=== PATIENT | female | born 1935 | race Caucasian/White ===

== ENCOUNTER 2021-12-23 09:15 | Outpatient (CLI) | payer MEDICARE, BC, SELFPAY | END 2021-12-23 09:16 | disposition home or self-care (01) | LOC: AMB 01-06 08:11 | PROVIDERS: PCP Family Medicine; Visit Provider Emergency Medicine Emergency Medical Services | DX: I21.4 Non-ST elevation (NSTEMI) myocardial infarction (principal); J44.1 Chronic obstructive pulmonary disease with (acute) exacerbation | CPT/HCPCS: A0425; A0434 ==

== ENCOUNTER 2021-12-23 09:58 | Emergency (ER) | payer MEDICARE, BC, SELFPAY ==
[2021-12-23] VITALS (20 sets, daily range): BP systolic 122–194; BP diastolic 69–95; PULSE 57–70; RESP 18–27; O2SAT 91–98; BMI 16.1
--- NOTE | 2021-12-23 10:42 | CRLHL7_ITS ---
For Patients: As a result of the Century Cures Act, medical imaging exams and procedure reports are released immediately into your electronic medical record. You may view this report before your referring provider. If you have questions, please contact your health care provider. INDICATION: Difficulty breathing. TECHNIQUE: Chest 1 view. COMPARISON: Chest radiograph 10/08/2021. CT chest 11/27/2021. FINDINGS: The previously seen left upper lung opacity has resolved. No new focal consolidation. Chronic bilateral coarse interstitial opacities, bronchiectasis, and bilateral perihilar scarring. No pleural effusion or pneumothorax. Pulmonary hyperinflation. Heart size upper limits of normal. Thoracolumbar curve. IMPRESSION: 1. Resolution of previously seen left upper lung opacity. No new acute cardiopulmonary findings. 2. Stable bilateral scarring, bronchiectasis, and coarse interstitial opacities. Dictated by Trudi Stoll MD @ 12/23/2021 12:04:50 PM (Electronically Signed)
[2021-12-23 11:08] LABS: Basophils Percent Auto 0.7 % (0.0-3.0); Eosinophils Percent Auto 1.1 % (0.0-7.0); Hematocrit 42.4 % (33.0-51.0); Hemoglobin* 14.1 gm/dL (12.0-16.0); Immature Granulocytes Abs Auto 0.02 K/uL (0.00-0.30); Lymphocytes Percent Auto 33.9 % (20-44); Mean Corpuscular HGB Conc 33 gm/dL (32-36); Mean Corpuscular Hemoglobin 28 pg (26-34); Mean Corpuscular Volume 83 fL (80-100); Monocytes Percent Auto 14.6 % (0.0-11.0); Platelet Count* 180 K/uL (140-440); RDW Coefficient of Variation % 16.3 % (11.5-15.5); Red Blood Count 5.09 m/uL (4.00-5.20)
[2021-12-23 11:12] LABS: Slide Review Reflex No
[2021-12-23 11:29] LABS: Albumin* 4.2 g/dL (3.3-5.0); Chloride* 96 mmol/L (96-114)
[2021-12-23 11:30] LABS: Potassium* 4.2 mmol/L (3.6-5.1); Sodium* 134 mmol/L (135-149)
[2021-12-23 11:32] LABS: Bilirubin Total* 0.6 mg/dL (0.1-1.5); Creatinine* 0.9 mg/dL (0.5-1.5); Est. Creatinine Clearance* 27.69; Estimated Glomerular Filt Rate 63 ml/min
[2021-12-23 11:33] LABS: Alanine Aminotransferase* 16 U/L (4-35); Alkaline Phosphatase* 146 U/L (40-150); Aspartate Amino Transferase* 34 U/L (12-35); Blood Urea Nitrogen* 26 mg/dL (7-30); Carbon Dioxide* 30 mmol/L (20-32); Glucose* 130 mg/dL (60-115); INR 2.29 (0.91-1.10); Prothrombin Time 25.6 Seconds; Total Protein* 7.7 g/dL (6.0-8.3)
[2021-12-23 11:36] LABS: C Reactive Protein* 2.9 mg/dL (0.5-1.0)
[2021-12-23 11:42] LABS: NT Pro B Type NatriureticPept* 3410 PG/mL (0-450)
[2021-12-23 11:48] LABS: Troponin I* 0.24 ng/mL (0.01-0.04)
--- NOTE | 2021-12-23 11:48 | ED.NURSE ---
lab called with critical troponin 0.24, dr. hickey updated.
[2021-12-23 11:50] LABS: PCR FLU A Negative PCR FLU A (Negative); PCR FLU B Negative PCR FLU B (Negative); SARS PCR* Negative SARS-CoV-2 (Negative)
--- NOTE | 2021-12-23 11:51 | ED.SOB ---
HPI - SOB/Dyspnea General Time Seen by Provider: 10:30 Date Seen: 12/23/21 Chief Complaint: Shortness of Breath/Dyspnea Stated Complaint: Struggling to breathe, COPD Time Seen by Provider: 12/23/21 10:27 Source: patient, family and RN notes reviewed Mode of arrival: ambulatory Limitations: no limitations History of Present Illness HPI Narrative: Carmen is a very pleasant 86-year-old female who has a history of SVT status post ablation August when he 23, non tobacco induced COPD, diastolic heart failure, who comes to the emergency room with her for evaluation of difficulty breathing and ongoing cough. Patient notes that since it has been humid outside she has had a harder time breathing has and has tended to stay in her house. On TuesdayDecember 21 or 48 hours ago she began having occasional episodes of feeling like she was going to pass out. This happened once on December 21 again last night and again this morning. She describes this feeling as being dizzy and upon further discussion she states she almost feels like she is rocking back and forth. She denies chest pain but did note chest pressure on December 21. No chest pain or pressure today. Patient had a history of SVT with ablation earlier this year. He did have a heart catheterization done at that time. She notes that she has continued difficulty breathing and does occasionally get dark green or brown colored sputum. She is currently anticoagulated secondary to history of AFib. According to patient she also had a blood clot but I do not note this in her history. She has not skipped any doses over warfarin. She also notes that she has had a sore throat but has not had a fever. She notes occasional sores in her mouth treated with nystatin. MD elicited complaint: shortness of breath and cough Pertinent past history: COPD, congestive heart failure, pneumonia and DVT Onset (ago): day(s) Timing: constant Severity: moderate Exacerbating factors: lying flat, exertion, movement, coughing, talking and humidity Relieving factors: rest Known history of: COPD and congestive heart failure Associated symptoms: chest pain (Denies pain but describes a heaviness on December 21.) Treatment prior to arrival: bronchodilator (Nebulizer did not seem to help.) Related Data Home oxygen amount: none Previous Rx's Medication Instructions Recorded albuterol sulfate 90 mcg/actuation 2 puff INHALATION Q4H PRN #8.5 g 12/04/21 aerosol inhaler Allergies Allergy/AdvReac Type Severity Reaction Status Date / Time Angiotensin-converting Allergy Mild Uncoded 12/23/21 10:18 enzyme inhibitor Review of Systems Status of ROS: Reports: 10 or more systems reviewed and unremarkable except as noted in History and below Const: Reports: change in weight (Continued weight loss) and fatigue; Denies: fever Eyes: Denies: change in vision or blurry vision ENMT: Reports: throat pain (Describes recurrent treatment with nystatin.); Denies: neck pain Cardio: Reports: chest pain (Chest heaviness) and shortness of breath with exertion Resp: Reports: shortness of breath, cough and change in phlegm color GI: Denies: abdominal pain, nausea or vomiting : Denies: painful urination or urinary frequency Musculo: Denies: back pain or neck pain Integ/Breast: Denies: rash or itching Neuro: Reports: weakness in extremities; Denies: headache or numbness in extremities Endo: Reports: fatigue PFSH [facility] Medical History History of cataract History of oral lesions Surgical History History of hysterectomy Social History Smoking Status: Never smoker Do you use any of these nicotine containing products: None How often do you have a drink containing alcohol: never How often do you have six or more drinks on one occasion: Never AUDIT-C Alcohol total score: 0 Non-prescribed substance use: denies use service: No Exam Const: Vital Signs, click to edit/add: Vital Signs - 24 hr 12/23/21 10:10 12/23/21 10:30 12/23/21 11:00 Pulse Rate [Pulse Oximeter] 62 62 57 L Respiratory Rate 24 20 20 Blood Pressure [Le ft Upper Arm] 155/76 H 147/73 H 139/73 Pulse Oximetry 98 97 96 12/23/21 11:30 12/23/21 12:00 12/23/21 12:30 Pulse Rate [Pulse Oximeter] 57 L 58 L 58 L Respiratory Rate 20 19 20 Blood Pressure [Le ft Upper Arm] 122/69 138/79 139/76 Pulse Oximetry 96 96 96 12/23/21 13:00 12/23/21 13:30 Pulse Rate [Pulse Oximeter] 61 61 Respiratory Rate 20 21 Blood Pressure [Le ft Upper Arm] 154/75 H 151/74 H Pulse Oximetry 95 95 Documenting provider has reviewed patient's vital signs: yes Common normals: no apparent distress and oriented x3 General appearance: cooperative Nutritional appearance: not cachectic Orientation/consciousness: Yes oriented to person, Yes oriented to place and Yes oriented to time HENMT: Common normals: normocephalic, head/scalp atraumatic, external ears normal and external nose normal Head and scalp: normocephalic and atraumatic Face and sinus: normal facial exam Nose: external nose normal External ear: external ears normal Mouth: oral and palatal mucosa normal Throat: posterior oropharynx normal Other: At this time I do not note any lesions in mouth or in throat. Eye: Common normals: PERRL and conjunctivae normal General eye: normal appearance of both eyes Conjunctiva: conjunctiva(e) normal Pupil: PERRL Neck & C-Spine: Common normals: full ROM, no lymphadenopathy and supple Cervical spine: cervical ROM normal Lymph: Lymphatic: no lymphadenopathy noted Resp: Effort & inspection: able to speak in complete sentences, pursed lip breathing, labored (With activity) and audible wheezes Auscultation: crackles (On the right.) Laterality: right Cardio: Common normals: regular rate Rate: regular rate Rhythm: abnormal rhythm irregularly irregular GI: Common normals: soft to palpation Palpation: soft : Common normals: no CVA tenderness Bladder/kidney exam: no CVA tenderness Back & Pelvis: Common normals: no CVA tenderness Other: Kyphosis Extremity: Common normals: normal to inspection Neuro: Common normals: oriented x3 Sensorium/orientation: oriented to person, oriented to place and oriented to time Psych: Common normals: mental status grossly normal Skin: Common normals: no rashes or lesions noted General skin exam: no rashes or lesions noted Course Course Hospital Course: Patient arrives complaining of respiratory symptoms of cough, shortness of breath that has been getting gradually worse and now complicated by 3 episodes of feeling lightheaded without syncope. She has a history of SVT with ablation, non tobacco induced COPD, and unexplained weight loss. She states I almost passed out. At this time will have an IV placed, continuous cardiac monitoring and oximetry as well as lab draw CBC, comprehensive panel, CRP, INR, urinalysis and chest x-ray as well as repeat EKGs and troponins. Reevaluation(s) Reevaluation #1: Patient is doing well. Her oxygen, pulse and blood pressure have remained normal during her entire stay. She is informed that troponin is elevated at 0.24 and that she will need hospitalization at a cardiac hospital. ProBNP is elevated at 3410 and I do not have any previous values for comparison. Chest x-ray however does not show any evidence of overwhelming pulmonary edema or widened mediastinum. INR is therapeutic at 2.29. Reevaluation #2: Patient was up to the bathroom and was short of breath and thus did her own albuterol inhaler which helped. I do speak with her and her regarding her troponin which has come back elevated. Her INR is therapeutic at 2.29. Second troponin 0.22. We have unfortunately been unable to transfer patient to any of the hospitals in this [facility] specifically [facility] where patient usually has her cardiology care. We were able to place patient on wait list for [facility], Dr. Schaefer accepting. However, there is likely a 12-24 hour wait. In the interim we will admit patient to the hospital. No chest pain at this time. Consultations Consultation #1: I spoke with Dr. Schaefer from [facility]. She has a letter stamping machine operator who does accept this patient in transfer. However, there is a weight as [place] is on divert at this time. Patient is on the waiting list but will be admitted to the floor pending transfer. We spoke in regards to medications and Dr. Schaefer suggests aspirin heparin Plavix and an antibiotic for bronchitis. I specifically reminded her that INR is elevated at 2.29 as patient is on warfarin. She states with heparin we should do the drip and not the bolus. I have spoken with accepting MD here at the hospital and we will do aspirin 324 heparin bolus based on weight and Plavix 300 mg. Vital Signs Vital signs: Initial Vital Signs Temperature Source Temporal Artery Scan 12/23/21 10:10 Pulse Rate 62 12/23/21 10:10 Pulse Rhythm 12/23/21 10:10 Respiratory Rate 24 12/23/21 10:10 Blood Pressure 155/76 H 12/23/21 10:10 Blood Pressure Mean 102 12/23/21 10:10 Blood Pressure Position Supine 12/23/21 10:10 Pulse Oximetry 98 12/23/21 10:10 Oxygen Delivery Method 12/23/21 10:10 Vital Signs Pulse Rate 62 12/23/21 10:10 Respiratory Rate 24 12/23/21 10:10 Blood Pressure 155/76 H 12/23/21 10:10 Pulse Oximetry 98 12/23/21 10:10 Pulse Rate 61 12/23/21 13:30 Respiratory Rate 21 12/23/21 13:30 Blood Pressure 151/74 H 12/23/21 13:30 Pulse Oximetry 95 12/23/21 13:30 MDM - SOB/Dyspnea MDM Narrative Medical decision making narrative: 1. Non STEMI-patient has elevation of her troponin to 0.24. She does have a therapeutic INR of 2.29. Has no ongoing chest pain at this time but mainly respiratory symptoms. Consultation with [facility] letter stamping machine operator. Does suggest aspirin heparin Plavix and an antibiotic. I do question the use of antiplatelets anticoagulants given patient's INR of 2.29. Dr. Schaefer suggests no bolus of heparin but using a drip. I speak with accepting MD we will use the lower dose of Plavix at 300 mg. Patient continues to be pain-free. I speak with Carmen and her regarding the use of these blood thinners in the setting of an elevated INR. We speak about risk of bleeding and they do understand that risk. They are giving me permission to go ahead with these medications. 2. COPD exacerbation versus bronchitis.. We have obtained a sputum culture. Her white count is actually low at 2.8. Her COVID is negative. Will treat with Rocephin 1 g IV and Zithromax 500 mg IV. Chest x-ray reassuring. Evidence of pneumonia. 3. Elevated proBNP-patient has no edema to suggest right-sided heart failure. She does have crackles in her right side of her chest but no evidence of pulmonary edema on her chest x-ray. 3. Disposition-currently awaiting accepting facility. I did speak with [facility] letter stamping machine operator who suggest hospitalization at a cardiac Hospital but [facility] unable to accommodate this. [facility] also unable to accommodate. Will continue to call. Addendum: We have attempted transfer to all cardiac ready hospitals in the [facility] and have been unsuccessful. We were able to get on a waiting list at [facility] who are currently on divert but thinks that possibly they could accept patient in 12-24 hours. They were able to provide me with a cardiac consult which is dictated earlier in this note. Dr. Chanel, hospitalist has agreed to accept this patient to the floor here at [facility] pending transfer. She will be in the CCU. Medical Records Attestation: I reviewed the patient's medical records. Lab Data Attestation: I reviewed the patient's lab results. Labs: Lab Results 12/23/21 12/23/21 12/23/21 Range/Units 11:00 11:00 11:00 WBC 2.80 L (4.50-11.00) K/uL RBC 5.09 (4.00-5.20) m/uL Hgb 14.1 (12.0-16.0) gm/dL Hct 42.4 (33.0-51.0) % MCV 83 (80-100) fL MCH 28 (26-34) pg MCHC 33 (32-36) gm/dL RDW Coeff of Amor 16.3 H (11.5-15.5) % Plt Count 180 (140-440) K/uL Neut % (Auto) 49.0 (42.0-72.0) % Lymph % (Auto) 33.9 (20-44) % Holt % (Auto) 14.6 H (0.0-11.0) % Eos % (Auto) 1.1 (0.0-7.0) % Baso % (Auto) 0.7 (0.0-3.0) % Neut # (Auto) 1.40 L (1.7-7.0) K/uL Lymph # (Auto) 0.90 (0.90-2.90) K/uL Holt # (Auto) 0.40 (0.00-0.90) K/UL Eos # (Auto) 0.00 (0.00-0.50) K/uL Baso # (Auto) 0.00 (0.00-0.30) K/uL Abs Immat Gran (auto) 0.02 (0.00-0.30) K/uL INR 2.29 H (0.91-1.10) Sodium 134 L (135-149) mmol/L Potassium 4.2 (3.6-5.1) mmol/L Chloride 96 (96-114) mmol/L Carbon Dioxide 30 (20-32) mmol/L BUN 26 (7-30) mg/dL Creatinine 0.9 (0.5-1.5) mg/dL Estimated Creat Clear 27.69 Estimated GFR 63 ml/min Glucose 130 H (60-115) mg/dL Calcium 9.0 (8.4-10.6) mg/dL Total Bilirubin 0.6 (0.1-1.5) mg/dL AST 34 (12-35) U/L ALT 16 (4-35) U/L Alkaline Phosphatase 146 (40-150) U/L Troponin I (0.01-0.04) ng/mL C-Reactive Protein 2.9 H (0.5-1.0) mg/dL NT-Pro-B Natriuret Pep 3410 H (0-450) PG/mL Total Protein 7.7 (6.0-8.3) g/dL Albumin 4.2 (3.3-5.0) g/dL Urine Color (Yellow) Urine Appearance (Clear) Urine pH (5.0-8.5) Ur Specific Velva (1.000-1.030) Urine Protein (Negative) Urine Glucose (UA) (Negative) Urine Ketones (Negative) Urine Blood (Negative) Urine Nitrite (Negative) Urine Bilirubin (Negative) Urine Urobilinogen (0.2-1.0) Ur Leukocyte Esterase (Negative) Urine RBC (0-2) Urine WBC (0-5) Ur Squamous Epith Cells (None-Few) Urine Bacteria (None) SARS-CoV-2 (PCR) (Negative) Influenza Type A (PCR) (Negative) Influenza Type B (PCR) (Negative) 12/23/21 12/23/21 12/23/21 Range/Units 11:00 11:00 11:01 WBC (4.50-11.00) K/uL RBC (4.00-5.20) m/uL Hgb (12.0-16.0) gm/dL Hct (33.0-51.0) % MCV (80-100) fL MCH (26-34) pg MCHC (32-36) gm/dL RDW Coeff of Amor (11.5-15.5) % Plt Count (140-440) K/uL Neut % (Auto) (42.0-72.0) % Lymph % (Auto) (20-44) % Holt % (Auto) (0.0-11.0) % Eos % (Auto) (0.0-7.0) % Baso % (Auto) (0.0-3.0) % Neut # (Auto) (1.7-7.0) K/uL Lymph # (Auto) (0.90-2.90) K/uL Holt # (Auto) (0.00-0.90) K/UL Eos # (Auto) (0.00-0.50) K/uL Baso # (Auto) (0.00-0.30) K/uL Abs Immat Gran (auto) (0.00-0.30) K/uL INR (0.91-1.10) Sodium (135-149) mmol/L Potassium (3.6-5.1) mmol/L Chloride (96-114) mmol/L Carbon Dioxide (20-32) mmol/L BUN (7-30) mg/dL Creatinine (0.5-1.5) mg/dL Estimated Creat Clear Estimated GFR ml/min Glucose (60-115) mg/dL Calcium (8.4-10.6) mg/dL Total Bilirubin (0.1-1.5) mg/dL AST (12-35) U/L ALT (4-35) U/L Alkaline Phosphatase (40-150) U/L Troponin I 0.24 H* (0.01-0.04) ng/mL C-Reactive Protein (0.5-1.0) mg/dL NT-Pro-B Natriuret Pep (0-450) PG/mL Total Protein (6.0-8.3) g/dL Albumin (3.3-5.0) g/dL Urine Color Yellow (Yellow) Urine Appearance Clear (Clear) Urine pH 7.0 (5.0-8.5) Ur Specific Velva 1.015 (1.000-1.030) Urine Protein Negative (Negative) Urine Glucose (UA) Negative (Negative) Urine Ketones Negative (Negative) Urine Blood Trace-intact A (Negative) Urine Nitrite Negative (Negative) Urine Bilirubin Negative (Negative) Urine Urobilinogen 0.2 (0.2-1.0) Ur Leukocyte Esterase Negative (Negative) Urine RBC 0-2 (0-2) Urine WBC 0-2 (0-5) Ur Squamous Epith Cells None (None-Few) Urine Bacteria None (None) SARS-CoV-2 (PCR) Negative SARS-CoV-2 (Negative) Influenza Type A (PCR) Negative PCR FLU A (Negative) Influenza Type B (PCR) Negative PCR FLU B (Negative) 12/23/21 Range/Units 13:53 WBC (4.50-11.00) K/uL RBC (4.00-5.20) m/uL Hgb (12.0-16.0) gm/dL Hct (33.0-51.0) % MCV (80-100) fL MCH (26-34) pg MCHC (32-36) gm/dL RDW Coeff of Amor (11.5-15.5) % Plt Count (140-440) K/uL Neut % (Auto) (42.0-72.0) % Lymph % (Auto) (20-44) % Holt % (Auto) (0.0-11.0) % Eos % (Auto) (0.0-7.0) % Baso % (Auto) (0.0-3.0) % Neut # (Auto) (1.7-7.0) K/uL Lymph # (Auto) (0.90-2.90) K/uL Holt # (Auto) (0.00-0.90) K/UL Eos # (Auto) (0.00-0.50) K/uL Baso # (Auto) (0.00-0.30) K/uL Abs Immat Gran (auto) (0.00-0.30) K/uL INR (0.91-1.10) Sodium (135-149) mmol/L Potassium (3.6-5.1) mmol/L Chloride (96-114) mmol/L Carbon Dioxide (20-32) mmol/L BUN (7-30) mg/dL Creatinine (0.5-1.5) mg/dL Estimated Creat Clear Estimated GFR ml/min Glucose (60-115) mg/dL Calcium (8.4-10.6) mg/dL Total Bilirubin (0.1-1.5) mg/dL AST (12-35) U/L ALT (4-35) U/L Alkaline Phosphatase (40-150) U/L Troponin I 0.22 H* (0.01-0.04) ng/mL C-Reactive Protein (0.5-1.0) mg/dL NT-Pro-B Natriuret Pep (0-450) PG/mL Total Protein (6.0-8.3) g/dL Albumin (3.3-5.0) g/dL Urine Color (Yellow) Urine Appearance (Clear) Urine pH (5.0-8.5) Ur Specific Velva (1.000-1.030) Urine Protein (Negative) Urine Glucose (UA) (Negative) Urine Ketones (Negative) Urine Blood (Negative) Urine Nitrite (Negative) Urine Bilirubin (Negative) Urine Urobilinogen (0.2-1.0) Ur Leukocyte Esterase (Negative) Urine RBC (0-2) Urine WBC (0-5) Ur Squamous Epith Cells (None-Few) Urine Bacteria (None) SARS-CoV-2 (PCR) (Negative) Influenza Type A (PCR) (Negative) Influenza Type B (PCR) (Negative) Imaging Data Chest x-ray: Attestation: I have reviewed the pertinent imaging results. My impression: Chronic lung markings. Radiologist's impression: No acute findings with resolution of left upper lobe infiltrate previously. ECG Data Attestation: I personally reviewed and interpreted this ECG as follows: ECG interpretation date: 12/23/21 ECG interpretation time: 10:30 Interpretation: Sinus rhythm with occasional PVC. Am not entirely convinced that she is not going in and out of atrial fibrillation. Second EKG by my read shows sinus rhythm at a rate of 69. Do believe that there is worsening of the T-wave inversion in the inferior leads. Nonspecific T-wave abnormality. Downsloping in the inferior leads but this is very minor. Rate is at 68. QT is normal. Critical Care Time Critical Care Time Total Critical Care Time in Minutes: 90 Discharge Plan Discharge Prescriptions: No Action albuterol sulfate 90 mcg/actuation HFA aerosol inhaler 2 puff inhalation Q4H PRN (Reason: shortness of breath or wheezing) Qty: 8.5 11RF Follow Up/Referrals: Gonzalez Mckay MD [Primary Care Provider] -
[2021-12-23 14:35] LABS: Troponin I* 0.22 ng/mL (0.01-0.04)
[2021-12-23 14:35] LABS: Appearance Urine Clear (Clear); Bilirubin Urine Negative (Negative); Blood Urine Trace-intact (Negative); Color Urine Yellow (Yellow); Glucose Urine Negative (Negative); Ketones Urine Negative (Negative); Leukocyte Esterase Urine Negative (Negative); Nitrite Urine Negative (Negative); Protein Urine Negative (Negative); Specific Gravity Urine 1.015 (1.000-1.030); Urobilinogen Urine 0.2 (0.2-1.0)
--- NOTE | 2021-12-23 14:35 | ED.NURSE ---
Critical result from lab: troponin 0.22. and RN updated.
--- NOTE | 2021-12-23 14:52 | ED.NURSE ---
Per Dr Diaz, pt accepted at [facility], but may be a 12-14 hour wait for a bed
[2021-12-23 15:17] LABS: RBC Urine 0-2 (0-2); WBC Urine 0-2 (0-5)
[2021-12-23 16:35] LABS: HCO3 VBG 29 mmol/L (21-28); Lactate* 1.1 mmol/L (0.5-1.9); PCO2 VBG 46 mmHG (40-50); PO2 VBG 32.1 mmHG (25-47); pH VBG 7.409 (7.32-7.43)
[2021-12-23] MEDS: HEPARIN 25,000 UNIT/500 ML BAG 10 UNIT IV (16:42)
[2021-12-23] MEDS: cefTRIAXone 1 GM in 0.9 % SODIUM CHLORIDE Mini-bag 100 ML IVPB (16:44)
[2021-12-23] MEDS: ASPIRIN 81 MG TAB.CHEW 324 MG PO (16:44)
[2021-12-23] MEDS: CLOPIDOGREL 300 MG TABLET PO (16:45)
--- NOTE | 2021-12-23 16:50 | P.EN_ITS ---
Chart Event Note Time Seen by Provider: 16:30 Date Seen: 12/23/21 Chart Event Note: I was in the process of assessing this patient for admission pending bed availability at [facility], [place], [place], when we received notification that they now have an assigned bed to accept her. Thus I did not admit this patient to our hospital and she is transferred appropriately to [facility].
[2021-12-23] MEDS: AZITHROMYCIN 250 MG TABLET 500 MG PO (16:52)
[2021-12-23] MEDS: IPRAT-ALBUT 0.5-2.5 MG/3 ML NEB 1 NEB IH (16:52)
--- NOTE | 2021-12-23 17:20 | ED.NURSE ---
Report to CAMILLE Ramesh at [facility]. Pt will be going to [facility] [address]. EMS called for transport. ETA for transport is one hour.
--- NOTE | 2021-12-23 18:43 | ED.NURSE ---
Pt resting on cart. Denies needs. Call light within reach.
--- NOTE | 2021-12-23 19:30 | ED.NURSE ---
Pt and belongings transferred to [facility] via [facility]
== END 2021-12-23 20:45 | disposition short-term general hospital (02) ==
PROVIDERS: Internal Medicine; Emergency Provider Family Medicine; PCP Family Medicine
DX: I21.4 Non-ST elevation (NSTEMI) myocardial infarction (principal); J44.1 Chronic obstructive pulmonary disease with (acute) exacerbation
CPT/HCPCS: 36415; 71045; 80053; 81003; 81015; 82803; 83605; 83880; 84484; 85025; 85610; 86140; 87040; 87070; 87186; 87502; 87635; 93005; 94640; 96365; 99285; 99291; 99292; A9270; J0696; J1644

== ENCOUNTER 2022-01-08 15:37 | Outpatient (CLI) | payer MEDICARE, BC, SELFPAY ==
[2022-01-08 15:45] LABS: INR 1.78 (0.91-1.10); Prothrombin Time 21.1 Seconds
== END 2022-01-08 15:38 | disposition home or self-care (01) ==
PROVIDERS: PCP Family Medicine; Visit Provider Family Medicine
DX: I48.91 Unspecified atrial fibrillation (principal)
CPT/HCPCS: 85610

== ENCOUNTER 2022-01-23 08:35 | Outpatient (CLI) | payer MEDICARE, BC, SELFPAY | END 2022-01-23 08:36 | disposition home or self-care (01) | LOC: AMB 06-02 15:17 | PROVIDERS: PCP Family Medicine; Visit Provider Family Medicine | DX: R06.09 Other forms of dyspnea (principal) | CPT/HCPCS: A0425; A0427 ==

== ENCOUNTER 2022-01-23 09:05 | Emergency (ER) | payer MEDICARE, BC, SELFPAY ==
[2022-01-23] VITALS (9 sets, daily range): BP systolic 130–148; BP diastolic 64–104; PULSE 60–69; RESP 10–20; TEMP 36.7; O2SAT 91–100; BMI 13.7
--- NOTE | 2022-01-23 09:30 | ED_ITS ---
HPI - General Adult General Time Seen by Provider: 09:30 Date Seen: 01/23/22 Chief complaint: Shortness of Breath/Dyspnea Stated complaint: Difficulty Breathing Time Seen by Provider: 01/23/22 09:21 Source: patient, EMS, RN notes reviewed and old records reviewed (ED visit from 12/2021 reviewed) Mode of arrival: EMS Limitations: no limitations History of Present Illness HPI narrative: This 86-year-old female is coming in with primary complaint of shortness of breath. She was reportedly found to have O2 sats in the mid 80s per EMS, did give her a DuoNeb I believe and oxygen and she came up into the mid 90s. She has 9 nicotine associated COPD. Looking in her records, she was transferred out for non STEMI to [facility] near the end of December. It does not sound like she had angiography, she states they did some imaging. She talks of having coughing and respiratory symptoms for over a month. There is also associated weight loss, report of 15 lb over a month. She is having no pain outside of her mouth right now. She states she has sores in her mouth. When I question her where the ER it sounds as if it is generalized pain. She saw her computer support technician about 2 weeks ago and they stop the sodium chloride nebulization. She has a burning pain in her mouth. She has felt a little blocked upper congested in her head but no drainage. No sore throat. She states many of her medicines have been changed. She does not endorse any chest pain. Note in her discharge summary from [facility] that she has, it looks that she had a CT scan of her chest, a cardiac MRI, an echo, cardiac catheterization. Her shortness of breath really started to worsen last night around 9:00 p.m.. Her discharge medicines are albuterol inhaler p.r.n. Albuterol nebs for bronchiectasis 2 to 4 times a day Amlodipine 2.5 mg daily Was given Augmentin 500 mg every 12 hours for 5 days, was changed to cefdinir 300 mg which she states she finished, further details not known Ensure Hydrochlorothiazide 12.5 mg daily DuoNebs 4 times a day Losartan 50 mg daily Primidone 50 mg t.i.d. Sodium chloride nebulization, has stopped Sotalol 80 mg b.i.d. Coumadin 1 mg Tuesday and Tuesday, 2 mg Tuesday Related Data Home Medications Medication Instructions Recorded Confirmed hydrochlorothiazide 12.5 mg capsule 12.5 mg PO DAILY 12/23/21 01/01/22 losartan 50 mg tablet 100 mg PO DAILY 12/23/21 01/01/22 primidone 50 mg tablet 50 mg PO TID 12/23/21 01/01/22 sotalol 80 mg tablet 80 mg PO BID 12/23/21 01/01/22 warfarin 2 mg tablet 1 - 2 mg PO DAILY 12/23/21 01/01/22 amlodipine 5 mg tablet 2.5 mg PO QDAY 01/01/22 01/01/22 cefdinir 300 mg capsule 300 mg PO QDAY 01/01/22 01/01/22 sodium chloride 3 % for 4 ml inhalation QID 01/01/22 01/01/22 nebulization Previous Rx's Medication Instructions Recorded albuterol sulfate 90 mcg/actuation 2 puff inhalation Q4H PRN 12/04/21 aerosol inhaler shortness of breath or wheezing #8.5 grams albuterol sulfate 2.5 mg/0.5 mL 2.5 mg (0.5 mL) inhalation .2-4 x 01/12/22 solution for nebulization daily #30 ea ipratropium 0.5 mg-albuterol 3 mg 3 ml inhalation QID #180 mL 01/18/22 (2.5 mg base)/3 mL nebulization soln doxycycline monohydrate 100 mg 100 mg PO BID #14 caps 01/23/22 capsule nystatin 100,000 unit/mL oral 5 ml buccal BID 10 days #100 mL 01/23/22 suspension Allergies Allergy/AdvReac Type Severity Reaction Status Date / Time amoxicillin AdvReac Severe Diarrhea Verified 01/01/22 15:02 Angiotensin-converting Allergy Mild Uncoded 01/01/22 15:02 enzyme inhibitor Review of Systems Status of ROS: Reports: 10 or more systems reviewed and unremarkable except as noted in History and below [facility] Medical History History of cataract History of oral lesions Surgical History History of hysterectomy Social History Smoking Status: Never smoker Do you use any of these nicotine containing products: None How often do you have a drink containing alcohol: never How often do you have six or more drinks on one occasion: Never AUDIT-C Alcohol total score: 0 Non-prescribed substance use: denies use service: No Exam Const: Vital Signs, click to edit/add: Vital Signs - 24 hr 01/23/22 09:17 01/23/22 09:20 01/23/22 09:30 Temperature 98.1 F Pulse Rate [Pulse Oximeter] 65 64 Respiratory Rate 20 16 Blood Pressure [Ri ght Upper Arm] 148/90 H 148/104 H Pulse Oximetry 99 94 93 Oxygen Delivery Me thod Nasal Cannula Nasal Cannula Nasal Cannula Oxygen Flow Rate 2 2 01/23/22 10:30 01/23/22 11:00 01/23/22 12:00 Temperature Pulse Rate [Pulse Oximeter] 61 60 64 Respiratory Rate 12 14 20 Blood Pressure [Ri ght Upper Arm] 137/64 130/79 142/67 H Pulse Oximetry 100 98 93 Oxygen Delivery Me thod Nasal Cannula Room Air Room Air Oxygen Flow Rate Documenting provider has reviewed patient's vital signs: yes Common normals: no apparent distress, oriented x3 and alert General appearance: cooperative, comfortable and frail appearing Nutritional appearance: cachectic HENMT: Common normals: normocephalic, head/scalp atraumatic, hearing grossly normal bilaterally, external ears normal, external nose normal, nasal mucous membranes and turbinates normal, moist oral mucous membranes (Mildly globally erythematous, some white areas noted) and dentition normal (Has upper and lower dentures which were removed) Head and scalp: normocephalic and atraumatic Nose: external nose normal and nasal mucous membranes and turbinates normal External ear: external ears normal Neuro: Common normals: oriented x3 Sensorium/orientation: alert Course Reevaluation(s) Reevaluation #1: Patient is having a headache, will get her some Tylenol. Reviewed that her chest CT is showing stable changes of her bronchiectasis. We are going to turn her oxygen off and see if she requires it. Time: 11:51 Reevaluation #2: Patient did ambulate without becoming significantly hypoxic. The lower she went was 91-92% but notably there was a little tremor with walking. She and I reviewed that the bronchiectasis can give her mucous plugging. She is coughing up copious sputum since the DuoNeb by EMS. She only had a 5 day course of antibiotics in that was a few weeks ago. We discuss pros and cons of using antibiotics and I do think we have enough indication that we should consider on them knowing she has bronchiectasis. This time she is stabilized to go home and they are happy to try this. They know that I cannot guarantee that she will stay this stable and are aware she may need to return if worsening. Time: 12:56 Vital Signs Vital signs: Initial Vital Signs Temperature 98.1 F 01/23/22 09:17 Temperature Source Temporal Artery Scan 01/23/22 09:17 Pulse Rate 65 01/23/22 09:17 Pulse Rhythm 01/23/22 09:17 Respiratory Rate 20 01/23/22 09:17 Blood Pressure 148/90 H 01/23/22 09:17 Blood Pressure Mean 109 01/23/22 09:17 Blood Pressure Position Sitting 01/23/22 09:17 Pulse Oximetry 99 01/23/22 09:17 Oxygen Delivery Method 01/23/22 09:17 Oxygen Flow Rate 2 01/23/22 09:17 Vital Signs Temperature 98.1 F 01/23/22 09:17 Pulse Rate 65 01/23/22 09:17 Respiratory Rate 20 01/23/22 09:17 Blood Pressure 148/90 H 01/23/22 09:17 Pulse Oximetry 99 01/23/22 09:17 Oxygen Delivery Method 01/23/22 09:17 Oxygen Flow Rate 2 01/23/22 09:17 Temperature 98.1 F 01/23/22 09:17 Pulse Rate 64 01/23/22 12:00 Respiratory Rate 20 01/23/22 12:00 Blood Pressure 142/67 H 01/23/22 12:00 Pulse Oximetry 93 01/23/22 12:00 Oxygen Delivery Method 01/23/22 12:00 Oxygen Flow Rate 2 01/23/22 09:30 Medical Decision Making Lab Data Lab results reviewed: Yes I reviewed the patient's lab results Labs: Lab Results 01/23/22 01/23/22 01/23/22 Range/Units 09:10 09:20 09:20 WBC (4.50-11.00) K/uL RBC (4.00-5.20) m/uL Hgb (12.0-16.0) gm/dL Hct (33.0-51.0) % MCV (80-100) fL MCH (26-34) pg MCHC (32-36) gm/dL RDW Coeff of Amor (11.5-15.5) % Plt Count (140-440) K/uL Neut % (Auto) (42.0-72.0) % Lymph % (Auto) (20-44) % [place] % (Auto) (0.0-11.0) % Eos % (Auto) (0.0-7.0) % Baso % (Auto) (0.0-3.0) % Neut # (Auto) (1.7-7.0) K/uL Lymph # (Auto) (0.90-2.90) K/uL [place] # (Auto) (0.00-0.90) K/UL Eos # (Auto) (0.00-0.50) K/uL Baso # (Auto) (0.00-0.30) K/uL Abs Immat Gran (auto) (0.00-0.30) K/uL ESR (2-20) mm/hr INR (0.91-1.10) VBG pH 7.370 (7.32-7.43) VBG pCO2 53 H (40-50) mmHG VBG pO2 38.6 (25-47) mmHG VBG HCO3 31 H (21-28) mmol/L Sodium 134 L (135-149) mmol/L Potassium 4.3 (3.6-5.1) mmol/L Chloride 99 (96-114) mmol/L Carbon Dioxide 30 (20-32) mmol/L BUN 20 (7-30) mg/dL Creatinine 0.8 (0.5-1.5) mg/dL Estimated Creat Clear 23.56 Estimated GFR 72 ml/min Glucose 98 (60-115) mg/dL Calcium 8.7 (8.4-10.6) mg/dL Total Bilirubin 0.5 (0.1-1.5) mg/dL AST 25 (12-35) U/L ALT 11 (4-35) U/L Alkaline Phosphatase 132 (40-150) U/L Troponin I < 0.01 L (0.01-0.04) ng/mL C-Reactive Protein 2.5 H (0.5-1.0) mg/dL NT-Pro-B Natriuret Pep 2080 H (0-450) PG/mL Total Protein 7.8 (6.0-8.3) g/dL Albumin 3.9 (3.3-5.0) g/dL Procalcitonin 0.12 (<0.50) ng/mL SARS-CoV-2 (PCR) Negative SARS-CoV-2 (Negative) 01/23/22 01/23/22 01/23/22 Range/Units 10:00 10:00 10:00 WBC 2.61 L (4.50-11.00) K/uL RBC 4.78 (4.00-5.20) m/uL Hgb 13.5 (12.0-16.0) gm/dL Hct 40.7 (33.0-51.0) % MCV 85 (80-100) fL MCH 28 (26-34) pg MCHC 33 (32-36) gm/dL RDW Coeff of Amor 15.2 (11.5-15.5) % Plt Count 144 (140-440) K/uL Neut % (Auto) 50.9 (42.0-72.0) % Lymph % (Auto) 30.7 (20-44) % [place] % (Auto) 16.5 H (0.0-11.0) % Eos % (Auto) 1.1 (0.0-7.0) % Baso % (Auto) 0.4 (0.0-3.0) % Neut # (Auto) 1.30 L (1.7-7.0) K/uL Lymph # (Auto) 0.80 L (0.90-2.90) K/uL [place] # (Auto) 0.40 (0.00-0.90) K/UL Eos # (Auto) 0.00 (0.00-0.50) K/uL Baso # (Auto) 0.00 (0.00-0.30) K/uL Abs Immat Gran (auto) 0.01 (0.00-0.30) K/uL ESR 7 (2-20) mm/hr INR 1.57 H (0.91-1.10) VBG pH (7.32-7.43) VBG pCO2 (40-50) mmHG VBG pO2 (25-47) mmHG VBG HCO3 (21-28) mmol/L Sodium (135-149) mmol/L Potassium (3.6-5.1) mmol/L Chloride (96-114) mmol/L Carbon Dioxide (20-32) mmol/L BUN (7-30) mg/dL Creatinine (0.5-1.5) mg/dL Estimated Creat Clear Estimated GFR ml/min Glucose (60-115) mg/dL Calcium (8.4-10.6) mg/dL Total Bilirubin (0.1-1.5) mg/dL AST (12-35) U/L ALT (4-35) U/L Alkaline Phosphatase (40-150) U/L Troponin I (0.01-0.04) ng/mL C-Reactive Protein (0.5-1.0) mg/dL NT-Pro-B Natriuret Pep (0-450) PG/mL Total Protein (6.0-8.3) g/dL Albumin (3.3-5.0) g/dL Procalcitonin (<0.50) ng/mL SARS-CoV-2 (PCR) (Negative) Imaging Data CT scan - chest: Attestation: I have reviewed the pertinent imaging results. Radiologist's impression: Patient: RAMÓN HARRINGTON Facility:?[facility] Patient ID:?[id number] Site Patient ID:?[id number]. Site :?[id number] Study:?CT Chest WITHOUT-01/23/2022 10:18:49 AM Ordering Physician:Chey Angelo Final Report: INDICATION: Hypoxia, worsening cough, COPD TECHNIQUE: CT chest without contrast. COMPARISON: CT chest 11/27/2021 FINDINGS: The heart is normal in size. The main pulmonary artery is mildly prominent measuring 3.5 cm, stable to prior exam. The ascending thoracic aorta measures 3.8 cm, also stable. Stable enlarged precarinal lymph node, measuring 1.8 cm. Evaluation of the hilum is limited due to lack of IV contrast. There is atherosclerotic calcification of the coronary arteries. Stable bilateral bronchial wall thickening with mucous plugging. Stable mild bronchiectasis there are scattered areas of tree-in-bud opacity, also stable to prior exam. There is consolidation with air bronchograms in the right middle lobe. Negative for pleural effusion or pneumothorax. Evaluation of the upper abdomen is unremarkable. Moderate multilevel degenerative changes of the spine. IMPRESSION: Stable bronchiectasis with mild bronchial wall thickening and mucous plugging. Scattered areas of tree-in-bud opacity and right middle lobe atelectasis/consolidation, also appears unchanged. Findings could represent small areas disease/atypical infection, considerations include mycobacterium avium complex. Dictated by Bere Wallace MD @ 01/23/2022 10:35:37 AM Please note that all CT scans at this facility use dose modulation, iterative reconstruction, and/or weight-based dosing when appropriate to reduce radiation dose to as low as reasonably achievable. Dictated by: Bere Wallace MD @ 01/23/2022 10:36:37 (Electronic Signature) Critical Care Time Critical Care Time Critical Care Time: No Discharge Plan Discharge Clinical Impression: Candidiasis of mouth, Hypoxia, Bronchiectasis Condition: Improved Instructions: Oral Candidiasis (ED), Bronchiectasis (ED) Additional Instructions: Start antibiotic as prescribed, this should not interact with your sotalol. Stay on your DuoNebs 4 times a day but if you need nebulization between this, can use the plane albuterol nebulizer that you have. Need to schedule pulmonary or primary care follow-up for your ongoing bronchiectasis issues. If you are worsening, develops increasing shortness of breath or difficulty breathing that is not clearing with you severe nebulizer, do need to return for further evaluation. Activity Level: Activity as Tolerated Prescriptions: New doxycycline monohydrate 100 mg capsule 100 mg PO BID Qty: 14 0RF nystatin 100,000 unit/mL suspension 5 ml buccal BID 10 Days Qty: 100 0RF Rx Instructions: administer 1/2 of dose in each side of the mouth No Action cefdinir 300 mg capsule 300 mg PO QDAY sodium chloride 3 % solution for nebulization 4 ml inhalation QID amlodipine 5 mg tablet 2.5 mg PO QDAY losartan 50 mg tablet 100 mg PO DAILY Label Comments: TAKE TWO TABLETS BY MOUTH DAILY primidone 50 mg tablet 50 mg PO TID Label Comments: TAKE ONE TABLET (50MG) BY MOUTH THREE TIMES DAILY sotalol 80 mg tablet 80 mg PO BID Label Comments: TAKE ONE TABLET BY MOUTH TWICE DAILY warfarin 2 mg tablet 1 - 2 mg PO DAILY Protocol: Dose Management Condition: Tuesday Dose/Route: 2 % Instruction: 1 x 2 % tablet Condition: Tuesday Dose/Route: 2 % Instruction: 1 x 2 % tablet Condition: Tuesday Dose/Route: 1 % Instruction: 0.5 x 2 % tablets Condition: Tuesday Dose/Route: 2 % Instruction: 1 x 2 % tablet Condition: Dose/Route: 2 % Instruction: 1 x 2 % tablet Condition: Tuesday Dose/Route: 2 % Instruction: 1 x 2 % tablet Condition: Tuesday Dose/Route: 2 % Instruction: 1 x 2 % tablet Protocol Text: Adjustment Start Date: Tuesday01/20/22 INR Value: 1.4 INR Date: 01/19/22 Recheck Date: 01/24/22 Rx Instructions: TAKES 1 MG ON // AND 2 MG ALL OTHER DAYS OF THE WEEK hydrochlorothiazide 12.5 mg capsule 12.5 mg PO DAILY Label Comments: TAKE ONE CAPSULE BY MOUTH ONE TIME DAILY albuterol sulfate 90 mcg/actuation HFA aerosol inhaler 2 puff inhalation Q4H PRN (Reason: shortness of breath or wheezing) Qty: 8.5 11RF albuterol sulfate 2.5 mg/0.5 mL solution for nebulization 2.5 mg inhalation .2-4 x daily Qty: 30 5RF Rx Instructions: for up to 3 doses ipratropium-albuterol 0.5 mg-3 mg(2.5 mg base)/3 mL solution for nebulization 3 ml INHALATION QID Qty: 180 12RF Follow Up/Referrals: Gonzalez Mckay MD [Primary Care Provider] - Stand Alone Forms: [facility] Info Instructions
--- NOTE | 2022-01-23 09:39 | CRLHL7_ITS ---
For Patients: As a result of the Century Cures Act, medical imaging exams and procedure reports are released immediately into your electronic medical record. You may view this report before your referring provider. If you have questions, please contact your health care provider. INDICATION: Hypoxia, worsening cough, COPD TECHNIQUE: CT chest without contrast. COMPARISON: CT chest 11/27/2021 FINDINGS: The heart is normal in size. The main pulmonary artery is mildly prominent measuring 3.5 cm, stable to prior exam. The ascending thoracic aorta measures 3.8 cm, also stable. Stable enlarged precarinal lymph node, measuring 1.8 cm. Evaluation of the hilum is limited due to lack of IV contrast. There is atherosclerotic calcification of the coronary arteries. Stable bilateral bronchial wall thickening with mucous plugging. Stable mild bronchiectasis there are scattered areas of tree-in-bud opacity, also stable to prior exam. There is consolidation with air bronchograms in the right middle lobe. Negative for pleural effusion or pneumothorax. Evaluation of the upper abdomen is unremarkable. Moderate multilevel degenerative changes of the spine. IMPRESSION: Stable bronchiectasis with mild bronchial wall thickening and mucous plugging. Scattered areas of tree-in-bud opacity and right middle lobe atelectasis/consolidation, also appears unchanged. Findings could represent small areas disease/atypical infection, considerations include mycobacterium avium complex. Dictated by Bere Wallace MD @ 01/23/2022 10:35:37 AM Please note that all CT scans at this facility use dose modulation, iterative reconstruction, and/or weight-based dosing when appropriate to reduce radiation dose to as low as reasonably achievable. Dictated by: Bere Wallace MD @ 01/23/2022 10:36:37 (Electronically Signed)
[2022-01-23 09:58] LABS: HCO3 VBG 31 mmol/L (21-28); PCO2 VBG 53 mmHG (40-50); PO2 VBG 38.6 mmHG (25-47)
[2022-01-23 10:12] LABS: Basophils Percent Auto 0.4 % (0.0-3.0); Eosinophils Percent Auto 1.1 % (0.0-7.0); Hematocrit 40.7 % (33.0-51.0); Hemoglobin* 13.5 gm/dL (12.0-16.0); Immature Granulocytes Abs Auto 0.01 K/uL (0.00-0.30); Lymphocytes Percent Auto 30.7 % (20-44); Mean Corpuscular HGB Conc 33 gm/dL (32-36); Mean Corpuscular Hemoglobin 28 pg (26-34); Mean Corpuscular Volume 85 fL (80-100); Monocytes Percent Auto 16.5 % (0.0-11.0); Neutrophils Percent Auto 50.9 % (42.0-72.0); Platelet Count* 144 K/uL (140-440); RDW Coefficient of Variation % 15.2 % (11.5-15.5); Red Blood Count 4.78 m/uL (4.00-5.20); White Blood Count* 2.61 K/uL (4.50-11.00)
[2022-01-23 10:17] LABS: Albumin* 3.9 g/dL (3.3-5.0); Chloride* 99 mmol/L (96-114); Sodium* 134 mmol/L (135-149)
[2022-01-23 10:18] LABS: Slide Review Reflex No
[2022-01-23 10:18] LABS: Potassium* 4.3 mmol/L (3.6-5.1)
[2022-01-23 10:20] LABS: Alanine Aminotransferase* 11 U/L (4-35); Alkaline Phosphatase* 132 U/L (40-150); Aspartate Amino Transferase* 25 U/L (12-35); Bilirubin Total* 0.5 mg/dL (0.1-1.5); Carbon Dioxide* 30 mmol/L (20-32); Creatinine* 0.8 mg/dL (0.5-1.5); Est. Creatinine Clearance* 23.56; Estimated Glomerular Filt Rate 72 ml/min; Total Protein* 7.8 g/dL (6.0-8.3)
[2022-01-23 10:21] LABS: Blood Urea Nitrogen* 20 mg/dL (7-30); Calcium* 8.7 mg/dL (8.4-10.6); Glucose* 98 mg/dL (60-115)
[2022-01-23 10:23] LABS: C Reactive Protein* 2.5 mg/dL (0.5-1.0)
[2022-01-23 10:29] LABS: INR 1.57 (0.91-1.10); Prothrombin Time 19.2 Seconds
[2022-01-23 10:30] LABS: NT Pro B Type NatriureticPept* 2080 PG/mL (0-450)
[2022-01-23 10:35] LABS: Troponin I* < 0.01 ng/mL (0.01-0.04)
[2022-01-23 10:37] LABS: Procalcitonin* 0.12 ng/mL (<0.50)
[2022-01-23 10:48] LABS: SARS PCR* Negative SARS-CoV-2 (Negative)
[2022-01-23 11:11] LABS: Erythrocyte SedimentationRate* 7 mm/hr (2-20)
[2022-01-23] MEDS: ACETAMINOPHEN 325 MG TABLET 650 MG PO (12:32)
--- NOTE | 2022-01-23 13:52 | ED.NURSE ---
1248-Pt ambulated in room on RA, Sats 91-92%. Denies SOB, dizziness, pain while ambulating. Steady gait noted. informed.
== END 2022-01-23 13:29 | disposition home or self-care (01) ==
PROVIDERS: Emergency Provider Family Medicine; PCP Family Medicine
DX: J47.9 Bronchiectasis, uncomplicated (principal); R09.02 Hypoxemia; B37.0 Candidal stomatitis
CPT/HCPCS: 36415; 71250; 80053; 82803; 83880; 84145; 84484; 85025; 85610; 85651; 86140; 87635; 93005; 99284; A9270

== ENCOUNTER 2022-02-19 11:15 | Outpatient (RCR) | payer MEDICARE, BC, SELFPAY ==
--- NOTE | 2022-02-11 08:08 | PT.OPEX ---
PT [place] Outpatient Eval PT [facility] Outpatient Eval Start: 02/10/22 14:56 Freq: Status: Active Protocol: Document 02/10/22 15:19 JULIO CESAR (Rec: 02/10/22 15:26 JULIO CESAR [id number]) E-signed By Sadia Edmondson DPT Physical Therapy Outpatient Evaluation Insurance Information Recert Due Date 05/11/22 Insurance Name Medicare B,[employer] Medical Diagnosis adult failure to thrive unsteadiness on feet Treating Diagnosis General weakness, poor activity tolerance, debility, deconditioning, impaired balance, impaired gait, limited tolerance for standing /walking Subjective Subjective Patient c/o general weakness, difficulty with breathing, easily getting short of breath , and some balance issues. States she started using a 4ww about 2 weeks ago - her MD recommended she get it. She denies any recent falls. Patient reports multiple hospitalizations, 3 in the last year. States she has COPD, asthma, heart/lung issues, nebs 8x/day. She lives in a multilevel home with her spouse, a grandson, and great grandchildren. Patient reports getting out of her home regularly, usually 2x/day out for ice cream and dinner with her spouse. She doesn't drive. She denies any pain issues. She is hoping to improve her strength, mobility, balance, gait. Date of Last Physician Visit 01/28/22 Current Work Status Retired Precautions Treatment Precautions/Contraindications COPD, asthma, poor activity tolerance, SOB Assessment Assessment/Impression Patient is an 86 year old female with general weakness, poor activity tolerance, debility, deconditioning, impaired balance, impaired gait, limited tolerance for standing/walking. She denies pain. Main c/o recent weight loss, general weakness, debility, and shortness of breath. She denies any recent falls. Patient amb with 4ww, reports she started using it about 2 weeks ago. Provided training for proper use of 4ww and 4ww brakes. Gait is slow and limited by weakness, fatigue, and SOB. O2 sat 96- 98% during PT session. Patient reports checking it regularly at home, always in mid to upper 90s. She does not use supplemental oxygen. Patient is able to negotiate stairs with step to pattern using railings. Reports getting out of the house regularly, usually 2x/day with her spouse. She has family at home to assist as needed. Patient reports coughing regularly, coughing up green and yellow gunk. Patient would benefit from skilled PT for general strengthening, balance/gait training, improved strength/endurance/ conditioning/functional ability with extended standing /walking/activity, and establishment of HEP. Plan of Care Rehabilitation Potential Good Physical Therapy Goals 1. Improve core/hip/glut strength and trunk stability over the next 8-10 weeks for improved functional mobility, improved balance, improved gait with decreased risk of falls, and improved activity tolerance. 2. Patient will be trained in use of 4ww over the next 3-4 weeks for improved safety with gait and for energy conservation for performing daily activities/community outings with decreased risk of falls. 3. Improve balance, coordination over the next 8- 10 weeks for improved gait and safety with daily activities and community outings. 4. Patient will not have any falls over the next 8-10 weeks with progression of PT activities and daily/home activities. 5. Patient will be I with HEP within 10 weeks for progression toward above goals, ongoing self improvements with strength/coordination/balance/ gait/safety, and for improved activity tolerance with daily/ community activities/outings. Coordination/Communication With Referral Source Treatment Plan/Direct Interventions Gait Training,Therapeutic Exercises Frequency/Duration 1x/week Patient Will Be Discharged From Therapy Completion of LTG(s),Skills Plateau,Independent w/HEP, Independently Progressing Evaluation Billing Untimed Code Treatment Minutes 26 Complexity Moderate Certification Information Initial Certification Date 02/10/22 Ending Certification Date 05/11/22 Provider Signature Shows Agreement With POC & Medical Necessity Physician Comment/Change Comment or Changes Physician NPI Number #
== END 2022-06-08 10:54 | disposition home or self-care (01) ==
PROVIDERS: PCP Family Medicine; Visit Provider Family Medicine
DX: R26.81 Unsteadiness on feet (principal); Z51.89 Encounter for other specified aftercare
CPT/HCPCS: 97110; 97116; 97162

== ENCOUNTER 2022-03-09 13:14 | Inpatient (IN) | payer MEDICARE, BC, SELFPAY ==
[2022-03-09 13:40] VITALS: BP 165/77; PULSE 82; RESP 18; TEMP 36.7; O2SAT 100; BMI 15.8
--- NOTE | 2022-03-09 14:54 | CRLHL7_ITS ---
For Patients: As a result of the Cures Act, medical imaging exams and procedure reports are released immediately into your electronic medical record. You may view this report before your referring provider. If you have questions, please contact your health care provider. INDICATION: Shortness of breath. TECHNIQUE: Chest 2 views. COMPARISON: 02/25/2022. FINDINGS: Cardiovascular and mediastinum: Heart size and vasculature are normal in caliber and appearance. Lungs and pleural spaces: Stable COPD changes and areas of scarring. No focal infiltrate or significant effusion and no pneumothorax. Bones and soft tissues: No significant findings. IMPRESSION: No sign of pneumonia or other acute abnormality. Dictated by Chico Barnard MD @ 03/09/2022 4:46:37 PM (Electronically Signed)
[2022-03-09 15:20] LABS: Basophils Absolute Auto 0.01 K/uL (0.00-0.30); Basophils Percent Auto 0.2 % (0.0-3.0); Eosinophils Absolute Auto 0.02 K/uL (0.00-0.50); Eosinophils Percent Auto 0.4 % (0.0-7.0); Hematocrit 42.1 % (33.0-51.0); Hemoglobin* 13.9 gm/dL (12.0-16.0); Immature Granulocytes Abs Auto 0.04 K/uL (0.00-0.30); Lymphocytes Percent Auto 18.4 % (20-44); Mean Corpuscular HGB Conc 33 gm/dL (32-36); Mean Corpuscular Hemoglobin 29 pg (26-34); Mean Corpuscular Volume 87 fL (80-100); Neutrophils Absolute Auto 3.18 K/uL (1.7-7.0); Neutrophils Percent Auto 65.2 % (42.0-72.0); Platelet Count* 174 K/uL (140-440); RDW Coefficient of Variation % 15.6 % (11.5-15.5); Red Blood Count 4.86 m/uL (4.00-5.20); White Blood Count* 4.88 K/uL (4.50-11.00)
[2022-03-09 15:21] LABS: Slide Review Reflex No
--- OUTSIDE RECORDS SUMMARY | 2022-03-09 15:24 | XMS_ITS | Clinical Summary ---
:1935 Author Organization [facility] [place] [address] Care Team Providers Name Role Phone Gonzalez Mckay MD Primary Care Provider Allergies Active Allergy Reactions Severity Noted Date Comments Arie Inhibitors *Unknown 12/22/2020 Medications Medication Sig Dispensed Refills Start Date End Date Status albuterol (PROVENTIL) Inhale 3 mL via a 0 06/22/2013 Active 0.083 % neb solution nebulizer every 6 hours if needed for Shortness Of Breath. primidone (MYSOLINE) 50 Take 1 tablet by 0 4 Active mg tablet mouth 3 times daily. sotalol (BETAPACE) 80 mg Take 1 tablet by 60 tablet 3 02/01/20 19 Active tabletIndications: mouth every 12 Persistent atrial hours. fibrillation (HC) losartan (COZAAR) 50 mg Take 100 mg by 0 Active tablet mouth once daily. omeprazole (PRILOSEC) 40 Take 40 mg by 0 Active mg Delayed-Release mouth 2 times capsule daily before meals. nystatin (MYCOSTATIN) SWISH AND SWALLOW 0 03/25/2021 Active 100,000 unit/mL 5 ML BY MOUTH FOUR suspension TIMES DAILY NEEDED sodium chloride 0.9 % Inhale 1 Neb via a 0 Active nebulizer solution nebulizer 2 times daily. warfarin (COUMADIN) 2 mg Take 1 mg on 0 07/10/2021 Active tablet Tuesday and ; and 2 mg all other days of the week albuterol-ipratropium Inhale 1 Neb via a 0 2 Active (DUONEB) (2.5-0.5 mg) in nebulizer 4 times 3 mL NEBULIZATION daily. solution hydroCHLOROthiazide 12.5 Take 12.5 mg by 0 Active mg capsule mouth once daily. acetaminophen (TYLENOL Take 500-1,000 mg 0 Active EXTRA STRGTH) 500 mg by mouth every 6 tablet hours if needed. Max acetaminophen dose: 4000mg in 24 hrs. Active Problems Problem Noted Date Acute respiratory failure with hypoxia 08/13/2021 SVT (supraventricular tachycardia) 08/13/2021 COPD (chronic obstructive pulmonary disease) 2 Moderate to severe pulmonary hypertension 02/08/2019 Diastolic dysfunction 02/08/2019 Persistent atrial fibrillation 01/12/2019 SOB (shortness of breath) 01/12/2019 Dizziness 01/12/2019 Mitral valve insufficiency 01/12/2019 Esophageal stricture 01/12/2019 Hypertension 01/09/2016 Tremor, essential 06/22/2013 Leg weakness 06/22/2013 Subclinical hypothyroidism 06/22/2013 Stricture and stenosis of esophagus 10/21/2010 Overview: EGD 02/2011 esophageal ulcer, atypical ce lls will need referral to larger center. Bronchiectasis 08/23/2008 Immunizations Name Administration Dates Next Due Hepatitis B (Adult) 03/29/2013, 02/26/2013 Influenza RIV4 (Age 18+ Years) 03/10/2020 PRESERV FREE Influenza Virus, Unspecified 03/20/2008, 04/06/2007, 006, 03/26/2005, 03/27/2004 Influenza, High-dose Inactivated 03/12/2019, 03/02/2019, 01/2018, 06/10/2017, 03/21/2014, 07/04/2012 Influenza, High-dose Quadrivalent 05/07/2021 Inactivated Influenza, IIV3 (Age >=3 years) 03/07/2010 Pneumococcal Poly,23-Valent 05/17/2006, 09/08/1999 (Pneumovax) Pneumococcal conj 13-Valent (Prevnar 11/09/2013 13) TD, UNSPECIFIED 03/06/2010 Td (Age >=7 Years) 03/18/2020, 09/16/1999 Tdap 03/15/2010 Social History Tobacco Use Types Packs/Day Years Used Date Never Smoker Smokeless Tobacco: Never Used Tobacco Cessation: Counseling Given: Yes Alcohol Use Standard Drinks/Week Comments Never 0 (1 standard drink = 0.6 oz pure alcoho l) Alcohol Habits Answer Date Recorded How often do you have a drink containing alcohol? Never 01/31/2019 How many drinks containing alcohol do you have on a typical Not asked day when you are drinking? How often do you have six or more drinks on one occasion? No t asked Comment: Not asked Sex Assigned at Date Recorded Not on file Obstetrics History Last Filed Vital Signs Vital Sign Reading Time Taken Comments Blood Pressure 148/84 10/02/2021 2:02 PM CDT Pulse 72 10/02/2021 2:02 PM CDT Temperature 36.5 ??C (97.7 ??F) 08/19/2021 7:06 AM CDT Respiratory Rate 16 10/02/2021 2:02 PM CDT Oxygen Saturation 93% 08/19/2021 7:06 AM CDT Inhaled Oxygen Concentration - - Weight 44.5 kg (98 lb) 10/02/2021 2:02 PM CDT Height 162.6 cm (5' 4) 08/18/2021 12:24 PM CDT Body Mass Index 16.82 08/18/2021 12:24 PM CDT Plan of Treatment Health Maintenance Due Date Last Done Comments Depression screening for age 12+ 1948 Zoster (shingles) series for age 0106/09/1986 50+ (1 of 2) DEXA/DXA scan for age 65+ 2001 Medicare Wellness for age 65+ 2001 COVID-19 vaccine series (4 - 07/02/2021 05/07/2021, 021, Booster for Pfizer series) 07/19/2020 BMI (ht and wt on same day) for 09/19/2021 09/19/2020 age 18+ Influenza for age 65+ 02/04/2022 05/07/2021, 03/10/2020, 03/12/2019, Additional history exists Tetanus booster 03/18/2030 03/18/2020, 03/15/2010, 03/06/2010, Additional history exists Tdap Completed 03/15/2010 Pneumococcal series for age 65+ Completed 11/09/2013, 05/06, 09/08/1999 Results Not on filefrom Last 3 Months Insurance Payer Benefit Plan / Subscriber ID Effective Dates Phone Addre ss Type Group MEDICARE PART A MEDICARE PART A [id number] 2001-Presen ATTN: CLAIMS - HB USE ONLY HB ONLY t [address] [place] [address] MEDICARE PART B MEDICARE PART B [id number] 2002-Prese ATTN: CLAIMS - HB USE ONLY HB ONLY [place] [address] [place] [address] MEDICARE PART B MEDICARE PART B [id number] 2002-Prese ATTN: CLAIMS - HB USE ONLY HB ONLY nt [address] [place] [address] [employer] MR MR [place] [id number] 2014-Presen [address] [place] [address] [place] [place] MR [place] [id number] 2016-Presen [address] [address] [place], [place] ONLY [id number] [employer] [id number] 2016-[place] [address] [address] [place], [place] [id number] Advance Directives Latest Code Status on File Code Status Date Activated Date Inactivated Comments Full Code 08/18/2021 3:09 PM 08/19/2021 2:03 PM Code Status Discussion: Other (specify in comments): Partial Code 08/13/2021 10:28 PM 08/15/2021 9:50 PM Cardio Resuscitation: No Restrictions Ventilation: No Intubation Drug Protocol: No Restrictions Full Code 08/13/2021 8:19 PM 08/13/2021 10:27 PM Code Status Discussion: Unable to Assess Preferences, Provid er to review later Full Code 02/06/2019 5:22 PM 02/09/2019 5:41 PM Care Teams Stone[facility] Relationship Specialty Start Date End Date Gonzalez Mckay MD PCP - General Family Practice 01/31/19 [id number] [place] [address]
[2022-03-09 15:37] VITALS: BP 143/67; PULSE 66; RESP 20; O2SAT 95
--- NOTE | 2022-03-09 15:50 | ED_ITS ---
HPI - SOB/Dyspnea General Date Seen: 03/09/22 Chief Complaint: Shortness of Breath/Dyspnea Stated Complaint: Pneumonia, short of breath Time Seen by Provider: 03/09/22 14:48 Source: patient and family Mode of arrival: ambulatory Limitations: no limitations History of Present Illness HPI Narrative: Is 86-year-old patient who is ambulatory here for evaluation of shortness of breath. She has had the shortness of breath for 3-4 weeks, has a COPD exacerbation, and which she describes as bronchiectasis. She has seen her regular physician at the [facility], he has trialed her on oral antibiotics. He has failed this as she still has shortness of breath, sputum production, she is not on chronic O2, she is using her nebulized treatments 4 times a day, with interspersed thing 2 times a day of other nebulizers. She denies any blood in her sputum, she denies any chest pain, she has no leg swelling, she however talk to her dope firer at [facility] [phone], who I spoke to today. He said given the fact she is growing Serratia and Pseudomonas in her sputum, she needs to be on either IV cefepime or Meropenem. This should be started, and then continued for 4-6 weeks. MD elicited complaint: shortness of breath Pertinent past history: COPD Severity: moderate Related Data Home oxygen amount: none Home Medications Medication Instructions Recorded Confirmed hydrochlorothiazide 12.5 mg capsule 12.5 mg PO DAILY 12/23/21 01/28/22 primidone 50 mg tablet 50 mg PO TID 12/23/21 01/28/22 sotalol 80 mg tablet 80 mg PO BID 12/23/21 01/28/22 Previous Rx's Medication Instructions Recorded albuterol sulfate 90 mcg/actuation 2 puff inhalation Q4H PRN 12/04/21 aerosol inhaler shortness of breath or wheezing #8.5 grams albuterol sulfate 2.5 mg/0.5 mL 2.5 mg (0.5 mL) inhalation .2-4 x 01/12/22 solution for nebulization daily #30 ea ipratropium 0.5 mg-albuterol 3 mg 3 ml inhalation QID #180 mL 01/18/22 (2.5 mg base)/3 mL nebulization soln nystatin 100,000 unit/mL oral 5 ml buccal BID 10 days #100 mL 01/23/22 suspension losartan 50 mg tablet 100 mg PO DAILY #180 tabs 02/12/22 cefdinir 300 mg capsule 300 mg PO BID #20 caps 02/25/22 sodium chloride 0.9 % for 3 ml inhalation QDAY #90 mL 03/08/22 nebulization warfarin 2 mg tablet 1 - 2 mg PO DAILY #60 tabs 03/08/22 Allergies Allergy/AdvReac Type Severity Reaction Status Date / Time amoxicillin AdvReac Severe Diarrhea Verified 02/25/22 13:54 Angiotensin-converting Allergy Mild Uncoded 02/25/22 13:54 enzyme inhibitor Review of Systems Status of ROS: Reports: 10 or more systems reviewed and unremarkable except as noted in History and below [facility] Medical History Failure to thrive in adult History of cataract History of oral lesions Surgical History History of hysterectomy Social History Smoking Status: Never smoker Do you use any of these nicotine containing products: None How often do you have a drink containing alcohol: never How often do you have six or more drinks on one occasion: Never AUDIT-C Alcohol total score: 0 Non-prescribed substance use: denies use service: No Exam Narrative: Exam Narrative: Patient is seen in room 3, her vital signs are listed, she is speaking to me in full sentences, her pupils are equal round reactive to light, her oropharynx is normal, there is no lymphadenopathy anterior posterior chains, cranial nerves 3- 12 are normal, she has hyperinflated on examination, with occasional wheezes in her lungs, her heart sounds are normal, but distant, S1-S2 is normal there is no S3-S4 clicks murmurs or gallops, abdomen is soft, and scaphoid, there is no organomegaly tenderness to palpation she has normal bowel sounds. She does have cachectic extremities, Const: Vital Signs, click to edit/add: Vital Signs - 24 hr 03/09/22 13:40 03/09/22 15:37 Temperature 98.1 F Pulse Rate [Right Pulse Oximeter] 82 66 Respiratory Rate 18 20 Blood Pressure [Ri ght Upper Arm] 165/77 H 143/67 H Pulse Oximetry 100 95 Oxygen Delivery Me thod Room Air Room Air Documenting provider has reviewed patient's vital signs: yes Course Reevaluation(s) Reevaluation #1: Discussed with Dr. Edwards from hospital medicine she agreed to admit the patient for the above treatment after my discussion with pulmonology from [place] Time: 16:27 Vital Signs Vital signs: Initial Vital Signs Temperature 98.1 F 03/09/22 13:40 Temperature Source Temporal Artery Scan 03/09/22 13:40 Pulse Rate 82 03/09/22 13:40 Respiratory Rate 18 03/09/22 13:40 Blood Pressure 165/77 H 03/09/22 13:40 Blood Pressure Mean 106 03/09/22 13:40 Blood Pressure Position Sitting 03/09/22 13:40 Pulse Oximetry 100 03/09/22 13:40 Oxygen Delivery Method 03/09/22 13:40 Vital Signs Temperature 98.1 F 03/09/22 13:40 Pulse Rate 82 03/09/22 13:40 Respiratory Rate 18 03/09/22 13:40 Blood Pressure 165/77 H 03/09/22 13:40 Pulse Oximetry 100 03/09/22 13:40 Oxygen Delivery Method 03/09/22 13:40 Temperature 98.1 F 03/09/22 13:40 Pulse Rate 66 03/09/22 15:37 Respiratory Rate 20 03/09/22 15:37 Blood Pressure 143/67 H 03/09/22 15:37 Pulse Oximetry 95 03/09/22 15:37 Oxygen Delivery Method 03/09/22 15:37 MDM - SOB/Dyspnea MDM Narrative Medical decision making narrative: Life-threatening differential diagnosis includes occluded COPD exacerbation, pulmonary edema, acute coronary syndromes, pulmonary embolism, pneumonia, and pneumothorax. Other differential diagnosis considerations include asthma, bronchitis as well as other etiologies Differential Diagnosis Differential diagnosis: Likely acute exacerbation of chronic obstructive airways disease, congestive heart failure, community acquired pneumonia, asthma with exacerbation and pulmonary embolism Medical Records Attestation: I reviewed the patient's medical records. Lab Data Attestation: I reviewed the patient's lab results. Labs: Lab Results 03/09/22 03/09/22 03/09/22 Range/Units 14:54 15:00 15:00 WBC 4.88 (4.50-11.00) K/uL RBC 4.86 (4.00-5.20) m/uL Hgb 13.9 (12.0-16.0) gm/dL Hct 42.1 (33.0-51.0) % MCV 87 (80-100) fL MCH 29 (26-34) pg MCHC 33 (32-36) gm/dL RDW Coeff of Amor 15.6 H (11.5-15.5) % Plt Count 174 (140-440) K/uL Neut % (Auto) 65.2 (42.0-72.0) % Lymph % (Auto) 18.4 L (20-44) % Cavalier % (Auto) 15.0 H (0.0-11.0) % Eos % (Auto) 0.4 (0.0-7.0) % Baso % (Auto) 0.2 (0.0-3.0) % Neut # (Auto) 3.18 (1.7-7.0) K/uL Lymph # (Auto) 0.90 (0.90-2.90) K/uL Cavalier # (Auto) 0.70 (0.00-0.90) K/UL Eos # (Auto) 0.02 (0.00-0.50) K/uL Baso # (Auto) 0.01 (0.00-0.30) K/uL Abs Immat Gran (auto) 0.04 (0.00-0.30) K/uL D-Dimer Quant (PE/DVT) 0.32 (0.00-0.50) ug/ml Sodium (135-149) mmol/L Potassium (3.6-5.1) mmol/L Chloride (96-114) mmol/L Carbon Dioxide (20-32) mmol/L BUN (7-30) mg/dL Creatinine (0.5-1.5) mg/dL Estimated Creat Clear Estimated GFR ml/min Glucose (60-115) mg/dL Calcium (8.4-10.6) mg/dL C-Reactive Protein (0.5-1.0) mg/dL NT-Pro-B Natriuret Pep (0-450) PG/mL SARS-CoV-2 (PCR) Negative SARS-CoV-2 (Negative) Influenza Type A (PCR) Negative PCR FLU A (Negative) Influenza Type B (PCR) Negative PCR FLU B (Negative) RSV (PCR) Negative PCR RSV (Negative) POC Troponin I (0.01-0.04) ng/ml 03/09/22 03/09/22 Range/Units 15:00 15:20 WBC (4.50-11.00) K/uL RBC (4.00-5.20) m/uL Hgb (12.0-16.0) gm/dL Hct (33.0-51.0) % MCV (80-100) fL MCH (26-34) pg MCHC (32-36) gm/dL RDW Coeff of Amor (11.5-15.5) % Plt Count (140-440) K/uL Neut % (Auto) (42.0-72.0) % Lymph % (Auto) (20-44) % Cavalier % (Auto) (0.0-11.0) % Eos % (Auto) (0.0-7.0) % Baso % (Auto) (0.0-3.0) % Neut # (Auto) (1.7-7.0) K/uL Lymph # (Auto) (0.90-2.90) K/uL Cavalier # (Auto) (0.00-0.90) K/UL Eos # (Auto) (0.00-0.50) K/uL Baso # (Auto) (0.00-0.30) K/uL Abs Immat Gran (auto) (0.00-0.30) K/uL D-Dimer Quant (PE/DVT) (0.00-0.50) ug/ml Sodium 134 L (135-149) mmol/L Potassium 3.9 (3.6-5.1) mmol/L Chloride 96 (96-114) mmol/L Carbon Dioxide 29 (20-32) mmol/L BUN 23 (7-30) mg/dL Creatinine 0.8 (0.5-1.5) mg/dL Estimated Creat Clear 27.10 Estimated GFR 72 ml/min Glucose 115 (60-115) mg/dL Calcium 9.4 (8.4-10.6) mg/dL C-Reactive Protein 2.1 H (0.5-1.0) mg/dL NT-Pro-B Natriuret Pep 2270 H (0-450) PG/mL SARS-CoV-2 (PCR) (Negative) Influenza Type A (PCR) (Negative) Influenza Type B (PCR) (Negative) RSV (PCR) (Negative) POC Troponin I 0.00 L (0.01-0.04) ng/ml Imaging Data Chest x-ray: Attestation: I have reviewed the pertinent imaging results. My impression: Chronic changes from chronic scarring. No acute pneumothorax or anything acute. ECG Data Attestation: I personally reviewed and interpreted this ECG as follows: ECG interpretation date: 03/09/22 Interpretation: EKG shows normal sinus rhythm, with no acute ST wave changes, her QRS, QTC, and VT intervals are normal. Assessment normal EKG with ventricular rate of 68 Discharge Plan Discharge Clinical Impression: Bronchiectasis, Acute exacerbation of chronic obstructive pulmonary disease Patient Disposition: Admitted As Inpatient Condition: Stable
[2022-03-09 15:54] LABS: D Dimer Quantitative* 0.32 ug/ml (0.00-0.50)
[2022-03-09 15:55] LABS: Chloride* 96 mmol/L (96-114)
[2022-03-09 15:56] LABS: Potassium* 3.9 mmol/L (3.6-5.1); Sodium* 134 mmol/L (135-149)
[2022-03-09 15:58] LABS: Creatinine* 0.8 mg/dL (0.5-1.5); Estimated Glomerular Filt Rate 72 ml/min
[2022-03-09 15:59] LABS: Blood Urea Nitrogen* 23 mg/dL (7-30); Calcium* 9.4 mg/dL (8.4-10.6); Carbon Dioxide* 29 mmol/L (20-32); Glucose* 115 mg/dL (60-115)
[2022-03-09 16:00] VITALS: BP 161/79; PULSE 66; O2SAT 91
--- NOTE | 2022-03-09 16:00 | W.PC.EDHO ---
Primary Language: Preferred Language: Orientation Status: [X] Alert & Oriented [] Slight Confusion [] Known Dx Dementia Transfers By: [X] Assist of 1 [] Assist of 2 [] Lift Description of Symptoms ED Triage Present Problem history of COPD. is doctoring with [facility]. Description increasing SOB over the past couple weeks. 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 was told no beds available and to come to ED Female History Patient No IV Insertion/Site Date of IV Line Insertion [ 03/09/22 Right Antecubital] Oxygen Administration Pulse Oximetry 95 Pulse Oximetry 100 Oxygen Delivery Method Room Air Oxygen Delivery Method Room Air Cardiac Monitoring EKG Method 12 Lead EKG Method [employer]
[2022-03-09 16:02] LABS: C Reactive Protein* 2.1 mg/dL (0.5-1.0)
[2022-03-09 16:06] LABS: PCR FLU A Negative PCR FLU A (Negative); PCR FLU B Negative PCR FLU B (Negative); PCR RSV Negative PCR RSV (Negative)
[2022-03-09 16:08] LABS: NT Pro B Type NatriureticPept* 2270 PG/mL (0-450)
[2022-03-09 16:08] LABS: SARS PCR* Negative SARS-CoV-2 (Negative)
[2022-03-09] MEDS: CEFEPIME HCL 1 GM in 0.9 % SODIUM CHLORIDE Mini-bag 100 ML IVPB (16:11)
[2022-03-09 16:30] VITALS: BP 139/68; PULSE 66; O2SAT 93
--- NOTE | 2022-03-09 16:39 | ED.NURSE ---
report was given to john rutherford.
[2022-03-09 18:06] VITALS: BP 143/81; PULSE 70; RESP 20; TEMP 36.5; O2SAT 94; BMI 15.5
--- NOTE | 2022-03-09 20:43 | PM.IMHP1 ---
Hospitalist- H&P: HPI History of Present Illness Time Seen by Provider: 19:30 Date Seen: 03/09/22 Chief complaint: Pneumonia, short of breath Narrative: Carmen Herman is a 86 year old female with h/o bronchiectasis exacerbation for which she has been on cefdinir. She complains of worsening SOB, especiallly with any ambulation/exertion. She has occasional sharp pain in the left chest/breast. She has a h/o DVT and her INR has been subtherapeutic for a few days. Despite using ensure TID mixed with ice cream in addition to her usual diet, she has had rapid weight loss in the past few months. She says she was a size 12 pants and is now down to size 6. She called her PCP, Dr. Mckay, and her fence setter, Dr. Bhatia from [facility] today. She had a recent sputum culture which grew out pseudomonas and serratia. She was going to switch to levofloxacin to treat this, but cannot due to potential interactions with her other medications. Therefore, Dr. Bhatia recommended she be admitted for 4-6 weeks of IV cefepime or meropenem. He accepted her for admission at [facility], but there are no beds available there, so she presents here instead. 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) Bronchiectasis with acute lower respiratory infection (10/13/09) Candidiasis of esophagus Chest wall pain Chronic obstructive pulmonary disease Chronic obstructive pulmonary disease with acute exacerbation (10/13/09) Deep venous thrombosis of lower extremity Diastolic congestive heart failure, NYHA class 3 Echocardiogram abnormal Eosinophilic esophagitis (04/15/11) Esophageal dysphagia Esophageal stricture (10/13/09) Essential tremor (10/13/09) Failure to thrive in adult Gait instability Goiter Hearing aid worn (01/01/11) High risk medication use History of cataract History of oral lesions Hypertension (10/13/09) Hyponatremia retirement current use of anticoagulant therapy Mass of oral cavity Mediastinal lymphadenopathy (10/13/09) Mitral valve insufficiency (10/13/09) Orthostatic hypotension (02/16/10) Osteopenia (12/11/12) Pain of left lower extremity Pain of right breast Painful mouth Paroxysmal supraventricular tachycardia (05/10/12) Post-acute COVID-19 syndrome Pulmonary hypertension (10/13/09) Pulmonary nocardiosis Right ventricular enlargement (10/13/09) Rotator cuff tear arthropathy Skin tear of right forearm without complication Steroid-induced myopathy Subclinical hypothyroidism Urinary tract infection Vasovagal syncope Venous insufficiency of lower extremity Surgical History (Updated 03/09/22 @ 20:57 by Ara Edwards MD) H/O colonoscopy History of appendectomy History of cardiac radiofrequency ablation History of esophagogastroduodenoscopy (EGD) History of hysterectomy Status post total abdominal hysterectomy Social History (Updated 03/09/22 @ 21:09 by Ara Edwards MD) Narrative: Lives with and two adult great grandchildren. Uses walker at home. Denies tob, EtOH or recreational drug use. Lifelong nonsmoker, but father smoked when she was a child. DNR/DNI. Highest level of school completed/degree received: high school graduate Smoking Status: Never smoker Do you use any of these nicotine containing products: None How often do you have a drink containing alcohol: never How often do you have six or more drinks on one occasion: Never AUDIT-C Alcohol total score: 0 Non-prescribed substance use: denies use Caffeine: Yes (3-4 cups per day) service: No Meds Home Medications and Allergies Home Medications Medication Instructions Recorded Confirmed Type hydrochlorothiazide 12.5 mg capsule 12.5 mg PO DAILY 12/23/21 03/09/22 History primidone 50 mg tablet 50 mg PO TID 12/23/21 03/09/22 History sotalol 80 mg tablet 80 mg PO BID 12/23/21 03/09/22 History amlodipine 10 mg tablet 5 mg PO DAILY 03/09/22 03/09/22 History sodium chloride 0.9 % for 3 ml inhalation BID 03/09/22 03/09/22 History nebulization Allergies Allergy/AdvReac Type Severity Reaction Status Date / Time amoxicillin AdvReac Severe Diarrhea Verified 02/25/22 13:54 Angiotensin-converting Allergy Mild Uncoded 02/25/22 13:54 enzyme inhibitor Exam Narrative: Exam Narrative: General: Takes a big breath every 1-2 words. This appears chronic and she does not appear in any respiratory other distress. Comfortable. Pleasant, talkative despite chronic breathing difficulties. Awake alert oriented x3. Very cachectic, thin, gaunt. HEENT: Normocephalic atraumatic, pupils equally round and reactive to light and accommodation. Oropharynx clear. Mucous membranes are moist. No cervical lymphadenopathy, thyromegaly or carotid bruits. No JVD. Cardiovascular: Irregularly irregular. No murmurs, gallops, or rubs. Chest: As above. Decreased breath sounds throughout. No wheezes. No crackles. Abdomen: Bowel sounds present. Soft, nondistended, nontender. No hepatosplenomegaly or masses. Extremities: No edema, no cyanosis or clubbing. Skin: No jaundice, no pallor, no rashes. Const: Vital Signs, click to edit/add: Vital Signs - 24 hr 03/09/22 13:40 03/09/22 15:37 03/09/22 16:00 Temperature 98.1 F Pulse Rate [Left B rachial] Pulse Rate [Right Pulse Oximeter] 82 66 66 Respiratory Rate 18 20 Blood Pressure [Le ft Arm] Blood Pressure [Ri ght Upper Arm] 165/77 H 143/67 H 161/79 H Pulse Oximetry 100 95 91 Oxygen Delivery Me thod Room Air Room Air Room Air 03/09/22 16:30 03/09/22 18:06 Temperature 97.7 F Pulse Rate [Left B rachial] 70 Pulse Rate [Right Pulse Oximeter] 66 Respiratory Rate 20 Blood Pressure [Le ft Arm] 143/81 H Blood Pressure [Ri ght Upper Arm] 139/68 Pulse Oximetry 93 94 Oxygen Delivery Me thod Room Air Room Air Hospitalist - H&P: Result Labs Labs: Short CBC 03/09/22 Range/Units 15:00 WBC 4.88 (4.50-11.00) K/uL Hgb 13.9 (12.0-16.0) gm/dL Hct 42.1 (33.0-51.0) % Plt Count 174 (140-440) K/uL BMP 03/09/22 15:00 Sodium 134 L Potassium 3.9 Chloride 96 Carbon Dioxide 29 BUN 23 Creatinine 0.8 Glucose 115 Calcium 9.4 Ordering Physician: Luis Breen M.D. Date of Service: 03/09/22 Procedure(s): XR chest 2V Accession Number(s): [id number] cc: Gonzalez Mckay M.D.; Luis Breen M.D.~ For Patients: As a result of the 21st Century Cures Act, medical imaging exams and procedure reports are released immediately into your electronic medical record. You may view this report before your referring provider. If you have questions, please contact your health care provider. INDICATION: Shortness of breath. TECHNIQUE: Chest 2 views. COMPARISON: 02/25/2022. FINDINGS: Cardiovascular and mediastinum: Heart size and vasculature are normal in caliber and appearance. Lungs and pleural spaces: Stable COPD changes and areas of scarring. No focal infiltrate or significant effusion and no pneumothorax. Bones and soft tissues: No significant findings. IMPRESSION: No sign of pneumonia or other acute abnormality. Dictated by Chico Barnard MD @ 03/09/2022 4:46:37 PM (Electronically Signed) Assessment and Plan Assessment and plan (1) Bronchiectasis with acute exacerbation: Problem comment: Serratia and Pseudomonas on recent sputum culture at [facility] Status: Acute Assessment and Plan: I have printed out Dr. Bhatia (her [facility] fence setter)'s note. He recommends cefepime or meropenem. We do not have meropenem on formulary, so I will order cefepime. He has accepted her to the [facility] pulmonology service, but there are no beds available there at present, so I will admit her here and start cefepime. (2) Dyspnea on exertion: Status: Acute (3) Pulmonary nocardiosis: Problem comment: s/p successful treatment [id number] Status: Chronic (4) Unintended weight loss: Status: Acute (5) Pulmonary cachexia due to chronic obstructive pulmonary disease: Status: Acute (6) Severe protein-calorie malnutrition: Status: Acute Assessment and Plan: Nutrition consult and dietary supplements TID (7) Diastolic congestive heart failure, NYHA class 3: Status: Chronic Assessment and Plan: stable (8) Atrial fibrillation: Status: Acute Assessment and Plan: rate well controlled. Continue Coumadin for anticoagulation. (9) Subtherapeutic international normalized ratio (INR): Status: Acute Assessment and Plan: Increase coumadin dose. No need to bridge at this time. Plan h/o DVT, recent worsening SOB and left sided CP. INR subtherapeutic. Obtain CT chest to r/o PE. h/o steroid induced myositis. VS are stable and she is not hypoxic. Will hold off on steroid for now.
--- NOTE | 2022-03-09 21:20 | CRLHL7_ITS ---
For Patients: As a result of the Century Cures Act, medical imaging exams and procedure reports are released immediately into your electronic medical record. You may view this report before your referring provider. If you have questions, please contact your health care provider. INDICATION: Chest pain. Shortness of breath. History of DVT. TECHNIQUE: CT chest PE was acquired with 90 cc Isovue 370 IV contrast. COMPARISON: CT chest performed January 23, 2022.. FINDINGS: Heart and vasculature: Contrast opacification of the pulmonary arterial tree is adequate. No sign of pulmonary embolism. Cardiomegaly. Pulmonary artery is mildly enlarged measuring 3.1 centimeters. Similar multiple thyroid nodules, which could be better evaluated with outpatient ultrasound if medically necessary. Lungs and pleura: Re- demonstration of bilateral bronchial wall thickening with scattered mucous plugging and bronchiectasis. Again, multi focal tree-in-bud nodularity throughout both lungs. Mild mosaic attenuation, likely related to small vessel/airway disease. Lymph nodes/mediastinum: No mediastinal, hilar, or axillary adenopathy. Chest wall: No masses. Upper abdomen: No acute or significant findings. Bones: Degenerative changes of the osseous structures. IMPRESSION: No pulmonary embolism as questioned. 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 Please note that all CT scans at this facility use dose modulation, iterative reconstruction, and/or weight-based dosing when appropriate to reduce radiation dose to as low as reasonably achievable. Dictated by Lonny Pool MD @ 03/09/2022 10:55:04 PM (Electronically Signed)
[2022-03-09 21:55] LABS: INR 1.39 (0.91-1.10); Prothrombin Time 17.5 Seconds
[2022-03-09] MEDS: IPRAT-ALBUT 0.5-2.5 MG/3 ML NEB 1 NEB IH (22:06)
[2022-03-09] MEDS: PRIMIDONE 50 MG TABLET PO (22:06)
[2022-03-09] MEDS: SOTALOL HCL 80 MG TABLET PO (22:06)
[2022-03-09 22:10] LABS: Troponin I* 0.02 ng/mL (0.01-0.04)
[2022-03-10] VITALS (7 sets, daily range): BP systolic 114–151; BP diastolic 56–89; PULSE 61–92; RESP 18–22; TEMP 36.5–36.8; O2SAT 92–95; BMI 15.4
[2022-03-10] MEDS: CEFEPIME HCL 1 GM in 0.9 % SODIUM CHLORIDE Mini-bag 100 ML IVPB ×2 (05:01→15:51)
--- NOTE | 2022-03-10 06:24 | PC.NURSE ---
END OF SHIFT NOTE: PT PLEASANT AND COOPERATIVE. PT AMBULATES WITH GB, A1 TO BSC. PT SOB WITH ACTIVITY. POSTERIOR MID AND LOWER LOBE CRACKLES NOTED UPON AUSCULTATION. VSS ON RA; AFEBRILE. NIGHT UNEVENTFUL.
[2022-03-10 06:25] LABS: Basophils Percent Auto 0.7 % (0.0-3.0); Eosinophils Percent Auto 0.7 % (0.0-7.0); Hematocrit 36.1 % (33.0-51.0); Hemoglobin* 12.2 gm/dL (12.0-16.0); Immature Granulocytes Abs Auto 0.02 K/uL (0.00-0.30); Lymphocytes Percent Auto 31.7 % (20-44); Mean Corpuscular HGB Conc 34 gm/dL (32-36); Mean Corpuscular Hemoglobin 29 pg (26-34); Mean Corpuscular Volume 85 fL (80-100); Neutrophils Percent Auto 47.2 % (42.0-72.0); Platelet Count* 149 K/uL (140-440); RDW Coefficient of Variation % 15.6 % (11.5-15.5); Red Blood Count 4.23 m/uL (4.00-5.20); White Blood Count* 2.68 K/uL (4.50-11.00)
[2022-03-10 06:41] LABS: Slide Review Reflex No
[2022-03-10 06:46] LABS: Chloride* 98 mmol/L (96-114); Sodium* 133 mmol/L (135-149)
[2022-03-10 06:49] LABS: Blood Urea Nitrogen* 19 mg/dL (7-30); Calcium* 8.8 mg/dL (8.4-10.6); Carbon Dioxide* 29 mmol/L (20-32); Creatinine* 0.8 mg/dL (0.5-1.5); Est. Creatinine Clearance* 26.53; Estimated Glomerular Filt Rate 72 ml/min; Glucose* 95 mg/dL (60-115)
[2022-03-10] MEDS: LOSARTAN POTASSIUM 50 MG TABLET 100 MG PO (08:46)
[2022-03-10] MEDS: AMLODIPINE 10 MG TABLET 5 MG PO (08:46)
[2022-03-10] MEDS: hydroCHLOROthiazide 12.5 MG CAPSULE PO (08:46)
[2022-03-10] MEDS: IPRAT-ALBUT 0.5-2.5 MG/3 ML NEB 1 NEB IH ×4 (08:47→19:38)
[2022-03-10] MEDS: ACETAMINOPHEN 325 MG TABLET 650 MG PO ×2 (08:54→19:24)
[2022-03-10] MEDS: PRIMIDONE 50 MG TABLET PO ×3 (10:05→20:37)
[2022-03-10] MEDS: SOTALOL HCL 80 MG TABLET PO ×2 (10:05→20:37)
--- NOTE | 2022-03-10 10:28 | RESP.RT ---
Pt seen this AM. She is very upset about the possibility of going to [facility]. Worried about the cost and burden. She works well with aer[employer]ika, using them at home. Would put her on the neb schedule she is used to at home, to allow her some control, and limit anxiety about nebs. Would not do neb with aerobika, with pt's shortness of breath, It would not be beneficial. Let pt finish the neb, and then f/u with short aerobika treatment.
--- NOTE | 2022-03-10 10:45 | CRLHL7_ITS ---
For Patients: As a result of the Cures Act, medical imaging exams and procedure reports are released immediately into your electronic medical record. You may view this report before your referring provider. If you have questions, please contact your health care provider. Indication: PICC line Technique: Right upper extremity ultrasound limited Comparison: No comparison Findings: Ultrasound provided for placement of right PICC line in the basilic vein. Please refer to the providers note for full details. Dictated by Allegra Ag MD @ 03/12/2022 9:15:23 AM (Electronically Signed)
--- NOTE | 2022-03-10 11:18 | PM.IMPN1 ---
Progress Note: A&P Assessment and plan (1) Bronchiectasis with acute exacerbation: Problem details: Serratia and Pseudomonas on recent sputum culture at [facility] Status: Acute (2) Dyspnea on exertion: Status: Acute Assessment and Plan: Chest CT yesterday negative for PE. (3) Acute respiratory distress: Status: Acute (4) Atrial fibrillation: Status: Acute Assessment and Plan: Rate well controlled. INR remains subtherapeutic. Adjust Coumadin for anticoagulation. (5) Subtherapeutic international normalized ratio (INR): Problem details: On coumadin for h/o DVT and afib Status: Acute (6) Pulmonary nocardiosis: Problem details: s/p successful treatment [id number] Status: Chronic (7) Diastolic congestive heart failure, NYHA class 3: Status: Chronic Assessment and Plan: stable, not in exacerbation (8) Severe protein-calorie malnutrition: Status: Acute (9) Pulmonary cachexia due to chronic obstructive pulmonary disease: Status: Acute (10) Unintended weight loss: Status: Acute (11) Headache: Status: Acute Plan Continue Cefepime IV BID. We called [facility] this am for transfer, however there are still no beds available. We were advised to call back this afternoon. Respiratory distress and lung sounds improving with starting cefepime. Nutrition consult pending, continue dietary supplements TID VTE prophylaxis with TEDs, SCDs, Coumadin. h/o steroid induced myositis. VS are stable and she is not hypoxic. Will hold off on steroid for now. PICC placement today. SW involvement to help with placement - patient will need 4-6 weeks of IV antibiotics. Due to frailty, SOB, she will be unable to do these at home or to come into infusion center BID. Homecare is not an option for BID IV home antibiotics. Subjective Time Seen by Provider: 08:48 Date Seen: 03/10/22 Interval history: She complains of a bilateral headache that starts in her upper shoulders/back and wraps up around the top of her head. No vision changes (she notes poor vision at baseline), no phobophonia. States the TV seemed extra bright yesterday evening, no photophonia today. Her , Jaswant, was in the room and said that she has been getting headaches with coughing sometimes. She complains that her nebs are at the wrong times and she is feeling SOB because she hasn't gotten her nebs yet this morning. She has not had a BM for several days. EXAM General: Able to speak more fluidly today, string more words together between breaths. Awake alert oriented x3. Cachectic, thin, gaunt. HEENT: Normocephalic atraumatic, pupils equally round and reactive to light and accommodation. Oropharynx clear. Mucous membranes are moist. Cardiovascular: Irregularly irregular. No murmurs, gallops, or rubs. Chest: Breath sounds better today. Rhonchi audible now in RLL. No wheezes. No crackles. Abdomen: Bowel sounds present. Soft, nondistended, nontender. No hepatosplenomegaly or masses. Extremities: No edema, no cyanosis or clubbing. Neuro: RAM, no focal deficits. Strength 5/5 in all 4 extremities. Exam Const: Vital Signs, click to edit/add: Vital Signs - 24 hr 03/09/22 13:40 03/09/22 15:37 03/09/22 16:00 Temperature 98.1 F Pulse Rate [Left B rachial] Pulse Rate [Right Pulse Oximeter] 82 66 66 Respiratory Rate 18 20 Blood Pressure [Le ft Arm] Blood Pressure [Ri ght Arm] Blood Pressure [Ri ght Upper Arm] 165/77 H 143/67 H 161/79 H Pulse Oximetry 100 95 91 Oxygen Delivery Mn thod Room Air Room Air Room Air 03/09/22 16:30 03/09/22 18:06 03/10/22 00:30 Temperature 97.7 F Pulse Rate [Left B rachial] 70 65 Pulse Rate [Right Pulse Oximeter] 66 Respiratory Rate 20 20 Blood Pressure [Le ft Arm] 143/81 H Blood Pressure [Ri ght Arm] Blood Pressure [Ri ght Upper Arm] 139/68 Pulse Oximetry 93 94 Oxygen Delivery Mn thod Room Air Room Air 03/10/22 00:30 03/10/22 03:00 03/10/22 07:00 Temperature 97.7 F 97.9 F Pulse Rate [Left B rachial] 65 65 66 Pulse Rate [Right Pulse Oximeter] Respiratory Rate 20 20 22 Blood Pressure [Le ft Arm] 122/89 147/77 H Blood Pressure [Ri ght Arm] Blood Pressure [Ri ght Upper Arm] Pulse Oximetry 94 93 [facility] Room Air 03/10/22 07:00 Temperature 97.9 F Pulse Rate [Left B rachial] 66 Pulse Rate [Right Pulse Oximeter] Respiratory Rate 22 Blood Pressure [Le ft Arm] Blood Pressure [Ri ght Arm] 151/83 H Blood Pressure [Ri ght Upper Arm] Pulse Oximetry 95 Oxygen Delivery Me thod Room Air Documenting provider has reviewed patient's vital signs: yes Labs Labs: Laboratory Results - last 24 hr 03/09/22 03/09/22 03/09/22 14:54 15:00 15:00 WBC 4.88 RBC 4.86 Hgb 13.9 Hct 42.1 MCV 87 MCH 29 MCHC 33 RDW Coeff of Amor 15.6 H Plt Count 174 Neut % (Auto) 65.2 Lymph % (Auto) 18.4 L [place] % (Auto) 15.0 H Eos % (Auto) 0.4 Baso % (Auto) 0.2 Neut # (Auto) 3.18 Lymph # (Auto) 0.90 [place] # (Auto) 0.70 Eos # (Auto) 0.02 Baso # (Auto) 0.01 Abs Immat Gran (auto) 0.04 INR D-Dimer Quant (PE/DVT) 0.32 Sodium Potassium Chloride Carbon Dioxide BUN Creatinine Estimated Creat Clear Estimated GFR Glucose Calcium Troponin I C-Reactive Protein NT-Pro-B Natriuret Pep SARS-CoV-2 (PCR) Negative SARS-CoV-2 Influenza Type A (PCR) Negative PCR FLU A Influenza Type B (PCR) Negative PCR FLU B RSV (PCR) Negative PCR RSV POC Troponin I 03/09/22 03/09/22 03/09/22 15:00 15:20 21:37 WBC RBC Hgb Hct MCV MCH MCHC RDW Coeff of Amor Plt Count Neut % (Auto) Lymph % (Auto) [place] % (Auto) Eos % (Auto) Baso % (Auto) Neut # (Auto) Lymph # (Auto) [place] # (Auto) Eos # (Auto) Baso # (Auto) Abs Immat Gran (auto) INR 1.39 H D-Dimer Quant (PE/DVT) Sodium 134 L Potassium 3.9 Chloride 96 Carbon Dioxide 29 BUN 23 Creatinine 0.8 Estimated Creat Clear 27.10 Estimated GFR 72 Glucose 115 Calcium 9.4 Troponin I C-Reactive Protein 2.1 H NT-Pro-B Natriuret Pep 2270 H SARS-CoV-2 (PCR) Influenza Type A (PCR) Influenza Type B (PCR) RSV (PCR) POC Troponin I 0.00 L 03/09/22 03/10/22 03/10/22 21:37 05:57 05:57 WBC 2.68 L RBC 4.23 Hgb 12.2 Hct 36.1 MCV 85 MCH 29 MCHC 34 RDW Coeff of Amor 15.6 H Plt Count 149 Neut % (Auto) 47.2 Lymph % (Auto) 31.7 [place] % (Auto) 19.0 H Eos % (Auto) 0.7 Baso % (Auto) 0.7 Neut # (Auto) 1.30 L Lymph # (Auto) 0.80 L [place] # (Auto) 0.50 Eos # (Auto) 0.00 Baso # (Auto) 0.00 Abs Immat Gran (auto) 0.02 INR D-Dimer Quant (PE/DVT) Sodium 133 L Potassium 4.0 Chloride 98 Carbon Dioxide 29 BUN 19 Creatinine 0.8 Estimated Creat Clear 26.53 Estimated GFR 72 Glucose 95 Calcium 8.8 Troponin I 0.02 C-Reactive Protein NT-Pro-B Natriuret Pep SARS-CoV-2 (PCR) Influenza Type A (PCR) Influenza Type B (PCR) RSV (PCR) POC Troponin I
--- NOTE | 2022-03-10 11:45 | CRLHL7_ITS ---
For Patients: As a result of the Century Cures Act, medical imaging exams and procedure reports are released immediately into your electronic medical record. You may view this report before your referring provider. If you have questions, please contact your health care provider. INDICATION: Verify PICC placement. TECHNIQUE: Chest 1 views. COMPARISON: March 09, 2022.. FINDINGS: Devices: Interval placement of right PICC with tip projecting over the mid SVC. Cardiovascular and mediastinum: Heart size and vasculature are normal in caliber and appearance. Lungs and pleural spaces: Stable COPD changes and areas of scarring. No focal infiltrate or significant effusion and no pneumothorax. Bones and soft tissues: No significant findings. IMPRESSION: Interval placement of right PICC with tip projecting over the mid SVC. Dictated by Bud Rico MD @ 03/10/2022 12:04:44 PM (Electronically Signed)
[2022-03-10] MEDS: polyethylene glycoL 3350 17 GM PACK PO (14:30)
--- NOTE | 2022-03-10 16:22 | PC.SOCIAL ---
Pt. will need 4-6 weeks of IV abx 2x a day and is getting a PICC line placed today. Initial assessment sent to [facility] since they are the only SNF in [place] that currently takes IV abx. youth services librarian to follow-up in am and send PICC information and therapy notes and will meet with pt. in the am if pt. has not transferred to [facility], which was another possibility.
[2022-03-10] MEDS: WARFARIN 3 MG TABLET PO (17:11)
[2022-03-10] MEDS: SODIUM CHLORIDE 0.9 % (FLUSH) 10 ML SYRINGE IVF (17:12)
[2022-03-10] MEDS: SENNOSIDES/DOCUSATE TABLET 1 TAB PO (20:37)
[2022-03-11 02:39] VITALS: BP 147/82; PULSE 62; RESP 20; TEMP 36.8; O2SAT 92
[2022-03-11] MEDS: CEFEPIME HCL 1 GM in 0.9 % SODIUM CHLORIDE Mini-bag 100 ML IVPB ×2 (03:44→15:26)
[2022-03-11] MEDS: SODIUM CHLORIDE 0.9 % (FLUSH) 10 ML SYRINGE IVF ×2 (03:44→15:28)
--- NOTE | 2022-03-11 06:17 | PC.NURSE ---
[id number]: Patient pleasant and cooperative with cares. PICC patent. SBA w/4ww. Moves well. Denies pain. A&O x3. Mepilex applied to coccyx area for reddened area. Independently repositions self in bed.
[2022-03-11 06:56] LABS: Basophils Percent Auto 0.7 % (0.0-3.0); Eosinophils Percent Auto 0.7 % (0.0-7.0); Hematocrit 38.5 % (33.0-51.0); Hemoglobin* 12.7 gm/dL (12.0-16.0); Immature Granulocytes Abs Auto 0.02 K/uL (0.00-0.30); Lymphocytes Percent Auto 30.2 % (20-44); Mean Corpuscular HGB Conc 33 gm/dL (32-36); Mean Corpuscular Hemoglobin 28 pg (26-34); Mean Corpuscular Volume 86 fL (80-100); Monocytes Percent Auto 18.4 % (0.0-11.0); Neutrophils Percent Auto 49.3 % (42.0-72.0); Platelet Count* 157 K/uL (140-440); RDW Coefficient of Variation % 15.5 % (11.5-15.5); Red Blood Count 4.49 m/uL (4.00-5.20); White Blood Count* 3.05 K/uL (4.50-11.00)
[2022-03-11 06:59] LABS: Slide Review Reflex No
[2022-03-11 07:18] LABS: Chloride* 98 mmol/L (96-114); Potassium* 4.6 mmol/L (3.6-5.1); Sodium* 135 mmol/L (135-149)
[2022-03-11 07:21] LABS: Blood Urea Nitrogen* 27 mg/dL (7-30); Carbon Dioxide* 29 mmol/L (20-32); Creatinine* 0.8 mg/dL (0.5-1.5); Est. Creatinine Clearance* 26.53; Estimated Glomerular Filt Rate 72 ml/min
[2022-03-11 07:22] LABS: Glucose* 100 mg/dL (60-115)
[2022-03-11 07:45] VITALS: BP 113/83; PULSE 98; RESP 16; TEMP 36.6; O2SAT 93
[2022-03-11] MEDS: SENNOSIDES/DOCUSATE TABLET 1 TAB PO (08:57)
[2022-03-11] MEDS: ACETAMINOPHEN 325 MG TABLET 650 MG PO ×2 (08:57→17:30)
[2022-03-11] MEDS: AMLODIPINE 10 MG TABLET 5 MG PO (08:57)
[2022-03-11] MEDS: hydroCHLOROthiazide 12.5 MG CAPSULE PO (08:57)
[2022-03-11] MEDS: IPRAT-ALBUT 0.5-2.5 MG/3 ML NEB 1 NEB IH ×4 (08:57→19:44)
[2022-03-11] MEDS: PRIMIDONE 50 MG TABLET PO ×3 (08:58→21:14)
[2022-03-11] MEDS: SOTALOL HCL 80 MG TABLET PO ×2 (08:58→21:14)
[2022-03-11] MEDS: LOSARTAN POTASSIUM 50 MG TABLET 100 MG PO (08:58)
--- NOTE | 2022-03-11 09:06 | PM.IMPN1 ---
Progress Note: A&P Assessment and plan (1) Bronchiectasis with acute exacerbation: Problem details: Serratia and Pseudomonas on recent sputum culture at [facility] Status: Acute Assessment and Plan: Improving. (2) Acute respiratory distress: Status: Acute Assessment and Plan: Improving. (3) Dyspnea on exertion: Problem details: Chest CT 03/09/22 negative for PE. Status: Acute (4) Atrial fibrillation: Status: Acute Assessment and Plan: Rate well controlled. INR remains subtherapeutic. Adjust Coumadin for anticoagulation. (5) Subtherapeutic international normalized ratio (INR): Problem details: On coumadin for h/o DVT and afib Status: Acute Assessment and Plan: INR remains subtherapeutic. Start therapeutic subcut lovenox for DVT and VTE, renally dosed. (6) Pulmonary nocardiosis: Problem details: s/p successful treatment [id number] Status: Chronic (7) Diastolic congestive heart failure, NYHA class 3: Status: Chronic Assessment and Plan: stable, not in exacerbation (8) Severe protein-calorie malnutrition: Status: Acute Assessment and Plan: Appreciate Nutrition's recommendations: Regular diet, per MD order. Enlive between meals t.i.d. mixed with ice cream and other flavor rings, as desired. Encourage oral intake. Offer preference is as available. (9) Pulmonary cachexia due to chronic obstructive pulmonary disease: Status: Acute (10) Unintended weight loss: Status: Acute (11) Headache: Status: Acute Assessment and Plan: Resolved. Plan PICC in place. Continue Cefepime IV BID. Seek SNF for 4-6 weeks of IV antibiotics, PT and OT. VTE prophylaxis with TEDs, SCDs, Coumadin, lovenox - stop lovenox when INR therapeutic. h/o steroid induced myositis. VS are stable and she is not hypoxic. Will hold off on steroid for now. Subjective Time Seen by Provider: 07:48 Date Seen: 03/11/22 Interval history: Feeling better today. Headache is gone. She tells me that this was a sinus related headache yesterday and she does have sinus pressure in the frontal sinuses today. She was able to ambulate in the [place] yesterday and noted that she didn't have much dyspnea with that, which is improved from admission when she got dyspneic at 5 feet. Her cough is also better. Denies CP. EXAM General:? No respiratory distress.? Awake alert oriented x3.? Cachectic, thin, gaunt. Cardiovascular:? Irregularly irregular.? No murmurs, gallops, or rubs. Chest:? Rhonchi in RLL.? No wheezes.? No crackles. Abdomen:? Bowel sounds present.? Soft, nondistended, nontender. No hepatosplenomegaly or masses. Extremities:? No edema, no cyanosis or clubbing. Exam Const: Vital Signs, click to edit/add: Vital Signs - 24 hr 03/10/22 11:00 03/10/22 15:00 03/10/22 18:32 Temperature 97.8 F 98.2 F 97.8 F Pulse Rate [Left B rachial] 61 63 72 Respiratory Rate 18 20 20 Blood Pressure [Le ft Arm] 120/63 114/58 L 133/56 L Pulse Oximetry 95 93 92 Oxygen Delivery Me thod Room Air Room Air Room Air 03/10/22 23:00 03/11/22 02:39 Temperature 97.9 F 98.2 F Pulse Rate [Left B rachial] 92 62 Respiratory Rate 20 20 Blood Pressure [Le ft Arm] 151/87 H 147/82 H Pulse Oximetry 92 92 Oxygen Delivery Me thod Room Air Room Air Labs Labs: Laboratory Results - last 24 hr 03/11/22 03/11/22 06:45 06:45 WBC 3.05 L RBC 4.49 Hgb 12.7 Hct 38.5 MCV 86 MCH 28 MCHC 33 RDW Coeff of Amor 15.5 Plt Count 157 Neut % (Auto) 49.3 Lymph % (Auto) 30.2 [place] % (Auto) 18.4 H Eos % (Auto) 0.7 Baso % (Auto) 0.7 Neut # (Auto) 1.50 L Lymph # (Auto) 0.90 [place] # (Auto) 0.60 Eos # (Auto) 0.00 Baso # (Auto) 0.00 Abs Immat Gran (auto) 0.02 Sodium 135 Potassium 4.6 Chloride 98 Carbon Dioxide 29 BUN 27 Creatinine 0.8 Estimated Creat Clear 26.53 Estimated GFR 72 Glucose 100 Calcium 9.0 INR 1.48 today.
--- NOTE | 2022-03-11 09:52 | PC.SOCIAL ---
Discharge planning: Faxed PICC line information to [facility] and awaiting call back with decision on admit. bridge gang worker to follow up as needed.
[2022-03-11 10:14] LABS: INR 1.48 (0.91-1.10); Prothrombin Time 18.3 Seconds
[2022-03-11] MEDS: ENOXAPARIN 40 MG/0.4 ML INJ SUBCUT (11:23)
[2022-03-11] MEDS: OXYMETAZOLINE 0.05% NASAL SPRAY 1 SPRAY NOSTRIL-B (11:23)
[2022-03-11] MEDS: FLUTICASONE PROPIONATE NASAL 1 SPRAY NOSTRIL-B (11:23)
[2022-03-11] MEDS: FEXOFENADINE HCL 60 MG TABLET PO (11:32)
[2022-03-11 11:44] VITALS: BP 108/72; PULSE 68; RESP 16; TEMP 37.1; O2SAT 93
--- NOTE | 2022-03-11 13:45 | PC.SOCIAL ---
Dischagrg plan: REceived call from [facility] stating they can accept pt for admit tomorrow as long as they receive the abx order by 3:00 today. Met with pt and who are aware and agree with this plan. bench worker apprentice to follow up as needed.
--- NOTE | 2022-03-11 14:29 | PC.NURSE ---
End of shift report: Patient alert and oriented. Had a headache this morning that began after coughing. Stated that this feels like a sinus headache. MD started Afrin spray PRN, Arin and flonase. Patient stated the afrin made her nose burn but feels like it might have stopped the running and maybe opened it up a bit as well. Continues to have a productive cough that is quite bothersome. Tolerating a regular diet. Had 1 ensure today inbetween meals. Sleeping now. Plan is to DC tomorrow to [facility]. will transport around 10am. PICC line is patent and intact. Vital signs within normal limits. Takes pills whole with water. Denies nausea. Had 2 BMs today and voided twice. Ambulates with SBA and walker. Coccyx is red. Recommended patient lay on side and reposition often as mepilex continues to get stool on it with every bowel movement.
[2022-03-11 15:00] VITALS: BP 118/64; PULSE 68; PULSE 69; RESP 24; TEMP 36.8; O2SAT 95
--- NOTE | 2022-03-11 15:10 | PC.SOCIAL ---
Discharge plan: Pt has been accepted to [facility] for admission 03/12/22. to transport at 10:00am. PAS completed and submitted PAS#[id number].
[2022-03-11] MEDS: WARFARIN 3 MG TABLET PO (17:19)
[2022-03-11 19:00] VITALS: BP 113/73; PULSE 68; PULSE 78; RESP 22; TEMP 36.6; O2SAT 93
--- NOTE | 2022-03-11 20:29 | PC.NURSE ---
shift [id number] Pt this shift pleasant and cooperative. Fine crackles noted to upper lung natarajan. Occasional cough heard. Pt c/o headache, treated with PRN Tylenol. Skin intact. Red area noted on bottom of R heel and Lateral side of L heel. Bilat feet raised on pillows with heels hanging over. Ambulating in room with SB assist using gait belt and walker. at bedside.
[2022-03-11 23:00] VITALS: BP 132/64; PULSE 66; RESP 22; TEMP 36.4; O2SAT 94
[2022-03-12] MEDS: ACETAMINOPHEN 325 MG TABLET 650 MG PO (00:03)
[2022-03-12 03:00] VITALS: BP 132/77; PULSE 62; RESP 18; TEMP 36.7; O2SAT 92
[2022-03-12] MEDS: SODIUM CHLORIDE 0.9 % (FLUSH) 10 ML SYRINGE IVF (03:51)
[2022-03-12] MEDS: CEFEPIME HCL 1 GM in 0.9 % SODIUM CHLORIDE Mini-bag 100 ML IVPB (03:52)
--- NOTE | 2022-03-12 06:40 | PC.NURSE ---
[id number]: Patient pleasant and cooperative. SBA w/4ww. Patient reports an increased appetite. Drank vanilla Enlive. [facility] patent. C/o headache, Tylenol administered for relief. Chronic tremor. Denies SOB. Independently uses Aerobika. Educated and encouraged to off-load coccyx area. D/C today to [facility].
[2022-03-12 07:00] VITALS: BP 139/66; PULSE 67; RESP 20; TEMP 36.6; O2SAT 92
[2022-03-12 07:00] LABS: INR 1.45 (0.91-1.10); Prothrombin Time 18.1 Seconds
[2022-03-12] MEDS: IPRAT-ALBUT 0.5-2.5 MG/3 ML NEB 1 NEB IH (07:58)
[2022-03-12] MEDS: FLUTICASONE PROPIONATE NASAL 1 SPRAY NOSTRIL-B (09:28)
[2022-03-12] MEDS: FEXOFENADINE HCL 60 MG TABLET PO (09:30)
[2022-03-12] MEDS: hydroCHLOROthiazide 12.5 MG CAPSULE PO (09:30)
[2022-03-12] MEDS: LOSARTAN POTASSIUM 50 MG TABLET 100 MG PO (09:32)
[2022-03-12] MEDS: SOTALOL HCL 80 MG TABLET PO (09:32)
[2022-03-12] MEDS: PRIMIDONE 50 MG TABLET PO (09:32)
[2022-03-12] MEDS: AMLODIPINE 10 MG TABLET 5 MG PO (09:33)
[2022-03-12 09:46] VITALS: RESP 18; TEMP 36.7
--- NOTE | 2022-03-12 10:25 | PC.NURSE ---
Discharge: Patient pleasant and cooperative. Patient vitally stable, posterior lungs with crackles, BS WNL, PICC intact in right upper arm. Patient on RA and SOB with activity. Patient has little appetite but tolerating regular diet and urinating. Patient SBA with walker, gb. Patient denied pain. Patient signed belongings sheet and discharge folder given to to give to nurse at [facility]. Patient left the floor by wheelchair at 1015 with belongings and . [facility] called for nurse to nurse, no nurse available to given report. [employer] Incident Responder was told [facility] will call back for report.
--- NOTE | 2022-03-12 11:03 | PC.NURSE ---
Nurse to Nurse given to Bibi at [facility].
--- NOTE | 2022-03-20 23:14 | PM.DS1 ---
DS: Providers Provider Date Seen: 03/12/22 Date of admission: 03/09/22 20:02 Primary care physician: Gonzalez Mckay MD Admitting Clinician: Louie Wright MD Attending Physician on discharge: Louie Wright MD Date of Discharge: 03/12/22 DS: Diagnosis Discharge Diagnosis (1) Bronchiectasis with acute exacerbation: Status: Acute Problem details: Serratia and Pseudomonas on recent sputum culture at [facility] (2) Severe protein-calorie malnutrition: Status: Acute DS: Summary Hospital Course Hospital Course: 86 year old female admitted to the hospital for an acute exacerbation of bronchiectasis. Her loft worker head at [facility] recommended hospitalization for one month of IV cefepime. Status at Discharge Overall status at discharge: patient is progressing back to baseline Time Spent with Patient Time attestation: Total time spent providing and/or coordinating discharge services: Time spent: Less than 30 minutes Exam Narrative: Exam Narrative: She is alert and has mild increased work of breathing. Bilaterally diminished breath sounds with bibasilar crackles. CV: S1S2, irregularly irregular. No edema. Const: Documenting provider has reviewed patient's vital signs: yes Discharge Plan Discharge Disposition: Xfer Other Date of Admission: 03/09/22 20:02 Attending Provider on Discharge: Louie Wright Primary Care Provider: Gonzalez Mckay Condition: Stable Discharge Medications: New warfarin [Jantoven] 3 mg Tablet 3 mg PO 1700 Qty: 90 0RF warfarin 1 mg tablet 3 mg PO DAILY Qty: 60 0RF cefepime 1 gram recon soln 1 g IM Q12H Qty: 60 0RF Continued primidone 50 mg tablet 50 mg PO TID Label Comments: TAKE ONE TABLET (50MG) BY MOUTH THREE TIMES DAILY sotalol 80 mg tablet 80 mg PO BID Label Comments: TAKE ONE TABLET BY MOUTH TWICE DAILY hydrochlorothiazide 12.5 mg capsule 12.5 mg PO DAILY Label Comments: TAKE ONE CAPSULE BY MOUTH ONE TIME DAILY amlodipine 10 mg tablet 5 mg PO DAILY sodium chloride 0.9 % solution for nebulization 3 ml inhalation BID Rx Instructions: takes between duonebs twice a day albuterol sulfate 90 mcg/actuation HFA aerosol inhaler 2 puff inhalation Q4H PRN (Reason: shortness of breath or wheezing) Qty: 8.5 11RF ipratropium-albuterol 0.5 mg-3 mg(2.5 mg base)/3 mL solution for nebulization 3 ml INHALATION QID Qty: 180 12RF losartan 50 mg tablet 100 mg PO DAILY Qty: 180 0RF Discontinued cefdinir 300 mg capsule 300 mg PO BID Qty: 20 1RF warfarin 2 mg tablet 1 - 2 mg PO DAILY Qty: 60 0RF Protocol: Dose Management Condition: Tuesday Dose/Route: 1 % Instruction: 0.5 x 2 % tablets Condition: Tuesday Dose/Route: 2 % Instruction: 1 x 2 % tablet Condition: Tuesday Dose/Route: 2 % Instruction: 1 x 2 % tablet Condition: Tuesday Dose/Route: 2 % Instruction: 1 x 2 % tablet Condition: Dose/Route: 1 % Instruction: 0.5 x 2 % tablets Condition: Tuesday Dose/Route: 2 % Instruction: 1 x 2 % tablet Condition: Tuesday Dose/Route: 2 % Instruction: 1 x 2 % tablet Protocol Text: Adjustment Start Date: Tuesday03/01/22 INR Value: 1.4 INR Date: 03/01/22 Recheck Date: 03/08/22 Rx Instructions: TAKES 1 MG ON // AND 2 MG ALL OTHER DAYS OF THE WEEK Discharge Orders: Discharge Order (Routine); Ordered 03/12/22 Ordered By: Louie Wright Additional Instructions: Cefepime 1 g q.12 hours for 1 month. Follow-up with [facility] loft worker head to determine ongoing plan of care for antibiotics. PT and OT to evaluate and treat INR in 3 days. Adjust warfarin dose to keep INR between 2 and 3. Normal warfarin dose is about 2 mg per day. Increased dose now due to persistent subtherapeutic INR Activity Level: Activity as Tolerated and Use Walker Discharge Diet: Regular Follow Up Appointments: Gonzalez Mckay MD [Primary Care Provider] - Forms: [facility] Info Instructions Hospital Course: 86 year old female admitted to the hospital for an acute exacerbation of bronchiectasis. Her loft worker head at [facility] recommended hospitalization for one month of IV cefepime.
== END 2022-03-12 10:15 | DRG 190 ==
LOC: ED 16:04 → MEDSURG 16:43
PROVIDERS: Family Medicine; Admitting Provider Family Medicine; Emergency Provider Family Medicine; PCP Family Medicine; Visit Provider Family Medicine
DX: J47.1 Bronchiectasis with (acute) exacerbation (principal); E43 Unspecified severe protein-calorie malnutrition; R64 Cachexia; A43.0 Pulmonary nocardiosis; I50.32 Chronic diastolic (congestive) heart failure; Z68.1 Body mass index [BMI] 19.9 or less, adult; R51.9 Headache, unspecified; I11.0 Hypertensive heart disease with heart failure; I27.20 Pulmonary hypertension, unspecified; I48.91 Unspecified atrial fibrillation; Z79.01 Long term (current) use of anticoagulants; E03.8 Other specified hypothyroidism; Z86.718 Personal history of other venous thrombosis and embolism
CPT/HCPCS: 36415; 36573; 71045; 71046; 71260; 80048; 83880; 84484; 85025; 85379; 85610; 86140; 87502; 87634; 87635; 93005; 94640; 94664; 97110; 97116; 97161; 97165; 97535; 99284; 99285; A9270; C1751; J0692; J1650; Q9967

== ENCOUNTER 2022-05-10 10:50 | Emergency (ER) | payer MEDICARE, BC, SELFPAY ==
[2022-05-10] VITALS (15 sets, daily range): BP systolic 121–159; BP diastolic 63–80; PULSE 62–73; RESP 22; TEMP 37; O2SAT 93–99; BMI 15.4
--- NOTE | 2022-05-10 11:51 | CRLHL7_ITS ---
For Patients: As a result of the Century Cures Act, medical imaging exams and procedure reports are released immediately into your electronic medical record. You may view this report before your referring provider. If you have questions, please contact your health care provider. INDICATION: Cough, short of breath. TECHNIQUE: Chest 1 views. COMPARISON: Chest x-ray from 03/10/2022. FINDINGS: Lungs: Coarse interstitial markings suggest chronic changes. Linear opacity extending to the pleural surface from the right mid lung is unchanged and likely scarring. No focal consolidation. Pleura: No pleural effusion or pneumothorax. Heart and Mediastinum: The heart is mildly enlarged. The vessels are unremarkable. Bones: Unremarkable. IMPRESSION: No acute cardiopulmonary disease. Dictated by Miguel Angel Brown MD @ 05/10/2022 1:21:00 PM (Electronically Signed)
--- NOTE | 2022-05-10 11:53 | ED_ITS ---
HPI - Weakness General Chief complaint: Weakness Stated complaint: Weak, can't walk Time Seen by Provider: 05/10/22 11:44 History of Present Illness HPI Narrative: This 86-year-old female comes in reporting increased weakness recently. A couple months ago she was diagnosed with a pneumonia and admitted to the hospital for about 3 days. She then went to a rehab facility for about a month. She has been home now for a couple weeks and states that she is getting worse. She reports weakness and states that she may be could get up and walk a few steps. She also has a cough and some shortness of breath. I do note that she seems unable to talk in complete sentences. She does not report any fevers. She does arrive here with normal vital signs. Her oximetry on room air is at 93%. Related Data Home Medications Medication Instructions Recorded Confirmed sotalol 80 mg tablet 80 mg PO BID 12/23/21 03/09/22 amlodipine 10 mg tablet 5 mg PO DAILY 03/09/22 03/09/22 sodium chloride 0.9 % for 3 ml inhalation BID 03/09/22 03/09/22 nebulization acetaminophen 500 mg tablet 1,000 mg PO BID PRN 04/26/22 04/26/22 sodium chloride 0.65 % nasal spray 2 spray intranasal QID PRN 04/26/22 04/26/22 aerosol (Saline Mist) Previous Rx's Medication Instructions Recorded albuterol sulfate 90 mcg/actuation 2 puff inhalation Q4H PRN 12/04/21 aerosol inhaler shortness of breath or wheezing #8.5 grams ipratropium 0.5 mg-albuterol 3 mg 3 ml inhalation QID #180 mL 01/18/22 (2.5 mg base)/3 mL nebulization soln losartan 50 mg tablet 100 mg PO DAILY #180 tabs 02/12/22 cefepime 1 gram solution for 1 g IM Q12H #60 vials 03/12/22 injection warfarin 3 mg tablet (Jantoven) 3 mg PO 1700 #90 tabs 03/12/22 sertraline 25 mg tablet 25 mg PO QDAY #90 tabs 04/26/22 sodium chloride 0.65 % nasal spray 2 spray intranasal QID PRN nasal 04/26/22 aerosol ([place] Saline) congestion #50 mL warfarin 2 mg tablet 2 mg PO QDAY #90 tabs 04/26/22 hydrochlorothiazide 12.5 mg capsule 12.5 mg PO DAILY #90 caps 05/03/22 primidone 50 mg tablet 50 mg PO TID #90 tabs 05/03/22 azithromycin 250 mg tablet 250 mg PO DAILY 6 days #6 tabs 05/10/22 (Zithromax) Allergies Allergy/AdvReac Type Severity Reaction Status Date / Time amoxicillin AdvReac Severe Diarrhea Verified 02/25/22 13:54 Angiotensin-converting Allergy Mild Uncoded 02/25/22 13:54 enzyme inhibitor Review of Systems Status of ROS: Reports: 10 or more systems reviewed and unremarkable except as noted in History and below Narrative: Constitutional: No fevers, no weight gain or loss. She reports generalized weakness. Eyes: No discharge. No vision changes. HENT: No congestion, no sore throat, no ear pain. Cardiovascular: No chest pain, no palpitations. Respiratory: She reports cough and shortness of breath. Gastrointestinal: No abdominal pain, no vomiting, no diarrhea. Genitourinary: No dysuria, no hematuria. Musculoskeletal: Normal range of motion. Skin: No rashes, no pruritis. Neurological: No dizziness, sensory change, speech change. Endo/Heme/Allergies: No bruising or bleeding. No polydipsia. Pysch: no suicidality, no anxiety, no insomnia. All other systems reviewed and are negative. 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) Bronchiectasis with acute lower respiratory infection (10/13/09) Candidiasis of esophagus Chest wall pain Chronic obstructive pulmonary disease Chronic obstructive pulmonary disease with acute exacerbation (10/13/09) Deep venous thrombosis of lower extremity Diastolic congestive heart failure, NYHA class 3 Echocardiogram abnormal Eosinophilic esophagitis (04/15/11) Esophageal dysphagia Esophageal stricture (10/13/09) Essential tremor (10/13/09) Failure to thrive in adult Gait instability Goiter Headache Hearing aid worn (01/01/11) High risk medication use History of cataract History of oral lesions Hypertension (10/13/09) 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 Mass of oral cavity Mediastinal lymphadenopathy (10/13/09) Mitral valve insufficiency (10/13/09) Nasal sinus congestion Orthostatic hypotension (02/16/10) Osteopenia (12/11/12) Pain of left lower extremity Pain of right breast Painful mouth Paroxysmal supraventricular tachycardia (05/10/12) Post-acute COVID-19 syndrome Pulmonary hypertension (10/13/09) Pulmonary nocardiosis Right ventricular enlargement (10/13/09) Rotator cuff tear arthropathy Skin tear of right forearm without complication Steroid-induced myopathy Subclinical hypothyroidism Tremor Urinary tract infection Vasovagal syncope Venous insufficiency of lower extremity Surgical History (Updated 03/09/22 @ 20:57 by Ara Edwards MD) H/O colonoscopy History of appendectomy History of cardiac radiofrequency ablation History of esophagogastroduodenoscopy (EGD) History of hysterectomy Status post total abdominal hysterectomy Social History (Updated 03/09/22 @ 21:09 by Ara Edwards MD) Narrative: Lives with and two adult great grandchildren. Uses walker at home. Denies tob, EtOH or recreational drug use. Lifelong nonsmoker, but father smoked when she was a child. DNR/DNI. Highest level of school completed/degree received: high school graduate Smoking Status: Never smoker Do you use any of these nicotine containing products: None Second hand tobacco smoke exposure: No How often do you have a drink containing alcohol: never How often do you have six or more drinks on one occasion: Never AUDIT-C Alcohol total score: 0 Non-prescribed substance use: denies use Caffeine: Yes (3-4 cups per day) service: No Exam Narrative: Exam Narrative: Constitutional: No acute distress. HEENT: Normocephalic, atraumatic. Neck: Normal range of motion. Nontender. Supple. Heart: Regular. No murmurs. Normal rate. Intact distal pulses. Lungs: Decreased breath sounds left greater than right. No chest discomfort. No wheezes, rhonchi, or rales. Abdomen: Normal bowel sounds. Nontender. No rebound tenderness. Genitalia: Deferred. Back: No midline tenderness. Normal range of motion. Extremities: Normal range of motion. No injury. Skin: Intact. No rash. Warm. No erythema or pallor. Neurologic: No altered sensation. No weakness. Alert and oriented. She does not have any unilateral weakness. No facial asymmetry. She is able to raise each leg from the bed. Supervisor Home Energy Consultant strength is equal bilaterally. Psychiatric: No suicidality. No anxiety or depression. No insomnia. Nursing notes and vitals signs are reviewed. Const: Vital Signs, click to edit/add: Vital Signs - 24 hr 05/10/22 11:30 05/10/22 13:29 05/10/22 13:30 Temperature 98.6 F Pulse Rate 62 68 Pulse Rate [Right Pulse Oximeter] 73 Respiratory Rate 22 Blood Pressure Blood Pressure [Ri ght Upper Arm] 121/65 Pulse Oximetry 93 98 95 Oxygen Delivery Me thod Room Air 05/10/22 13:32 Temperature Pulse Rate 72 Pulse Rate [Right Pulse Oximeter] Respiratory Rate Blood Pressure 125/63 Blood Pressure [Ri ght Upper Arm] Pulse Oximetry 95 Oxygen Delivery Me thod Course Vital Signs Vital signs: Initial Vital Signs Temperature 98.6 F 05/10/22 11:30 Temperature Source Temporal Artery Scan 05/10/22 11:30 Pulse Rate 73 05/10/22 11:30 Respiratory Rate 22 05/10/22 11:30 Blood Pressure 121/65 05/10/22 11:30 Blood Pressure Mean 83 05/10/22 11:30 Blood Pressure Position Sitting 05/10/22 11:30 Pulse Oximetry 93 05/10/22 11:30 Oxygen Delivery Method 05/10/22 11:30 Vital Signs Temperature 98.6 F 05/10/22 11:30 Pulse Rate 73 05/10/22 11:30 Respiratory Rate 22 05/10/22 11:30 Blood Pressure 121/65 05/10/22 11:30 Pulse Oximetry 93 05/10/22 11:30 Oxygen Delivery Method 05/10/22 11:30 Temperature 98.6 F 05/10/22 11:30 Pulse Rate 72 05/10/22 13:32 Respiratory Rate 22 05/10/22 11:30 Blood Pressure 125/63 05/10/22 13:32 Pulse Oximetry 95 05/10/22 13:32 Oxygen Delivery Method 05/10/22 11:30 MDM - Weakness MDM Narrative Medical decision making narrative: This patient comes in reporting increased generalized weakness. She is able to ambulate. She does have a cough but is maintaining normal vital signs. Chest x-ray today shows no acute findings. Her lab results return also with mostly reassuring findings. She does have a troponin that returns at 0.08. I do not have a comparison value for this. Additionally her B type natriuretic peptide is elevated and again there is no comparison value. I relayed these matters to the patient and her and stated that we do not have any beds available as were currently boarding for patient's here that needed [place] or transfer. I stated we could keep her here until something more definitive becomes available. Patient and her state that they want to return home. I do not think that she is having an acute coronary syndrome. I did prescribe a Z-Sumanth in the off chance that this may help her symptoms. I advised him to return not improving or worsening symptoms happen. Lab Data Labs: Lab Results 05/10/22 05/10/22 05/10/22 Range/Units 11:51 11:52 12:40 WBC 4.68 (4.50-11.00) K/uL RBC 4.67 (4.00-5.20) m/uL Hgb 13.3 (12.0-16.0) gm/dL Hct 39.6 (33.0-51.0) % MCV 85 (80-100) fL MCH 29 (26-34) pg MCHC 34 (32-36) gm/dL RDW Coeff of Amor 14.5 (11.5-15.5) % Plt Count 220 (140-440) K/uL Neut % (Auto) 59.5 (42.0-72.0) % Lymph % (Auto) 20.5 (20-44) % Fountain % (Auto) 19.2 H (0.0-11.0) % Eos % (Auto) 0.2 (0.0-7.0) % Baso % (Auto) 0.2 (0.0-3.0) % Neut # (Auto) 2.78 (1.7-7.0) K/uL Lymph # (Auto) 0.96 (0.90-2.90) K/uL Fountain # (Auto) 0.90 (0.00-0.90) K/UL Eos # (Auto) 0.01 (0.00-0.50) K/uL Baso # (Auto) 0.01 (0.00-0.30) K/uL Abs Immat Gran (auto) 0.02 (0.00-0.30) K/uL Imm/Tot Granulo (auto) 0.4 % INR 3.20 H (0.91-1.10) Sodium (135-149) mmol/L Potassium (3.6-5.1) mmol/L Chloride (96-114) mmol/L Carbon Dioxide (20-32) mmol/L BUN (7-30) mg/dL Creatinine (0.5-1.5) mg/dL Estimated Creat Clear Estimated GFR ml/min Glucose (60-115) mg/dL Calcium (8.4-10.6) mg/dL Troponin I (0.01-0.04) ng/mL NT-Pro-B Natriuret Pep (0-450) PG/mL SARS-CoV-2 (PCR) Negative SARS-CoV-2 (Negative) Influenza Type A (PCR) Negative PCR FLU A (Negative) Influenza Type B (PCR) Negative PCR FLU B (Negative) RSV (PCR) Negative PCR RSV (Negative) POC Troponin I (0.01-0.04) ng/ml 05/10/22 05/10/22 05/10/22 Range/Units 12:40 12:40 12:40 WBC (4.50-11.00) K/uL RBC (4.00-5.20) m/uL Hgb (12.0-16.0) gm/dL Hct (33.0-51.0) % MCV (80-100) fL MCH (26-34) pg MCHC (32-36) gm/dL RDW Coeff of Amor (11.5-15.5) % Plt Count (140-440) K/uL Neut % (Auto) (42.0-72.0) % Lymph % (Auto) (20-44) % Fountain % (Auto) (0.0-11.0) % Eos % (Auto) (0.0-7.0) % Baso % (Auto) (0.0-3.0) % Neut # (Auto) (1.7-7.0) K/uL Lymph # (Auto) (0.90-2.90) K/uL Fountain # (Auto) (0.00-0.90) K/UL Eos # (Auto) (0.00-0.50) K/uL Baso # (Auto) (0.00-0.30) K/uL Abs Immat Gran (auto) (0.00-0.30) K/uL Imm/Tot Granulo (auto) % INR (0.91-1.10) Sodium 137 (135-149) mmol/L Potassium 4.5 (3.6-5.1) mmol/L Chloride 100 (96-114) mmol/L Carbon Dioxide 30 (20-32) mmol/L BUN 37 H (7-30) mg/dL Creatinine 0.8 (0.5-1.5) mg/dL Estimated Creat Clear 26.51 Estimated GFR 72 ml/min Glucose 86 (60-115) mg/dL Calcium 9.1 (8.4-10.6) mg/dL Troponin I 0.08 H* (0.01-0.04) ng/mL NT-Pro-B Natriuret Pep 2830 H (0-450) PG/mL SARS-CoV-2 (PCR) (Negative) Influenza Type A (PCR) (Negative) Influenza Type B (PCR) (Negative) RSV (PCR) (Negative) POC Troponin I 0.05 H (0.01-0.04) ng/ml Imaging Data Chest x-ray: Radiologist's impression: No acute cardiopulmonary disease. ECG Data Attestation: I personally reviewed and interpreted this ECG as follows: Interpretation: Normal sinus rhythm. Rate is 86 beats per minute. There are no ST or T-wave abnormalities. Discharge Plan Discharge Clinical Impression: Acute lower respiratory infection Patient Disposition: Home w/ Parent or Adult Condition: Unchanged Additional Instructions: Take medication as prescribed. Follow up with MD or return if worsening. Prescriptions: New azithromycin [Zithromax] 250 mg tablet 250 mg PO DAILY 6 Days Qty: 6 0RF Rx Instructions: Take 2 tablets on day 1, then 1 tablet daily for 4 days. No Action Saline Mist 0.65 % aerosol,spray 2 spray intranasal QID PRN acetaminophen 500 mg tablet 1,000 mg PO BID PRN [place] Saline 0.65 % aerosol,spray 2 spray intranasal QID PRN (Reason: nasal congestion) Qty: 50 12RF sertraline 25 mg tablet 25 mg PO QDAY Qty: 90 1RF warfarin 2 mg tablet 2 mg PO QDAY Qty: 90 0RF Protocol: Dose Management Condition: Tuesday Dose/Route: 2 % Instruction: 1 x 2 % tablet Condition: Tuesday Dose/Route: 3 % Instruction: 1 x 3 % tablet Condition: Tuesday Dose/Route: 0 % Instruction: 0 tablets Condition: Tuesday Dose/Route: 2 % Instruction: 1 x 2 % tablet Condition: Dose/Route: 3 % Instruction: 1 x 3 % tablet Condition: Tuesday Dose/Route: 2 % Instruction: 1 x 2 % tablet Condition: Tuesday Dose/Route: 3 % Instruction: 1 x 3 % tablet Protocol Text: Adjustment Start Date: Tuesday05/04/22 INR Value: 4.74 INR Date: 05/04/22 Recheck Date: 05/11/22 Rx Instructions: as directed sotalol 80 mg tablet 80 mg PO BID Label Comments: TAKE ONE TABLET BY MOUTH TWICE DAILY amlodipine 10 mg tablet 5 mg PO DAILY sodium chloride 0.9 % solution for nebulization 3 ml inhalation BID Rx Instructions: takes between duonebs twice a day warfarin [] 3 mg Tablet 3 mg PO 1700 Qty: 90 0RF Protocol: Dose Management Condition: Tuesday Dose/Route: 2 % Instruction: 1 x 2 % tablet Condition: Tuesday Dose/Route: 3 % Instruction: 1 x 3 % tablet Condition: Tuesday Dose/Route: 0 % Instruction: 0 tablets Condition: Tuesday Dose/Route: 2 % Instruction: 1 x 2 % tablet Condition: Dose/Route: 3 % Instruction: 1 x 3 % tablet Condition: Tuesday Dose/Route: 2 % Instruction: 1 x 2 % tablet Condition: Tuesday Dose/Route: 3 % Instruction: 1 x 3 % tablet Protocol Text: Adjustment Start Date: Tuesday05/04/22 INR Value: 4.74 INR Date: 05/04/22 Recheck Date: 05/11/22 cefepime 1 gram recon soln 1 g IM Q12H Qty: 60 0RF albuterol sulfate 90 mcg/actuation HFA aerosol inhaler 2 puff inhalation Q4H PRN (Reason: shortness of breath or wheezing) Qty: 8.5 11RF ipratropium-albuterol 0.5 mg-3 mg(2.5 mg base)/3 mL solution for nebulization 3 ml INHALATION QID Qty: 180 12RF losartan 50 mg tablet 100 mg PO DAILY Qty: 180 0RF primidone 50 mg tablet 50 mg PO TID Qty: 90 12RF hydrochlorothiazide 12.5 mg capsule 12.5 mg PO DAILY Qty: 90 3RF Follow Up/Referrals: Gonzalez Mckay MD [Primary Care Provider] - Stand Alone Forms: [employer] Info Instructions
[2022-05-10 12:55] LABS: Basophils Absolute Auto 0.01 K/uL (0.00-0.30); Basophils Percent Auto 0.2 % (0.0-3.0); Eosinophils Absolute Auto 0.01 K/uL (0.00-0.50); Eosinophils Percent Auto 0.2 % (0.0-7.0); Hematocrit 39.6 % (33.0-51.0); Hemoglobin* 13.3 gm/dL (12.0-16.0); Immature Granulocytes Abs Auto 0.02 K/uL (0.00-0.30); Immature Granulocytes Pct Auto 0.4 %; Lymphocytes Absolute Auto 0.96 K/uL (0.90-2.90); Lymphocytes Percent Auto 20.5 % (20-44); Mean Corpuscular HGB Conc 34 gm/dL (32-36); Mean Corpuscular Hemoglobin 29 pg (26-34); Mean Corpuscular Volume 85 fL (80-100); Monocytes Percent Auto 19.2 % (0.0-11.0); Neutrophils Absolute Auto 2.78 K/uL (1.7-7.0); Neutrophils Percent Auto 59.5 % (42.0-72.0); Platelet Count* 220 K/uL (140-440); RDW Coefficient of Variation % 14.5 % (11.5-15.5); Red Blood Count 4.67 m/uL (4.00-5.20); White Blood Count* 4.68 K/uL (4.50-11.00)
[2022-05-10 12:58] LABS: Slide Review Reflex No
[2022-05-10 13:00] LABS: Troponin, Point-of-Care* 0.05 ng/ml (0.01-0.04)
--- OUTSIDE RECORDS SUMMARY | 2022-05-10 13:05 | XMS_ITS | Clinical Summary ---
:1935 Author Organization [facility] [place] [address] Care Team Providers Name Role Phone Gonzalez [...] Group MEDICARE PART A MEDICARE PART A [id number] 2001-Presen ATTN: CLAIMS - HB USE ONLY HB ONLY t [address] [place] [address] MEDICARE PART B MEDICARE PART B [id number] 2002-Prese ATTN: CLAIMS - HB USE ONLY HB ONLY nt [address] [place] [address] MEDICARE PART B MEDICARE PART B [id number] 2002-Prese ATTN: CLAIMS - HB USE ONLY HB ONLY nt [address] [place] [address] [place]UE CROSS MR MR BC [place] [id number] 2014-Presen [id number] [place] [address] BLUE CROSS MR [place] [id number] 2016-Presen [address] [address] [place] BLUE t [place], [place] MR PB ONLY [id number] BL[employer] [place]OSS BL[place] [id number] 2016-[place] [address] [address] [place], [place] HB ONLY [id number] Advance Directives Latest Code Status on File [...] 5:22 PM 02/09/2019 5:41 PM 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
--- OUTSIDE RECORDS SUMMARY | 2022-05-10 13:05 | XMS_ITS | Encounter Summary ---
:1935 Author Organization [facility] Address [address] [place] [address] Care Team Providers Name Role Phone Elsewhere, Pcp Primary Care Provider Unavailable Reason for Visit Reason Comments Update - no improvement Encounter Details Date Type Department Care Team Description 03/09/2022 Clinical Communication Division of Gerard Bhatia Pulmonary Medicine Kallie Ramey improvement in [place], [facility] [address] [place], [place] [address] [facility] [address] [place], [place] [phone] (Work) [phone] Social History Tobacco Use Types Packs/Day Years Used Date Smoking Tobacco: Never Smokeless Tobacco: Never Alcohol Habits Answer Date Recorded How often do you have a drink containing alcohol? Never 10/21/2020 How many drinks containing alcohol do you have on a typical Not asked day when you are drinking? How often do you have six or more drinks on one occasion? No t asked Social Isolation Answer Date Recorded In a typical week, how many times do you talk on the Once a week 10/21/2020 phone with family, friends, or neighbors? How often do you get together with friends or Patient refuse d 10/21/2020 relatives? How often do you attend quaker or roman catholic services? Patien t refused 10/21/2020 Do you belong to any clubs or organizations such as Yes 10/21/2020 quaker groups, unions, fraternal or athletic groups, or school groups? How often do you attend meetings of the clubs or Patient ref used 10/21/2020 organizations you belong to? Are you now , , , , 10/21/2020 never or living with a partner? Stress Answer Date Recorded Do you feel stress - tense, restless, nervous, or Only a lit tle 10/21/2020 anxious, or unable to sleep at night because your mind is troubled all the time - these days? Financial Resource Strain Answer Date Recorded How hard is it for you to pay for the very basics like Not h gino at all 10/21/2020 food, housing, medical care, and heating? Food Insecurity Answer Date Recorded Within the past 12 months, you worried that your food would Never true 10/21/2020 run out before you got money to buy more. Within the past 12 months, the food you bought just didn't N ever true 10/21/2020 last and you didn't have money to get more. Transportation Needs Answer Date Recorded In the past 12 months, has lack of transportation kept you f rom No 10/21/2020 medical appointments or from getting medications? In the past 12 months, has lack of transportation kept you f rom No 10/21/2020 meetings, work, or getting things needed for daily living? Housing Stability Answer Date Recorded In the last 12 months, was there a time when you were not ab le No 10/21/2020 to pay the mortgage or rent on time? In the last 12 months, how many places have you lived? 1 10/21/2020 In the last 12 months, was there a time when you did not hav e a No 10/21/[address] to sleep or slept in a custodial (including now)? Education Answer Date Recorded What is the highest level of school you have completed or 12 th grade 10/21/2020 the highest degree you have received? Sex Assigned at Date Recorded Not on file documented as of this encounter Miscellaneous Notes Telephone Encounter - Gerard Bhatia M.D. - 03/09/2022 12:40 PM CDT Called patient to discuss. See clinical note for details. Telephone Encounter - Jocelyne Cazares - 03/09/2022 11:50 AM CDT Patient called. She said that she talked to you a couple of weeks ago and was to call with an updateon how she is doing. She said that she doesn't feel that she has had any improvement at all and actually thinks she has gotten worse. She said that she is really having a hard time breathing and that she can hardly walk atall as she is so weak and short of breath. Per your 02/26/2022 note, If she worsens on this therapy, or if she fails to improve, then the next step would be inpatient admission for parenteral treatment. We have considered nebulized antibiotics previously, but I do not think that she will tolerate them, since she has not even been able to tolerate 3% nebulized saline, on account of dysphonia and upper airway discomfort. Patient is looking for what her next steps are. Thanks Jocelyne documented in this encounter Plan of Treatment Not on filedocumented as of this encounter Visit Diagnoses Not on filedocumented in this encounter Care Teams Housing Case Manager Relationship Specialty Start Date End Date Elsewhere, Pcp PCP - General Internal Medicine 12/23/21 documented as of this encounter
--- OUTSIDE RECORDS SUMMARY | 2022-05-10 13:05 | XMS_ITS | Clinical Summary ---
:1935 Author Organization [facility] Address [address] [place] [address] Care Team Providers Name Role Phone Elsewhere, Pcp Primary Care Provider Unavailable Source Comments Patient records contain information from all sites at [facility]. For routine questions regarding patient records, call [phone] during business hours, M-F 8:00 AM - 5:00 PM Central Time. Record requests for emergency care only can be directed to [phone] at any time.[facility] Allergies Active Allergy Reactions Severity Noted Date Comments Arie Inhibitors Other (see comments) 12/22/2020 Amoxicillin GI intolerance High 01/01/2022 Angiotensin I,Human Other (see comments) Low 01/01/2022 Methotrexate Other (see comments) 08/26/2015 gagging & inreased sputum producti on Minocycline Other (see comments) 06/24/2015 Pollen Extracts Other (see comments) 08/26/2015 cyto penias & hyperkalemia Medications Medication Sig Dispensed Refills Start Date End Date Status albuterol (ACCUNEB) 2.5 Nebulize 1 vial 360 mL 11 11/10/2018 Active mg /3 mL nebulizer 2-4 times daily. solutionIndications: Bronchiectasis (HCC) warfarin (COUMADIN) 2 mg Take 2 mg by 0 01/10/2019 Active tablet mouth. 2 mg on Tue/Tue/Tue losartan (COZAAR) 50 mg Take 100 mg by 1 12/08/2018 Active tablet mouth daily. hydroCHLOROthiazide Take 12.5 mg by 0 03/19/2020 Active (MICROZIDE) 12.5 mg mouth daily. capsule sotaloL (BETAPACE) 80 mg Take 80 mg by 0 01/31/2019 Active tablet mouth 2 (two) times a day. sodium chloride 0.9 % Inhale 3 mL by 0 08/21/2020 Active nebulizer solution nebulization daily. warfarin (COUMADIN) 1 mg Take 1 mg by 0 Active tablet mouth. 1 mg on /Tue/Tue albuterol 90 Inhale 2 puffs 0 Ac tive mcg/actuation inhaler every 4 (four) hours as needed for wheezing. amLODIPine (NORVASC) 5 Take 2.5 mg by 0 01/05/2021 Active mg tablet mouth daily. food supplemt, Take by mouth. 0 Active lactose-reduced (Ensure) liquid ipratropium-albuteroL Inhale 3 mL by 0 Active (DUONEB) 0.5-2.5 mg/3 mL nebulization 4 nebulizer solution (four) times a day. primidone (MYSOLINE) 50 Take 1 tablet (50 90 tablet 0 12/27/19 22 Active mg tablet mg total) by mouth 3 (three) times a day. cefdinir (OMNICEF) 300 Take 1 capsule 5 capsule 0 12/28/2021 Active mg capsule (300 mg total) by mouth daily. albuterol 0.166 mg/mL 2.5 mg. 0 01/12/2022 Active continuous nebulization amLODIPine 1 mg/mL 2.5 mg. 0 01/01/2022 Active solution cefdinir (OMNICEF) 125 300 mg. 0 01/01/2022 Active mg/5 mL suspension doxycycline monohydrate 100 mg. 0 01/23/2022 Active (MONODOX) 100 mg capsule ipratropium-albuteroL 3 mL. 0 01/18/2022 Active (DUONEB) 0.5-2.5 mg/3 mL nebulizer solution nystatin (MYCOSTATIN) 5 mL. 0 01/23/2022 Active 100,000 unit/gram cream SODIUM CHLORIDE 0.45 % 4 mL. 0 01/01/2022 Active IV cefdinir (OMNICEF) 300 Take 1 capsule 22 capsule 0 02/26/2022 Active mg capsule (300 mg total) by mouth 2 (two) times a day before breakfast and dinner. (Extension of previous prescription; take for 21 days total.) Active Problems Problem Noted Date Loss Weight 01/15/2022 Atrial Fibrillation Unspecified 12/23/2021 Chronic Obstructive Pulmonary Disease 08/13/2021 Acute Respiratory Failure With Hypoxia 08/13/2021 Hypertension Pulmonary 02/08/2019 Hypertension 01/09/2016 Bronchiectasis 08/23/2008 Encounters Date Type Specialty Care Team Description 03/23/2022 Clinical Pulmonary Gerard Bhatia Appointment Communication Medicine Kallie Ramey 03/09/2022 Documentation Critical Care Gerard Bhatia M.D. 03/09/2022 Clinical Pulmonary Gerard Bhatia Update - no Communication Medicine Kallie Ramey improvement 02/26/2022 Virtual Visit Pulmonary Gerard Bhatia Bronchiectasi s With Katelyn Ramey M.D. Acute Exacerbat ion (HCC) (Primary Dx) 02/25/2022 Clinical Pulmonary Gerard Bhatia Pneumonia - Communication Medicine Kallie Ramey medication/leonie atment? from Last 3 Months Immunizations Name Administration Dates Next Due HepB Adult 03/29/2013, 02/26/2013 PCV13 11/09/2013 PPSV23 05/17/2006, 09/08/1999 Td, (Adult) Unspecified 03/06/2010 Tdap 03/15/2010 influenza high dose (65 years or older) (PF) 07/04/2012 Social History Tobacco Use Types Packs/Day Years Used Date Smoking Tobacco: Never Smokeless Tobacco: Never Tobacco Cessation: Counseling Given: Not Answered Alcohol Habits Answer Date Recorded How often [...] 10/21/2020 relatives? How often do you attend sabianist or protestant services? Patien t refused 10/21/2020 Do you belong to any clubs or organizations such as Yes 10/21/2020 sabianist groups, unions, fraternal or athletic groups, or [...] place to sleep or slept in a senior living (including now)? Education Answer Date Recorded What is the highest level of school you have completed or 12 th grade 10/21/2020 the highest degree you have received? Sex Assigned at Date Recorded Not on file Last Filed Vital Signs Vital Sign Reading Time Taken Comments Blood Pressure 150/78 01/04/2022 1:14 PM CDT Pulse 59 01/04/2022 1:14 PM CDT Temperature 36.3 ??C (97.3 ??F) 12/26/2021 10:40 AM CDT Respiratory Rate 22 12/26/2021 10:45 AM CDT Oxygen Saturation 94% 01/15/2022 1:55 PM CDT Inhaled Oxygen Concentration - - Weight 40.2 kg (88 lb 10 oz) 01/04/2022 1:14 PM CDT Height 161.4 cm (5' 3.54) 01/04/2022 1:14 PM CDT Body Mass Index 15.43 01/04/2022 1:14 PM CDT Plan of Treatment Health Maintenance Due Date Last Done Comments Zoster Vaccines (1 of 2) 1986 Hepatitis B Vaccines (3 of 3 - 19+ 08/27/2013 03/29/2013, 0 02/26/2013 3-dose series) Depression Screening (Annual 06/06/2021 PHQ-2) COVID-19 Vaccine (4 - Booster for 07/02/2021 05/07/2021, , Pfizer series) 07/19/2020 Office Visit for Blood Pressure 04/06/2022 01/04/2022 Check / Re-check Creatinine Level 12/24/2022 12/24/2021, 12/23/2021, 08/13/2021, Additional history exists Potassium Level 12/24/2022 12/24/2021, 12/23/2021, 08/13/2021, Additional history exists Sodium Level 12/24/2022 12/24/2021, 12/23/2021, 08/13/2021, Additional history exists DTaP,Tdap,and Td Vaccines (3 - Td 03/18/2030 03/18/2020, , or Tdap) 03/06/2010, Additional history exists Pneumococcal vaccine (65+ years) Completed 11/09/2013, 05/2006, 09/08/1999 Fall Risk Screen (Annual) Completed 12/23/2021 Influenza Vaccine Completed 03/17/2022, 05/07/2021, 03/10/2020, Additional history exists Procedures Procedure Name Priority Date/Time Associated Diagnosis Comme nts OUTSIDE DX CHEST Routine 02/25/2022 2:35 PM Resul ts for this CDT procedure are i n the results section. from Last 3 Months Results XR CHEST 2V-Outside Chest Xray (02/25/2022 2:35 PM CDT) Specimen (Source) Anatomical Location Collection Method / Collectio n Time Received Time / Laterality Volume Narrative IIMS - 02/26/2022 11:08 AM CDT This order has been created and auto-finalized to support the import of outside images. If available, original i nterpretation can be found on the Media Tab in Chart Review, in Document V iewer, or as an image in QREADS. If a re-interpretation or overread is re quired please follow defined workflow. ?? Provider Not In System IMG DIAGNOSTIC IMAGING PROCE BETO Performing Organization Address City/State/ZIP Code Phon e Number IIMS IIMS NA from Last 3 Months Insurance Payer Benefit Plan Subscriber ID Effective Phone Address Typ e / Group Dates MEDICARE MEDICARE A [id number] 2002-Pre [address] [place] [address] BLUE CROSS BCBS [place] [id number] 2016-Pres [phone] [address] X Cost Share BLUE SHIELD BLUE COST ent [phone] [place] [address] Advance Directives For more information, please contact: [phone] Documents on File Type Date Recorded Patient Slots Manager Explanati on Advance Directives 01/07/2014 12:00 AM Legacy docu ment. See document viewer. Latest Code Status on File Code Status Date Activated Date Inactivated Comments Full Code 12/23/2021 10:51 PM 12/26/2021 2:03 PM Question Answer Comments Full Code: Discussed Care Teams Croze Cutter Helper Relationship Specialty Start Date End Date Elsewhere, Pcp PCP - General Internal Medicine 12/23/21
--- OUTSIDE RECORDS SUMMARY | 2022-05-10 13:05 | XMS_ITS | Encounter Summary ---
:1935 Author Organization [facility] Address [address] [place] [address] Care Team Providers Name Role Phone Elsewhere, Pcp Primary Care Provider Unavailable Encounter Details Date Type Department Care Team Description 03/09/2022 Documentation RST Gerard Carver M.D. [address] [facility] [address] [place] [address] [place] [address] (Wo rk) Social History Tobacco Use Types Packs/Day Years [...] 10/21/2020 relatives? How often do you attend moravian or moravian services? Patien t refused 10/21/2020 Do you belong to any clubs or organizations such as Yes 10/21/2020 moravian groups, unions, fraternal or athletic groups, or [...] on file documented as of this encounter Progress Notes Gerard Bhatia M.D. - 03/09/2022 12:24 PM CDT SUBJECTIVE Visit conducted by telephone. CHIEF COMPLAINT/REASON FOR VISIT Progressive dyspnea and cough, despite oral antibiotics HISTORY OF PRESENT ILLNESS Carmen Herman called to update me on her clinical status since our telephone visit on 02/26. In the interim, she has been taking an extended course of cefdinir, for management of an acute bronchiectasis exacerbation. Unfortunately, dyspnea and cough have progressed, despite the oral antibiotic, and she now cannot walk across the room without severe shortness of breath. Recall that her most recent sputumculture was positive for Pseudomonas and Serratia, which are not being covered by cefdinir, and -- given medication interactions that she would have with fluoroquinolones -- will require parenteral therapy to target. ASSESSMENT / PLAN #1 Diffuse bronchiectasis, in exacerbation #2 Recent sputum culture with 4+ Pseudomonas and 2+ Serratia #3 Chronic, progressive exertional dyspnea #4 Weight loss #5 Chronic productive cough #6 History of pulmonary nocardiosis, status post successful treatment 2014 to 2015 #7 History of COVID-19 pneumonia, April 2020, with subsequent decline in overall health status #8 Atrial fibrillation, on antiarrhythmic therapy #9 Essential tremor with voice tremor Ms. Herman is failing outpatient therapy with oral cefdinir, and I advised her that it is now time topursue hospital admission for initiation of parenteral therapy and for additional evaluation and supportive care. Ideally, antibiotic therapy would target Pseudomonas and Serratia, and I would recommend extended treatment with cefepime or meropenem for 28 days. For inpatient treatment, I offered direct admission to [facility], with the caveat that there may be an extended wait time for an admission from home. When presented with the alternative option of presenting to the Emergency Department at [facility], she offered that she would prefer to present to the ED locally in [place]. I gave Ms. Herman my cell phone number, so that providers in [place] might speak to me directly, if they have any questions. Gerard Bhatia M.D documented in this encounter Plan of Treatment Not on filedocumented as of this encounter Visit Diagnoses Not on filedocumented in this encounter Care Teams Night Supervisor Relationship Specialty Start Date End Date Elsewhere, Pcp PCP - General Internal Medicine 12/23/21 documented as of this encounter
--- OUTSIDE RECORDS SUMMARY | 2022-05-10 13:05 | XMS_ITS | Encounter Summary ---
:1935 Author Organization [facility] Address [address] [place] [address] Care Team Providers Name Role Phone Elsewhere, Pcp Primary Care Provider Unavailable Reason for Visit Reason Comments Appointment Encounter Details Date Type Department Care Team Description 03/23/2022 Clinical Communication Division of Pulmonary Eh Bhatia, Appointment Medicine in [facility] [address] [facility] [address] [place] [phone] Social History Tobacco Use Types Packs/Day Years [...] 10/21/2020 relatives? How often do you attend scientology or scientologist services? Patien t refused 10/21/2020 Do you belong to any clubs or organizations such as Yes 10/21/2020 scientology groups, unions, fraternal or athletic groups, or [...] place to sleep or slept in a chcf (including now)? Education Answer Date Recorded What is the highest level of school you have completed or 12 th grade 10/21/2020 the highest degree you have received? Sex Assigned at Date Recorded Not on file documented as of this encounter Miscellaneous Notes Telephone Encounter - Gerard Bhatia M.D. - 03/23/2022 12:57 PM CDT Returned call and discussed case. Fortunately, Ms. Herman has responded very well to IV antibiotics, and there is a plan to complete a 30 day course. She has done well with PT and OT, who are very happywith her progress and have already recommended return home at the completion of therapy. I asked that a message be relayed to Ms. Herman that she contact our office 2 weeks after returning home to review progress and determine timing of follow-up. Telephone Encounter - Juanita Tucker - 03/23/2022 11:[address]. Bhatia, The pt is at the [facility] until her IV is complete which is 04/11/2022. They are wondering if she is ok to go home? With no follow up with you, but will see primary. Did you want to see her? Do you think she should have another sputum culture before she leaves? They have lots of questions let them know you need to speak with a nurse. If you would like any testing you could fax those orders to [phone]. Thank you documented in this encounter Plan of Treatment Not on filedocumented as of this encounter Visit Diagnoses Not on filedocumented in this encounter Care Teams Dental Mold Maker Relationship Specialty Start Date End Date Elsewhere, Pcp PCP - General Internal Medicine 12/23/21 documented as of this encounter
--- OUTSIDE RECORDS SUMMARY | 2022-05-10 13:06 | XMS_ITS | Encounter Summary ---
:1935 Author Organization [facility] Address [address] [place] [address] Care Team Providers Name Role Phone Elsewhere, Pcp Primary Care Provider Unavailable Encounter Details Date Type Department Care Team Description 12/28/2021 Clinical Communication Division of [facility] Dieter Lynn Internal [facility] [address] [place], [place] [address] [place] [phone] [place], [place] [phone] (Work) [phone] Social History Tobacco Use Types Packs/Day Years Used Date Smoking Tobacco: Never Alcohol Habits Answer Date Recorded [...] 10/21/2020 relatives? How often do you attend yarsanism or bahai services? Patien t refused 10/21/2020 Do you belong to any clubs or organizations such as Yes 10/21/2020 yarsanism groups, unions, fraternal or athletic groups, or [...] to sleep or slept in a senior care (including now)? Education Answer Date Recorded What is the highest level of school you have completed or 12 th grade 10/21/2020 the highest degree you have received? Sex Assigned at Date Recorded Not on file documented as of this encounter Miscellaneous Notes Telephone Encounter - Dieter Lynn M.D. - 12/28/2021 11:52 AM CDT Mrs. Herman is an 86 year old female admitted to the Cardiology 2 service 12/23 and discharged 12/26 for presyncope, palpitations, and tachypnea. 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 During her stay she was started on Augmentin for exacerbation of her bronchiectasis. She was discharged with a MoMe. I received her sputum cultures in our inbasket and she is growing 4+ Pseudomonas and +2 Serratia. Susceptibilities for both only includes flouroquinolones. The patient is on Sotalol, and I spoke with pharmacy about the risks of a flouroquinolone and QTc prolongation and we decided the risk is too great. I called the patient and she reports she is feeling well. She notes slight increase in her sputum, but attributes this to using nebulizers at home. She denies shortness of breath, fevers, chills. She regularly checks her temperature. I spoke with the ID doc of the day. We elected to treat the Serratia with Cefdinir. Her CrCl is 27, so I dose reduced this to 300 mg daily. ID says that the Pseudomonas could be a colonizer. Given thatruthiee is clinically doing well, we will hold off on IV antibiotics at this point. I called the patients PCP office and told them that she needs an appointment either today or tomorrow to check in on her. She will also follow-up with her PCP on Tuesday this week. I called the patient and explained this to her. She will contact her PCP office to set up an appointment. The script for Cefdinir has been sent to [facility]. She agreed that if she does develop shortness ofbreath, fevers, chills, she will present to an ED for initiation of IV antibiotics. documented in this encounter Plan of Treatment Not on filedocumented as of this encounter Visit Diagnoses Not on filedocumented in this encounter Care Teams Hearing Officer Relationship Specialty Start Date End Date Elsewhere, Pcp PCP - General Internal Medicine 12/23/21 documented as of this encounter
--- OUTSIDE RECORDS SUMMARY | 2022-05-10 13:06 | XMS_ITS | Encounter Summary ---
:1935 Author Organization [facility] Address [address] [place] [address] Care Team Providers Name Role Phone Elsewhere, Pcp Primary Care Provider Unavailable Reason for Visit Outpatient (Routine) - Closed Specialty Diagnoses / Procedures Referred By Referred To Contact Contact Cardiovascular Diseases / Diagnoses Atrial Fibrillation Unspecified Bronchiectasis (HCC) Chronic Obstructive Pulmonary Disease (HCC) Raciel Matute, [facility] M.D [address] [place] [address] Referral ID Status Reason Start Date Expiration Date Visits Requ ested Visits Authorized [id number] Closed 12/25/2021 12/25/2022 1 1 Encounter Details Date Type Department Care Team Description 01/04/2022 Comprehensive Visit Department of Miguel, Dyspnea On Exertion (Primary Dx); Cardiovascular Jay Felix, Atrial Fibril lation ([facility]); [facility] Bron[facility]ctasis ([facility]); [place] [address] Chronic Obstructive Pulmonar y Disease ([facility]); [address] [facility] Elevated Troponin; [facility], Stenosis Aorti c Valve Acquired; [address] [place] Tachycardia Atrial Paroxysma l ([facility]); [phone] [id number] Secondary Pulmonary Arterial Hypertensio n ([facility]) Social History Tobacco Use Types Packs/Day Years [...] 10/21/2020 relatives? How often do you attend denominational or bahai services? Patien t refused 10/21/2020 Do you belong to any clubs or organizations such as Yes 10/21/2020 denominational groups, unions, fraternal or athletic groups, or [...] place to sleep or slept in a [place] facility (including now)? Education Answer Date Recorded What is the highest level of school you have completed or 12 th grade 10/21/2020 the highest degree you have received? Sex Assigned at Date Recorded Not on file documented as of this encounter Last Filed Vital Signs Vital Sign Reading Time Taken Comments Blood Pressure 150/78 01/04/2022 1:14 PM CDT Pulse 59 01/04/2022 1:14 PM CDT Temperature - - Respiratory Rate - - Oxygen Saturation - - Inhaled Oxygen Concentration - - Weight 40.2 kg (88 lb 10 oz) 01/04/2022 1:14 PM CDT Height 161.4 cm (5' 3.54) 01/04/2022 1:14 PM CDT Body Mass Index 15.43 01/04/2022 1:14 PM CDT documented in this encounter Progress Notes Jay Rivera M.D. - 01/04/2022 1:00 PM CDT Follow-up cardiac evaluation S/P recent hospitalization. Mrs. Herman is [facility] the [facility] by her . Primary physician Dr. Gonzalez Mckay, [facility]. History of present illness: Carmen Herman is an 86-year-old woman with a history of paroxysmal atrial fibrillation and atrial tachycardia and bronchiectasis who was hospitalized at [facility] between December 23 and for a chief complaint of shortness of breath. She was initially seen in the [place] [facility] and had elevated troponins (troponin I 0.24 and 0.22, upper normal 0.04 NG/mL)and was transferred to [facility] for possible NSTEMI ACS. However, given her clinical presentation and flat troponins, ultimately her dyspnea was attributed primarily to an exacerbation of her chronic bronchiectasis. The moderately elevated but flat troponins were attributed to demand ischemia. Upon admission she was also felt to be in atrial fibrillation with a well-controlled ventricular response rate. She was felt to have spontaneously converted to sinus rhythm, as her ECG the next day was interpreted as sinus rhythm with PACs.. Her history of paroxysmal atrial fibrillation dates to 2018. At that time she underwent electrical cardioversion and was started on sotalol. She had already been on Coumadin for a previous deep vein thrombosis. She has been followed through the [facility] by Drs. Darell Parada and Saúl Carpenter, both of whom are [place]-trained cardiologists. In August of this year she presented with a narrow complex tachycardia at a rate of 150 which terminated with adenosine. After that episode she underwent right atrial tachycardia ablation by Dr. Johnson, an epidemiologist. Left atrial pulmonary vein isolation ablation was not performed. An echocardiogram wasperformed as part of her follow-up evaluation with Dr. Carpenter in September of this year and reported normal LV size with borderline wall thickness and EF 60-65%, grade 2 diastolic dysfunction, RV pressureoverload with estimated PASP 57, mildly enlarged RV size with borderline reduced function, severe biatrial enlargement, sclerotic valves with trivial aortic valve gradient 10 mmHg. Mrs. Herman was treated at [facility] with nebulizers and antibiotics with improvement in her dyspnea. Since hospital discharge her clinical status has been stable. She feels that she is back to her baseline. However, she does have chronic exertional dyspnea, becoming dyspneic walking 10 ft. She also continues to experience a cough productive of green sputum. No fever or chills. At times she experiences a sensation that her heart is beating harder, but she has not had any palpitations to suggest tachyarrhythmia. No chest discomfort. Coumadin is listed on Mrs. Herman's dismissal medication sheet but was not checked off. For this reason she had not been taking Coumadin since hospital discharge. She saw Dr. Mckay for follow-up this past Tuesday (January 01) and was advised to resume Coumadin. Chronically she has been using DuoNeb nebulizer and p.r.n. albuterol inhaler, which she uses only infrequently. She was also prescribed Nebusal nebulizer and questions if she should be taking both DuoNeb and Nebusal. Mrs. Herman was also assessed as being malnourished (weight 42 kg, BMI 16.4) with recommended outpatient follow-up. Current Outpatient Medications: albuterol (ACCUNEB) 2.5 mg /3 mL nebulizer solution, Nebulize 1 vial 2-4 times daily., Disp: 360 mL, Rfl: 11 albuterol 90 mcg/actuation inhaler, Inhale 2 puffs every 4 (four) hours as needed for wheezing., Disp: , Rfl: amLODIPine (NORVASC) 5 mg tablet, Take 2.5 mg by mouth daily., Disp: , Rfl: cefdinir (OMNICEF) 300 mg capsule, Take 1 capsule (300 mg total) by mouth daily., Disp: 5 capsule, Rfl: 0 food supplemt, lactose-reduced (Ensure) liquid, Take by mouth., Disp: , Rfl: hydroCHLOROthiazide (MICROZIDE) 12.5 mg capsule, Take 12.5 mg by mouth daily., Disp: , Rfl: ipratropium-albuteroL (DUONEB) 0.5-2.5 mg/3 mL nebulizer solution, Inhale 3 mL by nebulization 4 (four) times a day., Disp: , Rfl: losartan (COZAAR) 50 mg tablet, Take 100 mg by mouth daily., Disp: , Rfl: 1 primidone (MYSOLINE) 50 mg tablet, Take 1 tablet (50 mg total) by mouth 3 (three) times a day., Disp: 90 tablet, Rfl: 0 sodium chloride (NEBUSAL) 3 % nebulizer solution, Inhale 4 mL by nebulization 4 (four) times a day for 14 days. MUST be administered after the ipratropium- albuterol douneb., Disp: 750 mL, Rfl: 11 sodium chloride 0.9 % nebulizer solution, Inhale 3 mL by nebulization daily., Disp: , Rfl: sotaloL (BETAPACE) 80 mg tablet, Take 80 mg by mouth 2 (two) times a day., Disp: , Rfl: warfarin (COUMADIN) 1 mg tablet, Take 1 mg by mouth. 1 mg on //Tue/Tue, Disp: , Rfl: warfarin (COUMADIN) 2 mg tablet, Take 2 mg by mouth. 2 mg on Tue/Tue/Tue, Disp: , Rfl: 0 Physical examination: General: Very thin, frail 86-year-old woman with visible resting tremor which is also audible in hervoice Vital signs: Height 161 cm. Weight 40.2 kg. Blood pressure 150/78 mmHg. Pulse 59 with frequent ectopic beats. Lungs: Generalized decreased breath sounds. Crackles primarily at the right base. Left lung relatively clear. Vessels: The external neck veins are easily visible bilaterally and extent to the angle of the jaw. Carotid arteries normal. Heart: Precordium not palpated. First heart sound soft. Second heart sound physiologically split with increased pulmonic component. No extra heart sounds. Grade 2/6 mid-peaking systolic ejection murmurat the base. No diastolic murmur. Extremities: No significant edema. Laboratory data: The most recent ECG from December 24 demonstrates sinus rhythm, PACs, nonspecific ST abnormality, and QTc interval 465. The 1 week mobile cardiac business continuity strategy director report was not availableat the time that I was seeing Mrs. Herman for her appointment, but did become available by the time of this dictation, and demonstrated sinus rhythm with PVC burden 1% and SVPC burden 5%, with 16 relatively short runs of SVT, but no atrial fibrillation or atrial tachycardia. Creatinine on December 24 0.98. ASSESSMENT/RECOMMENDATIONS: 1. Chronic bronchiectasis/COPD with recent exacerbation, resolved, with baseline chronic severe exertional dyspnea. 2. History of paroxysmal atrial fibrillation treated with a program of rhythm control with sotalol and anticoagulation with Coumadin. 3. History of paroxysmal atrial tachycardia, status post ablation August 2021. 4. 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 5. Elevated troponin during recent hospitalization secondary to demand ischemia. 6. Trivial aortic stenosis. 7. Malnutrition. 8. Tremor. Mrs. Herman continues to experience severe dyspnea, but she feels that she is markedly improved compared to how she was feeling at the time of presentation to the hospital and thinks that she is back toher baseline. I recommended that she continue with her current medication regimen, including Coumadin as recommended by Dr. Mckay. She has an elevated CHADS2 vascular score of 4 (age 2 points, gender1 point, hypertension 1 point) and should remain on chronic anticoagulation therapy. Mrs. Herman has been followed by Dr. Gerard Bhatia from Pulmonary. I sent him an e-mail notifying him of her hospitalization and requested that he clarify her question concerning nebulizer/inhaler use. Although her troponin levels were elevated during her recent hospitalization, given that she is not experiencing typical angina, I would not recommend investigating the status of her coronary arteries at this time. She can continue to follow up through the [facility]. Her cardiac rhythm during her recent hospitalization is not a major clinical issue at this time, but I am not convinced that she was inatrial fibrillation at the time of transfer to [facility]. Her initial ECG at [facility] on December 23 was interpreted as atrial fibrillation on the basis of noisy baseline suggesting coarse atrial fibrillation and irregular R-R intervals. However, I think that careful inspection demonstrates some sinus beats with PACs. She has a noisy baseline secondary to her tremor, which can occasionally create the false representation of coarse atrial fibrillation or atrial flutter in some patients. Of note, both of her ECGs performed in the [place] ER prior to transfer and her to subsequent ECGs performed at [facility] on December 24 clearly demonstrates sinus rhythm. She has been doing well on sotalol and should continue this medication. Measurement of her most recent QTc interval was in the normal range. Total time 45 minutes. documented in this encounter Plan of Treatment Not on filedocumented as of this encounter Visit Diagnoses Diagnosis Dyspnea On Exertion - Primary Atrial Fibrillation Unspecified Bronchiectasis (HCC) Chronic Obstructive Pulmonary Disease (H CC) Elevated Troponin Stenosis Aortic Valve Acquired Tachycardia Atrial Paroxysmal (HCC) Secondary Pulmonary Arterial Hypertensio n (HCC) documented in this encounter Care Teams Clinical Informatics Director Relationship Specialty Start Date End Date Elsewhere, Pcp PCP - General Internal Medicine 12/23/21 documented as of this encounter
--- OUTSIDE RECORDS SUMMARY | 2022-05-10 13:06 | XMS_ITS | Encounter Summary ---
:1935 Author Organization [facility] Address [address] [place] [address] Care Team Providers Name Role Phone Elsewhere, Pcp Primary Care Provider Unavailable Reason for Referral MRI/CAT/PET Scan (Routine) - Closed Specialty Diagnoses / Procedures Referred By Contact Refer red To Contact Radiology Diagnoses Bronchiectasis (HCC) Dyspnea On Exertion Gerard Bhatia M.D. [facility] Procedures CT Chest without IV Contrast [address] [place] [address] Referral ID Status Reason Start Date Expiration Date Visits Requ ested Visits Authorized [id number] Closed 01/11/2022 01/11/2023 1 1 Reason for Visit MRI/CAT/PET Scan (Routine) - Closed Specialty Diagnoses / Procedures Referred By Contact Refer red To Contact Radiology Diagnoses Bronchiectasis (HCC) Dyspnea On Exertion Gerard Bhatia M.D. [facility] Procedures CT Chest without IV Contrast [address] [place], [place] [address] Referral ID Status Reason Start Date Expiration Date Visits Requ ested Visits Authorized [id number] Closed 01/11/2022 01/11/2023 1 1 Encounter Details Date Type Department Care Team Description 01/15/2022 Hospital Encounter Department of Gerard Bhatia Bronchi ectasis (HCC); Radiology, Liudmila Ramey M.D. Dyspnea On Exertion Building, in [address] [facility] [id number] [place] [address] [place], [place] (Work) [id number] [phone] Social History Tobacco Use Types Packs/Day Years [...] How often do you attend moravian or restoration services? Patien t refused 10/21/2020 Do you [...] on file documented as of this encounter Medications at Time of Discharge Medication Sig Dispensed Refills Start Date End Date albuterol (ACCUNEB) 2.5 mg Nebulize 1 vial 2-4 360 mL 11 11/10/2018 /3 mL nebulizer times daily. solutionIndications: Bronchiectasis (HCC) albuterol 0.166 mg/mL 2.5 mg. 0 01/12/2022 continuous nebulization albuterol 90 mcg/actuation Inhale 2 puffs every 0 inhaler 4 (four) hours as needed for wheezing. amLODIPine (NORVASC) 5 mg Take 2.5 mg by mouth 0 01/05/2021 tablet daily. amLODIPine 1 mg/mL solution 2.5 mg. 0 01/02/20 22 cefdinir (OMNICEF) 125 mg/5 300 mg. 0 01/02/20 22 mL suspension cefdinir (OMNICEF) 300 mg Take 1 capsule (300 5 capsule 0 0 12/28/2021 capsule mg total) by mouth daily. food supplemt, Take by mouth. 0 lactose-reduced (Ensure) liquid hydroCHLOROthiazide Take 12.5 mg by 0 03/19/2020 (MICROZIDE) 12.5 mg capsule mouth daily. ipratropium-albuteroL Inhale 3 mL by 0 (DUONEB) 0.5-2.5 mg/3 mL nebulization 4 nebulizer solution (four) times a day. losartan (COZAAR) 50 mg Take 100 mg by mouth 1 tablet daily. primidone (MYSOLINE) 50 mg Take 1 tablet (50 mg 90 tablet 0 12/26/2021 tablet total) by mouth 3 (three) times a day. SODIUM CHLORIDE 0.45 % IV 4 mL. 0 01/01/2022 sodium chloride 0.9 % Inhale 3 mL by 0 08/21/2020 nebulizer solution nebulization daily. sotaloL (BETAPACE) 80 mg Take 80 mg by mouth 0 tablet 2 (two) times a day. warfarin (COUMADIN) 1 mg Take 1 mg by mouth. 0 tablet 1 mg on //Tue/Tue warfarin (COUMADIN) 2 mg Take 2 mg by mouth. 0 tablet 2 mg on Tue/Tue/Fri documented as of this encounter Plan of Treatment Not on filedocumented as of this encounter Procedures Procedure Name Priority Date/Time Associated Diagnosis Comme nts CT CHEST WITHOUT RAD - Routine 01/15/2022 11:35 Bronchiectasis (HCC) Results for IV CONTRAST (most inpatients AM CDT Dyspnea On Exertion this procedure and all are in the outpatients) results section. documented in this encounter Results CT Chest without IV Contrast (01/15/2022 11:35 AM CDT) Anatomical Region Laterality Modality Chest, Thoracic RST LOS, Thoracic ARZ N/A Co mputed Tomography, Computed LOS, Thoracic FLA LOS Tomography Specimen (Source) Anatomical Collection Method Collection Time Re ceived Time Location / / Volume Laterality 01/15/2022 4:51 PM CDT Impressions 01/15/2022 5:44 PM CDT 1. ??Redemonstration of diffuse bronchial wall thickening, endobronchial plugging, air trapping, bronchiectasis, nodular consolidative op acities, and tree-in-bud micro- nodularity throughout both lungs. 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 Some mixed interval changes have occurred since , however endobronchial plugging and tree-in-bud micro-nodularity has overall increased, predominantly in the right lower lobe, with changes detailed in the body the report 2. ??New discrete, focal 4 mm medial bas al right lower lobe solid noncalcified pulmonary nodule may be related to same process, however is t echnically indeterminate and could be followed to ensure stability or resolution. 3. ??Previously present right upper lobe groundglass opacities have resolved. 4. ??Additional findings have not signif icantly changed since 01/30/2021 and are detailed in the body the report. Narrative 01/15/2022 5:44 PM CDT EXAM: CT CHEST WITHOUT IV CONTRAST COMPARISON: Chest CT 01/30/2021 FINDINGS: Again demonstrated is diffuse bronchial wall thickening and multifocal peripheral bronchial plugging. Bronchiectasis with greatest i nvolvement in the the right middle lobe and lingula are similar to the prior study. Near-complet e atelectasis of the right middle lobe atelectasis and partial atelectasis of the inferior ling khoi is similar to the prior study. Similar diffuse mosaic attenuation of the lung parenchyma which corresponds with air trapping on expiratory imaging. Patchy areas of irregular nodular consol idation and clustered nodularity present throughout both lungs. Some mixed interval changes have occurred since the prior study. For example: -Anterior right upper lobe tree-in-bud m icro-nodularity has mildly increased -Posterior and lateral right lower lobe endobronchial plugging and micro- nodularity has increased in the anterior, lateral, and posterior seg ments peripherally -Mildly increased endobronchial mucous p lugging in the left lower lobe (series 3, images 323, [id number]) -Previously present consolidative opacit y in the superior segment of the left lower lobe has resolved (series 3, image 216) -Previously present right upper lobe zac undglass opacities have resolved Similar biapical pleural/parenchymal sca rring. Previously described 21 x 12 mm cavitary lesion in the right apex posteriorly (series 3, im age 71) remains unchanged. A 4 mm solid noncalcified pulmonary nodu le in the medial basal right lower lobe (series 3, image 361) is new. Additional tiny solid nonca lcified pulmonary nodules are unchanged. Unchanged 3 mm groundglass nodule in the anterior right lower lobe (series 3, image 431). Retained secretions in the central airwa ys. No pneumothorax or pleural effusion. Enlarged 18 mm precarinal lymph node is unchanged in size (series 3, image 246). Additional scattered subcentimeter thoracic lymph n odes have not significantly changed. Similar trace pericardial fluid is likel y physiologic. Unchanged dilation of the main pulmonary artery measuring 33 mm, which can be see n in the setting of pulmonary hypertension. Mild aortic valve and mitral annular calcification. Calcified atherosclerotic plaque in the aorta, proximal aortic arch branch vessels, and coronary arteries. Similar appearing multinodular thyroid g land. Musculoskeletal degenerative changes. Th oracolumbar curvature. Stable small lucency in the L2 vertebral body. Bone island right scapul a. Mild pectus excavatum. No aggressive osseous lesions. Hepatic cysts. Upper abdominal vascular calcifications. Left adrenal adenoma. Procedure Note Yasmine Soto M.D. - 01/15/2022Format ting of this note might be different from the original. EXAM: CT CHEST WITHOUT IV CONTRAST COMPARISON: Chest CT 01/30/2021 FINDINGS: Again demonstrated is diffuse bronchial wall thickening and multifocal peripheral bronchial plugging. Bronchiectasis with greatest i nvolvement in the the right middle lobe and lingula are similar to the prior study. Near-complet e atelectasis of the right middle lobe atelectasis and partial atelectasis of the inferior ling khoi is similar to the prior study. Similar diffuse mosaic attenuation of the lung parenchyma which corresponds with air trapping on expiratory imaging. Patchy areas of irregular nodular consol idation and clustered nodularity present throughout both lungs. Some mixed interval changes have occurred since the prior study. For example: -Anterior right upper lobe tree-in-bud m icro-nodularity has mildly increased -Posterior and lateral right lower lobe endobronchial plugging and micro- nodularity has increased in the anterior, lateral, and posterior seg ments peripherally -Mildly increased endobronchial mucous p lugging in the left lower lobe (series 3, images 323, [id number]) -Previously present consolidative opacit y in the superior segment of the left lower lobe has resolved (series 3, image 216) -Previously present right upper lobe zac undglass opacities have resolved Similar biapical pleural/parenchymal sca rring. Previously described 21 x 12 mm cavitary lesion in the right apex posteriorly (series 3, im age 71) remains unchanged. A 4 mm solid noncalcified pulmonary nodu le in the medial basal right lower lobe (series 3, image 361) is new. Additional tiny solid nonca lcified pulmonary nodules are unchanged. Unchanged 3 mm groundglass nodule in the anterior right lower lobe (series 3, image 431). Retained secretions in the central airwa ys. No pneumothorax or pleural effusion. Enlarged 18 mm precarinal lymph node is unchanged in size (series 3, image 246). Additional scattered subcentimeter thoracic lymph n odes have not significantly changed. Similar trace pericardial fluid is likel y physiologic. Unchanged dilation of the main pulmonary artery measuring 33 mm, which can be see n in the setting of pulmonary hypertension. Mild aortic valve and mitral annular calcification. Calcified atherosclerotic plaque in the aorta, proximal aortic arch branch vessels, and coronary arteries. Similar appearing multinodular thyroid g land. Musculoskeletal degenerative changes. Th oracolumbar curvature. Stable small lucency in the L2 vertebral body. Bone island right scapul a. Mild pectus excavatum. No aggressive osseous lesions. Hepatic cysts. Upper abdominal vascular calcifications. Left adrenal adenoma. IMPRESSION: 1. Redemonstration of diffuse bronchial wall thickening, endobronchial plugging, air trapping, bronchiectasis, nodular consolidative op acities, and tree-in-bud micro- nodularity throughout both lungs. 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 Some mixed interval changes have occurred since , however endobronchial plugging and tree-in-bud micro-nodularity has overall increased, predominantly in the right lower lobe, with changes detailed in the body the report 2. New discrete, focal 4 mm medial basal right lower lobe solid noncalcified pulmonary nodule may be related to same process, however is t echnically indeterminate and could be followed to ensure stability or resolution. 3. Previously present right upper lobe g roundglass opacities have resolved. 4. Additional findings have not signific antly changed since 01/30/2021 and are detailed in the body the report. Gerard [facility] CT PROCEDURES documented in this encounter Visit Diagnoses Diagnosis Bronchiectasis (HCC) Dyspnea On Exertion documented in this encounter Care Teams Conductor Freight Relationship Specialty Start Date End Date Elsewhere, Pcp PCP - General Internal Medicine 12/23/21 documented as of this encounter
--- OUTSIDE RECORDS SUMMARY | 2022-05-10 13:06 | XMS_ITS | Encounter Summary ---
:1935 Author Organization [facility] Address [address] [place] [id number] Care Team Providers Name Role Phone Elsewhere, Pcp Primary Care Provider Unavailable Reason for Visit Outpatient (Routine) - Closed Specialty Diagnoses / Procedures Referred By Contact Refer red To Contact Gerard Bhatia M.D . [facility] [address] [place] [address] Referral ID Status Reason Start Date Expiration Date Visits Requ ested Visits Authorized [id number] Closed 02/26/2022 02/26/2023 1 1 Encounter Details Date Type Department Care Team Description 02/26/2022 Virtual Visit Division of Gerard Bhatia, Bronchiect asis With Pulmonary Medicine MKalyaniDKalyani Acute Exacerbation (HCC) in [address] (Primary Dx) [place], [place] [address] [place] [phone] [place], [place] [phone] (Work) [phone] Social History Tobacco Use Types Packs/Day Years [...] 10/21/2020 relatives? How often do you attend mandaeism or amish services? Patien t refused 10/21/2020 Do you belong to any clubs or organizations such as Yes 10/21/2020 mandaeism groups, unions, fraternal or athletic groups, or [...] place to sleep or slept in a usp (including now)? Education Answer Date Recorded What is the highest level of school you have completed or 12 th grade 10/21/2020 the highest degree you have received? Sex Assigned at Date Recorded Not on file documented as of this encounter Progress Gerard Washington M.D. - 02/26/2022 12:45 PM CDT SUBJECTIVE Visit conducted by telephone. CHIEF COMPLAINT/REASON FOR VISIT Increased cough and sputum production HISTORY OF PRESENT ILLNESS Carmen Herman called the office to alert me to increased cough and sputum production over the past week. Her symptoms led her seek local evaluation, and chest x-ray was completed on 02/25, which shows a new area of opacity at the left lower lung. Her physician prescribed her a course of cefdinir for 10 days. She now wishes to determine she should proceed with this therapy, or whether we should make any adjustments. Recall that her history is notable for diffuse bronchiectasis, prior pulmonary nocardiosis, recent sputum culture positive for Pseudomonas and Serratia, and atrial fibrillation for which she is treatedwith sotalol and warfarin. ASSESSMENT / PLAN #1 Diffuse bronchiectasis, in exacerbation #2 Chronic, progressive exertional dyspnea #3 Weight loss #4 Chronic productive cough #5 History of pulmonary nocardiosis, status post successful treatment 2014 to 2015 #6 History of COVID-19 pneumonia, April 2020, with subsequent decline in overall health status #7 Atrial fibrillation, on antiarrhythmic therapy #8 Essential tremor with voice tremor Given the recent sputum culture with 4+ Pseudomonas and 2+ Serratia, we would ideally treat the current bronchiectasis exacerbation with ciprofloxacin, cefepime, or meropenem for a prolonged course. However, I believe that fluoroquinolones would be contraindicated for an extended course in the setting of sotalol therapy, and it would be strongly preferred to avoid inpatient admission for parenteral therapy. Since many patients with bronchiectasis exacerbations will respond to antibiotics that do notdirectly target their colonizing pathogens, I believe that it is worth trying an extended course of c efdinir, which I will extend to 21 days total. If she worsens on this therapy, or if she fails to improve, then the next step would be inpatient admission for parenteral treatment. We have considered nebulized antibiotics previously, but I do not think that she will tolerate them, since she has not even been able to tolerate 3% nebulized saline, on account of dysphonia and upper airway discomfort. Ms. Herman will call the office within the next 2-3 weeks to advise us of her progress. Gerard Bhatia M.D documented in this encounter Plan of Treatment Not on filedocumented as of this encounter Visit Diagnoses Diagnosis Bronchiectasis With Acute Exacerbation ( HCC) - Primary documented in this encounter Care Teams Lambskin Trimmer Relationship Specialty Start Date End Date Elsewhere, Pcp PCP - General Internal Medicine 12/23/21 documented as of this encounter
--- OUTSIDE RECORDS SUMMARY | 2022-05-10 13:06 | XMS_ITS | Encounter Summary ---
:[address] [facility] Address [address] [place] [address] Care Team Providers Name Role Phone Elsewhere, Pcp Primary Care Provider Unavailable Encounter Details Date Type Department Care Team Description 12/26/2021 Hospital Encounter Division of Cardiovascular [facility]h [facility] [place] M[place]., Ph.D. [place] [address] [address] [facility] [address] [place] [phone] [phone] Social History Tobacco Use Types Packs/Day Years [...] 10/21/2020 relatives? How often do you attend rastafarian or congregational services? Patien t refused 10/21/2020 Do you belong to any clubs or organizations such as Yes 10/21/2020 rastafarian groups, unions, fraternal or athletic groups, or [...] place to sleep or slept in a assisted (including now)? Education Answer Date Recorded What [...] nebulizer times daily. solutionIndications: Bronchiectasis (HCC) albuterol 90 mcg/actuation Inhale 2 puffs 0 inhaler every 4 (four) hours as needed for wheezing. amLODIPine (NORVASC) 5 mg Take 2.5 mg by 0 2020 tablet mouth daily. food supplemt, Take by mouth. 0 lactose-reduced (Ensure) liquid hydroCHLOROthiazide Take 12.5 mg by 0 03/19/2020 (MICROZIDE) 12.5 mg mouth daily. capsule ipratropium-albuteroL Inhale 3 mL by 0 (DUONEB) 0.5-2.5 mg/3 mL nebulization 4 nebulizer solution (four) times a day. losartan (COZAAR) 50 mg Take 100 mg by 1 12/09/19 19 tablet mouth daily. primidone (MYSOLINE) 50 mg Take 1 tablet (50 90 tablet 0 tablet mg total) by mouth 3 (three) times a day. sodium chloride 0.9 % Inhale 3 mL by 0 08/21/2020 nebulizer solution nebulization daily. sotaloL (BETAPACE) 80 mg Take 80 mg by mouth 0 tablet 2 (two) times a day. warfarin (COUMADIN) 1 mg Take 1 mg by mouth. 0 tablet 1 mg on //Tue/Tue warfarin (COUMADIN) 2 mg Take 2 mg by mouth. 0 tablet 2 mg on Tue/Tue/Tue amoxicillin-pot Take 1 tablet (500 10 tablet 0 12/26/2021 0 12/31/2021 clavulanate (AUGMENTIN) mg total) by mouth 500-125 mg per tablet every 12 (twelve) hours for 5 days. sodium chloride (NEBUSAL) Inhale 4 mL by 750 mL 11 202101/09/2022 3 % nebulizer solution nebulization 4 (four) times a day for 14 days. MUST be administered after the ipratropium-albuter ol douneb. documented as of this encounter Plan of Treatment Not on filedocumented as of this encounter Procedures Procedure Name Priority Date/Time Associated Diagnosis Comme nts ECG AMBULATORY REAL Routine 01/01/2022 4:10 PM Tachycardia Re sults for this TIME CARDIAC CDT Paroxysmal (HCC) procedure a re in MONITORING - the results HOSPITAL HOOKUP section. documented in this encounter Results ECG AMBULATORY REAL TIME CARDIAC MONITORING - HOSPITAL HOOKUP (01/01/2022 4:10 PM CDT) P athologist Signature Min Heart Rate 50 bpm [facility] Max Heart Rate 88 bpm [facility] Mean Heart 63 bpm [facility] Rate VE Total Beats 5,637 count [facility] VE Percent 1.05% percent [facility] Beats SVE Total 53260 count [facility] Beats SVE Percent 5.07% percent [facility] Beats Holter Pauses 0 count [facility] AF Count 0 count [facility] AF Duration 0 sec duration [facility] AF [place] 0% percent [facility] VT Runs 0 count [facility] SVT Runs 16 count [facility] Symptom Count 0 count [facility] Specimen (Source) Anatomical Collection Method Collection Time Re ceived Time Location / / Volume Laterality 12/26/2021 10:44 AM CDT Narrative [facility] - 01/04/2022 8:20 PM CDT 1. The patient was monitored from 12/26/2021 to 01/01/2022 with a total monitoring time of 5 days 19 hr 6 min. The baseline rhythm was sinus. T he heart rate varied from 50 to 88 BPM. The average heart rate was 63 BPM. 2. There were 5,637 PVCs seen singly and in a bigeminal pattern with a PVC burden of 1.05%. 3. There were 27,059 PACs seen singly, i n pairs, and at times with aberrancy with a PAC burden of 5.07%. There were 16 runs of supraventricular tachycardia observed, at times with aberrancy. The longest run of SVT was 28 beats. The maximum ra te of SVT was 146 BPM. 4. The patient did not report any sympto matic events. Evaporator Repairer: AZAM Sánchez / AZAM Joseph Procedure Note Jay Rivera M.D. - 01/04/2022Formatt ing of this note might be different from the original. 1. The patient was monitored from to 01/01/2022 with a total monitoring time of 5 days 19 hr 6 min. The baseline rhythm was sinus. The heart rate varied from 50 to 88 BPM. The average heart rate was 63 BPM. 2. There were 5,637 PVCs seen singly and in a bigeminal pattern with a PVC burden of 1.05%. 3. There were 27,059 PACs seen singly, i n pairs, and at times with aberrancy with a PAC burden of 5.07%. There were 16 runs of supraventricular tachycardia observed, at times with aberrancy. The longest run of SVT was 28 beats. The max imum rate of SVT was 146 BPM. 4. The patient did not report any sympto matic events. Evaporator Repairer: AZAM Sánchez / AZAM Joseph Brayan Borrero M.D., Ph.D. [facility] PRO CEDURES Performing Organization Address City/State/ZIP Code Phon e Number [facility] NA documented in this encounter Visit Diagnoses Not on filedocumented in this encounter Care Teams Internal Corrosion Specialist Relationship Specialty Start Date End Date Elsewhere, Pcp PCP - General Internal Medicine 12/23/21 documented as of this encounter
--- OUTSIDE RECORDS SUMMARY | 2022-05-10 13:06 | XMS_ITS | Encounter Summary ---
:1935 Author Organization [facility] Address [address] [place] [address] Care Team Providers Name Role Phone Elsewhere, Pcp Primary Care Provider Unavailable Reason for Visit Appointment Request (Routine) - Closed Specialty Diagnoses / Procedures Referred By Contact Refer red To Contact Pulmonary Medicine Diagnoses Bronchiectasis (HCC) Referral ID Status Reason Start Date Expiration Date Visits Requ ested Visits Authorized [id number] Closed 01/11/2022 01/11/2023 1 1 Encounter Details Date Type Department Care Team Description 01/15/2022 Office Visit Division of Pulmonary Gerard Bhatia Br onchiectasis (HCC) (Primary Dx); Medicine in M.D. Loss Weight [place], [place] [address] [facility] [address] [place] [address] [phone] Social History Tobacco Use Types Packs/Day Years [...] 10/21/2020 relatives? How often do you attend episcopal or hoahaoism services? Patien t refused 10/21/2020 Do you belong to any clubs or organizations such as Yes 10/21/2020 episcopal groups, unions, fraternal or athletic groups, or [...] place to sleep or slept in a nursing home (including now)? Education Answer Date Recorded What is the highest level of school you have completed or 12 th grade 10/21/2020 the highest degree you have received? Sex Assigned at Date Recorded Not on file documented as of this encounter Last Filed Vital Signs Vital Sign Reading Time Taken Comments Blood Pressure - - Pulse - - Temperature - - Respiratory Rate - - Oxygen Saturation 94% 01/15/2022 1:55 PM CDT Inhaled Oxygen Concentration - - Weight - - Height - - Body Mass Index - - documented in this encounter Progress Notes Gerard Bhatia M.D. - 01/15/2022 2:00 PM CDT SUBJECTIVE CHIEF COMPLAINT/REASON FOR VISIT Re-evaluation of bronchiectasis. HISTORY OF PRESENT ILLNESS Carmen Herman is an 86-year-old woman who returns to Pulmonary Clinic for re- evaluation of bronchiectasis. 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 She has had a difficult course since April 2020, when she developed COVID pneumonia, and then went on to experience months of fatigue and aching, followed by recurrent bronchiectasis exacerbationsand slow and steady weight loss. Weight is now about 42 kg, down about 10 kg since her pre-COVID weight 2 years ago. BMI is 16. Her course has also been complicated since 2018 by paroxysmal atrial fibri llation, for which she is now treated with sotolol and warfarin; she previously underwent ablation elsewhere for paroxysmal atrial tachycardia. Most recently, she was admitted 12/23-12/26 with a bronchiectasis exacerbation complicated by a type 2NSTEMI. She was treated with a short course of antibiotics and adjustments in her nebulizer regimen.Improvements have been modest. Overall, she has had a slow worsening of exertional dyspnea over the p ast 2 years, now limited to walking across a room. This has occurred in the setting of persistent cough productive of yellow or green sputum, and steady weight loss. We discontinued long-acting bronchodilators (at the time Anoro) earlier this year, in part due to cost, but mainly due to lack of efficacy. She did not notice significant worsening of her respiratory status with the discontinuation of Anoro, and her slow decline started well before the discontinuation of the inhaler. She now remains on a regimen of nebulized short- acting bronchodilators and bronchial hygiene. OBJECTIVE PHYSICAL EXAMINATION VS: Weight 42 kg. Oxygen saturation 94%. General: Frail-appearing, but in no distress. No conversational dyspnea, and no coughing during evaluation. Lungs: Somewhat distant breath sounds, but clear throughout. Extremities: No peripheral edema. DIAGNOSTICS CT chest performed today demonstrates no major change as compared to 01/30/2021, per my read. Again, we see moderately severe background bronchiectasis, with areas of clustered nodularity and endobronchial mucus plugging, with mixed interval changes as compared to previous imaging. ASSESSMENT / PLAN #1 Diffuse bronchiectasis #2 Slowly progressive exertional dyspnea #3 Weight loss #4 Chronic productive cough #5 History of pulmonary nocardiosis, status post successful treatment 2014 to 2015 #6 History of COVID-19 pneumonia, April 2020, with subsequent decline in overall health status #7 Atrial fibrillation, on antiarrhythmic therapy #8 Essential tremor with voice tremor Mrs. Herman has experienced slow worsening in clinical status over the past 2 years, beginning with her experience of COVID-19 pneumonia in April 2020. She has gone on to experience slowly progressive exertional dyspnea, steady weight loss, and recurrent respiratory exacerbations. The symptoms previously let us to evaluate for recurrence of pulmonary nocardiosis or development of nontuberculous mycobacterium, for which cultures have consistently been negative. At her most recent hospitalization, asputum culture was notable for the isolation of 4+ Pseudomonas and 2+ Serratia. 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 Instead, I believe that the best course of action would be to focus on supportive measures, specifically nutritional support. She is working with her primary care provider to pursue Nutrition consultation, and I advised that I strongly agree with this. If she is able to gain weight back, but symptoms do not otherwise improve, then consideration could be given to nebulized antipseudomonal therapy -- but I am concerned that this will not be tolerated, and it would certainly be better to pursue this at a time when nutritional status were better. At this point, I will make adjustments to her nebulized therapy, as below. PLAN: Pursue Nutrition consult, as is being arranged locally. I emphasized how important it is that she gain weight and optimize her nutritional status overall. Defer antipseudomonal therapies at this time. Adjust nebulizer therapies: utilize nebulized albuterol/ipratropium 3-4 times daily, along with nebulized normal saline 2 times daily. She is not able to tolerate nebulized 3% saline, nor more frequentnebulized normal saline, due to dysphonia and upper airway discomfort. Continue to hold long-acting bronchodilators. Gerard Bhatia M.D. documented in this encounter Plan of Treatment Not on filedocumented as of this encounter Visit Diagnoses Diagnosis Bronchiectasis (HCC) - Primary Loss Weight documented in this encounter Care Teams Pathology Tech Relationship Specialty Start Date End Date Elsewhere, Pcp PCP - General Internal Medicine 12/23/21 documented as of this encounter
--- OUTSIDE RECORDS SUMMARY | 2022-05-10 13:06 | XMS_ITS | Encounter Summary ---
:1935 Author Organization [facility] Address [address] [place] [address] Care Team Providers Name Role Phone Elsewhere, Pcp Primary Care Provider Unavailable Encounter Details Date Type Department Care Team Description 12/28/2021 Orders Only Division of Dieter Duncan, Internal Medicine, [facility], in [place] [address] [address] [place], [place] [address] [facility] [address] [place] [address] [phone] Social History Tobacco Use Types Packs/Day Years [...] 10/21/2020 relatives? How often do you attend restorationism or anabaptism services? Patien t refused 10/21/2020 Do you belong to any clubs or organizations such as Yes 10/21/2020 restorationism groups, unions, fraternal or athletic groups, or [...] place to sleep or slept in a residential (including now)? Education Answer Date Recorded What is the highest level of school you have completed or 12 th grade 10/21/2020 the highest degree you have received? Sex Assigned at Date Recorded Not on file documented as of this encounter Plan of Treatment Not on filedocumented as of this encounter Visit Diagnoses Not on filedocumented in this encounter Care Teams New Car Make Ready Mechanic Relationship Specialty Start Date End Date Elsewhere, Pcp PCP - General Internal Medicine 12/23/21 documented as of this encounter
--- OUTSIDE RECORDS SUMMARY | 2022-05-10 13:06 | XMS_ITS | Encounter Summary ---
:1935 Author Organization [facility] Address [address] [place] [address] Care Team Providers Name Role Phone Elsewhere, Pcp Primary Care Provider Unavailable Reason for Visit Reason Comments Pneumonia - medication/treatment? Encounter Details Date Type Department Care Team Description 02/25/2022 Clinical Communication Division of Gerard Bhatia - Pulmonary Medicine Kallie Ramey medication/treatmen in [place] [address] [facility] t? [place] [address] [facility] [address] [place], [place] [phone] (Work) [phone] Social History Tobacco Use Types Packs/Day Years [...] 10/21/2020 relatives? How often do you attend jainism or jainism services? Patien t refused 10/21/2020 Do you belong to any clubs or organizations such as Yes 10/21/2020 jainism groups, unions, fraternal or athletic groups, or [...] place to sleep or slept in a mcc (including now)? Education Answer Date Recorded What is the highest level of school you have completed or 12 th grade 10/21/2020 the highest degree you have received? Sex Assigned at Date Recorded Not on file documented as of this encounter Miscellaneous Notes Telephone Encounter - Jocelyne Cazares Tanvir - 02/25/2022 4:26 PM CDT Patient called. She said she saw her local doctor today, Dr. Gonzalez Mckay, and had a chest x-ray andwas told that she has pneumonia. She said the doctor told her that she should contact [facility] kari seen as he does not know how to treat her/what medications to give her. I did call [facility] and requested the Chest X-ray images from today be pushed to us. Per conversation with you, I called the desk and had them schedule a telephone visit with the patient for tomorrow at 12:45 p.m. I called the patient and let her know and she asks that you call the home phone number listed ([phone]) for her. I will watch for the chest x-ray images to arrive so we have them prior to her appointment tomorrow. Richy Casanova documented in this encounter Plan of Treatment Not on filedocumented as of this encounter Visit Diagnoses Not on filedocumented in this encounter Care Teams Hackler Doll Wigs Relationship Specialty Start Date End Date Elsewhere, Pcp PCP - General Internal Medicine 12/23/21 documented as of this encounter
--- OUTSIDE RECORDS SUMMARY | 2022-05-10 13:06 | XMS_ITS | Encounter Summary ---
:1935 Author Organization [facility] Address [address] [place] [address] Care Team Providers Name Role Phone Elsewhere, Pcp Primary Care Provider Unavailable Reason for Referral MRI/CAT/PET Scan (Routine) - Closed Specialty Diagnoses / Procedures Referred By Contact Refer red To Contact Radiology Diagnoses Bronchiectasis (HCC) Dyspnea On Exertion Gerard Bhatia M.D. [facility] Procedures CT Chest without IV Contrast [address] [place] [address] Referral ID Status Reason Start Date Expiration Date Visits Requ ested Visits Authorized [id number] Closed 01/11/2022 01/11/2023 1 1 Reason for Visit Reason Comments Appointment Encounter Details Date Type Department Care Team Description 01/11/2022 Clinical Communication Division of Pulmonary Eh Bhatia, Appointment Medicine in [place] [address] [place] [phone] Social History Tobacco Use Types Packs/Day Years [...] 10/21/2020 relatives? How often do you attend taoist or pentecostalism services? Patien t refused 10/21/2020 Do you belong to any clubs or organizations such as Yes 10/21/2020 taoist groups, unions, fraternal or athletic groups, or [...] place to sleep or slept in a correction (including now)? Education Answer Date Recorded What is the highest level of school you have completed or 12 th grade 10/21/2020 the highest degree you have received? Sex Assigned at Date Recorded Not on file documented as of this encounter Miscellaneous Notes Telephone Encounter - Eriberto Ysabel A - 01/11/2022 10:36 AM CDT Adrian Bhatia, Patient called today looking to follow up with you. Patient stated CVD recommended she follow up with you as her lung is so full of her infection that her heart cant pump enough air. You have nothing available at this time. Is there a day/time you would like to add this patient on or is there another p rovider you may recommend? Please advise. Last Seen: 07/09/21 Prior Indication(s): Bronchiectasis New Symptoms: worsening symptoms Testing Order: None specified Please place any testing that you would like to have done! Thank you! documented in this encounter Plan of Treatment Not on filedocumented as of this encounter Results CT Chest without IV [...] detailed in the body the report. Gerard Bhatia M.D. [facility]MI[facility] PROCEDURES documented in this encounter Visit Diagnoses Diagnosis Bronchiectasis (HCC) - Primary Dyspnea On Exertion Bronchiectasis (HCC) Dyspnea On Exertion documented in this encounter Care Teams Engine Tester Relationship Specialty Start Date End Date Elsewhere, Pcp PCP - General Internal Medicine 12/23/21 documented as of this encounter
--- OUTSIDE RECORDS SUMMARY | 2022-05-10 13:06 | XMS_ITS | Encounter Summary ---
:1935 Author Organization [facility] Address [address] [place] [address] Care Team Providers Name Role Phone Elsewhere, Pcp Primary Care Provider Unavailable Reason for Visit Reason Comments Medication Question Encounter Details Date Type Department Care Team Description 12/26/2021 Nurse Triage Department of [facility] Gia Hemphill Medication Question Medicine in [place], [place] [address] [facility] [address] [place] [phone] Social History Tobacco Use Types Packs/Day Years [...] 10/21/2020 relatives? How often do you attend protestant or catholic services? Patien t refused 10/21/2020 Do you belong to any clubs or organizations such as Yes 10/21/2020 protestant groups, unions, fraternal or athletic groups, or [...] place to sleep or slept in a longterm (including now)? Education Answer Date Recorded What is the highest level of school you have completed or 12 th grade 10/21/2020 the highest degree you have received? Sex Assigned at Date Recorded Not on file documented as of this encounter Miscellaneous Notes Telephone Encounter - Gia Hemphill R.N. - 12/26/2021 9:42 AM CDT Chief Complaint / Reason for Call Patient is a 86 y.o. female calling regarding Medication Question. Assessment Concern: [facility] out [facility] [phone] medication Amoxicillin/Potassium Clavulanate. Provider requested 250-125 strength 2 tabs every day. Pharmacy doesn't have enough of that kind buthas a 500 strength and wants to know what the wants done. Calling to request: Page to Hospitalist to call Pharmacy. The recommended disposition is Call PCP Now. Reason for Disposition [1] Pharmacy calling with prescription question AND [2] triager unable to answer question Protocols used: Medication Question [id number] Care Advice Patient/Caregiver understands and will follow care advice?: Yes, able to teach back CALL PCP NOW: * You need to discuss this with your doctor (or BRIDGE IRONWORKER HELPER/PA). * I'll page the on-call provider now. If you haven't heard from the provider (or me) within 30 minutes, call again. ALTERNATE DISPOSITION - WEBMASTER NOW: * Ask who prescribed the medication. * If it was a specialist (e.g., neurologist, psychiatrist), refer the call to them, not the PCP. CARE ADVICE given per Medication Question Call (Adult) guideline. documented in this encounter Plan of Treatment Not on filedocumented as of this encounter Visit Diagnoses Not on filedocumented in this encounter Care Teams Nurse Aide Evaluator Relationship Specialty Start Date End Date Elsewhere, Pcp PCP - General Internal Medicine 12/23/21 documented as of this encounter
--- OUTSIDE RECORDS SUMMARY | 2022-05-10 13:07 | XMS_ITS | Encounter Summary ---
:1935 Author Organization [facility] Address [address] [place] [address] Care Team Providers Name Role Phone Unavailable Primary Care Provider Unavailable Reason for Visit Reason Comments Hypertension Outpatient (Routine) - Closed Specialty Diagnoses / Procedures Referred By Contact Refer red To Contact Nephrology and Diagnoses Hypertension Essential [facility] M.DK[facility] [address] [place] [address] Referral ID Status Reason Start Date Expiration Date Visits Requ ested Visits Authorized [id number] Closed 12/23/2020 12/23/2021 1 1 Encounter Details Date Type Department Care Team Description 02/26/2021 Comprehensive Visit Division of Bekah Lazar Nephrology and Elodia Noland Hypertension in [facility]. [place], [place] [address] [facility] [address] [place] [id number] [phone] Social History Tobacco Use Types Packs/Day Years [...] 10/21/2020 relatives? How often do you attend worship or sikh services? Patien t refused 10/21/2020 Do you belong to any clubs or organizations such as Yes 10/21/2020 worship groups, unions, fraternal or athletic groups, or [...] - Inhaled Oxygen Concentration - - Weight 50 kg (110 lb 3.7 oz) 02/26/2021 8:59 AM CDT Height 159.5 cm (5' 2.8) 02/26/2021 8:59 AM CDT Body Mass Index 19.65 02/26/2021 8:59 AM CDT documented in this encounter Consult Notes Willy Lazar M.B., B.. - 02/26/2021 9:15 AM CDT Images from the original note were not included. SUBJECTIVE REASON FOR VISIT Labile blood pressure on multiple antihypertensive agents. HISTORY OF PRESENT ILLNESS Carmen Herman is a 85 y.o. y.o. female I am asked to see for evaluation and management of arterial hypertension. She is on multiple antihypertensive agents and keeps a blood pressure log at home reporting systolic blood pressures ranging in the 160-190s. Today in clinic her blood pressure is 131/77 mmHg Blood pressure medication includes amlodipine 5 mg daily, hydrochlorothiazide 12.5 mg daily, losartan 50 mg b.i.d. and warfarin anticoagulation. Laboratory tests from December include sodium 136, potassium 5.2 and creatinine 1.11 Urinalysis shows 1st morning specimen 1. Normal renal parenchymal thickness and echogenicity bilaterally. 2. Single renal arteries bilaterally with out Doppler evidence of hemodynamically significant stenosis. 3. No hydronephrosis in either kidney. Her past history is notable for moderately severe bronchiectasis in a lifelong nonsmoker followed byPulmonary Medicine. For this she is on albuterol common nebulized saline and Anora Current Outpatient Medications: ??? albuterol (ACCUNEB) 2.5 mg /3 mL nebulizer solution, Nebulize 1 vial 2-4 times daily., Disp: 360mL, Rfl: 11 ??? albuterol 90 mcg/actuation inhaler, Inhale 2 puffs every 4 (four) hours as needed for wheezing.,Disp: , Rfl: ??? amLODIPine (NORVASC) 5 mg tablet, Take 5 mg by mouth daily., Disp: , Rfl: ??? clotrimazole (MYCELEX) 10 mg cliff, Dissolve 10 mg in the mouth 5 (five) times a day., Disp: , Rfl: ??? food supplemt, lactose-reduced (Ensure) liquid, Take by mouth., Disp: , Rfl: ??? hydroCHLOROthiazide (MICROZIDE) 12.5 mg capsule, Take 12.5 mg by mouth daily., Disp: , Rfl: ??? losartan (COZAAR) 50 mg tablet, 2 (two) times a day. , Disp: , Rfl: 1 ??? nystatin (MYCOSTATIN) 100,000 unit/mL suspension, take 5 ml by mouth four times a day as needed,Disp: , Rfl: ??? nystatin (MYCOSTATIN) 100,000 unit/mL suspension, Take 5 mL (500,000 Units total) by mouth 4 (four) times a day. Swish & swallow, Disp: 280 mL, Rfl: 0 ??? omeprazole (PriLOSEC) [address] capsule, Take 40 mg by mouth 2 (two) times a day. , Disp: , Rfl: ??? primidone (MYSOLINE) 50 mg tablet, TAKE TWO TABLETS BY MOUTH THREE TIMES DAILY (Patient taking differently: 50 mg 3 (three) times a day. ), Disp: 180 tablet, Rfl: 2 ??? sodium chloride 0.9 % nebulizer solution, daily. , Disp: , Rfl: ??? sotaloL (BETAPACE) 80 mg tablet, Take 80 mg by mouth 2 (two) times a day., Disp: , Rfl: ??? umeclidinium-vilanteroL (ANORO ELLIPTA) 62.5-25 mcg/actuation inhaler, Inhale 1 puff once daily., Disp: 60 each, Rfl: 11 ??? warfarin (COUMADIN) 1 mg tablet, Take 1 mg by mouth 2 (two) times a week. 1 mg on Mondays, Wednesdays, and Fridays , Disp: , Rfl: ??? warfarin (COUMADIN) 2 mg tablet, Take 2 mg by mouth. Tuesday, Tuesday, , Tuesday , Disp:, Rfl: 0. REVIEW OF SYSTEMS Ht 159.5 cm Wt 50 kg BMI 19.65 kg/m?? PHYSICAL EXAMINATION BpTRU in the office was elevated 176/74 with pulse 59 however this is primarily white coat elevationblood pressure General appearance elderly very pleasant female, essential tremor, thin but adequately nourished. 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 Should blood pressure go up in the future we would simply increase her thiazide diuretic from 12.5 mg daily to 25 or even 50 mg daily HCTZ. There were pleased with the consultation and I was pleased with her control of blood pressure. Againis a pleasure to see her Qasim Cuevas, B.Ch. documented in this encounter Plan of Treatment Not on filedocumented as of this encounter Visit Diagnoses Diagnosis Hypertension Essential Primary documented in this encounter
--- OUTSIDE RECORDS SUMMARY | 2022-05-10 13:07 | XMS_ITS | Encounter Summary ---
:1935 Author Organization [facility] Address [address] [place] [address] Care Team Providers Name Role Phone Unavailable Primary Care Provider Unavailable Reason for Visit Reason Comments covid booster question Encounter Details Date Type Department Care Team Description 04/29/2021 Clinical Communication Division of Gerard Bhatia booster Pulmonary Medicine Kallie Ramey question in [place], [facility] [address] [place], [place] [address] [place] [address] [place], [place] [phone] (Work) [phone] Social History Tobacco Use Types Packs/Day Years [...] 10/21/2020 relatives? How often do you attend yazidi or oriental orthodox services? Patien t refused 10/21/2020 Do you belong to any clubs or organizations such as Yes 10/21/2020 yazidi groups, unions, fraternal or athletic groups, or [...] place to sleep or slept in a fci (including now)? Education Answer Date Recorded What is the highest level of school you have completed or 12 th grade 10/21/2020 the highest degree you have received? Sex Assigned at Date Recorded Not on file documented as of this encounter Miscellaneous Notes Telephone Encounter - Abbie Fuller, R.N. - 05/06/2021 1:15 PM CST SUBJECTIVE CHIEF COMPLAINT / REASON FOR CALL covid booster question Information Discussed Per Dr. Bhatia, ??Please let the patient know that I enthusiastically approve of her getting the booster, as it is unlikely that her previous hospitalization was directly related to the vaccine. PLAN Disposition/Recommendation: self-care is appropriate at this time, patient encouraged to call back with questions Information/Education: patient/caller able to teach back Caller agreeable to plan of care: yes The following references were used: provider Dr. Bhatia GE MASTER SPECIALIST Telephone Encounter - Jyoti Crow RHi. - 04/29/2021 9:21 AM CST SUBJECTIVE CHIEF COMPLAINT / REASON FOR CALL covid booster question PLAN The following information was provided: Patient informed that Dr. Bhatia is out of office this week, but the message will be passed on to himupon his return. Patient had 2nd Covid booster on 08/09/20. Information/Education: patient/caller able to teach back The following references were used: nursing clinical judgement GE MASTER SPECIALIST Telephone Encounter - Elizabeth Sorto - 04/29/2021 9:07 AM CST Patient called and is questioning if she can / should get the COVID booster. She states about 5-7 days after she received the 2nd vaccine she ended up in the hospital with shortness of breath and chestpain. She states her local provider asked her to reach out to her pulmonary provider to get approvalto get the booster. Thank you, Elizabeth GE MASTER SPECIALIST documented in this encounter Plan of Treatment Not on filedocumented as of this encounter Visit Diagnoses Not on filedocumented in this encounter
--- OUTSIDE RECORDS SUMMARY | 2022-05-10 13:07 | XMS_ITS | Encounter Summary ---
:1935 Author Organization [facility] Address [address] [place] [address] Care Team Providers Name Role Phone Unavailable Primary Care Provider Unavailable Encounter Details Date Type Department Care Team Description 07/09/2021 Documentation Division of Pulmonary ClainTello M.D. Medicine in [place] [address] [place], [place] [address] [facility] [address] [place] [address] [phone] Social History Tobacco Use Types Packs/Day Years [...] 10/21/2020 relatives? How often do you attend caodaism or catholic services? Patien t refused 10/21/2020 Do you belong to any clubs or organizations such as Yes 10/21/2020 caodaism groups, unions, fraternal or athletic groups, or [...] encounter Progress Notes Gerard Bhatia M.D. - 07/09/2021 2:09 PM CST SUBJECTIVE CHIEF COMPLAINT / REASON FOR VISIT Summary of telephone call ASSESSMENT / PLAN #1 Diffuse bronchiectasis, in exacerbation #2 Chronic productive cough #3 History of pulmonary nocardiosis, status post successful treatment 2014 to 2015 #4 History of COVID-19 pneumonia, April 2020 #5 Atrial fibrillation, on antiarrhythmic therapy #6 Essential tremor with voice tremor Ms. Herman called me to report that Anoro has become unaffordable for her. I contacted her pharmacy to review, and it seems that she has a high deductible, which reset in the new year, and that there are no options for more-affordable long acting bronchodilators. This prompted a review of her medication history and a reevaluation of whether Anoro remains necessary. It is my opinion that a trial off Anoro is warranted. I advised Ms. Herman to hold Anoro and self-assess her dyspnea. If she does not perceive any worsening of shortness of breath within 2-4 weeks, then we will hold long acting bronchodilators indefinitely. She will continue nebulized albuterol 3-4 times daily as needed, and nebulized normal saline twice daily. Gerard Bhatia M.D. C TEACHER documented in this encounter Plan of Treatment Not on filedocumented as of this encounter Visit Diagnoses Not on filedocumented in this encounter
--- OUTSIDE RECORDS SUMMARY | 2022-05-10 13:07 | XMS_ITS | Encounter Summary ---
:1935 Author Organization [facility] Address [address] [place] [address] Care Team Providers Name Role Phone Unavailable Primary Care Provider Unavailable Reason for Visit Reason Comments Medication has gotten too expensive Encounter Details Date Type Department Care Team Description 07/09/2021 Clinical Communication Division of Gerard Bhatia has Pulmonary Medicine Ana Ramey. gotten too in [place] [address] [place], [place] [address] [place] [address] [place], [place] [phone] (Work) [phone] Social History Tobacco Use Types Packs/Day Years [...] 10/21/2020 relatives? How often do you attend zoroastrian or nondenominational services? Patien t refused 10/21/2020 Do you belong to any clubs or organizations such as Yes 10/21/2020 zoroastrian groups, unions, fraternal or athletic groups, or [...] place to sleep or slept in a prison (including now)? Education Answer Date Recorded What is the highest level of school you have completed or 12 th grade 10/21/2020 the highest degree you have received? Sex Assigned at Date Recorded Not on file documented as of this encounter Miscellaneous Notes Telephone Encounter - Gerard Bhatia M.D. - 07/09/2021 2:18 PM CST I called the patient. Please see my clinical note of today's date for details. E STUDIES DIRECTOR Telephone Encounter - Jocelyne Cazares - 07/09/2021 11:31 AM CST Patient called. She said that she has been paying $114 for the Anoro Ellipta and she went to pick upa new prescription and they wanted over $400 for it. She said she is on social security and could barely afford the $114 so there is no way she can afford over $400. She is wondering if she can use something else instead? Thanks Jocelyne E STUDIES DIRECTOR documented in this encounter Plan of Treatment Not on filedocumented as of this encounter Visit Diagnoses Not on filedocumented in this encounter
--- OUTSIDE RECORDS SUMMARY | 2022-05-10 13:07 | XMS_ITS | Encounter Summary ---
:1935 Author Organization [facility] Address [address] [place] [address] Care Team Providers Name Role Phone Unavailable Primary Care Provider Unavailable Reason for Visit Outpatient (Routine) - Closed Specialty Diagnoses / Procedures Referred By Contact Refer red To Contact Pulmonary Medicine Diagnoses Bronchiectasis (HCC) Gerard Bhatia M.D. [facility] [address] [place] [address] Referral ID Status Reason Start Date Expiration Date Visits Requ ested Visits Authorized [id number] Closed 01/30/2021 01/30/2022 1 1 Encounter Details Date Type Department Care Team Description 03/20/2021 Virtual Visit Division of Pulmonary Gerard Bhatia B ronchiectasis (HCC) Medicine in [place] [address] [address] [facility] [address] [place] [address] [phone] Social History Tobacco Use Types Packs/Day Years [...] 10/21/2020 relatives? How often do you attend mu-ism or jehovah's witness services? Patien t refused 10/21/2020 Do you belong to any clubs or organizations such as Yes 10/21/2020 mu-ism groups, unions, fraternal or athletic groups, or [...] for the very basics like Not h gion at all 10/21/2020 food, housing, medical care, [...] encounter Progress Notes Gerard Bhatia M.D. - 03/20/2021 2:00 PM CDT SUBJECTIVE Consult conducted via telephone by Gerard Bhatia M.D. in [place], [place] to the patient in the patient's home. CHIEF COMPLAINT / REASON FOR VISIT Re-evaluation of bronchiectasis. HISTORY OF PRESENT ILLNESS I conducted a planned telephone follow-up with Mrs. Herman, to review sputum culture results and evolution of symptoms since our last office visit on 01/30/2021. As described in my note of that date, she has had a difficult course since developing COVID pneumonia in April 2020, with lingering symptoms through early 2020, acute bronchiectasis exacerbation in August 2020 requiring hospitalization, andthen significant worsening of chronic cough due this summer. Following our visit in January, she submitted 3 sputum specimens for AFB smear and mycobacterial culture, and all 3 have been no growth to date (now in the final week of culture). Cough has not improved since late January. DIAGNOSTICS Sputum collected 02/05/2021, 02/06/2021, and 02/07/2021 are all AFB smear negative and mycobacteria culture negative to date. ASSESSMENT / PLAN #1 Diffuse bronchiectasis, in exacerbation #2 Chronic productive cough #3 History of pulmonary nocardiosis, status post successful treatment 2014 to 2015 #4 History of COVID-19 pneumonia, April 2020 #5 Atrial fibrillation, on antiarrhythmic therapy #6 Essential tremor with voice tremor Sputum cultures from early February have been unrevealing, and excessive cough persists. We will proceed with an antibiotic course for stuttering bronchiectasis exacerbation, via Augmentin 875-125 twice daily for 14 days. She will otherwise continue Anoro daily, nebulized saline twice daily, and nebulized albuterol 3-4 times daily as needed. She will call me at the conclusion of the 2 week Augmentincourse to review response to treatment and next steps. Gerard Bhatia M.D. documented in this encounter Plan of Treatment Not on filedocumented as of this encounter Visit Diagnoses Diagnosis Bronchiectasis (HCC) documented in this encounter
--- OUTSIDE RECORDS SUMMARY | 2022-05-10 13:07 | XMS_ITS | Encounter Summary ---
:1935 Author Organization [facility] Address [address] [place] [address] Care Team Providers Name Role Phone Unavailable Primary Care Provider Unavailable Encounter Details Date Type Department Care Team Description 04/17/2021 Documentation Division of Gastroenterology Agatha Sandoval, in [facility] princess Arreg[place] [address] [facility] [address] [place] [address] [place], [place] [phone] (Wo rk) Social History Tobacco Use Types [...] 10/21/2020 relatives? How often do you attend hoahaoism or holiness services? Patien t refused 10/21/2020 Do you belong to any clubs or organizations such as Yes 10/21/2020 hoahaoism groups, unions, fraternal or athletic groups, or [...] documented as of this encounter Progress Notes Allison Sandoval M.D. - 04/17/2021 4:06 PM CST ?? 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 Herman underwent an upper endoscopy that showed a widely patent esophagus. Through the scope balloon dilation was performed to 18 mm with just a mild mucosal tear. I shared these results with her following the procedure. She will reach out to me when she feels she may need a repeat dilation procedure. OMS INVESTIGATOR documented in this encounter Plan of Treatment Not on filedocumented as of this encounter Visit Diagnoses Not on filedocumented in this encounter
--- OUTSIDE RECORDS SUMMARY | 2022-05-10 13:07 | XMS_ITS | Encounter Summary ---
:1935 Author Organization [facility] Address [address] [place] [address] Care Team Providers Name Role Phone Unavailable Primary Care Provider Unavailable Reason for Referral MRI/CAT/PET Scan (Routine) - Closed Specialty Diagnoses / Procedures Referred By Contact Refer red To Contact Radiology Diagnoses Shortness Of Breath Gerard Bhatia M.D. [facility] Procedures CT Chest without IV Contrast [address] [place] [address] Referral ID Status Reason Start Date Expiration Date Visits Requ ested Visits Authorized [id number] Closed 01/21/2021 01/21/2022 1 1 Encounter Details Date Type Department Care Team Description 01/21/2021 Orders Only RST CCM Gerard Bhatia, Shortness Of Breath [address] [facility] [place], [place] [address] [facility] [address] [place] [phone] (Wo rk) Social History Tobacco Use Types [...] 10/21/2020 relatives? How often do you attend adventism or scientologist services? Patien t refused 10/21/2020 Do you belong to any clubs or organizations such as Yes 10/21/2020 adventism groups, unions, fraternal or athletic groups, or [...] encounter Results CT Chest without IV Contrast (01/30/2021 11:38 AM CDT) Anatomical Region Laterality Modality Chest, Thoracic RST LOS, Thoracic ARZ N/A Co mputed Tomography, Computed LOS, Thoracic FLA LOS Tomography Specimen (Source) Anatomical Collection Method Collection Time Re ceived Time Location / / Volume Laterality 01/30/2021 12:59 PM CDT Impressions 01/30/2021 1:15 PM CDT 1. Decrease in the cavitary nodule in the right apex. This is indeterminate and could be infectious related to the findi ngs discussed in impression number 2 or less likely malignant. 2. Mixed response of the multiple bilate ral areas of clustered nodularity which are likely infectious/inflammatory. Back ground of bronchiectasis has not changed significantly although areas of endobron chial mucous plugging have increased in some areas and decreased and others. 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 3. Mosaic attenuation of the lung parenc hyma with air trapping on expiratory imaging compatible with small airways di sease. Narrative 01/30/2021 1:15 PM CDT EXAM: CT CHEST WITHOUT IV CONTRAST COMPARISON: CT chest 08/18/2020 FINDINGS: Irregular elongated 21 x 12 mm cavitary lesion in the right apex posteriorly (series 3, image 79) measured 23 x 12 mm on 08/18/2020. Scattered clustered areas of nodularity in the lungs bilater ally have increased in some areas and decreased and others. For example, a loo sely clustered area of groundglass nodularity in the right upper lobe anter iorly (images 120-229) and a clustered area of nodularity in the superior segme nt of the left lower lobe laterally (images 201-232) has increased while clu stered areas of nodularity in the superior segment of the right lower lobe and base of the left lower lobe laterally have decreased. Bilateral bronchiectasis and bronchial w all thickening has not changed significantly although areas of endobron chial mucous plugging have increased in some areas and decreased in others. Stab le focal areas of scarring and volume loss in the right middle lobe and lingul a. Mosaic attenuation of the lung parenchyma with bilateral air trapping o n expiratory imaging. Stable mediastinal adenopathy is likely reactive. No new adenopathy in the chest. Stable heterogeneous multinodular enlargement of the thyroid with scattered calcifications. Stable cardiom egaly. Coronary artery calcification. Stable bilateral adrenal adenomas. Stabl e probable cyst in the liver. Thoracolumbar curve with mild hypertroph ic and degenerative changes in the spine. Stable small focal lucency in the L2 vertebral body. Procedure Note Louie Burnham M.D. - 01/30/2021Form atting of this note might be different from the original. EXAM: CT CHEST WITHOUT IV CONTRAST COMPARISON: CT chest 08/18/2020 FINDINGS: Irregular elongated 21 x 12 mm cavitary lesion in the right apex posteriorly (series 3, image 79) measured 23 x 12 mm on 08/18/2020. Scattered clustered areas of nodularity in the lungs bilater ally have increased in some areas and decreased and others. For example, a loo sely clustered area of groundglass nodularity in the right upper lobe anter iorly (images 120-229) and a clustered area of nodularity in the superior segme nt of the left lower lobe laterally (images [id number]) has increased while clu stered areas of nodularity in the superior segment of the right lower lobe and base of the left lower lobe laterally have decreased. Bilateral bronchiectasis and bronchial w all thickening has not changed significantly although areas of endobron chial mucous plugging have increased in some areas and decreased in others. Stab le focal areas of scarring and volume loss in the right middle lobe and lingul a. Mosaic attenuation of the lung parenchyma with bilateral air trapping o n expiratory imaging. Stable mediastinal adenopathy is likely reactive. No new adenopathy in the chest. Stable heterogeneous multinodular enlargement of the thyroid with scattered calcifications. Stable cardiom egaly. Coronary artery calcification. Stable bilateral adrenal adenomas. Stabl e probable cyst in the liver. Thoracolumbar curve with mild hypertroph ic and degenerative changes in the spine. Stable small focal lucency in the L2 vertebral body. IMPRESSION: 1. Decrease in the cavitary nodule in th e right apex. This is indeterminate and could be infectious related to the findi ngs discussed in impression number 2 or less likely malignant. 2. Mixed response of the multiple bilate ral areas of clustered nodularity which are likely infectious/inflammatory. Back ground of bronchiectasis has not changed significantly although areas of endobron chial mucous plugging have increased in some areas and decreased and others. 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 3. Mosaic attenuation of the lung parenc hyma with air trapping on expiratory imaging compatible with small airways di sease. Gerard Bhatia M.D. [facility] CT PROCEDURES documented in this encounter Visit Diagnoses Diagnosis Shortness Of Breath Shortness Of Breath documented in this encounter
--- OUTSIDE RECORDS SUMMARY | 2022-05-10 13:07 | XMS_ITS | Encounter Summary ---
:1935 Author Organization [facility] Address [address] [place] [address] Care Team Providers Name Role Phone Unavailable Primary Care Provider Unavailable Reason for Visit Reason Comments Esophageal Medication Question Encounter Details Date Type Department Care Team Description 04/09/2021 Clinical Division of Jaime, Esophageal; Communication [facility] mau [place], [place] Kallie Question [address] [facility] [address] [place] [phone] Social History Tobacco Use Types Packs/Day Years [...] 10/21/2020 relatives? How often do you attend sikhism or anabaptism services? Patien t refused 10/21/2020 Do you belong to any clubs or organizations such as Yes 10/21/2020 sikhism groups, unions, fraternal or athletic groups, or [...] this encounter Miscellaneous Notes Telephone Encounter - Radha Willett R.N. - 04/10/2021 9:00 AM CDT SUBJECTIVE CHIEF COMPLAINT / REASON FOR CALL Esophageal and Medication Question Information Discussed Returned patient's call to discuss her blood thinner. She will call the prescribing provider of her warfarin to get direction on when to stop it before her procedure and restart it after her procedure.She received direction from them last time as well. Her INR was 2.0 yesterday. She expressed understanding, will call the prescribing provider, and was appreciative of the call back. PLAN Disposition/Recommendation: recommended continue engagement in self-management activities Information/Education: patient/caller able to teach back Caller agreeable to plan of care: yes The following references were used: nursing clinical judgement documented in this encounter Plan of Treatment Not on filedocumented as of this encounter Visit Diagnoses Not on filedocumented in this encounter
--- OUTSIDE RECORDS SUMMARY | 2022-05-10 13:07 | XMS_ITS | Encounter Summary ---
:1935 Author Organization [facility] Address [address] [place] [address] Care Team Providers Name Role Phone Unavailable Primary Care Provider Unavailable Reason for Visit Reason Comments Medication Problem possible allergy Encounter Details Date Type Department Care Team Description 03/24/2021 Clinical Communication Division of Gerard Bhatia Pulmonary Medicine Kallie Ramey (possible allergy) in [place] [address] [address] [place], [place] [address] [place] [address] [place], [place] [phone] [phone] (Work) [phone] Social History Tobacco Use Types Packs/Day Years [...] 10/21/2020 relatives? How often do you attend rastafari or jain services? Patien t refused 10/21/2020 Do you belong to any clubs or organizations such as Yes 10/21/2020 rastafari groups, unions, fraternal or athletic groups, or [...] place to sleep or slept in a snf (including now)? Education Answer Date Recorded What is the highest level of school you have completed or 12 th grade 10/21/2020 the highest degree you have received? Sex Assigned at Date Recorded Not on file documented as of this encounter Miscellaneous Notes Telephone Encounter - Serena Mora R.N. - 03/24/2021 2:10 PM CDT Information Discussed Per Dr. Nathalie Cavazos in Dr. Bhatia's clinical absence, Agree with stopping Augmentin. ??Need local evaluation to rule out thrush OR allergic reaction to the Augmentin. ??Once local evaluation is done, could consider an alternative antibiotic but importantto understand if this could be an allergic reaction given the lip swelling. When I called back, the patient was out to lunch with a friend. Patient's took the message to schedule a local clinic appointment to rule out oral thrush or allergic reaction to the Augmentin. Once we hear back from the patient, we will consider an alternative antibiotic. was appreciative of the call and agrees to the updated plan of care. PLAN Disposition/Recommendation: see above Information/Education: patient/caller able to teach back Caller agreeable to plan of care: yes The following references were used: nursing clinical judgement and provider Dr. Nathalie Carterodin Telephone Encounter - Serena Mora R.N. - 03/24/2021 12:56 PM CDT Information Discussed Patient was prescribed Augmentin by Dr. Bhatia on 03/20/21 for a bronchiectasis exacerbation. This morning, the patient noticed swollen lips, hoarse voice and reddened lines in her mouth. Her mouth feels raw. The last dose of Augmentin was last night at 1999. She contacted her local MD and he asked that she call us as he's not familiar with Bronchiectasis and questioned if she had oral thrush. I advised the patient to schedule a clinic appointment for an evaluation of a possible medication reaction or oral thrush and to stop taking the Augmentin. Dr. Bhatia is clinically unavailable. Dr. Zelaya, the covering cable machine operator, will be notified for an alternative medication for the patient's bronchiectasis exacerbation PLAN Disposition/Recommendation: notified provider and awaiting recommendations Information/Education: patient/caller able to teach back Caller agreeable to plan of care: yes The following references were used: nursing clinical judgement Telephone Encounter - Cem Jiang - 03/24/2021 12:35 PM CDT Patient called experiencing side effects from the amoxicillin that was prescribed on 03/20/21. Her primary told her to contact Dr. Bhatia immediately to see if he wants her to stay on it or not. She never thought she was allergic to this medication before. Side effects : lips swollen and sores inside mouth Please call patient right away. Cem Customer Engagement Analyst [phone] documented in this encounter Plan of Treatment Not on filedocumented as of this encounter Visit Diagnoses Not on filedocumented in this encounter
--- OUTSIDE RECORDS SUMMARY | 2022-05-10 13:07 | XMS_ITS | Encounter Summary ---
:1935 Author Organization [facility] Address [address] [place] [address] Care Team Providers Name Role Phone Unavailable Primary Care Provider Unavailable Encounter Details Date Type Department Care Team Description 01/30/2021 Hospital Encounter Department of Gerard Bhatia Bronchi ectasis (HCC); Laboratory Medicine Kallie Ramey Cough Chronic and Pathology, [address] [place] [address] in [facility] [address] [place] [phone] [place] [address] (Work) [place], [place] [phone] [phone] (Fax) [phone] Social History Tobacco Use Types Packs/Day Years [...] How often do you attend worship or zoroastrianism services? Patien t refused 10/21/2020 Do you [...] place to sleep or slept in a detention (including now)? Education Answer Date Recorded What [...] 03/19/2020 (MICROZIDE) 12.5 mg mouth daily. capsule losartan (COZAAR) 50 mg Take 100 mg by 1 12/09/19 19 tablet mouth daily. sodium chloride 0.9 % Inhale 3 mL by 0 08/21/2020 nebulizer solution nebulization daily. sotaloL (BETAPACE) 80 mg Take 80 mg by mouth 0 tablet 2 (two) times a day. warfarin (COUMADIN) 1 mg Take 1 mg by mouth. 0 tablet 1 mg on //Tue/Tue warfarin (COUMADIN) 2 mg Take 2 mg by mouth. 0 tablet 2 mg on Tue/Tue/Tue clotrimazole (MYCELEX) 10 Dissolve 10 mg in 0 12/24/2021 mg cliff the mouth 5 (five) times a day. nystatin (MYCOSTATIN) take 5 ml by mouth 0 202012/24/2021 100,000 unit/mL suspension four times a day as needed nystatin (MYCOSTATIN) Take 5 mL (500,000 280 mL 0 202012/24/2021 100,000 unit/mL suspension Units total) by mouth 4 (four) times a day. Swish & swallow omeprazole (PriLOSEC) 40 Take 40 mg by mouth 0 12/24/[address] capsule 2 (two) times a day. primidone (MYSOLINE) 50 mg TAKE TWO TABLETS BY 180 tablet 2 11/28/2018 12/26/2021 tablet MOUTH THREE TIMES DAILY umeclidinium-vilanteroL Inhale 1 puff once 60 each 10/0412/24/2021 (ANORO ELLIPTA) 62.5-25 daily. mcg/actuation inhalerIndications: Bronchiectasis (HCC) documented as of this encounter Plan of Treatment Not on filedocumented as of this encounter Procedures Procedure Name Priority Date/Time Associated Diagnosis Comme nts MYCOBACTERIAL Routine 02/05/2021 10:10 Bronchiectasis (HCC) Results for this CULTURE, V AM CDT Chronic Cough procedure are in the results section. ACID FAST SMEAR FOR Routine 02/05/2021 10:10 Bronchiecta sis (HCC) Results for this MYCOBACTERIUM AM CDT Cough Chronic procedure are in the results section. documented in this encounter Results Mycobacterial Culture (02/05/2021 10:10 AM CDT) [employer] Method Time Signature Mycobacterial No growth 03/26/2021 DTL Culture after 42 1:05 AM CDT days of incubation . Specimen Anatomical Collection Method Collection Time Receive d Time (Source) Location / / Volume Laterality Sputum (Sputum) 02/05/2021 10:10 02/12/20 21 4:20 AM CDT PM CDT Comment: Specimen Source Site: Sputum Gerard Bhatia M.D. LAB MICROBIOLOGY - GENERAL O NILA Performing Organization Address City/[facility] Phon e Number [facility] - [address] Acid Fast Smear For Mycobacterium (02/05/2021 10:10 AM CDT) [employer] Method Time Signature Acid Fast Smear Negative. 02/11/2021 DTL For Mycobacterium 11:00 PM CDT Specimen Anatomical Collection Method Collection Time Receive d Time (Source) Location / / Volume Laterality Sputum (Sputum) 02/05/2021 10:10 02/12/20 4:20 AM CDT PM CDT Comment: Specimen Source Site: Sputum Gerard Bhatia M.D. LAB MICROBIOLOGY - GENERAL O NILA Performing Organization Address City/[facility] Phon e Number [facility] - [address] documented in this encounter Visit Diagnoses Diagnosis Bronchiectasis (HCC) Chronic Cough documented in this encounter
--- OUTSIDE RECORDS SUMMARY | 2022-05-10 13:07 | XMS_ITS | Encounter Summary ---
:1935 Author Organization [facility] Address [address] [place] [address] Care Team Providers Name Role Phone Unavailable Primary Care Provider Unavailable Reason for Referral MRI/CAT/PET Scan (Routine) - Closed Specialty Diagnoses / Procedures Referred By Contact Refer red To Contact Radiology Diagnoses Shortness Of Breath Gerard Bhatia M.D. [facility] Procedures CT Chest without IV Contrast [address] [place] [address] Referral ID Status Reason Start Date Expiration Date Visits Requ ested Visits Authorized [id number] Closed 01/21/2021 01/21/2022 1 1 Reason for Visit MRI/CAT/PET Scan (Routine) - Closed Specialty Diagnoses / Procedures Referred By Contact Refer red To Contact Radiology Diagnoses Shortness Of Breath Gerard Bhatia M.D. [facility] Procedures CT Chest without IV Contrast [address] [place] [address] Referral ID Status Reason Start Date Expiration Date Visits Requ ested Visits Authorized [id number] Closed 01/21/2021 01/21/2022 1 1 Encounter Details Date Type Department Care Team Description 01/30/2021 Hospital Encounter Department of Gerard Bhatia ss Of Breath Radiology, Liudmila Ramey M.D. [facility], in [address] [place], [place] [address] [facility] [address] [place], [place] [phone] (Work) [phone] Social History Tobacco Use Types Packs/Day Years [...] 10/21/2020 relatives? How often do you attend roman catholic or spiritism services? Patien t refused 10/21/2020 Do you belong to any clubs or organizations such as Yes 10/21/2020 roman catholic groups, unions, fraternal or athletic groups, or [...] place to sleep or slept in a long term (including now)? Education Answer Date Recorded What [...] by mouth. 0 tablet 1 mg on //Tue/Sun warfarin (COUMADIN) 2 mg Take 2 mg by mouth. 0 tablet 2 mg on Tue/Tue/Fri clotrimazole (MYCELEX) 10 Dissolve 10 mg in [...] encounter Procedures Procedure Name Priority Date/Time Associated Comments Diagnosis CT CHEST WITHOUT RAD - Routine 01/30/2021 11:38 Shortness Of Result s for this IV CONTRAST (most inpatients AM CDT Breath procedure a re in and all the results outpatients) section. documented in this encounter Results CT [...] compatible with small airways di sease. Gerard HSIEH CT PROCEDURES documented in this encounter Visit Diagnoses Diagnosis Shortness Of Breath documented in this encounter
--- OUTSIDE RECORDS SUMMARY | 2022-05-10 13:07 | XMS_ITS | Encounter Summary ---
:1935 Author Organization [facility] Address [address] [place] [address] Care Team Providers Name Role Phone Unavailable Primary Care Provider Unavailable Encounter Details Date Type Department Care Team Description 01/30/2021 Hospital Encounter Department of Gerard Bhatia Bronchi ectasis (HCC); Laboratory Medicine Kallie Ramey Cough Chronic and Pathology, [address] [place] [address] in [facility] [address] [place] [phone] [place] [address] (Work) [place], [place] [phone] [address] (Fax) [phone] Social History Tobacco Use Types Packs/Day Years [...] Date/Time Associated Diagnosis Comme nts MYCOBACTERIAL Routine 02/06/2021 11:00 Bronchiectasis (HCC) Results for this CULTURE, V AM CDT Chronic Cough procedure are in the results section. ACID FAST SMEAR FOR Routine 02/06/2021 11:00 Bronchiecta sis (HCC) Results for this MYCOBACTERIUM AM CDT Cough Chronic procedure are in the results section. documented in this encounter Results Mycobacterial Culture (02/06/2021 11:00 AM CDT) [employer] Method Time Signature Mycobacterial No growth 03/26/2021 DTL Culture after 42 1:05 AM CDT days of incubation . Specimen Anatomical Collection Method Collection Time Receive d Time (Source) Location / / Volume Laterality Sputum (Sputum) 02/06/2021 11:00 02/12/20 21 4:18 AM CDT PM CDT Comment: Specimen Source Site: Sputum Gerard Bhatia M.D. LAB MICROBIOLOGY - GENERAL O NILA Performing Organization Address City/[facility] Phon e Number [facility] - [address] Acid Fast Smear For Mycobacterium (02/06/2021 11:00 AM CDT) [employer] Method Time Signature Acid Fast Smear Negative. 02/11/2021 DTL For Mycobacterium 11:08 PM CDT Specimen Anatomical Collection Method Collection Time Receive d Time (Source) Location / / Volume Laterality Sputum (Sputum) 02/06/2021 11:00 02/12/20 21 4:18 AM CDT PM CDT Comment: Specimen Source Site: Sputum Gerard Bhatia M.D. LAB MICROBIOLOGY - GENERAL O NILA Performing Organization Address City/[facility] Phon e Number [facility] - [address] documented in this encounter Visit Diagnoses Diagnosis Bronchiectasis (HCC) Chronic Cough documented in this encounter
--- OUTSIDE RECORDS SUMMARY | 2022-05-10 13:07 | XMS_ITS | Encounter Summary ---
:1935 Author Organization [facility] Address [address] [place] [address] Care Team Providers Name Role Phone Elsewhere, Pcp Primary Care Provider Unavailable Reason for Referral Outpatient (Routine) - Closed Specialty Diagnoses / Procedures Referred By Referred To Contact Contact Cardiovascular Diseases / Diagnoses Atrial Fibrillation Unspecified Bronchiectasis (HCC) Chronic Obstructive Pulmonary Disease (HCC) [facility] [address] [place] [address] Referral ID Status Reason Start Date Expiration Date Visits Requ ested Visits Authorized [id number] Closed 12/25/2021 12/25/2022 1 1 Encounter Details Date Type Department Care Team Description 12/25/2021 Clinical Communication Department of Raciel Matute Cardiovascular Medicine Kallie Gandhi in [facility] [address] [facility] [address] [place] [address] [phone] Social History Tobacco Use Types Packs/Day Years [...] 10/21/2020 relatives? How often do you attend hinduism or advent services? Patien t refused 10/21/2020 Do you belong to any clubs or organizations such as Yes 10/21/2020 hinduism groups, unions, fraternal or athletic groups, or [...] place to sleep or slept in a care home (including now)? Education Answer Date Recorded What is the highest level of school you have completed or 12 th grade 10/21/2020 the highest degree you have received? Sex Assigned at Date Recorded Not on file documented as of this encounter Plan of Treatment Scheduled Referrals Name Type Priority Associated Diagnoses Order S chedule Cardiovascular Disease Outpatient Routine Atrial Fibrillatio n Expected: - General cardiology Referral ([facility]) 01/08/2022 consult (clinic) Bronchiectasis ([facility]) (Approximate), Chronic Obstructive Expires: Pulmonary Disease 03/27/2023 ([facility]) documented as of this encounter Visit Diagnoses Diagnosis Atrial Fibrillation Unspecified - Primar y Bronchiectasis ([facility]) Chronic Obstructive Pulmonary Disease ([facility]) documented in this encounter Care Teams Router Tender Relationship Specialty Start Date End Date Elsewhere, Pcp PCP - General Internal Medicine 12/23/21 documented as of this encounter
--- OUTSIDE RECORDS SUMMARY | 2022-05-10 13:07 | XMS_ITS | Encounter Summary ---
:1935 Author Organization [facility] Address [address] [place] [address] Care Team Providers Name Role Phone Unavailable Primary Care Provider Unavailable Reason for Referral Outpatient (Routine) - Closed Specialty Diagnoses / Procedures Referred By Contact Refer red To Contact Pulmonary Medicine Diagnoses Bronchiectasis (HCC) Gerard Bhatia M.D. [facility] [address] [place] [address] Referral ID Status Reason Start Date Expiration Date Visits Requ ested Visits Authorized [id number] Closed 01/30/2021 01/30/2022 1 1 Scheduling Instructions Please schedule a telephone visit on @ 4pm. Reason for Visit Appointment Request (Routine) - Closed Specialty Diagnoses / Procedures Referred By Contact Refer red To Contact Pulmonary Medicine Referral ID Status Reason Start Date Expiration Date Visits Requ ested Visits Authorized [id number] Closed 12/29/2020 12/29/2021 1 1 Encounter Details Date Type Department Care Team Description 01/30/2021 Office Visit Division of Pulmonary Gerard Bhatia Br onchiectasis (HCC) (Primary Dx); Medicine in M.D. Cough [facility] [place], [place] [address] [facility] [address] [place] [id number] [phone] Social History Tobacco Use Types Packs/Day Years [...] How often do you attend sabianist or yarsanism services? Patien t refused 10/21/2020 Do you [...] Sign Reading Time Taken Comments Blood Pressure 161/95 01/30/2021 2:43 PM CDT Pulse 61 01/30/2021 2:43 PM CDT Temperature 36.2 ??C (97.2 ??F) 01/30/2021 2:43 PM CDT Respiratory Rate - - Oxygen Saturation 91% 01/30/2021 2:43 PM CDT Inhaled Oxygen Concentration - - Weight 49.8 kg (109 lb 12.6 oz) 01/30/2021 2:43 PM CDT Height 159.5 cm (5' 2.8) 01/30/2021 2:43 PM CDT Body Mass Index 19.58 01/30/2021 2:43 PM CDT documented in this encounter Progress Notes Gerard Bhatia M.D. - 01/30/2021 3:00 PM CDT SUBJECTIVE CHIEF COMPLAINT/REASON FOR VISIT Re-evaluation of bronchiectasis. HISTORY OF PRESENT ILLNESS Carmen Herman is an 85-year-old woman who returns to Pulmonary Clinic for re- evaluation of bronchiectasis. 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 Her course has been eventful since April 2020, when she developed COVID pneumonia. She had lingering symptoms of fatigue and aching for months after developing COVID, and then had a bronchiectasis exacerbation in August 2020, which required hospitalization. When I then saw her in October 2020, she felt that she was improving, but in the interim, her cough has significantly worsened, often productive ofyellow or green sputum. For management, she is performing albuterol four times daily and nebulized saline once daily. For maintenance inhaler, she is utilizing Anoro Ellipta. OBJECTIVE VITAL SIGNS Weight 49.8 kg. Oxygen saturation 95% at rest, 94% with exertion (personally tested). PHYSICAL EXAMINATION General: Well appearing. No coughing during evaluation. Lungs: Somewhat distant breath sounds, but clear throughout. Extremities: No peripheral edema. DIAGNOSTICS CT chest performed today demonstrates moderately severe background bronchiectasis, with areas of clustered nodularity which have demonstrated mixed interval changes as compared to outside CT chest of 08/18/2020. There is a small cavitary lesion at the right upper lobe, which has decreased in size somewhat since August. ASSESSMENT / PLAN #1 Diffuse bronchiectasis #2 Chronic productive cough, increasing #3 History of pulmonary nocardiosis, status post successful treatment 2014 to 2015 #4 History of COVID-19 pneumonia, April 2020 #5 Atrial fibrillation, on antiarrhythmic therapy #6 Essential tremor with voice tremor Mrs. Herman has experienced excessive coughing over the last several months, which raises concern foreither recurrence of pulmonary nocardiosis or development of nontuberculous Mycobacterium lung disease. We will further evaluate by obtaining sputum for culture. We will otherwise adjust bronchial hygiene slightly, so that she is utilizing nebulized saline twice daily, along with her albuterol 3-4 times daily. PLAN: 1. Collect three mail-in sputum specimens for AFB smear and mycobacterial culture. 2. Adjust the bronchial hygiene regimen slightly, such that she is utilizing nebulized saline twice daily, along with nebulized albuterol 3-4 times daily as needed. 3. Continue Anoro Ellipta. 4. Arrange for telephone visit in about 6 weeks to review sputum culture results and determine next steps. Gerard Bhatia M.D. CT CT Job ID: [id number] documented in this encounter Plan of Treatment Scheduled Referrals Name Type Priority Associated Diagnoses Order S [facility] Pulmonary Medicine Outpatient Referral Routine Bronchiectasis (HCC) Expected: office visit 03/20/2021 (clinic) (Approximate), Expires: 01/31/2024 documented as of this encounter Results Mycobacterial Culture (02/07/2021 9:30 AM CDT) [facility] Method Time Signature Mycobacterial No growth 03/26/2021 DTL Culture after 42 1:06 AM CDT days of incubation . Specimen Anatomical Collection Method Collection Time Receive d Time (Source) Location / / Volume Laterality Sputum (Sputum) 02/07/2021 9:30 AM 2020 4:19 CDT PM CDT Comment: Specimen Source Site: Sputum Gerard Bhatia M.D. LAB MICROBIOLOGY - GENERAL O NILA Performing Organization Address City/State/ZIP Code Phon e Number [facility] - [address] [place], [place] [address] [facility] [place] [address] [facility] [address] Acid Fast Smear For Mycobacterium (02/07/2021 9:30 AM CDT) Patholo gist Method Time Signature Acid Fast Smear Negative. 02/11/2021 DTL For Mycobacterium 11:00 PM CDT Specimen Anatomical Collection Method Collection Time Receive d Time (Source) Location / / Volume Laterality Sputum (Sputum) 02/07/2021 9:30 AM 2020 4:19 CDT PM CDT Comment: Specimen Source Site: Sputum Gerard Bhatia M.D. LAB MICROBIOLOGY - GENERAL O NILA Performing Organization Address City/State/ZIP Code Phon e Number [facility] - [address] [place], [place] [address] [facility] [place] [address] [facility] [address] Mycobacterial Culture (02/06/2021 11:00 AM CDT) Patholo gist Method Time Signature Mycobacterial No growth 03/26/2021 DTL Culture after 42 1:05 AM CDT days of incubation . Specimen Anatomical Collection Method Collection Time Receive d Time (Source) Location / / Volume Laterality Sputum (Sputum) 02/06/2021 11:00 02/12/20 4:18 AM CDT PM CDT Comment: Specimen Source Site: Sputum Gerard Bhatia M.D. LAB MICROBIOLOGY - GENERAL O NILA Performing Organization Address City/State/ZIP Code Phon e Number [facility] - [address] [place], [place] [address] [facility] [place] [address] [facility] [address] Acid Fast Smear For Mycobacterium (02/06/2021 11:00 AM CDT) [facility] [place] Method Time Signature Acid Fast Smear Negative. 02/11/2021 DTL For Mycobacterium 11:08 PM CDT Specimen Anatomical Collection Method Collection Time Receive d Time (Source) Location / / Volume Laterality Sputum (Sputum) 02/06/2021 11:00 02/12/20 21 4:18 AM CDT PM CDT Comment: Specimen Source Site: Sputum Gerard Bhatia M.D. LAB MICROBIOLOGY - GENERAL O NILA Performing Organization Address City/State/ZIP Code Phon e Number [facility] - [address] [place], [place] [address] [facility] [place] [address] [facility] [address] Mycobacterial Culture (02/05/2021 10:10 AM CDT) [facility] [place] Method Time Signature Mycobacterial No growth 03/26/2021 DTL Culture after 42 1:05 AM CDT days of incubation . Specimen Anatomical Collection Method Collection Time Receive d Time (Source) Location / / Volume Laterality Sputum (Sputum) 02/05/2021 10:10 02/12/20 21 4:20 AM CDT PM CDT Comment: Specimen Source Site: Sputum Gerard Bhatia M.D. LAB MICROBIOLOGY - GENERAL O NILA Performing Organization Address City/State/ZIP Code Phon e Number [facility] - [address] [place], [place] [address] [facility] [place] [address] [facility] [address] Acid Fast Smear For Mycobacterium (02/05/2021 10:10 AM CDT) [facility] Time Signature Acid Fast Smear Negative. 02/11/2021 DTL For Mycobacterium 11:00 PM CDT Specimen Anatomical Collection Method Collection Time Receive d Time (Source) Location / / Volume Laterality Sputum (Sputum) 02/05/2021 10:10 02/12/20 21 4:20 AM CDT PM CDT Comment: Specimen Source Site: Sputum Gerard Bhatia M.D. LAB MICROBIOLOGY - GENERAL Feli [place] Performing Organization Address City/State/ZIP Code Phon e Number [facility] - [address] [place], [place] [address] [facility] [place] [address] [facility] [address] [facility] documented in this encounter Visit Diagnoses Diagnosis Bronchiectasis (HCC) - Primary Chronic Cough documented in this encounter
--- OUTSIDE RECORDS SUMMARY | 2022-05-10 13:07 | XMS_ITS | Encounter Summary ---
:1935 Author Organization [facility] Address [address] [place] [address] Care Team Providers Name Role Phone Unavailable Primary Care Provider Unavailable Encounter Details Date Type Department Care Team Description 04/14/2021 Lab Department of [facility] Allison Sandoval E ncounter For Preprocedural Laboratory Examination (COVID-19); [facility] Contact With And (Suspected) Exposure To COVID-19 [facility], in [place] [address] [address] [address] [place] [address] [phone] Social History Tobacco Use Types Packs/Day Years [...] How often do you attend yarsanism or mormon services? Patien t refused 10/21/2020 Do you [...] Name Priority Date/Time Associated Diagnosis Comme nts SARS CORONAVIRUS-2 Routine 04/14/2021 11:18 Encounter For Resu lts for this RNA, V AM [employer] Preprocedural procedure are in Laboratory Examination the r esults (COVID-19) section. Contact With And (Suspected) Exposure To COVID-19 documented in this encounter Results SARS Coronavirus-2 RNA, V Asymptomatic (04/14/2021 11:18 AM [employer]) [facility] Method Time Signature SARS-CoV-2 Swab, 04/15/2021 MKTO Specimen Nasopharynx 11:36 AM Source [employer] SARS CoV-2 Undetected Undetected 04/15/2021 MKTO RNA, TMA 11:36 AM [employer] Comment: SARS-CoV-2 RNA absent. This result does not rule out COVID-19 in the patient, as the sensitivity of the test depends o n the timing of the specimen collection and the quality of the specim en. Result should be correlated with patient's history and clinical presentat ion. ----ADDITIONAL INFORMATION---- This molecular amplification test was pe rformed using the Aptima SARS-CoV-2 assay ([employer] on the [employer] tem under emergency use authorization (EUA) by the U.S. Food and Drug Administ ration. Fact sheets for this EUA assay can be fo und at the following links: For Healthcare Providers: https://www.[employer]ab[employer] a.gov/media/942382/download For Patients: https://www.fda.gov/media/ 161326/download Specimen Anatomical Collection Method Collection Time Receive d Time (Source) Location / / Volume Laterality Varies 04/14/2021 11:18 04/14/2021 7:25 (Nasopharynx) AM [employer] PM [employer] Allison Sandoval M.D. LAB MICROBIOLOGY - GENERAL O RDERABLES Performing Organization Address City/State/ZIP Code Phon e Number [facility]- [address] [place] [phone] [place] [address] [place] [address] [address] documented in this encounter Visit Diagnoses Diagnosis Encounter For Preprocedural Laboratory E xamination (COVID-19) Contact With And (Suspected) Exposure To COVID-19 documented in this encounter Additional Health Concerns Infection Onset Date Last Indicated Resolved Time COVID19 Pending 04/13/2021 04/14/2021 04/15/2021 11:36 AM [employer] documented as of this encounter
--- OUTSIDE RECORDS SUMMARY | 2022-05-10 13:07 | XMS_ITS | Encounter Summary ---
:1935 Author Organization [facility] Address [address] [place] [address] Care Team Providers Name Role Phone Unavailable Primary Care Provider Unavailable Encounter Details Date Type Department Care Team Description 04/16/2021 Ancillary Procedure Department of Gastroenterology Social History Tobacco Use Types Packs/Day Years [...] 10/21/2020 relatives? How often do you attend sikh or christianity services? Patien t refused 10/21/2020 Do you belong to any clubs or organizations such as Yes 10/21/2020 sikh groups, unions, fraternal or athletic groups, or [...] place to sleep or slept in a retirement (including now)? Education Answer Date Recorded What is the highest level of school you have completed or 12 th grade 10/21/2020 the highest degree you have received? Sex Assigned at Date Recorded Not on file documented as of this encounter Plan of Treatment Not on filedocumented as of this encounter Procedures Procedure Name Priority Date/Time Associated Comments Diagnosis GASTROENTEROLOGY IMAGE Routine 04/16/2021 2:55 Re sults for this EXAM PM [employer] procedure are i n the results section. documented in this encounter Results Upper GI endoscopy-Gastroenterology Image Exam (04/16/2021 2:55 PM [employer]) Specimen (Source) Anatomical Collection Method Collection Time Re ceived Time Location / / Volume Laterality 04/16/2021 2:54 PM [employer] Narrative [facility] - 04/16/2021 3:48 PM [employer] This order has been created and auto-finalized to support the import of images acquired without order. The clini narendra documentation to support these images can be found on the encounter hai t produced images. Provider Not In System IMG NON RAD IMAGING PROCEDUR ES Performing Organization Address City/State/ZIP Code Phon e Number [facility] NA documented in this encounter Visit Diagnoses Not on filedocumented in this encounter
--- OUTSIDE RECORDS SUMMARY | 2022-05-10 13:07 | XMS_ITS | Encounter Summary ---
:[address] [facility] Address [address] [place] [id number] Care Team Providers Name Role Phone Elsewhere, Pcp Primary Care Provider Unavailable Encounter Details Date Type Department Care Team Description 12/23/2021 - Hospital Encounter [facility] Hesham Schaefer M.D. [address] [place] [phone] Atrial Fibrillation (HCC) (Primary Dx); [facility] [address] [place] [phone] Tachycardia Paroxysmal (HCC) [facility] Brayan Borrero M.D., Ph.D. [address] [place] [phone] [facility], Fifth Floor [address] [place] [phone] Social History Tobacco Use Types Packs/Day Years [...] 10/21/2020 relatives? How often do you attend synagogue or taoist services? Patien t refused 10/21/2020 Do you belong to any clubs or organizations such as Yes 10/21/2020 synagogue groups, unions, fraternal or athletic groups, or [...] Sign Reading Time Taken Comments Blood Pressure 122/68 12/26/2021 10:40 AM CDT Pulse 53 12/26/2021 10:45 AM CDT Temperature 36.3 ??C (97.3 ??F) 12/26/2021 10:40 AM CDT Respiratory Rate 22 12/26/2021 10:45 AM CDT Oxygen Saturation 64% 12/26/2021 10:45 AM CDT Inhaled Oxygen Concentration - - Weight 42 kg (92 lb 9.5 oz) 12/25/2021 3:00 AM CDT Height 160 cm (5' 2.99) 12/24/2021 8:29 AM CDT Body Mass Index 16.41 12/24/2021 8:29 AM CDT documented in this encounter Discharge Summaries Raciel Matute M.D. - 12/26/2021 10:09 AM CDT DISCHARGE SUMMARY BRIEF OVERVIEW Hospital: [facility] [place] Provider: Brayan Borrero M.D. Primary Team: Craig RUTH 2 Primary Care Providers: Elsewhere, Pcp (General) No address on file Primary Care Provider Phone Number: None Primary Care Provider Fax Number: None Other Providers: None Admission Date: 12/23/2021 Discharge Date: 12/26/2021 PRINCIPAL DIAGNOSIS Atrial Fibrillation (HCC) SECONDARY DIAGNOSES Principal Problem: Atrial Fibrillation (HCC) Active Problems: Bronchiectasis (HCC) Hypertension Pulmonary (HCC) Chronic Obstructive Pulmonary Disease (HCC) Acute Respiratory Failure With Hypoxia (HCC) Resolved Problems: * No resolved hospital problems. * DISCHARGE DISPOSITION Home or Self Care [1] ACTIVE ISSUES REQUIRING FOLLOW UP NUTRITION Nutrition dismissal summary completed by: Victoria Quintanilla Date Completed: 12/25/2021 Phone contact: Height: 160 cm Weight: 42 kg Admission Weight: 42.9 kg BMI (Calculated): 16.4 kg/m?? Diet Order: General Estimated Needs: Total Calorie Needs: 1000 - 1200 calories/day Method to Estimate Energy Needs: [place] (Basal to Basal + 20%) Weight Used for Equation Calculations: 42.9 kg Total Protein Needs: 52 grams/day Method to Estimate Protein Needs (g/kg): 1 - 1.5 gm/kg Weight Used to Calculate Protein Needs (Kg): 52.3 kg (IBW) Nutrition Discharge Plan: Patient was assessed as severely malnourished during this hospitalization based upon the ASPEN criteria. Outpatient follow-up recommended by RDN: Recommend PCP monitor patient and refer for outpatient follow-up with antique finisher re malnutrition as indicated OUTPATIENT FOLLOW UP Scheduled Appointments 01/01/2022 1:00 PM RST INTAKE VISIT POD A 01 Admitting/Central Scheduling 01/04/2022 1:00 PM Jay Rivera M.D. Cardiovascular Disease For appointment details refer to your Patient Appointment Guide. TEST RESULTS PENDING AT DISCHARGE Pending Labs Order Current Status Gram Stain Collected (12/24/21 5865) Prothrombin Time (PT) Collected (12/26/21 0909) Mycobacterial Culture In process Bacterial Culture, Aerobic + Susc, Resp Preliminary result DETAILS OF HOSPITAL STAY REASON FOR ADMISSION Atrial Fibrillation (HCC) HOSPITAL COURSE Mrs. 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 She presents with self-limited episodes of presyncope, heart palpitations, and tachypnea have occurred both at rest while sitting and while ambulating about her house. She was admitted to the cardiology service for an NSTEMI workup. Her initial ECG obtained at an outside hospital with concerning for some ST segment depressions in the inferior leads, and she had mildly elevated troponins which were flat. He was loaded with aspirin, Plavix, and started on heparin dripprior to her transport to [place] for further evaluation. We had low concern for ACS given her flat troponins as well as the history as described with the patient. Leading differential for her symptoms including exacerbation of bronchiectasis and/or reoccurrence of a tachyarrhythmia. Respiratory therapy was consulted for her bronchiectasis and she was given DuoNeb 4 times daily followed by hypertonic saline nebs to clear her secretions and albuterol nebulizer as needed. She was also started on a 5 day course of Augmentin. RT discharge recommendations include DuoNeb 4 times daily, normal saline nebs twice daily at 8:00 a.m. and 4:00 p.m., and follow-up in pulmonary clinic. Her stamps or coins salesperson demonstrated several asymptomatic short runs of SVTs, but none that looked like AVNRT. At no point during her hospital admission did she become symptomatic the way that led to herpresentation. The plan is to discharge patient with MoMiliana and follow-up in Cardiology outpatient clinic with Dr. Rivera on 01/04. CONSULTS ORDERED DURING THIS ADMISSION IP CONSULT TO CARDIAC REHABILITATION IP CONSULT TO DIETITIAN IP CONSULT TO CARE MANAGEMENT IP CONSULT TO DIGITAL HARDWARE DESIGN ENGINEER WOUND CARE CONDITION AT DISCHARGE stable Discharge instructions were provided to the patient and caregiver(s). documented in this encounter Discharge Instructions Discharge InstructionsCasie Alvarez - 12/24/2021 2:53 PM CDT You were discharged from the RST CARD 2 Service. Please identify this service name if you call with questions after hospitalization. Discharge Instr - Victoria Pugh - 12/25/2021 8:07 AM CDT NUTRITION Nutrition dismissal summary completed by: Victoria Quintanilla Date Completed: 12/25/2021 Phone contact: Height: 160 cm Weight: 42 kg Admission Weight: 42.9 kg BMI (Calculated): 16.4 kg/m?? Diet Order: General Estimated Needs: Total Calorie Needs: 1000 - 1200 calories/day Method to Estimate Energy Needs: [place] (Basal to Basal + 20%) Weight Used for Equation Calculations: 42.9 kg Total Protein Needs: 52 grams/day Method to Estimate Protein Needs (g/kg): 1 - 1.5 gm/kg Weight Used to Calculate Protein Needs (Kg): 52.3 kg (IBW) Increase nutrition intake with small, frequent meals Medical food supplement(s) of choice AttachmentsThe following attachments cannot be sent through Care Everywhere. Amoxicillin/Clavulanate Potassium (By mouth) (Malian)documented in this encounter Medications at Time of Discharge [...] mouth. 0 tablet 2 mg on Tue/Tue/Tue sodium chloride (NEBUSAL) Inhale 4 mL by 750 mL 11 202101/09/2022 3 % nebulizer solution nebulization 4 (four) times a day for 14 days. MUST be administered after the ipratropium-albuter ol douneb. amoxicillin-pot Take 1 tablet (500 10 tablet 0 12/26/2021 0 12/31/2021 clavulanate (AUGMENTIN) mg total) by mouth 500-125 mg per tablet every 12 (twelve) hours for 5 days. documented as of this encounter Progress Notes Brayan Borrero M.D., Ph.D. - 12/25/2021 11:29 AM CDT HISTORY OF PRESENT ILLNESS I have seen and examined , and discussed their care with the hospital team. I have read the hospital service's note and agree with the documented findings and plan of care ASSESSMENT / PLAN #1 Bronchiectasis (HCC) #2 Atrial Fibrillation (HCC) #3 Hypertension Pulmonary (HCC) #4 Chronic Obstructive Pulmonary Disease (HCC) #5 Acute Respiratory Failure With Hypoxia (HCC) Batsheva wearing status continues to improve. We will continue her pulmonary therapy and cardiac monitoring. If we do not capture any significant dysrhythmias, we will plan on discharge with a body guardian for 1 week of monitoring tomorrow. Brayan Borrero M.D., Ph.D. 12/25/2021 Fortunato Sanchez Pharm.D., R.Ph. - 12/25/2021 10:29 AM CDT Pharmacist Progress Note OBJECTIVE Warfarin Warfarin Indication: Atrial fibrillation (AF) Target INR: 2 - 3 Warfarin Administrations (last 168 hours) Date/Time Action Medication Dose 12/24/21 1759 Given warfarin tablet 1 mg (COUMADIN) 1 mg INR (no units) Date Value Status 12/25/2021 2.1 Final 12/23/2021 2.8 Final ASSESSMENT / PLAN Warfarin continues for AF with INR goal 2.0-3.0. Home dosing is to be 2 mg MWF and 1 mg all other days. INR on admission was 2.8. INR down to 2.1 today, I will increase to 2 mg tonight. Fortunato Sanchez, PharmKalyaniD., R.Ph. Reymundo Pollock, R.R.T., L.R.T. - 12/25/2021 9:56 AM CDT Hospital Chronic Pulmonary Disease Clinical Specialist (RT) SUBSEQUENT Visit. Spouse present Home: Inhaled Medications:4x/day albuterol nebulizer at 8 AM, noon , 4 pm and 8 Pm. Normal saline nebs at 6 PM only Bronchial Hygiene: no productive cough this morning after nebulizers and 7 min of supervised Aerobika use. Oxygen:none Noninvasive Positive Airway Pressure: none Patient Education:Teach back/Demonstration: Inhaled Medications- schedule written down for nebulizers and PEP therapy . Cleaning of Aerobika also addressed . Patient able to take device apart. Pulse oximeter given to patient to take ome. She has one already at home. Recommendations for Hospital:Continue with DuoNebs four times a day followed by 3% saline nebulizer.Keep albuterol Accuneb as needed. Recommendations for Discharge: Albuterol nebulizer ( if Not changed to recommended DuoNebs) at 8 am,noon , 4 Pm and 8 PM. Normal saline nebulizer at 9 AM and 5 PM. Albuterol HFA 90 mcg 2 puffs as needed. Raciel Matute M.D. - 12/25/2021 6:38 AM CDT CARDIOLOGY 2 PROGRESS NOTE SUBJECTIVE was seen and examined on morning rounds. She's continuing to feel well, is successfully clearing her respiratory secretions, and is in good spirits. TELEMETRY Four beats of ventricular bigeminy otherwise normal sinus rhythm. INTAKE/OUTPUT Past 24 hours: Intake/Output Summary (Last 24 hours) at 12/25/2021 0638 Last data filed at 12/24/20211999 Gross per 24 hour Intake 696.67 ml Output 425 ml Net 271.67 ml Net Hospitalization: -178mL Weight -0.9kg since admit PHYSICAL EXAMINATION VITAL SIGNS: Temperature: [36.4 ??C-36.7 ??C] 36.6 ??C Heart Rate: [59-110] 63 Resp Rate: [13-33] 16 Blood Pressure: (105-164)/(57-78) 139/74 SpO2: [70 %-100 %] 93 % Height: [160 cm] 160 cm Weight: [41.6 kg-42.9 kg] 42 kg BSA (Calculated - sq m): [1.38 sq meters] 1.38 sq meters BMI (Calculated): [16.3 kg/m??-16.8 kg/m??] 16.4 kg/m?? Pulse Rate: [47-110] 67 Wt Readings from Last 3 Encounters: 12/25/21 42 kg 04/16/21 49 kg 02/26/21 50 kg Body mass index is 16.41 kg/m??. General: A&Ox4. No apparent distress. Heart: Regular rate and rhythm. No murmur. Lungs: CTAB and throughout. On room air. No cough. Abdomen: Soft, non-distended, non-tender to palpation throughout. Positive bowel sounds. Extremities: No peripheral edema, symmetric pulses. DIAGNOSTICS Results from last 7 days Lab Units 12/24/21 0447 12/23/21 2207 WBC x10(9)/L 2.6* 3.2* HEMOGLOBIN g/dL 13.2 13.4 HEMATOCRIT % 39.7 40.3 PLATELETS AUTO x10(9)/L 165 167 Results from last 7 days Lab Units 12/24/21 0448 12/23/21 2207 SODIUM mmol/L 134* 133* CREATININE mg/dL 0.98 0.92 BUN mg/dL 21 20 CHLORIDE mmol/L 96* 96* MAGNESIUM mg/dL 2.5* -- Results from last 7 days Lab Units 12/23/21 2321 INR 2.8 Results from last 7 days Lab Units 12/24/21 0448 12/23/21 2207 TRPS TROPONIN T ng/L 37* 38* Lab Results Component Value Date CHOL 221 (H) 01/21/2016 TRIG 102 01/21/2016 HDL 81 01/21/2016 LDLCALC 120 01/21/2016 Results from last 7 days Lab Units 12/23/21 2207 ALBUMIN g/dL 3.7 AST U/L 28 ALT U/L 10 ALK PHOS U/L 133* BILIRUBIN TOTAL mg/dL 0.4 ASSESSMENT / PLAN I personally reviewed all radiology and labs from the past 24 hrs. Ms Herman is a 86F with medical comorbidities including paroxysmal AFib on warfarin, bronchiectasis, essential tremor who is admitted to our service for workup sudden short-lived episodes which she experienced presyncope, palpitations, and tachypnea. She says this is different than her standard shortness of breath which is known to be secondary to bronchiectasis. She is admitted and will be monitored on telemetry and will be treated for bronchiectasis. #Paroxysmal Atrial Fibrillation #Elevated troponin #Short-lived episodes of tachypnea with presyncope and palpitations Troponin elevation likely 2/2 demand ischemia caused by supraventricular tachycardia. Patient has a recent history of AVNRT s/p ablation. Patient states that her recent episodes felt similar to her experience just before she had the ablation. Patients symptoms of presyncope, palpitations, and tachypnea as well as mildly elevated troponins ar also consistent with this diagnosis. Patient does not have orthostatic vitals. - Telemetry while inpatient, patient will inform us if symptoms reoccur - Continue home sotalol 80 mg twice daily - continue warfarin > resumed amlodipine 5 mg daily, hydrochlorothiazide 12.5 mg daily, and losartan 50 mg daily > Consider 5 day Mome and discharge tomorrow #Bronchiectasis There is no indication for systemic steroids. - following recommendation from respiratory therapy - DuoNeb 4 times daily followed immediately by 3% saline nebs - albuterol nebulizer as needed for breakthrough dyspnea/cough - Aerobika PRN > Home oxygen assessment prior to discharge - RT recommendations for discharge - Duoneb 4x daily - NS neb twice daily (8am, 4pm) - follow up with Dr. Gerard Bhatia in Pulmonary -Continue Augmentin 500/250 twice daily for 5 days (end 12/29) #Essential Tremor - Continue primidone 50mg three times daily VTE: N/A due to therapeutic anti-coagulation GI: not indicated Code Status: Full Code Disposition: Home - self care Nazario Matute M.D. 12/25/21 Plan discussed with RST CARD 2 Bottom Polisher, Dr. Dobson. Please page the [facility] [employer] Man[employer] CARD 2 service pager at [phone] with any questions. Raciel Matute M.D. - 12/24/2021 1:36 PM CDT CARDIOLOGY 2 PROGRESS NOTE SUBJECTIVE was seen and examined on morning rounds. She's alert and in good spirits. She has not had any more spells of palpitations or shortness of breath while at [facility]. TELEMETRY One episode of nonsustained supraventricular tachycardia around 12:30 a.m.. Patient was asymptomatic. Otherwise a few PVCs but no evidence of note INTAKE/OUTPUT Past 24 hours: Intake/Output Summary (Last 24 hours) at 12/24/2021 1336 Last data filed at 12/24/2021 1130 Gross per 24 hour Intake 326.67 ml Output 800 ml Net -473.33 ml Net Hospitalization: -473mL Weight -1.3kg since admit PHYSICAL EXAMINATION VITAL SIGNS: Temperature: [36.3 ??C-36.7 ??C] 36.7 ??C Heart Rate: [63-81] 70 Resp Rate: [13-29] 16 Blood Pressure: (105-182)/(57-103) 125/78 SpO2: [70 %-98 %] 94 % Height: [160 cm] 160 cm Weight: [41.6 kg-42.9 kg] 41.6 kg BSA (Calculated - sq m): [1.38 sq meters] 1.38 sq meters BMI (Calculated): [16.3 kg/m??-16.8 kg/m??] 16.3 kg/m?? Pulse Rate: [46-87] 71 Wt Readings from Last 3 Encounters: 12/24/21 41.6 kg 04/16/21 49 kg 02/26/21 50 kg Body mass index is 16.25 kg/m??. General: A&Ox4. No apparent distress. Heart: Regular rate and rhythm. No murmur. Lungs: CTAB and throughout. On room air. No cough. Abdomen: Soft, non-distended, non-tender to palpation throughout. Positive bowel sounds. Extremities: No peripheral edema, symmetric pulses. DIAGNOSTICS Results from last 7 days Lab Units 12/24/21 04412/23/21 2207 WBC x10(9)/L 2.6* 3.2* HEMOGLOBIN g/dL 13.2 13.4 HEMATOCRIT % 39.7 40.3 PLATELETS AUTO x10(9)/L 165 167 Results from last 7 days Lab Units 12/24/21 04412/23/217 SODIUM mmol/L 134* 133* CREATININE mg/dL 0.98 0.92 BUN mg/dL 21 CHLORIDE mmol/L 96* 96* MAGNESIUM mg/dL 2.5* -- Results from last 7 days Lab Units 12/23/21 2321 INR 2.8 Results from last 7 days Lab Units 12/24/21 0448 12/23/21 2207 TRPS TROPONIN T ng/L 37* 38* Lab Results Component Value Date CHOL 221 (H) 01/21/2016 TRIG 102 01/21/2016 HDL 81 01/21/2016 LDLCALC 120 01/21/2016 Results from last 7 days Lab Units 12/23/21 2207 ALBUMIN g/dL 3.7 AST U/L 28 ALT U/L 10 ALK PHOS U/L 133* BILIRUBIN TOTAL mg/dL 0.4 ASSESSMENT / PLAN I personally reviewed all radiology and labs from the past 24 hrs. Ms Herman is a 86F with medical comorbidities including paroxysmal AFib on warfarin, bronchiectasis, essential tremor who is admitted to our service for workup sudden short-lived episodes which she experienced presyncope, palpitations, and tachypnea. She says this is different than her standard shortness of breath which is known to be secondary to bronchiectasis. She is admitted and will be monitored on telemetry and will be treated for bronchiectasis. #Paroxysmal Atrial Fibrillation #Elevated troponin #Short-lived episodes of tachypnea with presyncope and palpitations Troponin elevation likely 2/2 demand ischemia caused by supraventricular tachycardia. Patient has a recent history of AVNRT s/p ablation. Patient states that her recent episodes felt similar to her experience just before she had the ablation. Patients symptoms of presyncope, palpitations, and tachypnea as well as mildly elevated troponins ar also consistent with this diagnosis. Patient does not have orthostatic vitals. - Telemetry while inpatient, patient will inform us if symptoms reoccur - Continue home sotalol 80 mg twice daily - continue warfarin > resume amlodipine 5 mg daily, hydrochlorothiazide 12.5 mg daily, and losartan 50 mg twice dailytomorrow if the patient's vitals remained stable > Consider 5 day Mome and discharge tomorrow #Bronchiectasis There is no indication for systemic steroids. - following recommendation from respiratory therapy - DuoNeb 4 times daily followed immediately by 3% saline nebs - albuterol nebulizer as needed for breakthrough dyspnea/cough - Aerobika PRN > Home oxygen assessment prior to discharge - RT recommendations for discharge - Duoneb 4x daily - NS neb twice daily (8am, 4pm) - follow up with Dr. Gerard Bhatia in Pulmonary -Continue Augmentin 500/250 twice daily for 5 days (end 12/29) #Essential Tremor - Continue primidone 50mg three times daily VTE: N/A due to therapeutic anti-coagulation GI: not indicated Code Status: Full Code Disposition: Home - self care Nazario Matute M.D. 12/24/21 Plan discussed with RST CARD 2 Bottom Polisher, Dr. Dobson. Please page the [employer] CARD 2 service pager at [phone] with any questions. Barby Ortiz, PharmMartin, R.Ph. - 12/24/2021 1:35 PM CDT Images from the original note were not included. Admission Medication History Note Adherence issues: No concerns Medication list source: Patient, Family member, Care Everywhere or chart review, and Pharmacy or dispense records Medication related information: - Updated warfarin dosin mg MWF and 1 mg all other days. - Updated amlodipine and losartan dosing - Removed the following per patient: clotrimazole, nystatin, omeprazole, Anoro (too expensive) Prior to Admission Medications Med List Status: Pharmacy/RN Complete Set By: Barby Ortiz, PharmKalyaniDKalyani, R.Ph. at 12/24/2021 1:07 PM Taking? Last Dose Informant Start Date End Date LT albuterol (ACCUNEB) 2.5 mg /3 mL nebulizer solution Past Week 11/10/18 -- Nebulize 1 vial 2-4 times daily. Notes: Rewritten to include ICD 10 code. albuterol 90 mcg/actuation inhaler 12/23/2021 -- -- Inhale 2 puffs every 4 (four) hours as needed for wheezing. amLODIPine (NORVASC) 5 mg tablet 12/23/2021 01/05/21 -- Take 2.5 mg by mouth daily. food supplemt, lactose-reduced (Ensure) liquid 12/23/2021 -- -- Take by mouth. hydroCHLOROthiazide (MICROZIDE) 12.5 mg capsule 12/23/2021 03/19/20 -- Take 12.5 mg by mouth daily. ipratropium-albuteroL (DUONEB) 0.5-2.5 mg/3 mL nebulizer solution 12/23/2021 -- -- Inhale 3 mL by nebulization 4 (four) times a day. losartan (COZAAR) 50 mg tablet 12/23/2021 12/08/18 -- Take 100 mg by mouth daily. primidone (MYSOLINE) 50 mg tablet 12/23/2021 11/28/18 -- TAKE TWO TABLETS BY MOUTH THREE TIMES DAILY Patient taking differently: 50 mg 3 (three) times a day. sodium chloride 0.9 % nebulizer solution 12/23/2021 08/21/20 -- Inhale 3 mL by nebulization daily. sotaloL (BETAPACE) 80 mg tablet 12/23/2021 01/31/19 -- Take 80 mg by mouth 2 (two) times a day. warfarin (COUMADIN) 1 mg tablet Past Week -- -- Take 1 mg by mouth. 1 mg on //Tue/Tue warfarin (COUMADIN) 2 mg tablet 12/23/2021 01/10/19 -- Take 2 mg by mouth. 2 mg on Tue/Tue/Tue Victoria Quintanilla - 12/24/2021 11:43 AM CDT Clinical Nutrition: Initial Assessment Clinical Nutrition was requested to evaluate patient for positive nursing baseline nutrition screen with a MST score of 2 or greater RDN met with patient and her as a part of face to face care this AM. Both patient and report weight loss since they got COVID in 2019 due to the decreased ability to prepare meals, decreased appetite, and the financial burden. Patient is open and willing to have Ensures at meals. SUBJECTIVE Ms. Herman is a 86 y.o. 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 She is understanding of her needs to eat three meals a day to get adequate nutrition. Percentage of Meals Eaten for the past 72 hrs: Meals (%) 12/24/21 1130 100 Nutrition history: Patient has one ensure a day while at home, but states that their doctor has prescribed her to drink three a day. The co pay for this is more expensive than buying it off the shelf so they have been struggling to afford these. Pt will eat toast or oatmeal for breakfast with coffee and may go out to eat in the afternoon with to share a meal. She reports enjoying pancakes, hot dogs, hamburgers, and qatari toast but is not able to finish the whole thing. They have two grand children that live with them who help out from time to time. Nutrition education/counseling: Discussed the possiblity of shopping at more finanically friendly stores such as [employer] and trying [employer] Breakfast as this may be a cheaper option. Also recommended pt and her to have a discussion with grandchildren about possibly helping meal prep forthem to have on hand so they can heat them up when needed. Pt says she believes they grand children may be willing to do this. 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 Medications: Colace, Augmentin Gi Function: Patient reports last Bowel Movement was on Tuesday, 12/21 Anthropometrics: Height: 160 cm Admission Weight: 42.9 kg (12/23/2021) Current Weight: 41.6 kg BMI (Calculated): 16.3 kg/m?? Weight Change History: 52.6 kg 03/28/2020, 53 kg 09/19/2020, 48.00 kg 09/25/21 Estimated Needs: Total Calorie Needs: 1000 - 1200 calories/day Method to Estimate Energy Needs: [place] (Basal to Basal + 20%) Weight Used for Equation Calculations: 42.9 kg Total Protein Needs: 52 grams/day (Method to Estimate Protein Needs (g/kg): 1 - 1.5 gm/kg) Weight Used to Calculate Protein Needs (Kg): 52.3 kg (IBW) Nutrition Diagnosis: Inadequate oral intake related to decreased ability to prepare meals and financial burden as evidenced by Low BMI of 16.7 as well as intake less than 75% of needs. Malnutrition (undernutrition) related to decreased intake as evidenced by Low BMI of 16.7, severe fat and muscle loss, as well as intake less than 75% of needs. Malnutrition Criteria: Average estimated Intake: Less than 75% for 3 or more months Body Fat: Moderate Loss Muscle Mass: Severe Loss Nutritional Status: Severe Malnutrition Malnutrition in the Context of: Chronic Illness ASSESSMENT / PLAN Patient meets ASPEN/AND criteria for Severe Malnutrition (12/24/2021 11:48 AM) See Nutrition Focused Physical Findings section for details. Nutrition Intervention: Interventions: Increase nutrient intake with small, frequent meals and/or snacks, Medical food supplement. Recommendations: Patient to consume ensures with her breakfast, lunch, and dinner meals. Social Work and/or Patternmaker Bench to possibly discuss with patient regarding Supplemental Nutrition Assistance Programs once discharged. Monitoring/Evaluation: Nutrition parameter to monitor: Meals/Supplement Intake, Weight Status, Pertinent Labs Desired Outcome: Patient to consume adequate calories and protein to meet recommended needs. Patients weight to remain stable to prevent any further muscle and fat loss. Patient Goal(s): 1. Patient will tolerate 2 ensures per day: one at breakfast and one at dinner. 2. Patient will consume 50 - 75% of three meals a day. For questions about patient's nutritional care please contact pager [phone] on weekdays or [phone] on weekends/holidays. Jimmy Whitehead, R.R.T., L.R.T. - 12/24/2021 11:15 AM CDT [facility] Chronic Pulmonary Disease Clinical Specialist (RT) Visit: admitted with atrial fib. Bronchiectasis. COVID Apr 2020 PFT: 2019 Moderate obstruction. Home: Followed by Dr. Bhatia in Pulmonary last contact Jul 2021 due to unaffordable inhalers he prescribed stopping Anoro Ellipta (LAMA/LABA). Contact him if symptoms of dyspnea worsen. Both patient/ agreed more dyspnea shortly after stopping long acting inhaler. Inhaled Medications:prescribed 4x/day (8, 12, 4, 8) albuterol nebulizer. Prescribed NS neb twice a day per Dr. Bhatia notes but patient taking at 6pm only. Seldom uses albuterol HFA as needed. Bronchial Hygiene: Since July 2021 patient/ feel secretion clearance worsened and often would be green alternating yellow until recent month green secretions. Noted decrease in BMI in 2019 from 20 to now 16. Hospital: Inhaled Medications:DuoNeb 4x/day. 3% NaCl as needed. Bronchial Hygiene: Sputum sample sent.-green secretions, thick. Aerobika Room Air Recommendations for Hospital: Card 2 1) Increase 3% NaCl nebs immediately post DuoNeb 4x/day 2) Add albuterol neb as needed for breakthrough dyspnea/coughs 3) Aerobika 4) May benefit from home oxygen assessment close to discharge. Recommendations for Discharge: 1) Change albuterol neb to DuoNeb 4x/day. 2) NS neb twice a day after 8AM and 4PM DuoNeb 3) 4-6 weeks post resolution of exacerbation appointment with Dr. Gerard Bhatia in Pulmonary Landy Valdes R.N. - 12/24/2021 9:46 AM CDT [facility] Wound RN consulted to assess Carmen Herman skin alterations. Wound assessment, pain, and Denzel score noted in the flowsheet. The patient verbally consented to photography of the affected area for clinical trending purposes. Images were taken and are available in QREADS. History: Carmen is an 86 year old female who was admitted on 12/23/2021 for Atrial Fibrillation. Her medical history includes bronchiectasis, COPD, and paroxysmal a-fib (per provider note). The patient explained that she has recently lost weight and her bottom started to hurt after sitting in her chair. #1 Friction Injury Gluteal Cleft Assessment: The patient was assessed while she was standing at the side of her hospital chair with the assistance of nursing staff. Upon assessment of her buttocks, there is a small (pencil eraser size), superficial erosion along the gluteal cleft. The wound is pink, entirely blanchable and not located over a bony prominence. The periwound is also entirely blanchable and contains some evidence of vascular congestion related to friction. The wound and periwound were cleansed with gauze and normal saline. SurePrep was applied to protect the periwound from adhesive. A Tegaderm Absorbent dressing was placed on wound in order to absorb any exudate an promote a moist wound healing environment. The prophylactic Mepilex Sacral Border was reapplied. Head to toe skin assessment completed and no other concerns other than overall dry and fragile skin. DRESSING RECOMMENDATIONS: #1 Friction Injury Gluteal Cleft Every Three Days: -Carefully attempt to remove the adherent transparent dressings. Support the dressing while pulling the dressing straight out and parallel to the skin. Use adhesive remover as needed to assist with dressing removal. -Cleanse the affected area with Normal Saline and gauze and pat dry. -Apply skin protective barrier (such as Sureprep) to the skin around the wound. Then Apply a Tegaderm??? Absorbent Clear Acrylic dressing. -Change every 3 days and PRN if the drainage is in 50% of the center pad. Recommended interventions for pressure redistribution and shear reduction: Offload heels on pillows at all times when in bed. Micro turn 15 degrees every 1 hour side to side until the patient can tolerate full 30 degree turns.Then turn side to side every 2 hours with supine positioning only for meals. Apply a prophylactic Mepilex?? Border Sacrum dressing to cover the coccyx/sacral area. Lift twice daily to assess the skin when used prophylactically. Utilize breathable underpads while in bed. Adult brief should only be worn while ambulating or in the chair. Utilize a static air cushion when up to the chair. Reposition at least every hour while in the chair. Recommended interventions for moisture control: Utilize the breathable incontinence underpads while in bed. Adult briefs should only be worn while ambulating or in the chair. Apply Z-Guard?? Barrier Cream. Reapply after each incontinence episode. Consult recommendations: NA Education: Discussed the plan of care with the patient and nursing. They agree to the plan. The WOC RN will continue to see the patient at least weekly. Contact sooner for questions or concerns. 12/24/21 0900 Wound 12/24/21 Friction Injury Gluteal cleft Date First Assessed/Time First Assessed: 12/24/21 09 Present on Hospital Admission: Yes Primary Wound Type: Friction Injury Location: Gluteal cleft Wound Image (See QREADS) Pain Score 4 *Shape Round / oval *Tunneling None *Signs of Infection None *Wound Bed Open;Partial thickness;Adona Tissue Exposed None Odor None *Exudate Amount Scant Drainage Description Serosanguineous Elizabeth-wound Assessment Blanchable erythema;Purple Treatments Cleansed Periwound Treatment Liquid skin protectant Wound Cleansed with Normal saline [place] Protocol (Pre-procedure pause) Y *Debridement Yes Debridement Type Mechanical Instruments for Debridement Gauze Complications of Debridement None *Primary Dressing Transparent dressing (Comment) (Tegaderm Absorbent) *Primary Dressing Frequency of Change Every third day & PRN Primary Dressing Changed New (Change again on 12/27) Primary Dressing Status Clean;Dry;Intact *Secondary Dressing Foam *Secondary Dressing Frequency of Change Every third day & PRN Secondary Dressing Changed Reinforced Secondary Dressing Status Dry;Clean;Intact Changed by Wound executive vice president Lengthy Treatment > 30 minutes > 30 minutes Ongoing management Nursing;Wound/quality assurance specialistpit clerk done by WOC RN? Yes Electronically signed by: Landy Valdes R.N. 12/24/21 10:08 AM CDT JoseBarby Palacios Pharm.D., R.Ph. 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 Follow-up on cultures and stop antibiotics tomorrow if cultures remain NGTD x48 hours. Trend BP and resume home antihypertensives as able Warfarin continues for AF with INR goal 2.0-3.0. Home dosing is to be 2 mg MWF and 1 mg all other days. INR on admission was 2.8. Will provide 1 mg this evening. Barby Ortiz Pharm.D., R.Ph. documented in this encounter H&P Notes Juan Dobson M.D. - 12/24/2021 11:25 AM CDT This is a supervisory note. I met, interviewed, and examined Ms. Herman with the team. I agree with the history of present illness, past medical, surgical, social and family histories, as well as allergies, medications and review of systems as documented. I agree with the team's documentation, in addition to what I have noted below. CHIEF COMPLAINT/REASON FOR VISIT: Shortness of breath HISTORY OF PRESENT ILLNESS Ms. Herman is an 86-year-old female. She has diffuse bronchiectasis. She has hypertension, on losartan, hydrochlorothiazide, and amlodipine. She has had paroxysmal atrial fibrillation since 2019. She isanticoagulated with warfarin. She takes sotalol 80 mg twice daily for rhythm control. She also had an ablation for AV nikolai reentrant tachycardia at an outside institution in August,. She presented to [facility] last night with several weeks of progressive shortness ofbreath, cough, and sputum production. This was associated with 2-3 days of dizziness, unsteadiness, and possible vertigo. Her symptoms were not clearly positional or orthostatic in nature. She had assoc iated palpitations. In the [place] [place] [facility], troponins were elevated. A head CT was negative. She was treated for an acute coronary syndrome. She also received antibiotics for a possible COPD exacerbation. She transferred to [facility] and was directly admitted to our service. Overnight, she received Augmentin for possible bronchiectasis exacerbation. She was also treated with nebulizers. She remains stable this morning. Prior cardiac testing includes an echocardiogram May 21, 2016, that showed an ejection fractionof 65% to 70 % with no regional wall motion abnormalities. Outside echocardiogram September 25, 2021, reported an ejection fraction of 60% to 65% with pulmonary hypertension (estimated right ventricular systolic pressure 57 mmHg). PHYSICAL EXAMINATION BP 125/78 (BP Location: Left arm;Upper, Patient Position: Sitting) Pulse 66 Temp 36.7 ??C (Oral) Resp 22 Ht 160 cm Wt 41.6 kg SpO2 96% BMI 16.25 kg/m?? General: The patient is quite thin. She is in no acute distress. Extremities: No significant lower extremity edema. Vessels: No jugular venous distention. Abdomen: Soft. Active bowel sounds. Heart: Regular rate. Regular rhythm with occasional ectopic beats. No murmurs. No diastolic filling sounds. Lungs: Coarse breath sounds to both inspiration and expiration bilaterally. DIAGNOSTICS Labs (December 24): Hemoglobin 13.2, creatinine 0.98 mg/dL, troponins 38 going to 37 ng/L. Electrocardiogram (December 23): Atrial fibrillation at 71 beats per minute. Electrocardiograms (December 24): Conversion to sinus rhythm with atrial ectopy. No QT segment prolongation. Chest x-ray (December 23): Hyperinflation with bilateral airspace opacities, right greater than left on my review. ASSESSMENT / PLAN #1 Paroxysmal atrial fibrillation, now in sinus rhythm #2 Elevated troponin reflecting myocardial injury, likely related to a component of demand ischemia #3 Shortness of breath, concerning for bronchiectasis exacerbation #4 Moderate obstructive lung disease (based on pulmonary function tests March 27, 2020) I do not think that the patient's symptoms are predominantly cardiac in nature. Our initial suspicion was that they could be driven by atrial fibrillation, but we obtained another electrocardiogram this morning that showed pentecostalism of sinus rhythm spontaneously. I am more concerned about an exacerbation of her bronchiectasis and obstructive airway disease. I think we should also exclude orthostatic symptoms as a cause of her dizziness. I do not think she requires treatment for an acute coronary syndrome. She does not have clinical evidence of congestive heart failure either. PLAN: Treatment for COPD/bronchiectasis exacerbation with a 5-day course of Augmentin and DuoNebs. No indication for oral steroids at this point, but we can always start them at a later date. Respiratory Therapy to evaluate the patient. Check orthostatic blood pressures. Discontinue aspirin, clopidogrel, and IV unfractionated heparin. Await microbiology cultures, both from [facility] and here at [facility]. Continue sotalol 80 mg twice daily and warfarin for paroxysmal atrial fibrillation. No indication for electrical cardioversion at the current time. As the patient stabilizes, we can likely resume her antihypertensives of amlodipine 5 mg daily, hydrochlorothiazide 12.5 mg daily, and losartan 50 mg twice daily. We reviewed the aforementioned with the patient. She was amenable with this plan. Juan Dobson M.D. CT CT Job ID: [id number]/vma Gianluca Thrasher M.D. - 12/23/2021 11:17 PM CDT RST CARD 2 Admission Note SUBJECTIVE Chief complaint Worsening shortness of breath, coughing, and dizziness. Home Situation: Patient lives at home with her . She has 2 great grandchildren the list with her. They have a4 story house, but her room is located on the second floor. She does not use and assistive device athome for ambulation. 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 She is coming for worsening shortness of breath over the past few weeks with increased coughing and sputum production. She has been h aving this increasing coughing fit over the past few weeks that may have gotten worse over the past few days. This coughing episodes usually tend to occur after her breathing treatment with albuterol and she has noted yellowish sputum production at home that has become greenish in coloration/increased. She also report problems with feeling profoundly short of breath after these coughing spells. The main issues that led to her current hospital admission is problems with worsening dizziness. This started on Tuesday night and she she tried to reach her PCP on Tuesday without any success. She was able to reach her PCP office on Tuesday and was advised to seek help in the ED since her PCP does not work on Wednesdays. She reported that walking from her bed to her bathroom which is only about 10 feet has been extremely difficult not necessarily from the perspective of the shortness of breath, but mainly due to issues with dizziness to the point that she may have to grasp on furniture to preventher from falling. She reports feeling like a rocking chair. Her symptoms does not seem to be orthostatic in nature from the way she describes it. This may occur with her just sitting up or walking. She also will occassionally have a feeling of the room spinning. She will not comment on if this worsened by changes in position of her head and has noted that she has had some sore throat, but otherwisedenies any other URI symptoms. She reported that she may have had some chest pressure with first epis ode on Tuesday, but will not comment on details. When she presented to the outside Clinic in [place], initial hemoglobin was 14.1, WBC was 2.8, and platelet was 180. Her INR was 2.29. Her sodium was 131, potassium 4.2, chloride 96, bicarbonate 30,BUN 26, creatinine 0.9. Her pro NT BNP was 3410. Her initial ECG showed some ST segment depression within the inferior leads with some ST-T changes in the precordial leads. Her troponin was 0.24, 0.2-2hours later (normal limits 0.01-0.04), her VBG with pH of 7.4, pCO2 46, bicarb of 29. Her lactate was 1.1. She had a CT scan of her chest that did not show any acute cardiopulmonary findings, but notedwas stable bilateral scarring, bronchiectasis, and coarse interstitial opacities. She was started on the IV ceftriaxone and azithromycin for COPD exacerbation, she was also loaded on 324 mg of aspirin,300 mg of Plavix, and started on heparin drip. Per her report, over the past 6 months there have been some attempt to put her on oxygen at home but this was limited by the fact that her oxygen saturation was greater than 88% history she did not qualify. They have also been some attempts to make some changes with the inhalers, but these has been expensive for her to afford. She was admitted in August of 2021 and underwent AV nikolai ablation for AVNRT and she does have a history of paroxysmal atrial fibrillation for which she is currently on anticoagulation with warfarin on antiarrhythmic medication with sotalol. She does have some dyslipidemia which she is currently not need treatment for. She has a known history of hypertension. She is a never smoker. She does not have diabetes. She has never had any coronaryintervention. Mother did have history of AK but that was at the age of 80. OBJECTIVE VITAL SIGNS Temperature: [36.7 ??C] 36.7 ??C Heart Rate: [66-71] 66 Resp Rate: [22-23] 23 Blood Pressure: (160-182)/(91-103) 160/91 SpO2: [95 %-97 %] 97 % Height: [160 cm] 160 cm Weight: [42.9 kg] 42.9 kg Pulse Rate: [60] 60 PHYSICAL EXAM General: Alert, interactive, ill appearing Lymph: No cervical or subclavicular adenopathy. Lungs: Overall decrease air movement in her lungs. I was not able to appreciate any crackles or wheezes. Heart: Regular rate. No murmurs appreciated. No lower extremity edema. Abdomen: Soft, flat, bowel sounds normoactive, nontender, nondistended, no palpable masses or organomegaly. Neuro: Strength 5/5 in all extremities. Mental: Mood and affect congruent. Alert and oriented. Reliable history patient placement coordinator. DIAGNOSTICS I have reviewed the diagnostics from admission. ASSESSMENT / PLAN Briefly, Mrs. Herman is an 86-year-old female with known history of diffuse bronchiectasis with chronic or productive cough, atrial fibrillation currently on anticoagulation with warfarin and antiarrhythmic medication with sotalol, coming with the can of acute on chronic worsening of her shortness of breath, increased sputum production, new symptoms with presyncope/vertigo over the past 3 days, with one episode of chest pressure. She is currently admitted in the cardiology service some due to concerns for NSTEMI. Her initial ECGobtained at the outside hospital was concerning for some ST segment depression in the inferior leads, and she had mildly elevated tropes which were flat. She has been loaded with aspirin, Plavix, and was started on heparin drip and transferred to [facility] for further evaluation. There have been some mention in her chart about a coronary angiography that was done around the time of her ablation therapy in August, I can't seem to find these results in her chart. I am not to convince of ACS being a driving factor of her presentation especially being that her troponins has remained flat suggesting possible type 2 NSTEMI. There is a possibility that her symptoms may just be secondary to her bronchiectasis exacerbation. What I cannot seem to explain is why she having these presyncope/vertigo episode.A possible explanation may be BPPV given recent issues with sore throat suggesting possible URI thatmight have exacerbated her bronchiectasis. She has also been having some dysrhythmias on her monitorincluding some short runs of SVTs and also a run of narrow complex tachycardia which looks like AVNRT concerning for an arhythmia also playing a role in her current presentation. She has had a repeatedTTE with most recent on 09/25/2021 with LV function 60-65%, with grade 2 diastolic filling pattern, mild , mild AR, and RVSP 57 mmhg. I will treat her tonight for bronchiectasis exacerbation with Augmentin no previous colonization with Pseudomonas. Our obtain some sputum cultures for both aerobic, anaerobic, mycobacteria culture, AFBsmear and get pulmonology input tomorrow. CT chest obtained from outside hospital did not suggest any arm active consolidation to warrant continuation of her ceftriaxone. I do not think there is any role for addition of steroids since these have not been found to be helpful in bronchiectasis extubation. Regarding the question of NSTEMI, she has already been loaded with aspirin and Plavix at the outside hospital. Her current INR is about 2.8 and I will hold on resumption of the heparin gtt for now. I will trend troponin and if he remained flat, we can start her ACS work-up by either getting TTE or perfusion study before going down the route with invasive study with angiography. #Diffuse Bronchiectasis with exacerbation #Worsening cough with increased sputum production #NSTEMI, possible type II #History of atrial fibrillation, currently on the warfarin and sotalol #History of AVNRT status post ablation therapy in 08/2021 Plan Follow-up sputum cultures from outside hospital([place])/obtain repeat sputum culture see admit clinic including mycobacteria, fungal, AFB stain. Start treatment with Augmentin for bronchiectasis exacerbation/get pulmonology input Hold on resumption of heparin gtt, will continue daily daily aspirin is 81 mg and Plavix 75 mg untilACS ruled out. Plan to obtain TTE 12/24 Resume home sotalol for atrial fibrillation Resume home amlodipine and hydrochlorothiazide for hypertension. Hold losartan. Scheduled DuoNebs with the hypertonic saline with the [facility] Rest of Care per Dr. Plascencia Sergio Plascencia M.D., Ph.D. - 12/23/2021 8:59 PM CDT CARDIOLOGY 2 INPATIENT ADMISSION NOTE CHIEF COMPLAINT/REASON FOR VISIT Dyspnea HISTORY OF PRESENT ILLNESS/PAST CARDIAC HISTORY #1 Atrial Fibrillation (HCC) Ms. Herman is a 86 y.o. female medical comorbidities including bronchiectasis, COPD, paroxysmal Afib (on warfarin and sotalol), who presented to outside hospital [place] for increasing dyspnea, cough, dizziness, and presyncope. Her dyspnea began on Tuesday and was partially responsive to her home nebulizer treatment. She also notes increased greenish sputum production. On Tuesday night she experienced some presyncope with a fall off the toilet. For me, she describes her dizziness as mostly occurringupon standing from a seated position. She denies fevers/chills, chest pain/tightness, nausea, diaphoresis, lower extremity edema, bleeding events. She lives at home in [place] with her and her two young-adult grandchildren. She has bronchiectasis and COPD but denies any smoking history, and says she has never been to the hospital for aCOPD exacerbation. She is prescribed and an ELLIPTA daily inhaler but has never used it because she cannot afford the cost. She uses albuterol nebulizers at home for symptomatic relief. The following portions of the patient's history were reviewed and updated as appropriate: allergies,current medications, family history, medical history, social history, surgical history and problem list. REVIEW OF SYSTEMS As per HPI, otherwise a complete 10 point review of systems was completed and negative. ALLERGIES Allergies Allergen Reactions Arie Inhibitors Other (see comments) Methotrexate Other (see comments) gagging & inreased sputum production Minocycline Other (see comments) Pollen Extracts Other (see comments) cytopenias & hyperkalemia HOME MEDICATIONS Current Medications: amoxicillin-pot clavulanate 250-125 mg per tablet 2 tablet (AUGMENTIN), Q12H BEAR docusate sodium capsule 100 mg (COLACE), BID PRN ipratropium-albuteroL 0.5-2.5 mg/3 mL nebulizer solution 3 mL (DUONEB), 4x daily primidone tablet 50 mg (MYSOLINE), TID sodium chloride 0.9 % injection 10 mL, PRN sodium chloride 0.9 % injection 3 mL, PRN sodium chloride 0.9 % injection 3 mL, Q12H BEAR sodium chloride 3 % nebulizer solution 4 mL (NEBUSAL), PRN sotaloL tablet 80 mg (BETAPACE), BID SOCIAL HISTORY reports that she has never smoked. She does not have any smokeless tobacco history on file. FAMILY HISTORY Negative for premature coronary disease in parents and siblings. PHYSICAL EXAMINATION VITAL SIGNS: Temperature: [36.3 ??C-36.7 ??C] 36.7 ??C Heart Rate: [63-80] 75 Resp Rate: [13-29] 13 Blood Pressure: (158-182)/(78-103) 164/78 SpO2: [76 %-98 %] 98 % Height: [160 cm] 160 cm Weight: [42.9 kg] 42.9 kg Pulse Rate: [46-87] 76 Body mass index is 16.76 kg/m??. General: 86 y.o. year old female, frail, in no acute distress. Skin: Warm, dry, color normal for race. Grossly intact. Eyes: PERRLA, EOM intact, no scleral icterus. ENT: Mucous membranes moist, no oral lesions. Lymph: No cervical, supraclavicular, or axillary adenopathy. Heart: Tachy and irregular rhythm, no murmur rub or gallop. Thready radial pulses. No peripheral extremity edema. No JVD. Lungs: Clear to auscultation bilaterally and throughout. Respirations even and non-labored. On room air. No cough. Abdomen: Soft, non-distended, non-tender to palpation throughout. No rebound tenderness, guarding, CVA tenderness. Positive bowel sounds. Musculoskeletal/Joints: Bilateral upper and lower extremity strength 5/5, full ROM. No joint erythema, swelling, tenderness. Mental: Alert and oriented to person place time and situation. Good historian. Neuro: Examined and normal. DIAGNOSTICS Results for orders placed or performed during the hospital encounter of 12/23/21 (from the past 168 hour(s)) CBC with Differential, Blood Collection Time: 12/23/21 10:07 PM Last 24 Hours Value Ref Range Hemoglobin 13.4 11.6 - 15.0 g/dL Hematocrit 40.3 35.5 - 44.9 % Erythrocytes 4.76 3.92 - 5.13 x10(12)/L MCV 84.7 78.2 - 97.9 fL RBC Distrib Width 16.4 (H) 12.2 - 16.1 % Platelet Count 167 157 - 371 x10(9)/L Leukocytes 3.2 (L) 3.4 - 9.6 x10(9)/L Neutrophils 1.49 (L) 1.56 - 6.45 x10(9)/L Lymphocytes 1.10 0.95 - 3.07 x10(9)/L Monocytes 0.56 0.26 - 0.81 x10(9)/L Eosinophils 0.04 0.03 - 0.48 x10(9)/L Basophils <0.03 0.01 - 0.08 x10(9)/L Troponin T, 5th Generation Collection Time: 12/23/21 10:07 PM Last 24 Hours Value Ref Range Troponin T, 5th gen 38 (H) <=10 ng/L Comprehensive Metabolic Panel Collection Time: 12/23/21 10:07 PM Last 24 Hours Value Ref Range Potassium, S 3.7 3.6 - 5.2 mmol/L Sodium, S 133 (L) 135 - 145 mmol/L Chloride, S 96 (L) 98 - 107 mmol/L Bicarbonate, S 23 22 - 29 mmol/L Anion Gap 14 7 - 15 BUN (Blood Urea Nitrogen), S 20 6 - 21 mg/dL Creatinine, S 0.92 0.59 - 1.04 mg/dL eGFR-Non Black/ 57 (L) >=60 mL/min/BSA Comment: ----ADDITIONAL INFORMATION---- Estimated GFR calculated using the 2009 CKD_EPI creatinine equation. eGFR-Black/ 66 >=60 mL/min/BSA Comment: ----ADDITIONAL INFORMATION---- Estimated GFR calculated using the 2009 CKD_EPI creatinine equation. Calcium, Total, S 8.8 8.8 - 10.2 mg/dL Glucose, S 91 70 - 140 mg/dL Protein, Total, S 7.0 6.3 - 7.9 g/dL Albumin, S 3.7 3.5 - 5.0 g/dL Aspartate Aminotransferase (AST), S 28 8 - 43 U/L Alkaline Phosphatase, S 133 (H) 35 - 104 U/L Alanine Aminotransferase (ALT), S 10 7 - 45 U/L Bilirubin, Total, S 0.4 <=1.2 mg/dL Thyroid Function [place] Collection Time: 12/23/21 10:07 PM Last 24 Hours Value Ref Range TSH, Sensitive 3.1 0.3 - 4.2 mIU/L ECG 12 Lead Collection Time: 12/23/21 10:07 PM Last 24 Hours Value Ref Range Ventricular Rate ECG/Min 71 BPM QRSD Interval 80 ms QT Interval 412 ms QTC Interval 447 ms R [place] 73 degrees T Wave [place] -32 degrees CODED DIAGNOSIS Atrial fibrillation APTT (Activated Partial Thromboplastin Time) Collection Time: 12/23/21 11:21 PM Last 24 Hours Value Ref Range Activated Partial Thrombopl Time, P 40 (H) 25 - 37 sec Lactate Collection Time: 12/23/21 11:21 PM Last 24 Hours Value Ref Range Lactate, P 1.4 0.5 - 2.2 mmol/L Prothrombin Time (PT) Collection Time: 12/23/21 11:21 PM Last 24 Hours Value Ref Range Prothrombin Time, P 31.1 (H) 9.4 - 12.5 sec INR 2.8 0.9 - 1.1 Comment: ----ADDITIONAL INFORMATION---- Standard intensity warfarin therapeutic range: 2.0 to 3.0 High intensity warfarin therapeutic range: 2.5 to 3.5 CBC without Differential Collection Time: 12/24/21 4:47 AM Last 24 Hours Value Ref Range Hemoglobin 13.2 11.6 - 15.0 g/dL Hematocrit 39.7 35.5 - 44.9 % Erythrocytes 4.77 3.92 - 5.13 x10(12)/L MCV 83.2 78.2 - 97.9 fL RBC Distrib Width 16.4 (H) 12.2 - 16.1 % Platelet Count 165 157 - 371 x10(9)/L Leukocytes 2.6 (L) 3.4 - 9.6 x10(9)/L Heparin Anti-Xa Assay Collection Time: 12/24/21 4:48 AM Last 24 Hours Value Ref Range Heparin Anti-Xa, P <0.10 IU/mL Comment: UFH therapeutic range: 0.30-0.70 IU/mL LMWH therapeutic range: 0.50-1.00 IU/mL 0.50-1.00 IU/mL for twice daily dosing 1.00-2.00 IU/mL for once daily dosing (sample obtained 4-6 hours following subcutaneous injection) LMWH prophylactic range:0.10-0.30 IU/mL ----ADDITIONAL INFORMATION---- Heparin Anti-Xa is used to measure heparin concentrations in patients receiving low molecular weight heparin (LMWH) or unfractionated heparin (UFH). Troponin T, 5th Generation Collection Time: 12/24/21 4:48 AM Last 24 Hours Value Ref Range Troponin T, 5th gen 37 (H) <=10 ng/L Basic Metabolic Panel Collection Time: 12/24/21 4:48 AM Last 24 Hours Value Ref Range Potassium, S 3.7 3.6 - 5.2 mmol/L Sodium, S 134 (L) 135 - 145 mmol/L Chloride, S 96 (L) 98 - 107 mmol/L Bicarbonate, S 27 22 - 29 mmol/L Anion Gap 11 7 - 15 BUN (Blood Urea Nitrogen), S 21 6 - 21 mg/dL Creatinine, S 0.98 0.59 - 1.04 mg/dL eGFR-Non Black/ 53 (L) >=60 mL/min/BSA Comment: ----ADDITIONAL INFORMATION---- Estimated GFR calculated using the 2009 CKD_EPI creatinine equation. eGFR-Black/ 61 >=60 mL/min/BSA Comment: ----ADDITIONAL INFORMATION---- Estimated GFR calculated using the 2009 CKD_EPI creatinine equation. Calcium, Total, S 8.9 8.8 - 10.2 mg/dL Glucose, S 95 70 - 140 mg/dL Magnesium Collection Time: 12/24/21 4:48 AM Last 24 Hours Value Ref Range Magnesium, S 2.5 (H) 1.7 - 2.3 mg/dL Echo (09/25/21): 1. Normal LV size, borderline wall thickness, normal global systolic function with an estimated EF of 60 - 65%. 2. Grade 2 pattern of LV diastolic filling. Elevated left atrial filling pressure. 3. Right ventricular pressure overload. 4. Right ventricular cavity size is mildly enlarged, global systolic RV function is borderline reduced. 5. Severe biatrial enlargement. 6. The aortic valve is trileaflet and sclerotic, mild stenosis with mean gradient of 10 mmHg and noregurgitation. 7. The mitral valve is normal, mild mitral regurgitation. 8. Mild-moderate tricuspid regurgitation. 9. Moderately increased estimated pulmonary systolic pressures by tricuspid regurgitation velocity and right atrial pressure (~57 mmHg). 10. The inferior vena cava is normal sized, respiratory size variation greaterthan 50%. CXR (12/23/21): Outside CXR reviewed. Lungs appear hyperinflated and bronchiolar dilation consistent with prior hx. EKG (12/24/21): Atrial fibrillation with premature ventricular or aberrantly conducted complexes Nonspecific ST and T wave abnormality ASSESSMENT / PLAN Mrs. Herman's CC is dyspnea and increased productive cough, consistent with a COPD exacerbation. She was loaded on ASA and Plavix at outside hospital for possible NSTEMI, although we do not yet have those records. Here here troponins have been stable; there are no overt ECG ischemic findings here although the A fib makes it difficult to assess the isoelectric line. A resolved NSTEMI or type II NSTEMI in the setting of A fib and hypoxia are both possibilities. We will leave her on the ASA and Plavix for now and let the day team decide to pursue ACS treatment. She is already anticoagulated on warfarin. # Bronchiectasis # COPD exacerbation - Sputum Cx, GS, and AFB smears - Augmentin 250/150 x 2 bid - Duo-Nebs, hypertonic saline nebs PRN # Possible NSTEMI # Afib with RVR - Restarting home sotalol 80 mg bid - ASA 81 - Plavix 75 - TTE and stress test VTE Prophylaxis: Anticoagulated on warfarin Code Status was reviewed, wishes to be Full Code. Disposition: Floor #1 Atrial Fibrillation (HCC) Yasmany Plascencia M.D., Ph.D. Internal Medicine, PGY-1 Pager: [phone] documented in this encounter Consult Notes Ale Hoang - 12/25/2021 8:09 AM CDTAssociated Order(s): IP CONSULT TO CARDIAC REHABILITATION Thank you for the Cardiovascular Health Clinic Consult, however this patient does not currently havea qualifying diagnosis for cardiac rehab. If that changes or you have any questions we can be reached Tuesday - Tuesday, 7:30 to 4:00pm at [phone]. To qualify for participation in a Cardiac Rehabilitation program, the following CMS criteria must bemet: Angina, Stable Coronary Artery Bypass Graft Coronary PTCA/Stent Heart Assist Device Heart Transplant Heart Valve Repair Heart Valve Replacement Myocardial Infarction To qualify for participation in a Cardiac Rehabilitation program for stable chronic heart failure the following CMS criteria must be met: EF less than or equal to 35% NYHA class II-IV symptoms despite being on optimal heart failure therapy for at least 6 weeks Stable - defined as no major cardiovascular hospitalization within 6 weeks Johanna Chaudhry V., RKalyaniNKalyani - 12/24/2021 9:49 AM CDTAssociated Order(s): IP CONSULT TO CARE MANAGEMENT Discharge Planning Assessment SUBJECTIVE Assessment Information Referral Source: Early Screen for Discharge Planning Referral Reason: Discharge Planning Primary Language: Malian Sales Consultant Services Used: No Person(s) present during interview: Person(s) Present During Interview: patient and spouseCalixtoy Herman History of Present Illness #1 Atrial Fibrillation (HCC) Social History Marital Status: Family / Household: spouse Jaswant and 3 adult children Support System: spouse, children, and family members Patient's Home Environment: house Finance/Insurance Primary insurance: MEDICARE A AND B Secondary insurance: BLUE Spare to Share BLUE SHIELD Does the patient have any financial concerns? yes, patient is concerned with the cost of current medication and healthcare costs benefits: No Advance Directives Legal Decision Maker: Self Advance Directives: Living will, Power of Fugitive Investigator for health care, Power of Fugitive Investigator for finance, Advanced Care Plan Advance Directives Status: Not Activated OBJECTIVE Baseline Functional Status Baseline Activities of Daily Living Dressing: Independent Feeding: Independent Bathing: Independent Grooming: Independent Toileting: Independent Behavior: Appropriate, Pleasant, Calm Communication: Deaf/hard of hearing Shopping: Needs assistance Transportation: Support from family Medication Management: Independent Housekeeping: Needs assistance Meal Prep: Needs assistance Managing Finances: Independent Assistive Devices: Dentures, patient unable to wear dentures as they do not fit. Eyeglasses, Hearingaid(s), Medication box Baseline Services/Resources Primary care clinic and provider: ELSEWHERE, PCP Additional Resources: NA Anticipated Needs Functional Status: Meal preparation, Transportation use (drive car, use taxi/bus), Shopping, Housekeeping Assistive Devices: Medication box, Dentures, Eyeglasses, Hearing aid(s) Anticipated Modifications to the Patient's Home: None Transportation Needs: Support from family Does the patient need discharge transport arranged?: No Phone Number for Ride/Caregiver: Transportation provided by her spouse Jaswant Anticipated Discharge Destination: Home or Self Care ASSESSMENT / PLAN Assessment: The hazard waste handler met with Carmen Herman to discuss her current hospitalization and home going needs. The patient was accompanied by , Jaswant Herman . The patient was a reliable historian. Therole of hazard waste handler was reviewed. The patient and patient's reviewed her prior level of care and support system. The patient receives support from her , children, and lives with two grandchildren . The patient described her living environment as a multiple level home with level entry. Housekeeping, grocery shopping, meal prep, and other household responsibilities have previously been completed bypatient's and family. hazard waste handler discussed the patient's potential needs at dismissal based on their home setting, previous needs and responsibilities, homebound status, and relevant assessments with the patient and patient's . The patient will be safe and supported to return home with family when medically ready. Support will be provided by her spouse and grandchildren. The patient demonstrated understanding when discussing her home going plans and anticipated needs. Patient was transferred from [facility] for SOB and increased productive cough she is currently being monitored for cardiac symptoms. Patient lives with her , Jaswant and her two grandchildren. She is currently able to do ADLs and IADLs independently except cooking due to her essential tremor. Her will provide her transportation home. Patient currently only uses hearing aids and glasses. Patient stated that she should be wearing dentures, unfortunately they do not fit in her mouth. They currently live in a home with steps needed to get to her bedroom. Medication/ healthcare costs are a concern. Patient feels safe returning to her home with her spouse and grandchildren. At this time, the care team anticipates the patient will potentially require the following new service(s) to be set up: oxygen. After reviewing the patient's chart and meeting with the patient and patient's , the hazard waste handler deemed the LACE+/readmission questions were not necessary. The patient and patient's reports understanding that she will dismiss from the hospital TBD.Pending hospital course and medical readiness, no barriers to dismissal have been identified at thistime. Plan: The patient and patient's agrees with the following plan. Patient's anticipated discharge disposition is: Home to Self Care Transportation upon dismissal will be provided by family--Jaswant. . hazard waste handler recommended researching information on assistance programs such as Medical Assistance/Waivers and Social Security Disability via their county or by contacting the [employer] Linkage Line and researching prescription medication assistance and/or special pricing at various pharmacies. hazard waste handler provided information regarding the dismissal process, the Senior Linkage Line ([place] Board on Aging) handout, and resources for Older People & Their Families ([facility] Agency on Aging). hazard waste handler placed or requested the following hospital-based consult orders and/or referrals: None. hazard waste handler will continue to assess for homegoing needs with the interdisciplinary team. will discuss patient's needs with Social Work and coordinate handoff to Social Work if appropriate. hazard waste handler encouraged the patient to reach out with any questions/concerns. Signed by: Johanna Chaudhry R.N. 12/24/2021 documented in this encounter Nursing Notes Ana Perea R.N. - 12/26/2021 12:03 PM CDT Problem: PAIN - ADULT Goal: PT VERBALIZES/DEMONSTRATES ADEQUATE COMFORT LEVEL OR BASELINE Outcome: Completed Problem: KNOWLEDGE DEFICIT Goal: Patient/family/caregiver demonstrates understanding of disease process, treatment plan, medications, and discharge instructions Outcome: Completed Problem: INFECTION - ADULT Goal: Absence of infection during hospitalization Outcome: Completed Problem: SKIN/TISSUE INTEGRITY Goal: Skin/Tissue integrity maintained or improved Outcome: Completed Goal: Oral and Nasal mucous membranes remain intact Outcome: Completed Problem: SAFETY ADULT Goal: Maintain a safe environment Outcome: Completed Problem: DISCHARGE PLANNING Goal: Patient discharge needs identified Outcome: Completed Problem: SAFETY ADULT - RISK FOR FALL AND OR FALL INJURY Goal: Patient remains free from fall/fall injury Outcome: Completed Problem: POTENTIAL OR ACTUAL PRESSURE INJURY-ADULT Goal: Manage sensory Perception deficits to maintain and/or improve skin integrity Outcome: Completed Goal: Maintain optimal skin moisture to ensure or improve skin integrity Outcome: Completed Goal: Achieve optimal activity and/or mobility to maintain or improve skin integrity Outcome: Completed Goal: Nutrient intake appropriate for improving, restoring or maintaining skin integrity Outcome: Completed Goal: Minimize friction and/or shear to maintain or improve skin integrity Outcome: Completed Problem: Compromised Skin Integrity Goal: Skin/Tissue integrity maintained or improved Outcome: Completed Goal: Oral and Nasal mucous membranes remain intact Outcome: Completed Goal: Incisions, wounds, or drain sites healing without S/S of infection Outcome: Completed Problem: Incontinence and/or Moisture Goal: Skin integrity is maintained or improved Outcome: Completed Problem: RESPIRATORY - ADULT Goal: Achieves optimal ventilation and oxygenation Outcome: Completed Shift Goals: Clinical Goals for the Shift: patient will remain vss Identify possible barriers to meeting goals/advancing plan of care: End of Shift Summary: Patient's vital signs were stable. Patient was discharged home self care with family to transport. AVS and education were completed with the family and patient. Landy Collazo R.N. - 12/26/2021 5:09 AM CDT Shift Goals: Clinical Goals for the Shift: patient will remain vss Identify possible barriers to meeting goals/advancing plan of care: none End of Shift Summary: goal met, the patient remained VSS. Plan is for patient to discharge home selfcare today with home heart monitor. Electronically signed by: Landy Collazo R.N. 12/26/21 5:10 AM CDT Problem: PAIN - ADULT Goal: PT VERBALIZES/DEMONSTRATES ADEQUATE COMFORT LEVEL OR BASELINE Outcome: Progressing Problem: SAFETY ADULT Goal: Maintain a safe environment Outcome: Progressing Problem: DISCHARGE PLANNING Goal: Patient discharge needs identified Outcome: Progressing Johanna Reid RHi. - 12/25/2021 6:13 PM CDT Shift Goals: Clinical Goals for the Shift: patient will remain from SOB during shift. Identify possible barriers to meeting goals/advancing plan of care: End of Shift Summary: Goal not met. Patient continues to have shortness of breath at rest and while ambulating. Nebulizers continue to provide improvement with symptoms. VSS on RA. She had no complaints of pain. Plan is to continue to monitor today and discharge HSC tomorrow. Problem: PAIN - ADULT Goal: PT VERBALIZES/DEMONSTRATES ADEQUATE COMFORT LEVEL OR BASELINE Outcome: Progressing Problem: SKIN/TISSUE INTEGRITY Goal: Skin/Tissue integrity maintained or improved 12/25/20211811 by Johanna Reid, R.N. Outcome: Progressing 12/25/2021 1745 by Johanna Reid, R.N. Outcome: Progressing Problem: SAFETY ADULT Goal: Maintain a safe environment Outcome: Progressing Problem: POTENTIAL OR ACTUAL PRESSURE INJURY-ADULT Goal: Manage sensory Perception deficits to maintain and/or improve skin integrity Outcome: Progressing Problem: Compromised Skin Integrity Goal: Skin/Tissue integrity maintained or improved 12/25/20211811 by Johanna Reid, R.N. Outcome: Progressing 12/25/2021 1745 by Johanna Reid, R.N. Outcome: Progressing Problem: RESPIRATORY - ADULT Goal: Achieves optimal ventilation and oxygenation 12/25/20211811 by Johanna Reid, R.N. Outcome: Progressing 12/25/2021 1745 by Johanna Reid, R.N. Outcome: Progressing Naina Abernathy R.N. - 12/24/2021 6:44 PM CDT Problem: SAFETY ADULT - RISK FOR FALL AND OR FALL INJURY Goal: Patient remains free from fall/fall injury Outcome: Progressing Problem: RESPIRATORY - ADULT Goal: Achieves optimal ventilation and oxygenation Outcome: Progressing Shift Goals: Clinical Goals for the Shift: Patient will be free from chest pain this shift Identify possible barriers to meeting goals/advancing plan of care: medical conditions End of Shift Summary: Patient had no chest pain throughout the day. Patient did have a headache thatresolved with tylenol. Patient receiving Augmentin and nebulizers; still complaining of SOB and cough. Edith Knott R.N. - 12/24/2021 5:17 AM CDT Problem: PAIN - ADULT Goal: PT VERBALIZES/DEMONSTRATES ADEQUATE COMFORT LEVEL OR BASELINE Outcome: Progressing Problem: SKIN/TISSUE INTEGRITY Goal: Skin/Tissue integrity maintained or improved Outcome: Progressing Problem: SAFETY ADULT Goal: Maintain a safe environment Outcome: Progressing Problem: Compromised Skin Integrity Goal: Skin/Tissue integrity maintained or improved Outcome: Progressing Shift Goals: Clinical Goals for the Shift: Patient will remain free from chest pain Identify possible barriers to meeting goals/advancing plan of care: NSTEMI End of Shift Summary: Patient denied chest pain. Heparin gtt infusing at 16. Patient was given 2g Mgreplacement as well. Blood cultures to be drawn with morning labs. Sputum culture still needs to be collected. Plan for TTE today. documented in this encounter Miscellaneous Notes Hospital Course - Raciel Matute M.D. - 12/26/2021 7:15 AM CDT Mrs. 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 She presents with self-limited episodes of presyncope, heart palpitations, and tachypnea have occurred both at rest while sitting and while ambulating about her house. She was admitted to the cardiology service for an NSTEMI workup. Her initial ECG obtained at an outside hospital with concerning for some ST segment depressions in the inferior leads, and she had mildly elevated troponins which were flat. He was loaded with aspirin, Plavix, and started on heparin dripprior to her transport to [place] for further evaluation. We had low concern for ACS given her flat troponins as well as the history as described with the patient. Leading differential for her symptoms including exacerbation of bronchiectasis and/or reoccurrence of a tachyarrhythmia. Respiratory therapy was consulted for her bronchiectasis and she was given DuoNeb 4 times daily followed by hypertonic saline nebs to clear her secretions and albuterol nebulizer as needed. She was also started on a 5 day course of Augmentin. RT discharge recommendations include DuoNeb 4 times daily, normal saline nebs twice daily at 8:00 a.m. and 4:00 p.m., and follow-up in pulmonary clinic. Her stamps or coins salesperson demonstrated several asymptomatic short runs of SVTs, but none that looked like AVNRT. At no point during her hospital admission did she become symptomatic the way that led to herpresentation. The plan is to discharge patient with MoMe and follow-up in Cardiology outpatient clinic with Dr. Rivera on 01/04. Documentation Clarification - Raciel Matute M.D. - 12/25/2021 12:11 PM CDT PROVIDER RESPONSE TEXT: To clarify, the appropriate diagnosis supported by the clinical indicators: Severe Malnutrition, I agree with the RD assessment and plan of - monitor: Meals/Supplement Intake, Weight Status, Pertinent Labs <LCI> QUERY TEXT: DOCUMENTATION CLARIFICATION REQUEST Please clarify/specify the appropriate diagnosis supported in the clinical indicators below. [[Severe Malnutrition, I agree with the RD assessment and plan of - monitor: Meals/Supplement Intake, Weight Status, Pertinent Labs]] Other (explain) Clinically unable to determine (explain) Clinical Indicators/Risk Factors/Treatment: 12/24 PN (Giovani) - 86F with medical comorbidities including paroxysmal AFib on warfarin, bronchiectasis, essential tremor who is admitted to our service for workup sudden short-lived episodes which she experienced presyncope, palpitations, and tachypnea. She says this is different than her standard shortness of breath which is known to be secondary to bronchiectasis 12/24 Assessment (Rudolph) - Malnutrition Criteria: Average estimated Intake: Less than 75% for 3 or more months Body Fat: Moderate Loss Muscle Mass: Severe Loss - Nutritional Status: Severe Malnutrition Malnutrition in the Context of: Chronic Illness - Inadequate oral intake related to decreased ability to prepare meals and financial burden as evidenced by Low BMI of 16.7 as well as intake less than 75% of needs. Malnutrition (undernutrition) related to decreased intake as evidenced by Low BMI of 16.7, severe fat and muscle loss, as well as intake less than 75% of needs. - Monitoring/Evaluation: Nutrition parameter to monitor: Meals/Supplement Intake, Weight Status, Pertinent Labs Please contact me if you have questions. Thank you, ABDULLAHI Riddle, R.N., [facility] Clinical Documentation Dry Molder Query created by: ABDULLAHI Riddle, R.N., CCDS 12/24/2021 03:15 PM CDT </LCI> documented in this encounter Plan of Treatment Scheduled Orders Name Type Priority Associated Diagnoses Order S chedule Gram Stain Microbiology Routine Routine lab col lection (next collection) for 1 Occurrences starting 2021 until 12/24/2021 documented as of this encounter Procedures Procedure Name Priority Date/Time Associated Comments Diagnosis ECG AMBULATORY REAL Routine 01/01/2022 4:10 Tachycardia Resul ts for this TIME CARDIAC MONITORING PM CDT Paroxysmal (HCC) procedure are in - [facility] the result s section. PROTHROMBIN TIME (PT), Routine 12/26/2021 9:38 Re sults for this P AM CDT procedure are i n the results section. ADULT OXYGEN THERAPY Routine 12/25/2021 8:01 AM CDT PROTHROMBIN TIME (PT), Routine 12/25/2021 7:39 Re sults for this P AM CDT procedure are i n the results section. ECG STAT 12/24/2021 8:59 Results for this AM CDT procedure are i n the results section. BACTERIAL CULTURE, Routine 12/24/2021 8:57 Result s for this AEROBIC + SUSC, RESP AM CDT procedu re are in the results section. MYCOBACTERIAL CULTURE, Routine 12/24/2021 8:57 Re sults for this V AM CDT procedure are i n the results section. ACID FAST SMEAR FOR Routine 12/24/2021 8:57 Resul ts for this MYCOBACTERIUM AM CDT procedure are in the results section. GRAM STAIN Routine 12/24/2021 8:57 Results for this AM CDT procedure are i n the results section. ECG Routine 12/24/2021 8:38 Results for this AM CDT procedure are i n the results section. ADULT OXYGEN THERAPY Routine 12/24/2021 8:01 AM CDT HEPARIN LEVEL ANTI-XA Timed 12/24/2021 4:48 Res ults for this ASSAY, P AM CDT procedure are i n the results section. TROPONIN T, 5TH GEN, P Timed 12/24/2021 4:48 Re sults for this AM CDT procedure are i n the results section. MAGNESIUM, S Timed 12/24/2021 4:48 Results for this AM CDT procedure are i n the results section. BASIC METABOLIC PANEL, Timed 12/24/2021 4:48 Re sults for this S/P AM CDT procedure are i n the results section. CBC WITHOUT Timed 12/24/2021 4:47 Results for this DIFFERENTIAL, B AM CDT procedure ar e in the results section. ACTIVATED PARTIAL STAT 12/23/2021 11:21 Result s for this THROMBOPLASTIN TIME PM CDT procedur e are in (APTT), P the results section. PROTHROMBIN TIME (PT), Timed 12/23/2021 11:21 R esults for this P PM CDT procedure are i n the results section. LACTATE, B/P STAT 12/23/2021 11:21 Results for this PM CDT procedure are i n the results section. ADULT OXYGEN THERAPY Routine 12/23/2021 10:51 PM CDT ADULT OXYGEN THERAPY Routine 12/23/2021 10:51 PM CDT ADULT OXYGEN THERAPY Routine 12/23/2021 10:51 PM CDT ECG STAT 12/23/2021 10:07 Results for this PM CDT procedure are i n the results section. THYROID FUNCTION STAT 12/23/2021 10:07 Results for this CASCADE, S PM CDT procedure are i n the results section. CBC WITH DIFFERENTIAL, STAT 12/23/2021 10:07 R esults for this B PM CDT procedure are i n the results section. TROPONIN T, 5TH GEN, P STAT 12/23/2021 10:07 R esults for this PM CDT procedure are i n the results section. COMPREHENSIVE METABOLIC STAT 12/23/2021 10:07 Results for this PANEL, S/P PM CDT procedure are i n the results section. documented in this encounter Results ECG AMBULATORY REAL TIME CARDIAC MONITORING - [facility] (01/01/2022 4:10 PM CDT) P athologist Signature Min Heart Rate 50 bpm INFOBIONIC MOME Max Heart Rate 88 bpm INFOBIONIC MOME Mean Heart 63 bpm INFOBIONIC MOME Rate VE Total Beats 5,637 count INFOBIONIC MOME VE Percent 1.05% percent INFOBIONIC MOME Beats SVE Total 02819 count INFOBIONIC MOME Beats SVE Percent 5.07% percent INFOBIONIC MOME Beats Holter Pauses 0 count INFOBIONIC MOME AF Count 0 count INFOBIONIC MOME AF Duration 0 sec duration INFOBIONIC MOME AF [place] 0% percent INFOBIONIC MOME VT Runs 0 [...] did not report any sympto matic events. Die Drawing Checker: AZAM Sánchez / AZAM Joseph Procedure Note [...] did not report any sympto matic events. Die Drawing Checker: AZAM Sánchez / AZAM Joseph Brayan Borrero M.D., Ph.D. CV CARDIAC SERVICES PRO CEDURES Performing Organization Address City/State/ZIP Code Phon e Number INFOBIONIC MOME INFOBIONIC MOME NA (ABNORMAL) Prothrombin Time (PT) (12/26/2021 9:38 AM CDT) [facility] Method Time Signature Prothrombin 22.4 (H) 9.4 - 12.5 12/26/2021 DTL Time, P sec 11:08 AM CDT INR 2.0 0.9 - 1.1 12/26/2021 DTL 11:08 AM CDT Comment: ----ADDITIONAL INFORMATION---- Standard intensity warfarin therapeutic range: 2.0 to 3.0 ?? High intensity warfarin therapeutic rang e: 2.5 to 3.5 Specimen Anatomical Collection Method Collection Time Receive d Time (Source) Location / / Volume Laterality Blood (Blood, 12/26/2021 9:38 AM 12/27/19 22 Venous) CDT 10:45 AM CDT Juan Dobson M.D. LAB BLOOD ADD-ON Performing Organization Address City/State/ZIP Code Phon e Number [facility] - [address] [place] [address] [address] [facility] [place] [place] [address] [facility] 200 [facility] (ABNORMAL) Prothrombin Time (PT) (12/25/2021 7:39 AM CDT) Patholo gist Method Time Signature Prothrombin 23.2 (H) 9.4 - 12.5 12/25/2021 DTL Time, P sec 9:20 AM CDT INR 2.1 0.9 - 1.1 12/25/2021 DTL 9:20 AM CDT Comment: ----ADDITIONAL INFORMATION---- Standard intensity warfarin therapeutic range: 2.0 to 3.0 ?? High intensity warfarin therapeutic rang e: 2.5 to 3.5 Specimen Anatomical Collection Method Collection Time Receive d Time (Source) Location / / Volume Laterality Blood (Blood, 12/25/2021 7:39 AM 12/26/19 8:23 Venous) CDT AM CDT Juan Dobson M.D. LAB BLOOD ADD-ON Performing Organization Address City/State/ZIP Code Phon e Number [facility] - [address] [place] [address] 55 05 [place] [address] [address] ECG 12 Lead (12/24/2021 8:59 AM CDT) P athologist Signature Ventricular Rate 74 BPM MUSE ECG/Min [place] Interval 186 ms MUSE QRSD Interval 76 ms MUSE QT Interval 426 ms MUSE QTC Interval 472 ms MUSE P [place] 87 degrees MUSE R [place] 77 degrees MUSE T Wave [place] 42 degrees MUSE Specimen Anatomical Collection Method Collection Time Receive d Time (Source) Location / / Volume Laterality 12/24/2021 8:59 AM 2 9:19 CDT AM CDT Impressions MUSE - 12/24/2021 9:19 AM CDT Sinus rhythm Premature atrial complexes with aberrant conduction Premature atrial complexes Nonspecific ST abnormality When compared with ECG of 24-DEC-2021 08 :38, Premature atrial complexes are now with aberrant conduction Reviewed by AZAM Blakely Narrative This result has an attachment that is no t available. Procedure Note Rosalio Rivera M.D., Ph.D. - 2 IMPRESSION: Sinus rhythm Premature atrial complexes with aberrant conduction Premature atrial complexes Nonspecific ST abnormality When compared with ECG of 24-DEC-2021 08 :38, Premature atrial complexes are now with aberrant conduction Reviewed by AZAM Blakely Juan Dobson M.D. ECG ORDERABLES Performing Organization Address City/[facility]/ZIP Code Phon e Number MUSE MUSE NA (ABNORMAL) Gram Stain (12/24/2021 8:57 AM CDT) Analysis Performed At Patho logist Time Signature Gram Stain White blood 12/24/2021 DTL cells, Many. 1:04 PM CDT (A) Gram Stain GRAM NEGATIVE BACILLUS 12/24/2021 DTL Moderate. 1:04 PM CDT (A) Specimen Anatomical Collection Method Collection Time Receive d Time (Source) Location / / Volume Laterality Sputum 12/24/2021 8:57 AM CDT 10:27 AM CDT Comment: Specimen Source Site: Sputum Sergio Plascencia M.D., Ph.D. LAB MICROBIOLOGY - GE NERAL ORDERABLES Performing Organization Address City/[facility]/ZIP [facility] Phon e Number [facility] - [address] [place], [place] [address] [facility] [place], [place] [id number] [place] [address] Mycobacterial Culture (12/24/2021 8:57 AM CDT) PathPolyServe gist Method Time Signature Mycobacterial No growth 02/04/2022 DTL Culture after 42 1:01 PM CDT days of incubation . Specimen Anatomical Collection Method Collection Time Receive d Time (Source) Location / / Volume Laterality Sputum (Sputum) 12/24/2021 8:57 AM 2021 CDT 10:27 AM CDT Comment: Specimen Source Site: Sputum Duy Conner M.D. LAB MICROBIOLOGY - GENERAL O NILA Performing Organization Address City/[facility]/ZIP Code Phon e Number [facility] - [address] [place], [place] [address] [facility] [place] [place] [address] [facility] [address] Acid Fast Smear For Mycobacterium (12/24/2021 8:57 AM CDT) [email or web address] Method Time Signature Acid Fast Smear Negative. 12/24/2021 DTL For Mycobacterium 7:26 PM CDT Specimen Anatomical Collection Method Collection Time Receive d Time (Source) Location / / Volume Laterality Sputum (Sputum) 12/24/2021 8:57 AM 2021 CDT 10:27 AM CDT Comment: Specimen Source Site: Sputum Duy Conner M.D. LAB MICROBIOLOGY - GENERAL O NILA Performing Organization Address City/State/ZIP Code Phon e Number [facility] - [address] [place], [place] [address] [facility] [place] [address] [facility] [address] (ABNORMAL) Bacterial Culture, Aerobic + Susc, Resp (12/24/2021 8:57 AM CDT) [facility] Method Time Signature Bacterial With upper 12/27/2021 DTL Culture, respiratory/ora 3:30 PM CDT Aerobic, Resp l microbiota (A) Bacterial PSEUDOMONAS AERUGINOSA 12/27/2021 DTL Culture, 4+ 3:30 PM CDT Aerobic, Resp (A) Bacterial SERRATIA MARCESCENS 12/27/2021 DTL Culture, 2+ 3:30 PM CDT Aerobic, Resp (A) Comment: Serratia marcescens, S. nematodiphila an d S. ureilytica may be difficult to distin guish from one another. This organism may contain an inducible b eta-lactamase. Second- or third-generation cephalospori n monotherapy may result in the emergence of high-level resistance. Preferred empiric therapy, p ending antimicrobial susceptibility results, is cefepime, a f luoroquinolone, or a carbapenem, unless clinically contr aindicated. Specimen Anatomical Collection Method Collection Time Receive d Time (Source) Location / / Volume Laterality Sputum (Sputum) 12/24/2021 8:57 AM 2021 CDT 10:27 AM CDT Comment: Specimen Source Site: Sputum Organism Antibiotic Method Susceptibility Pseudomonas Meropenem SUSCEPTIBILITY, <=0.12 mcg/mL: aeruginosa CARYN (MCG/ML) Susceptible Pseudomonas Piperacillin + Tazobactam SUSCEPTIBILITY, <=8/4 mcg/mL: aeruginosa CARYN (MCG/ML) Susceptible Pseudomonas Ciprofloxacin SUSCEPTIBILITY, <=0.25 mcg/mL: aeruginosa CARYN (MCG/ML) Susceptible Pseudomonas Levofloxacin SUSCEPTIBILITY, <=0.5 mcg/mL: aeruginosa CARYN (MCG/ML) Susceptible Pseudomonas Ceftazidime SUSCEPTIBILITY, <=4 mcg/mL: Susc eptible aeruginosa CARYN (MCG/ML) Pseudomonas Cefepime SUSCEPTIBILITY, <=2 mcg/mL: Susc eptible aeruginosa CARYN (MCG/ML) Pseudomonas Amikacin SUSCEPTIBILITY, <=8 mcg/mL: Susc eptible aeruginosa CARYN (MCG/ML) Pseudomonas Gentamicin SUSCEPTIBILITY, 2 mcg/mL: Suscep tible aeruginosa CARYN (MCG/ML) Pseudomonas Tobramycin SUSCEPTIBILITY, <=1 mcg/mL: Susc eptible aeruginosa CARYN (MCG/ML) Pseudomonas Aztreonam SUSCEPTIBILITY, <=4 mcg/mL: Susc eptible aeruginosa CARYN (MCG/ML) Serratia marcescens Ampicillin SUSCEPTIBILITY, >16 mcg/mL: Resistant CARYN (MCG/ML) Serratia marcescens Ampicillin + Sulbactam SUSCEPTIBILITY, >16/8 mcg/mL: Resistant CARYN (MCG/ML) Serratia marcescens Meropenem SUSCEPTIBILITY, <=0.12 mcg/m L: CARYN (MCG/ML) Susceptible Serratia marcescens Ertapenem SUSCEPTIBILITY, <=0.25 mcg/m L: CARYN (MCG/ML) Susceptible Serratia marcescens Piperacillin + Tazobactam SUSCEPTIBILITY, <= 8/4 mcg/mL: CARYN (MCG/ML) Susceptible Serratia marcescens Ciprofloxacin SUSCEPTIBILITY, <=0.25 mcg/m L: CARYN (MCG/ML) Susceptible Serratia marcescens Levofloxacin SUSCEPTIBILITY, <=0.5 mcg/mL : CARYN (MCG/ML) Susceptible Serratia marcescens Cefazolin SUSCEPTIBILITY, >16 mcg/mL: Resistant CARYN (MCG/ML) Serratia marcescens Ceftriaxone SUSCEPTIBILITY, <=1 mcg/mL: Susceptible CARYN (MCG/ML) Serratia marcescens Ceftazidime SUSCEPTIBILITY, <=4 mcg/mL: Susceptible CARYN (MCG/ML) Serratia marcescens Cefepime SUSCEPTIBILITY, <=2 mcg/mL: Susceptible CARYN (MCG/ML) Serratia marcescens Amikacin SUSCEPTIBILITY, <=8 mcg/mL: Susceptible CARYN (MCG/ML) Serratia marcescens Gentamicin SUSCEPTIBILITY, <=1 mcg/mL: Susceptible CARYN (MCG/ML) Serratia marcescens Tobramycin SUSCEPTIBILITY, 2 mcg/mL: Ron sceptible CARYN (MCG/ML) Serratia marcescens Aztreonam SUSCEPTIBILITY, <=4 mcg/mL: Susceptible CARYN (MCG/ML) Serratia marcescens Trimethoprim + SUSCEPTIBILITY, <=0.5/9.5 mc g/mL: Sulfamethoxazole CARYN (MCG/ML) Susceptible Duy Conner M.D. LAB MICROBIOLOGY - GENERAL O RDERABLES Performing Organization Address City/[facility]/ZIP Code Phon e Number [facility] - [address] [place] [address] 05 [facility] [place] [address] [facility] 200 [facility] ECG 12 Lead (12/24/2021 8:38 AM CDT) P athologist Signature Ventricular Rate 68 BPM MUSE ECG/Min [place] Interval 198 ms MUSE QRSD Interval 76 ms MUSE QT Interval 438 ms MUSE QTC Interval 465 ms MUSE P [place] 87 degrees MUSE R [place] 73 degrees MUSE T Wave [place] 31 degrees MUSE Specimen Anatomical Collection Method Collection Time Receive d Time (Source) Location / / Volume Laterality 12/24/2021 8:38 AM 2 8:50 CDT AM CDT Impressions MUSE - 12/24/2021 8:50 AM CDT Sinus rhythm Premature atrial complexes Nonspecific ST abnormality When compared with ECG of 23-DEC-2021 22 :07, Significant changes have occurred Reviewed by AZAM Blakely Narrative This result has an attachment that is no t available. Procedure Note Rosalio Rivera M.D., Ph.D. - 2 IMPRESSION: Sinus rhythm Premature atrial complexes Nonspecific ST abnormality When compared with ECG of 23-DEC-2021 22 :07, Significant changes have occurred Reviewed by AZAM Blakely Juan Dobson M.D. ECG ORDERABLES Performing Organization Address City/[facility]/ZIP Code Phon e Number MUSE MUSE NA (ABNORMAL) Magnesium (12/24/2021 4:48 AM CDT) P athologist Signature Magnesium, S 2.5 (H) 1.7 - 2.3 12/24/2021 DTL mg/dL 5:51 AM CDT Specimen Anatomical Collection Method Collection Time Receive d Time (Source) Location / / Volume Laterality Blood (Blood, 12/24/2021 4:48 AM 12/25/19 5:33 Venous) CDT AM CDT Duy Conner M.D. LAB BLOOD ADD-ON Performing Organization Address City/State/ZIP Code Phon e Number [facility] - [address] [place], [place] [address] [facility] [place] [address] [facility] 200 [facility] (ABNORMAL) Basic Metabolic Panel (12/24/2021 4:48 AM CDT) P athologist Signature Potassium, S 3.7 3.6 - 5.2 12/24/2021 DTL mmol/L 5:51 AM CDT Sodium, S 134 (L) 135 - 145 12/24/2021 DTL mmol/L 5:51 AM CDT Chloride, S 96 (L) 98 - 107 12/24/2021 DTL mmol/L 5:51 AM CDT Bicarbonate, S 27 22 - 29 12/24/2021 DTL mmol/L 5:51 AM CDT Anion Gap 11 7 - 15 12/24/2021 DTL 5:51 AM CDT BUN (Blood Urea 21 6 - 21 12/24/2021 DTL Nitrogen), S mg/dL 5:51 AM CDT Creatinine 0.98 0.59 - 12/24/2021 DTL 1.04 mg/dL 5:51 AM CDT eGFR-Non 53 (L) >=60 12/24/2021 DTL Black/ mL/min/BSA 5:51 AM CDT [place] Comment: ----ADDITIONAL INFORMATION---- Estimated GFR calculated using the 2009 CKD_EPI creatinine equation. eGFR-Black/ 61 >=60 mL/min/BSA 2021 5:51 AM CDT DTL Comment: ----ADDITIONAL INFORMATION---- Estimated GFR calculated using the 2009 CKD_EPI creatinine equation. Calcium, Total, S 8.9 8.8 - 10.2 mg/dL 12/24/2021 5:51 AM CDT DTL Glucose, S 95 70 - 140 mg/dL 12/24/2021 5:51 AM CDT D TL Specimen Anatomical Collection Method Collection Time Receive d Time (Source) Location / / Volume Laterality Blood (Blood, 12/24/2021 4:48 AM 12/25/19 5:33 Venous) CDT AM CDT Duy Conner M.D. LAB BLOOD ADD-ON Performing Organization Address City/[facility] Phon e Number [facility] - [address] [place], [place] [address] [facility] [place] [address] [facility] [address] [facility] (ABNORMAL) Troponin T, 5th Generation (12/24/2021 4:48 AM CDT) P athologist Signature Troponin T, 5th 37 (H) <=10 ng/L [facility]/24[facility]20[facility] Specimen Anatomical Collection Method Collection Time Receive d Time (Source) Location / / Volume Laterality Blood (Blood, 12/24/2021 4:48 AM 12/25/19 5:14 Venous) CDT AM CDT Duy Conner M.D. LAB BLOOD ADD-ON Performing Organization Address City/[facility] Phon e Number [facility] - [address] [place], [place] [address] [facility] [place] [address] [facility] 200 [facility] Heparin Anti-Xa Assay (12/24/2021 4:48 AM CDT) P athologist Signature Heparin <0.10 IU/mL 12/24/2021 DTL Anti-Xa, P 6:01 AM CDT Comment: UFH therapeutic range: ?? 0.30-0.70 IU/mL LMWH therapeutic range: 0.50-1.00 IU/mL 0.50-1.00 IU/mL for twice daily dosing ? ? 1.00-2.00 IU/mL for once daily dosing (sample obtained 4-6 hours following sub cutaneous injection) LMWH prophylactic range:0.10-0.30 IU/mL ----ADDITIONAL INFORMATION---- Heparin Anti-Xa is used to measure hepar in concentrations in patients receiving low molecular weig ht heparin (LMWH) or unfractionated heparin (UFH). Specimen Anatomical Collection Method Collection Time Receive d Time (Source) Location / / Volume Laterality Blood (Blood, 12/24/2021 4:48 AM 12/25/19 5:25 Venous) CDT AM CDT Chikis Schaefer M.D. LAB BLOOD NON ADD-ON Performing Organization Address City/[facility] Phon e Number [facility] - [address] (ABNORMAL) CBC without Differential (12/24/2021 4:47 AM CDT) [employer] Method Time Signature Hemoglobin 13.2 11.6 - 12/24/2021 DTL 15.0 g/dL 5:34 AM CDT Hematocrit 39.7 35.5 - 12/24/2021 DTL 44.9 % 5:34 AM CDT Erythrocytes 4.77 3.92 - 12/24/2021 DTL 5.13 5:34 AM CDT x10(12)/L MCV 83.2 78.2 - 12/24/2021 DTL 97.9 fL 5:34 AM CDT RBC Distrib Width 16.4 (H) 12.2 - 12/24/2021 DTL 16.1 % 5:34 AM CDT Platelet Count 165 157 - 371 12/24/2021 DTL x10(9)/L 5:34 AM CDT Leukocytes 2.6 (L) 3.4 - 9.6 12/24/2021 DTL x10(9)/L 5:34 AM CDT Specimen Anatomical Collection Method Collection Time Receive d Time (Source) Location / / Volume Laterality Blood (Blood, 12/24/2021 4:47 AM 12/25/19 5:25 Venous) CDT AM CDT Duy Conner M.D. LAB BLOOD ADD-ON Performing Organization Address City/State/[facility] Code Phon e Number [facility] - [address] (ABNORMAL) Prothrombin Time (PT) (12/23/2021 11:21 PM CDT) [employer] Method Time Signature Prothrombin 31.1 (H) 9.4 - 12.5 12/24/2021 DTL Time, P sec 12:13 AM CDT INR 2.8 0.9 - 1.1 12/24/2021 DTL 12:13 AM CDT Comment: ----ADDITIONAL INFORMATION---- Standard intensity warfarin therapeutic range: 2.0 to 3.0 ?? High intensity warfarin therapeutic rang e: 2.5 to 3.5 Specimen Anatomical Collection Method Collection Time Receive d Time (Source) Location / / Volume Laterality Blood (Blood, 12/23/2021 11:21 12/23/2021 Venous) PM CDT 11:42 PM CDT Duy Conner M.D. LAB BLOOD ADD-ON Performing Organization Address City/[facility] Phon e Number [address] Lactate (12/23/2021 11:21 PM CDT) P athologist Signature Lactate, P 1.4 0.5 - 2.2 12/24/2021 DTL mmol/L 12:02 AM CDT Specimen Anatomical Collection Method Collection Time Receive d Time (Source) Location / / Volume Laterality Blood (Blood, 12/23/2021 11:21 12/23/2021 Venous) PM CDT 11:51 PM CDT Duy Conner M.D. LAB BLOOD NON ADD-ON Performing Organization Address City/[facility] Phon e Number [facility] [address] (ABNORMAL) APTT (Activated Partial Thromboplastin Time) (12/23/2021 11:21 PM CDT) P athologist Signature Activated 40 (H) 25 - 37 12/23/2021 STMA Partial sec 11:40 PM CDT Thrombopl Time, P Specimen Anatomical Collection Method Collection Time Receive d Time (Source) Location / / Volume Laterality Blood (Blood, 12/23/2021 11:21 12/23/2021 Venous) PM CDT 11:30 PM CDT Duy Conner M.D. LAB BLOOD ADD-ON Performing Organization Address City/[facility]/ZIP Code Phon e Number [facility] - [address] [place], [place] [address] [place] [address] [facility] 200 [facility] ECG 12 Lead (12/23/2021 10:07 PM CDT) Patholo gist Method Time Signature Ventricular 71 BPM MUSE Rate ECG/Min QRSD Interval 80 ms MUSE QT Interval 412 ms MUSE QTC Interval 447 ms MUSE R [place] 73 degrees MUSE T Wave [place] -32 degrees MUSE CODED Atrial MUSE DIAGNOSIS fibrillation Specimen Anatomical Collection Method Collection Time Receive d Time (Source) Location / / Volume Laterality 12/23/2021 10:07 12/23/2021 PM CDT 10:12 PM CDT Impressions MUSE - 12/23/2021 10:12 PM CDT Atrial fibrillation with premature ventricular or aberrantly conducted complexes Nonspecific ST and T wave abnormality When compared with ECG of 09-JAN-2016 14 :03, Significant changes have occurred Reviewed by AZAM Sainz Narrative This result has an attachment that is no t available. Procedure Note Hammad Hardy M.D. - 12/23/2021Formatt ing of this note might be different from the original. IMPRESSION: Atrial fibrillation with premature ventricular or aberrantly conducted complexes Nonspecific ST and T wave abnormality When compared with ECG of 09-JAN-2016 14 :03, Significant changes have occurred Reviewed by AZAM Sainz Duy Conner M.D. ECG ORDERABLES Performing Organization Address City/[facility]/ZIP Code Phon e Number MUSE MUSE NA Thyroid Function [place] (12/23/2021 10:07 PM CDT) P athologist Signature TSH, Sensitive 3.1 0.3 - 4.2 12/23/2021 DTL mIU/L 11:39 PM CDT Specimen Anatomical Collection Method Collection Time Receive d Time (Source) Location / / Volume Laterality Blood (Blood, 12/23/2021 10:07 12/23/2021 Venous) PM CDT 10:40 PM CDT Duy Conner M.D. LAB BLOOD ADD-ON Performing Organization Address City/[facility]/ZIP Code Phon e Number [facility] - [address] [place], [place] [address] [facility] [place] [address] [facility] 200 [facility] (ABNORMAL) Comprehensive Metabolic Panel (12/23/2021 10:07 PM CDT) P athologist Signature Potassium, S 3.7 3.6 - 5.2 12/23/2021 DTL mmol/L 11:39 PM CDT Sodium, S 133 (L) 135 - 145 12/23/2021 DTL mmol/L 11:39 PM CDT Chloride, S 96 (L) 98 - 107 12/23/2021 DTL mmol/L 11:39 PM CDT Bicarbonate, S 23 22 - 29 12/23/2021 DTL mmol/L 11:39 PM CDT Anion Gap 14 7 - 15 12/23/2021 DTL 11:39 PM CDT BUN (Blood Urea 20 6 - 21 12/23/2021 DTL Nitrogen), S mg/dL 11:39 PM CDT Creatinine 0.92 0.59 - 12/23/2021 DTL 1.04 mg/dL 11:39 PM CDT eGFR-Non 57 (L) >=60 12/23/2021 DTL Black/ mL/min/BSA 11:39 PM CDT [place] Comment: ----ADDITIONAL INFORMATION---- Estimated GFR calculated using the 2009 CKD_EPI creatinine equation. eGFR-Black/ 66 >=60 mL/min/BSA 2021 11:39 PM CDT DTL Comment: ----ADDITIONAL INFORMATION---- Estimated GFR calculated using the 2009 CKD_EPI creatinine equation. Calcium, Total, S 8.8 8.8 - 10.2 mg/dL 12/23/2021 11:3 9 PM CDT DTL Glucose, S 91 70 - 140 mg/dL 12/23/2021 11:39 PM CDT DTL Protein, Total, S 7.0 6.3 - 7.9 g/dL 12/23/2021 11:39 PM CDT DTL Albumin, S 3.7 3.5 - 5.0 g/dL 12/23/2021 11:39 PM CDT DTL Aspartate Aminotransferase 28 8 - 43 U/L 12/23/2021 1 1:39 PM CDT DTL (AST), S Alkaline Phosphatase, S 133 (H) 35 - 104 U/L 12/23/2021 11 :39 PM CDT DTL Alanine Aminotransferase 10 7 - 45 U/L 12/23/2021 11: 39 PM CDT DTL (ALT), S Bilirubin, Total, S 0.4 <=1.2 mg/dL 12/23/2021 11:39 P M CDT DTL Specimen Anatomical Collection Method Collection Time Receive d Time (Source) Location / / Volume Laterality Blood (Blood, 12/23/2021 10:07 12/23/2021 Venous) PM CDT 10:40 PM CDT Duy Conner M.D. LAB BLOOD ADD-ON Performing Organization Address City/[facility] Phon e Number [facility] - [address] (ABNORMAL) Troponin T, 5th Generation (12/23/2021 10:07 PM CDT) P athologist Signature Troponin T, 5th 38 (H) <=10 ng/L 12/23/2021 STMA gen 10:39 PM CDT Specimen Anatomical Collection Method Collection Time Receive d Time (Source) Location / / Volume Laterality Blood (Blood, 12/23/2021 10:07 12/23/2021 Venous) PM CDT 10:19 PM CDT Duy Conner M.D. LAB BLOOD ADD-ON Performing Organization Address City/State/[facility] Phon e Number [facility] - [address] [place] [address] (ABNORMAL) CBC with Differential, Blood (12/23/2021 10:07 PM CDT) Patholo gist Method Time Signature Hemoglobin 13.4 11.6 - 12/23/2021 STMA 15.0 g/dL 10:22 PM CDT Hematocrit 40.3 35.5 - 12/23/2021 STMA 44.9 % 10:22 PM CDT Erythrocytes 4.76 3.92 - 12/23/2021 STMA 5.13 10:22 PM CDT x10(12)/L MCV 84.7 78.2 - 12/23/2021 STMA 97.9 fL 10:22 PM CDT RBC Distrib Width 16.4 (H) 12.2 - 12/23/2021 STMA 16.1 % 10:22 PM CDT Platelet Count 167 157 - 371 12/23/2021 STMA x10(9)/L 10:22 PM CDT Leukocytes 3.2 (L) 3.4 - 9.6 12/23/2021 STMA x10(9)/L 10:22 PM CDT Neutrophils 1.49 (L) 1.56 - 12/23/2021 STMA 6.45 10:22 PM CDT x10(9)/L Lymphocytes 1.10 0.95 - 12/23/2021 STMA 3.07 10:22 PM CDT x10(9)/L Monocytes 0.56 0.26 - 12/23/2021 STMA 0.81 10:22 PM CDT x10(9)/L Eosinophils 0.04 0.03 - 12/23/2021 STMA 0.48 10:22 PM CDT x10(9)/L Basophils <0.03 0.01 - 12/23/2021 STMA 0.08 10:22 PM CDT x10(9)/L Specimen Anatomical Collection Method Collection Time Receive d Time (Source) Location / / Volume Laterality Blood (Blood, 12/23/2021 10:07 12/23/2021 Venous) PM CDT 10:19 PM CDT Duy Conner M.D. LAB BLOOD ADD-ON Performing Organization Address City/State/ZIP Code Phon e Number [facility] - [address] [place], [place] [address] [place] [address] [facility] [address] documented in this encounter Visit Diagnoses Diagnosis Atrial Fibrillation Unspecified - Primar y Atrial Fibrillation Unspecified Tachycardia Paroxysmal (HCC) Bronchiectasis (HCC) Chronic Obstructive Pulmonary Disease (H CC) Acute Respiratory Failure With Hypoxia ( HCC) Hypertension Pulmonary (HCC) documented in this encounter Admitting Diagnoses Diagnosis Atrial Fibrillation Unspecified documented in this encounter Administered Medications Inactive Administered Medications - up to 3 most recent administrations Medication Order MAR Action Action Date Dose Rate Site acetaminophen tablet 650 mg Given 12/25/2021 7:56 PM CDT 650 mg (TYLENOL) 650 mg, oral, Every 6 hours PRN, mild pain or score 1-3 of 10, moderate pain or score 4-6 of 10, Starting on Tue12/24/21 at 1218 Given 12/24/2021 1:28 PM CDT 650 mg albuterol nebulizer solution 2.5 mg 2.5 mg, nebulization, Every 6 hours PRN, wheezing, shortness of breath, Starting on Tue12/24/21 at 1150 amLODIPine tablet 5 mg (NORVASC) Given 12/26/2021 8:44 AM CDT 5 mg 5 mg, oral, Daily, First dose on Tue12/25/21 at 0900 Given 12/25/2021 8:17 AM CDT 5 mg amoxicillin-pot clavulanate 250-125 mg per Given 12/26 8:44 AM CDT 2 tablets tablet 2 tablet (AUGMENTIN) 2 tablet, oral, Every 12 hours scheduled, First dose on Tue12/24/21 at 0900, Drug Monitoring Program: Pharmacist to adjust medication dosing based on indication and drug clearance factors., Indications: Respiratory tract infection, community acquired Given 12/25/2021 9:50 PM CDT 2 tablets Given 12/25/2021 8:16 AM CDT 2 tablets docusate sodium capsule 100 mg (COLACE) Given 12/24/2021 1:33 PM CDT 100 mg 100 mg, oral, 2 times daily PRN, constipation, Starting on Tue12/23/21 at 2247, Do NOT crush or chew. heparin (porcine) 1,000 unit/mL Given 12/24/2021 6:09 AM CDT 2,6 00 Units injection 2,600 Units 2,600 Units (rounded from 2,574 Units = 60 Units/kg ? 42.9 kg Dosing weight), intravenous, As needed, antiXa less than 0.1, Starting on Tue12/23/21 at 2252, Intensity type: Moderate, Anti-Xa < 0.1: Loading Dose (Units/kg): 60, Anti-Xa 0.1-0.19: Loading Dose (Units/kg): 30, Anti-Xa > 0.19: Loading Dose (Units/kg): 0 heparin (porcine) 100 Rate/Dose Change 12/24/2021 6:10 AM 16 Units/ kg/hr 6.86 mL/hr Units/mL in NaCl 0.45% CDT 250 mL infusion 0-40 Units/kg/hr ? 42.9 kg Dosing weight (0-17.16 mL/hr), intravenous, Continuous, Starting on Tue12/23/21 at 2300, 25,000 Units in 250 mL, Intensity type: Moderate, Starting Dose (units/kg/hr): 12, Anti-Xa < 0.1: Adjust Dose (Units/kg/hr) by: 4, Anti-Xa < 0.1: Loading Dose (Units/kg): 60, Anti-Xa < 0.1: Repeat anti-Xa: 6 hours, Anti-Xa 0.1-0.19: Adjust Dose (Units/kg/hr) by: 2, Anti-Xa 0.1-0.19: Loading Dose (Units/kg): 30, Anti-Xa 0.1-0.19: Repeat anti-Xa: 6 hours, Anti-Xa 0.2-0.5: Adjust Dose (Units/kg/hr) by: 0, Anti-Xa 0.2-0.5: Repeat anti-Xa: 6 hours. If two consecutive therapeutic result, re-check next AM., Anti-Xa > 0.19: Loading Dose (Units/kg): 0, Anti-Xa 0.51-0.6: Adjust Dose (Units/kg/hr) by: -1, Anti-Xa 0.51-0.6: Repeat anti-Xa: 6 hours, Anti-Xa 0.61-0.9: Hold Infusion: Stop infusion for 1 hour, Anti-Xa 0.61-0.9: Adjust Dose (Units/kg/hr) by: -2, Anti-Xa 0.61-0.9: Repeat anti-Xa: 6 hours after Heparin resumed, Anti-Xa >= 0.91: Hold Infusion: Stop infusion for 2 hours, Anti-Xa >= 0.91: Adjust Dose (Units/kg/hr) by: -4, Anti-Xa >= 0.91: Repeat anti-Xa: 6 hours after Heparin resumed New Bag 12/24/2021 12:08 AM CDT 12 Units/kg/hr 5.15 mL/hr hydroCHLOROthiazide tablet 12.5 mg Given 12/26/2021 8:44 AM CDT 12.5 mg (HYDRODIURIL) 12.5 mg, oral, Daily, First dose on Tue12/25/21 at 0900 Given 12/25/2021 8:17 AM CDT 12.5 mg ipratropium-albuteroL 0.5-2.5 mg/3 mL Given 12/24/2021 11:20 AM CDT 3 mL nebulizer solution 3 mL (DUONEB) 3 mL, nebulization, 4 times daily (RT), First dose on Tue12/23/21 at 2145 Given 12/24/2021 6:12 AM CDT 3 mL Given 12/23/2021 10:24 PM CDT 3 mL ipratropium-albuteroL 0.5-2.5 mg/3 mL nebulizer Given 12/26/2021 8:44 AM CDT 3 mL solution 3 mL (DUONEB) 3 mL, nebulization, 4 times daily, First dose (after last modification) on Tue12/24/21 at 1700 Given 12/25/2021 9:49 PM CDT 3 mL Given 12/25/2021 5:23 PM CDT 3 mL losartan tablet 50 mg (COZAAR) Given 12/26/2021 8:44 AM CDT 50 mg 50 mg, oral, Daily, First dose on Tue12/25/21 at 0900 Given 12/25/2021 8:17 AM CDT 50 mg magnesium sulfate in water IVPB 2 g New Bag 12/24/2021 1:50 AM CDT 2 g 25 mL/hr 2 g, intravenous, at 25 mL/hr, Administer over 120 Minutes, Once, On Tue12/24/21 at 0115, For 1 dose primidone tablet 50 mg (MYSOLINE) Given 12/26/2021 8:44 AM CDT 50 mg 50 mg, oral, 3 times daily, First dose on Tue12/24/21 at 0900 Given 12/25/2021 9:50 PM CDT 50 mg Given 12/25/2021 1:49 PM CDT 50 mg sodium chloride 0.9 % injection 3 mL Given 12/26/2021 8:45 AM CDT 3 mL 3 mL, intravenous, Every 12 hours scheduled, First dose on Tue12/24/21 at 0900, Peripheral Intravenous Catheter and Rapid Infusion Catheter, when no infusion to maintain patency Given 12/25/2021 9:50 PM CDT 3 mL Given 12/25/2021 10:25 AM CDT 3 mL sodium chloride 3 % nebulizer solution 4 mL Given 12/26/2021 8:4 4 AM CDT 4 mL (NEBUSAL) 4 mL, nebulization, 4 times daily, First dose (after last modification) on Tue12/24/21 at 1200, For 7 days, Give immediately after DUONEB Given 12/25/2021 9:49 PM CDT 4 mL Given 12/25/2021 5:23 PM CDT 4 mL sotaloL tablet 80 mg (BETAPACE) Given 12/26/2021 8:44 AM CDT 80 mg 80 mg, oral, 2 times daily, First dose on Tue12/24/21 at 0900 Given 12/25/2021 9:50 PM CDT 80 mg Given 12/25/2021 8:17 AM CDT 80 mg warfarin management (COUMADIN) oral, Daily, First dose on Tue12/24/21 at 0900, Pharma cist to Dose: Yes, Target INR: 2 - 3, Comorbidities that constitute Warfarin Sen sitivity: Heart failure diagnosis (stable/compensated), Indicati on: Atrial fibrillation (AF), Therapy type: Continuation Warfarin therapy warfarin tablet 1 mg (COUMADIN) Given 12/24/2021 5:59 PM CDT 1 mg 1 mg, oral, Once, On Tue12/24/21 at 1700, For 1 dose warfarin tablet 2 mg (COUMADIN) Given 12/25/2021 5:23 PM CDT 2 mg 2 mg, oral, Once, On Tue12/25/21 at 1700, For 1 dose documented in this encounter Active and Recently Administered Medications Times are shown in CDT. Scheduled Medication Order 12/24/2021 12/25/2021 12/26/2021 amLODIPine tablet 5 mg (NORVAS) 0817 (Given - P rovider: Johanna Reid R.N.) 0844 (Given - Provider: Ana Perea R.N.) 5 mg, oral, Daily, First dose on Tue12/25/21 at 0900 amoxicillin-pot clavulanate 250-125 mg per tablet 2 ta blet (AUGMENTIN) 0805 (Given - Provider: Margaret Dupont R.N.)2017 (Given - Provider: Naina Abernathy R.N.) 0816 (Given - Provider: Johanna Reid R.N.)2150 (Given - Provider: Soumya Manzo R.N.) 0844 (Given - Provider: Rubi Cárdenas) 2 tablet, oral, Every 12 hours scheduled , First dose on Tue12/24/21 at 0900, Drug Monitoring Program: Pharmacist to adjust medication dosing based on indication and drug clearance factors., Indications: Respiratory tract infection, community acquired hydroCHLOROthiazide tablet 12.5 mg (HYDRODIURIL) 0817 (Given - Provider: Johanna Reid R.N.) 0844 (Given - Provider: Rubi Cárdenas) 12.5 mg, oral, Daily, First dose on Tue12/25/21 at 0900 ipratropium-albuteroL 0.5-2.5 mg/3 mL ne bulizer solution 3 mL (DUONEB) (CANCELED) 0612 (Given - Provider: Edith Knott R.N.)1120 (Given - Provider: Naina Abernathy R.N.) 3 mL, nebulization, 4 times daily (RT), First dose on Tue 2 at 2145 ipratropium-albuteroL 0.5-2.5 mg/3 mL nebulizer soluti on 3 mL (DUONEB) 1759 (Given - Provider: Naina Abernathy R.N.)202 (Given - Provider: Naina Abernathy R.N.) 0817 (Given - Provider: Johanna Reid R.N.)1153 (Given - Provider: Johanna Reid R.N.)1723 (Given - Provider: Johanna Reid R.N.)2149 (Given - Provider: Soumya Manzo R.N.) 0844 (Given - Provider: Rubi Cárdenas)1200 (Due) 3 mL, nebulization, 4 times daily, First dose (after last modification) on Tue12/24/21 at 1700 losartan tablet 50 mg (COZAAR) 0817 (Given - Pro vider: Johanna Reid R.N.) 0844 (Given - Provider: Ana Perea R.N.) 50 mg, oral, Daily, First dose on Tue12/25/21 at 0900 magnesium sulfate in water IVPB 2 g (COMPLETED) 0150 ( New Bag - Provider: Edith Knott RLake) 2 g, intravenous, at 25 mL/hr, Administe r over 120 Minutes, Once, On Tue12/24/21 at 0115, For 1 dose primidone tablet 50 mg (MYSOLINE) 0805 (Given - Provid er: Margaret Dupont R.N.)1328 (Given - Provider: Naina Abernathy R.N.)2017 (Given - Provider: Naina Abernathy R.N.) 0817 (Given - Provider: Johanna Reid R.N.)1349 (Given - Provider: Johanna Reid R.N.)2150 (Given - Provider: Soumya Manzo R.N.) 0844 (Given - Provider: Ana Perea R.N.) 50 mg, oral, 3 times daily, First dose on Tue12/24/21 at 0900 sodium chloride 0.9 % injection 3 mL 0806 (Given - Pro vider: Margaret Dupont R.N.)2020 (Given - Provider: Naina Abernathy R.N.) 1025 (Given - Provider: Johanna Reid R.N.)215 (Given - Provider: Soumya Manzo R.N.) 0845 (Given - Provider: Ana Perea R.N.) 3 mL, intravenous, Every 12 hours schedu led, First dose on Tue12/24/21 at 0900, Peripheral Intravenous Catheter and Rapid Infusion Catheter, when no infusion to maintain patency sodium chloride 3 % nebulizer solution 4 mL (NEBUSAL) 1334 (Not Given - Provider: Naina Abernathy R.N. - Reason: Medication not available - Comment: not available immediately after duoneb)1759 (Given - Provider: Naina Abernathy R.N.)2020 (Given - Provider: Naina Abernathy R.N.) 0817 (Given - Provider: Johanna Reid R.N.)1153 (Given - Provider: Johanna Reid R.N.)172 (Given - Provider: Johanna Reid R.N.)214 (Given - Provider: Soumya Manzo R.N.) 0844 (Given - Provider: Ana Perea R.N.)1200 (Due) 4 mL, nebulization, 4 times daily, First dose (after last modification) on Dorys 12/24/21 at 1200, For 7 days, Give immediately after DUONEB sotaloL tablet 80 mg (BETAPACE) 0038 (Unheld by provid er - Provider: Gianluca Thrasher M.D.)0805 (Given - Provider: Margaret Dupont R.N.)2016 (Given - Provider: Naina Abernathy R.N.) 0817 (Given - Provider: Johanna Reid R.N.)215 (Given - Provider: Soumya Manzo R.N.) 0844 (Given - Provider: Ana Perea R.N.) 80 mg, oral, 2 times daily, First dose on Tue12/24/21 at 0900 warfarin management (COUMADIN) 0900 (Due) 1700 (Due) oral, Daily, First dose on Dorys 12/24/21 a t 0900, Pharmacist to Dose: Yes, Target INR: 2 - 3, Comorbidities that constitute Warfarin Sensitivity: Heart failure diagnosis (stable/compensated), Indication: Atrial fibrillation (AF), Therapy type: Continuation Warfarin th erapy warfarin tablet 1 mg (COUMADIN) (COMPLETED) 1758 (Give n - Provider: Naina Abernathy R.N.) 1 mg, oral, Once, On Dorys 12/24/21 at 1700, For 1 dose warfarin tablet 2 mg (COUMADIN) (COMPLETED) 172 (Given - Provider: Johanna Reid R.N.) 2 mg, oral, Once, On Tue12/25/21 at 1700, For 1 dose Continuous Medication Order 12/24/2021 12/25/2021 12/26/2021 heparin (porcine) 100 Units/mL in NaCl 0.45% 250 mL in fusion (CANCELED) 0008 (New Bag - Provider: Edith Knott R.N.)0009 (Canceled Entry - Provider: Edith Knott R.N. - Comment: duplicate order)0610 (Rate/Dose Change - Provider: Edith Knott R.N.)0659 (Stopped - Provider: Edith Knott R.N.) 0-40 Units/kg/hr ? 42.9 kg Dosing weight (0-17.16 mL/hr), intravenous, Continuous, Starting on Tue12/23/21 at 2300, 25,000 Units in 250 mL, Intensity type: Moderate, Starting Dose (units/kg/hr): 12, An ti-Xa < 0.1: Adjust Dose (Units/kg/hr) b y: 4, Anti-Xa < 0.1: Loading Dose (Units/kg): 60, Anti-Xa < 0.1: Repeat anti-Xa: 6 hours, Anti-Xa 0.1-0.19: Adjust Dose (Units/kg/hr) by: 2, Anti-Xa 0.1- 0.19: Loading Dose (Units/kg): 30, Anti- Xa 0.1-0.19: Repeat anti-Xa: 6 hours, Anti-Xa 0.2-0.5: Adjust Dose (Units/kg/hr) by: 0, Anti-Xa 0.2-0.5: Repeat anti- Xa: 6 hours. If two consecutive therapeutic r esult, re-check next AM., Anti-Xa > 0.19 : Loading Dose (Units/kg): 0, Anti-Xa 0.51-0.6: Adjust Dose (Units/kg/hr) by: -1, Anti-Xa 0.51-0.6: Repeat anti-Xa: 6 hours, Anti-Xa 0.61-0.9: Hold Infusion: S top infusion for 1 hour, Anti-Xa 0.61-0. 9: Adjust Dose (Units/kg/hr) by: -2, Anti-Xa 0.61-0.9: Repeat anti-Xa: 6 hours after Heparin resumed, Anti-Xa >= 0.91: Hold Infusion: Stop infusion for 2 hours , Anti-Xa >= 0.91: Adjust Dose (Units/kg /hr) by: -4, Anti-Xa >= 0.91: Repeat anti-Xa: 6 hours after Heparin resumed PRN Medication Order 12/24/2021 12/25/2021 12/26/2021 acetaminophen tablet 650 mg (TYLENOL) 1328 (Given - Pr ovider: Naina Abernathy R.N.) 1956 (Given - Provider: Soumya Manzo RLake) 650 mg, oral, Every 6 hours PRN, mild pa in or score 1-3 of 10, moderate pain or score 4-6 of 10, Starting on Dorys 12/24/21 at 1218 albuterol nebulizer solution 2.5 mg 2.5 mg, nebulization, Every 6 hours PRN, wheezing, shortness of breath, Starting on Dorys 12/24/21 at 1150 docusate sodium capsule 100 mg (COLACE) 1333 (Given - Provider: Naina Abernathy R.N.) 100 mg, oral, 2 times daily PRN, constip ation, Starting on Tue12/23/21 at 2247, Do NOT crush or chew. heparin (porcine) 1,000 unit/mL injection 2,600 Units (CANCELED) 0609 (Given - Provider: Edith Knott RLake) 2,600 Units (rounded from 2,574 Units = 60 Units/kg ? 42.9 kg Dosing weight), intravenous, As needed, antiXa less than 0.1, Starting on Tue12/23/21 at 2252, Intensity type: Moderate, Anti-Xa < 0.1: Loading Dose (Units/kg): 60, Anti-Xa 0.1 -0.19: Loading Dose (Units/kg): 30, Anti-Xa > 0.19: Loading Dose (Units/kg): 0 sodium chloride 0.9 % injection 10 mL 10 mL, intravenous, As needed, line care , Starting on Tue12/23/21 at 2247, Peripheral Intravenous Catheter and Rapid Infusion Catheter, prior to blood sampling, post blood transfusion or post blood sampling sodium chloride 0.9 % injection 3 mL 3 mL, intravenous, As needed, line care, Starting on Tue12/23/21 at 2247, Prior to and following infusion and between multiple consecutive infusions: sodium chloride 0.9 % injection documented in this encounter Care Teams Application Internship Relationship Specialty Start Date End Date Elsewhere, Pcp PCP - General Internal Medicine 12/23/21 documented as of this encounter
--- OUTSIDE RECORDS SUMMARY | 2022-05-10 13:07 | XMS_ITS | Encounter Summary ---
:1935 Author Organization [facility] Address [address] [place] [id number] Care Team Providers Name Role Phone Unavailable Primary Care Provider Unavailable Encounter Details Date Type Department Care Team Description 01/30/2021 Hospital Encounter Department of Gerard Bhatia Bronchi ectasis (HCC); Laboratory Medicine Kallie Ramey Cough Chronic and Pathology, [address] [place] [address] in [facility] [id number] [place] [phone] [place] [address] (Work) [place], [place] [phone] (Fax) [phone] Social History Tobacco Use Types Packs/Day Years [...] 10/21/2020 relatives? How often do you attend spiritism or holiness services? Patien t refused 10/21/2020 Do you belong to any clubs or organizations such as Yes 10/21/2020 spiritism groups, unions, fraternal or athletic groups, or [...] Date/Time Associated Diagnosis Comme nts MYCOBACTERIAL Routine 02/07/2021 9:30 Bronchiectasis ( HCC) Results for this CULTURE, V AM CDT Chronic Cough procedure are in the results section. ACID FAST SMEAR FOR Routine 02/07/2021 9:30 Bronchiectas is (HCC) Results for this MYCOBACTERIUM AM CDT Cough Chronic procedure are in the results section. documented in this encounter Results Mycobacterial Culture (02/07/2021 9:30 AM CDT) [facility] Method Time Signature Mycobacterial No growth 03/26/2021 DTL Culture after 42 1:06 AM CDT days of incubation . Specimen Anatomical Collection Method Collection Time Receive d Time (Source) Location / / Volume Laterality Sputum (Sputum) 02/07/2021 9:30 AM 2020 4:19 CDT PM CDT Comment: Specimen Source Site: Sputum Gerard Bhatia M.D. LAB MICROBIOLOGY - GENERAL O NILA Performing Organization Address City/[facility] Phon e Number [facility] - [address] Acid Fast Smear For Mycobacterium (02/07/2021 9:30 AM CDT) [facility] Method Time Signature Acid Fast Smear Negative. 02/11/2021 DTL For Mycobacterium 11:00 PM CDT Specimen Anatomical Collection Method Collection Time Receive d Time (Source) Location / / Volume Laterality Sputum (Sputum) 02/07/2021 9:30 AM 2020 4:19 CDT PM CDT Comment: Specimen Source Site: Sputum Gerard Bhatia M.D. LAB MICROBIOLOGY - GENERAL O NILA Performing Organization Address City/[facility] Phon e Number [facility] - [address] documented in this encounter Visit Diagnoses Diagnosis Bronchiectasis (HCC) Chronic Cough documented in this encounter
--- OUTSIDE RECORDS SUMMARY | 2022-05-10 13:07 | XMS_ITS | Encounter Summary ---
:1935 Author Organization [facility] Address [address] [place] [address] Care Team Providers Name Role Phone Unavailable Primary Care Provider Unavailable Reason for Referral Outpatient (Routine) - Closed Specialty Diagnoses / Procedures Referred By Contact Refer red To Contact Diagnoses Lichen Planus Esophagus Allison Sandoval M.D. [facility] Procedures EGD (EsophagealGastroDuodenoscopy) [address] [place], [place] [address] Referral ID Status Reason Start Date Expiration Date Visits Requ ested Visits Authorized [id number] Closed 12/23/2020 12/23/2021 1 1 TABLE GRADER Reason for Visit Outpatient (Routine) - Closed Specialty Diagnoses / Procedures Referred By Contact Refer red To Contact Diagnoses Lichen Planus Esophagus Allison Sandoval M.D. [facility] Procedures EGD (EsophagealGastroDuodenoscopy) [address] [place], [place] [address] Referral ID Status Reason Start Date Expiration Date Visits Requ ested Visits Authorized [id number] Closed 12/23/2020 12/23/2021 1 1 Encounter Details Date Type Department Care Team Description 04/16/2021 Hospital Division of Allison Sandoval M.D. [address] [place] [phone] Lichen Planus Encounter Gastroenterology in Agatha Carlos, BANKING OFFICER, HEAT READER, DNAP [address] [place] [address] [place], [place] [address] [place] [address] Social History Tobacco Use Types Packs/Day Years [...] 10/21/2020 relatives? How often do you attend mormonism or muslim services? Patien t refused 10/21/2020 Do you belong to any clubs or organizations such as Yes 10/21/2020 mormonism groups, unions, fraternal or athletic groups, or [...] place to sleep or slept in a long-term (including now)? Education Answer Date Recorded What is the highest level of school you have completed or 12 th grade 10/21/2020 the highest degree you have received? Sex Assigned at Date Recorded Not on file documented as of this encounter Last Filed Vital Signs Vital Sign Reading Time Taken Comments Blood Pressure 118/89 04/16/2021 4:08 PM VEGETABLE GRADER Pulse 99 04/16/2021 4:08 PM VEGETABLE GRADER Temperature 36.4 ??C (97.5 ??F) 04/16/2021 4:08 PM VEGETABLE GRADER Respiratory Rate 12 04/16/2021 4:08 PM VEGETABLE GRADER Oxygen Saturation 93% 04/16/2021 4:08 PM VEGETABLE GRADER Inhaled Oxygen Concentration - - Weight 49 kg (108 lb) 04/16/2021 1:45 PM VEGETABLE GRADER Height 162.6 cm (5' 4) 04/16/2021 1:45 PM VEGETABLE GRADER Body Mass Index 18.54 04/16/2021 1:45 PM VEGETABLE GRADER documented in this encounter Medications at Time of Discharge Medication Sig Dispensed Refills Start Date End Date albuterol (ACCUNEB) 2.5 mg Nebulize 1 vial 2-4 360 mL 11/10/2018 /3 mL nebulizer times daily. solutionIndications: [...] Name Priority Date/Time Associated Diagnosis Comme nts UPPER GI ENDOSCOPY Routine 04/16/2021 2:54 PM Lichen Planus Re sults for this VEGETABLE GRADER Esophagus procedure are i n the results section. EGD Routine 04/16/2021 2:54 PM Lichen Planus (ESOPHAGEALGASTRODU VEGETABLE GRADER Esophagus ODENOSCOPY) documented in this encounter Results Upper GI Endoscopy (04/16/2021 2:54 PM VEGETABLE GRADER) Specimen (Source) Anatomical Collection Method Collection Time Re ceived Time Location / / Volume Laterality 04/16/2021 2:54 PM VEGETABLE GRADER Impressions [employer] - 04/16/2021 3:36 PM VEGETABLE GRADER Post-op Diagnoses: ? - Benign-appearing esophageal kenny nosis. Dilated. ? - Esophagogastric landmarks ident ified. ? 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 open lumen, hiatal hernia present ). ? - Normal stomach. ? - Normal examined duodenum. ? - No specimens collected. Narrative [facility] - 04/16/2021 3:36 PM VEGETABLE GRADER Julio 6 GI GI Patient Name: Carmen Herman Date of : 1935 Age: 85 Gender: Female Procedure Date: 04/16/2021 Procedure: ? Upper GI endoscopy Providers: ? Allison barboza MD Referring Provider: ?Allison keller MD Pre-op Diagnoses: ?Dysphagia Recommendation: ? - Return to referring physician. Findings: ? One benign-appearing, intrinsic m ild stenosis was found 25 to 30 cm from ? the incisors. This stenosis measu red 1.4 cm (inner diameter) x 5 cm (in ? length). The stenosis was eliceo ed. A TTS dilator was passed through ? the scope. Dilation with a 12-13. 5-15 mm balloon and a 15-16.5-18 mm ? balloon dilator was performed to 18 mm. The dilation site was examined ? and showed mild mucosal disruptio n. Estimated blood loss was minimal. ? Esophagogastric landmarks were id entified: the upper extent of the ? gastric folds was found at 38 cm and the site of hiatal narrowing was ? found at 40 cm from the incisors. ? The gastroesophageal flap valve w as visualized endoscopically and ? classified as Hill Grade IV (no f old, wide open lumen, hiatal hernia ? present). ? The stomach was normal. ? The examined duodenum was normal. Procedural Details: ? The patient was seen, evaluated, history reviewed, airway and heart-lung ? exams were performed by licensed provider and were satisfactory for ? planned level of sedation care. ? The risks, benefits and alternati ves for the procedure and sedation were ? discussed and informed consent wa s obtained. A procedural pause was ? conducted in the presence of assi sting personnel to verify the correct ? patient identity and procedure to be performed. Throughout the ? procedure, the patient's blood pr essure, pulse, and oxygen saturations ? were monitored continuously. The Gastroscope was introduced under direct ? vision through the mouth, and adv anced to the second part of duodenum. ? The upper GI endoscopy was accomp lished without difficulty. The patient ? tolerated the procedure well. Estimated Blood Loss: ?Estimated blo od loss was minimal. Complications: ? No immedia te complications. Sedation: ? Anesthesia was administered by an anesthesia professional. The following ? parameters were monitored: oxygen saturation, heart rate, blood ? pressure, respiratory rate, EKG, adequacy of pulmonary ventilation, and ? response to care. Attending Participation: I personally pe rformed the entire procedure. Allison Sandoval MD 04/16/2021 3:36:05 PM This report has been signed electronical ly. Number of Addenda: 0 Allison Sandoval M.D. GI PROCEDURE ORDERABLES Performing Organization Address City/State/ZIP Code Phon e Number [employer] [facility] [employer] NA documented in this encounter Visit Diagnoses Diagnosis Lichen Planus Esophagus documented in this encounter
--- OUTSIDE RECORDS SUMMARY | 2022-05-10 13:07 | XMS_ITS | Encounter Summary ---
:1935 Author Organization [facility] Address [address] [place] [address] Care Team Providers Name Role Phone Elsewhere, Pcp Primary Care Provider Unavailable Encounter Details Date Type Department Care Team Description 12/24/2021 Ancillary Procedure Department of Nursing Social History Tobacco Use Types Packs/Day Years [...] 10/21/2020 relatives? How often do you attend jain or hoahaoism services? Patien t refused 10/21/2020 Do you belong to any clubs or organizations such as Yes 10/21/2020 jain groups, unions, fraternal or athletic groups, or [...] Name Priority Date/Time Associated Diagnosis Comme nts NURSING IMAGE EXAM Routine 12/24/2021 9:10 AM Res ults for this CDT procedure are i n the results section. documented in this encounter Results Coccyx-Nursing Image Exam (12/24/2021 9:10 AM CDT) Specimen (Source) Anatomical Collection Method Collection Time Re ceived Time Location / / Volume Laterality 12/24/2021 9:08 AM CDT Narrative [facility] - 12/24/2021 9:11 AM CDT This order has been created and auto-finalized to support the import of images acquired without order. The clini narendra documentation to support these images can be found on the encounter hai t produced images. Provider Not In System IMG NON RAD IMAGING PROCEDUR ES Performing Organization Address City/State/ZIP Code Phon e Number [facility] NA documented in this encounter Visit Diagnoses Not on filedocumented in this encounter Care Teams Senior Network Security Engineer Relationship Specialty Start Date End Date Elsewhere, Pcp PCP - General Internal Medicine 12/23/21 documented as of this encounter
--- OUTSIDE RECORDS SUMMARY | 2022-05-10 13:07 | XMS_ITS | Encounter Summary ---
:1935 Author Organization [facility] Address [address] [place] [address] Care Team Providers Name Role Phone Unavailable Primary Care Provider Unavailable Encounter Details Date Type Department Care Team Description 04/16/2021 Anesthesia Event Division of Agatha Carlos, Gastroenterology in BLOCK AND CASE MAKER, SPRAY DYER, [place], [place] [address] [facility] [address] [place] [phone] Anesthesia Record Procedure Summary Procedure Name Responsible Anesthesia Start Anesthesia Stop Time Anesthesiologist Time EGD Agatha Carlos, BLOCK AND CASE MAKER, 04/16/21 1505 1 1540 (ESOPHAGEALGASTRODU [facility] ODENOSCOPY) Events Date Time Event Comment 04/16/2021 1505 An Start Machine/Equipmen t Checked Infection Precautions Foll owed Procedure/Site Verified NPO Sta tus Verified Supine Standard ASA Mon itors Applied 1514 Turnover to Proceduralist 1518 Proc Start 1530 Proc Fin 1531 Turnover to ANE Staff 1533 an stop data 1540 An End I completed my h andoff to the receiving staff during i ch we 1. Identified the patient 2. Ident ified the responsible provider 3. Revi ewed the pertinent medical history 4. Discu ssed the surgical course 5. Reviewed intra-o p anesthesia management and issues during an esthesia 6. Set expectations for post-procedure period 7. Allowed opportun ity for questions and acknowledgement of understanding. Name Total lidocaine 2% (mg) injection 40 mg propofol 10 mg/mL injection 20 mg propofol 10 mg/mL infusion 72.28 mg ondansetron PF 4 mg/2 mL injection 4 mg Lactated Ringers Free Drip 100 mL Agents No agents on file. Blood No blood administrations on file. Lines, Drains, and Airways Type Details Placement Removal Peripheral IV Placement Date: 04/16/21; 04/16/21 1354 by 04/16 1646 by Placement Time: 1354; Johanna London, Johanna Miller, Catheter Size: 22 G; R.N. R.N. Orientation: Right; Location: Antecubital; Site Prep: Alcohol; Technique: Anatomical landmarks; Insertion Attempts: 1; Removal Date: 04/16/21; Removal Time: 164; Removal Reason: Patient discharged documented in this encounter Social History Tobacco Use Types Packs/Day Years [...] How often do you attend jain or confucianism services? Patien t refused 10/21/2020 Do you [...] on file documented as of this encounter OR Notes Anesthesia Postprocedure Evaluation - Agatha Carlos APRN, CRNA, DNAP - 04/16/2021 3:41 PM CST Patient: Carmen Herman Procedure Summary Date: 04/16/21 Room / Location: Division of Gastroenterology in [place], [place] Anesthesia Start: 1505 Anesthesia Stop: 1540 Procedure: EGD (ESOPHAGEALGASTRODUODENOSCOPY) Diagnosis: Lichen Planus Esophagus Lichen Planus Esophagus Scheduled Providers: Agatha Carlos APRN, CRNA, DNAP Responsible Provider: Agatha Carlos APRN, CRNA, DNAP Anesthesia Type: MAC ASA Status: 3 Anesthesia Type: MAC Last vitals Vitals Value Taken Time BP Temp Pulse Resp SpO2 Please reference Vitals flowsheet for most recent vital signs. Anesthesia Post Evaluation Patient Disposition: dismissal Cardiovascular status: hemodynamics (HR & BP) acceptable Respiratory status: patent airway with spontaneous effort Temperature: normothermic Oxygen requirements: room air Level of consciousness: awake Pain score: pain adequately controlled and/or at baseline Post Op nausea/vomiting: none Hydration status: euvolemic CTOR OF VOCATIONAL TRAINING Anesthesia Preprocedure Evaluation - Agatha Carlos APRN, CRNA, DNAP - 04/16/2021 3:02 PM CST Preprocedure Anesthesia & H&P Assessment Procedure Summary Date/Time: 04/16/21 1415 Scheduled providers: Agatha Carlos APRN, CRNA, DNAP Procedure: EGD (ESOPHAGEALGASTRODUODENOSCOPY) Diagnosis: Lichen Planus Esophagus [L43.8] Lichen Planus Esophagus [L43.8] Location: Division of Gastroenterology in [place], [place] Pertinent components of the patient's history including current problem list, medical history, surgical history, family history, social history, medications and allergies were reviewed. Present illnessand pre-op diagnosis were confirmed. The planned surgery / procedure was verified with the patient /legal guardian. The patient's general health condition has changed and has been noted Patient states she had COPD and uses daily nebulizer treatments, she also claims to have been cardioverted for an irregular heart rate but has since been told by her primary she is in a regular rhythm. RELEVANT COMORBID CONDITIONS No relevant active problems OBJECTIVE PHYSICAL EXAMINATION Airway (HEENT) Mallampati: II Neck ROM: Full Mouth Opening: >3 cm Cardiovascular Rhythm: Regular Rate: Normal Cardiovascular Assessment: cardiovascular normal Pulmonary Pulmonary Assessment: Diminished General / Constitutional Constitutional Assessment: Thin General State of Health:: calm Neurological Neurologic Assessment:??alert and alert and oriented x 3 Dental Dental Assessment: upper dentures and lower dentures ASSESSMENT / PLAN ANESTHESIA PLAN ASA: 3 Anesthesia Plan: MAC Patient seen and allergies reviewed, anesthesia plan and risks discussed directly with patient /legal guardian or through an diplomatic interpreter/translator. Risks/Benefits/Alternatives of Blood transfusion discussed with patient / legal guardian, including an opportunity to ask questions and/or decline some or all transfusion therapies. The patient / legalguardian consented to the use of all blood products, as deemed medically necessary Approval to Proceed: approved for anesthesia CTOR OF VOCATIONAL TRAINING documented in this encounter Plan of Treatment Not on filedocumented as of this encounter Visit Diagnoses Not on filedocumented in this encounter Administered Medications Inactive Administered Medications - up to 3 most recent administrations Medication Order MAR Action Action Date Dose Rate Site lactated ringers New Bag 04/16/2021 3:10 PM DIRECTOR OF VOCATIONAL TRAINING intravenous, Continuous Infusion: Per Instructions PRN, Starting on Dorys 04/16/21 at 1510, Anesthesia Intra-op lidocaine (PF) (cardiac) injection Given 04/16/2021 3:11 PM DIRECTOR OF VOCATIONAL TRAINING 40 mg intravenous, As needed, Starting on Dorys 04/16/21 at 1511, Anesthesia Intra-op ondansetron (PF) injection (ZOFRAN) Given 04/16/2021 3:11 PM DIRECTOR OF VOCATIONAL TRAINING 4 mg intravenous, As needed, Starting on Dorys 04/16/21 at 1511, Anesthesia Intra-op propofol 10 mg/mL infusion Rate/Dose 04/16/2021 3:25 50 mcg/kg/min 1 4.7 mL/hr (DIPRIVAN) Change PM DIRECTOR OF VOCATIONAL TRAINING intravenous, Continuous Infusion: Per Instructions PRN, Starting on Dorys 04/16/21 at 1511, Anesthesia Intra-op Rate/Dose Change 04/16/2021 3:20 PM DIRECTOR OF VOCATIONAL TRAINING 75 mcg/kg/min 22.05 mL/hr New Bag 04/16/2021 3:11 PM DIRECTOR OF VOCATIONAL TRAINING 100 mcg/kg/min 29.4 mL/hr propofoL injection (DIPRIVAN) Given 04/16/2021 3:18 PM DIRECTOR OF VOCATIONAL TRAINING 20 mg intravenous, As needed, Starting on Dorys 04/16/21 at 1518, Anesthesia Intra-op documented in this encounter
--- OUTSIDE RECORDS SUMMARY | 2022-05-10 13:08 | XMS_ITS | Encounter Summary ---
:1935 Author Organization [facility] Address [address] [place] [address] Care Team Providers Name Role Phone Unavailable Primary Care Provider Unavailable Encounter Details Date Type Department Care Team Description 07/08/2020 Orders Only [facility] PCP [facility] Sa luis e Jordan M.D. [address] [place], [place] [phone] (Wo rk) Social History Tobacco Use Types [...] How often do you attend spiritism or rastafarian services? Patien t refused 10/21/2020 Do you [...] slept in a long term (including now)? Sex Assigned at Date Recorded Not on file documented as of this encounter Plan of Treatment Not on filedocumented as of this encounter Visit Diagnoses Not on filedocumented in this encounter
--- OUTSIDE RECORDS SUMMARY | 2022-05-10 13:08 | XMS_ITS | Encounter Summary ---
:1935 Author Organization [facility] Address [address] [place] [address] Care Team Providers Name Role Phone Unavailable Primary Care Provider Unavailable Reason for Visit Reason Comments COVID Inquiry Encounter Details Date Type Department Care Team Description 08/08/2020 Clinical Communication Division of Pulmonary Eh Bhatia, COVID Inquiry Medicine in M.D. [place], [place] [address] [facility] [address] [place] [address] [phone] Social History Tobacco Use Types Packs/Day Years [...] How often do you attend yarsanism or muslim services? Patien t refused 10/21/2020 [...] or slept in a prison (including now)? Sex Assigned at Date Recorded Not on file documented as of this encounter Miscellaneous Notes Telephone Encounter - Jennifer Subramanian - 08/08/2020 11:03 AM CST What is the purpose of the call?: Standard Appointment Process Standard Appointment Process Have you tested positive for COVID-19 in the last 20 days OR do you have a pending COVID-19 test because you had symptoms?: No, neither apply What region is the appointment being requested?: More than 20 days [facility], [facility] or [facility] In the past 14 days have you had close contact* with a person who has a LABORATORY CONFIRMED case ofCOVID-19?: No exposure noted. Follow local process (End Screening) Testing Recommendation Endpoint Is testing recommended? : Not recommended to test Plan: Endpoint recommendation: Followed regional OTG *Reminder if sending patient for testing in [facility] or [facility], route encounter to the correct testing pool. P RESERVATIONS COORDINATOR documented in this encounter Plan of Treatment Not on filedocumented as of this encounter Visit Diagnoses Not on filedocumented in this encounter
--- OUTSIDE RECORDS SUMMARY | 2022-05-10 13:08 | XMS_ITS | Encounter Summary ---
:1935 Author Organization [facility] Address [address] [place] [address] Care Team Providers Name Role Phone Unavailable Primary Care Provider Unavailable Encounter Details Date Type Department Care Team Description 03/28/2020 Hospital Encounter Department of Gerard Bhatia Bronchi ectasis (HCC); Laboratory Medicine Kallie Ramey Cough Chronic and Pathology, [address] [place] [address] in [facility] [address] [place] [phone] [place] [address] (Work) [place], [place] [phone] [address] (Fax) [phone] Social History Tobacco Use Types Packs/Day Years [...] How often do you attend scientology or judaism services? Patien t refused 10/21/2020 Do you [...] place to sleep or slept in a halfway (including now)? Sex Assigned at Date Recorded Not on file documented as of this encounter Medications at Time of Discharge Medication Sig Dispensed Refills Start Date End Date albuterol (ACCUNEB) 2.5 mg Nebulize 1 vial 360 mL 12/2018 /3 mL nebulizer 2-4 times daily. solutionIndications: Bronchiectasis (HCC) hydroCHLOROthiazide Take 12.5 mg by 0 03/19/2020 (MICROZIDE) 12.5 mg capsule mouth daily. losartan (COZAAR) 50 mg Take 100 mg by 1 12/09/19 19 tablet mouth daily. sotaloL (BETAPACE) 80 mg Take 80 mg by 0 02/01/20 19 tablet mouth 2 (two) times a day. warfarin (COUMADIN) 2 mg Take 2 mg by 0 9 tablet mouth. 2 mg on Mon/Wed/Fri apixaban (ELIQUIS) 5 mg Take 5 mg by 0 03/28/2020 10/21/2020 tablet mouth. dilTIAZem CD (CARDIZEM Take 120 mg by 1 9 10/21/2020 CD/CARTIA XT) 120 mg 24 hr mouth 2 (two) capsule times a day. omeprazole (PriLOSEC) 40 mg Take 40 mg by 3 12/2310/21/2020 DR capsule mouth daily. omeprazole (PriLOSEC) 40 mg Take 40 mg by 0 11/1412/24/2021 DR capsule mouth 2 (two) times a day. primidone (MYSOLINE) 50 mg TAKE TWO TABLETS 180 tablet 2 12/26/2021 tablet BY MOUTH THREE TIMES DAILY documented as of this encounter Plan of Treatment Not on filedocumented as of this encounter Procedures Procedure Name Priority Date/Time Associated Diagnosis Comme nts MYCOBACTERIAL Routine 04/02/2020 8:00 Bronchiectasis ( HCC) Results for this CULTURE, V AM CDT Cough Chronic procedure are in the results section. ACID FAST SMEAR FOR Routine 04/02/2020 8:00 Bronchiectas is (HCC) Results for this MYCOBACTERIUM AM CDT Cough Chronic procedure are in the results section. documented in this encounter Results Mycobacterial Culture (04/02/2020 8:00 AM CDT) [employer] Method Time Signature Mycobacterial No growth 05/21/2020 DTL Culture after 42 1:05 AM SHIP SELF DEFENSE SYSTEM MK1 OPERATOR days of incubation . Specimen Anatomical Collection Method Collection Time Receive d Time (Source) Location / / Volume Laterality Sputum (Sputum) 04/02/2020 8:00 AM 2019 5:41 CDT PM SHIP SEL[employer]ENSE SYSTEM MK1 OPERATOR Comment: Specimen Source Site: Sputum Gerard Bhatia M.D. LAB MICROBIOLOGY - GENERAL O RDERABLES Performing Organization Address City/State/ZIP Code Phon e Number [facility] - [address] [place], [place] [address] [facility] [place] [address] [facility] [address] Acid Fast Smear For Mycobacterium (04/02/2020 8:00 AM CDT) [employer] Method Time Signature Acid Fast Smear Negative. 04/08/2020 DTL For Mycobacterium 11:11 PM SHIP SEL[employer] DEFENSE SYSTEM MK1 OPERATOR Specimen Anatomical Collection Method Collection Time Receive d Time (Source) Location / / Volume Laterality Sputum (Sputum) 04/02/2020 8:00 AM 2019 5:41 CDT PM SHIP SELF [employer]ENSE SYSTEM MK1 OPERATOR Comment: Specimen Source Site: Sputum Gerard Bhatia M.D. LAB MICROBIOLOGY - GENERAL O RDERABLES Performing Organization Address City/State/ZIP Code Phon e Number [facility] - [address] [place], [place] [address] [facility] [place] [address] [facility] [address] documented in this encounter Visit Diagnoses Diagnosis Bronchiectasis (HCC) Chronic Cough documented in this encounter
--- OUTSIDE RECORDS SUMMARY | 2022-05-10 13:08 | XMS_ITS | Encounter Summary ---
:1935 Author Organization [facility] Address [address] [place] [address] Care Team Providers Name Role Phone Unavailable Primary Care Provider Unavailable Reason for Visit Outpatient (Routine) - Closed Specialty Diagnoses / Procedures Referred By Contact Refer red To Contact Pulmonary Medicine Diagnoses Pain Chest Wall Anticoagulant Therapy Chronic Obstructive Pulmonary Disease NOS Gonzalez Mckay M.D. [facility] [address] [place] [address] Referral ID Status Reason Start Date Expiration Date Visits Requ ested Visits Authorized [id number] Closed 03/18/2020 03/18/2021 1 1 Encounter Details Date Type Department Care Team Description 03/27/2020 Office Visit Division of Pulmonary Gerard Bhatia Br onchiectasis (HCC) (Primary Dx); Medicine in M.D. Pain Chest Wall; [place], [place] [address] [facility] [place] Anticoagulant Therapy; [address] [place], [place] [address] [phone] Social History Tobacco Use Types Packs/Day Years [...] 10/21/2020 relatives? How often do you attend uatsdin or mandaen services? Patien t refused 10/21/2020 Do you belong to any clubs or organizations such as Yes 10/21/2020 uatsdin groups, unions, fraternal or athletic groups, or [...] or slept in a correction (including now)? Sex Assigned at Date Recorded Not on file documented as of this encounter Last Filed Vital Signs Vital Sign Reading Time Taken Comments Blood Pressure 135/86 03/27/2020 4:19 PM CDT Pulse 71 03/27/2020 4:19 PM CDT Temperature 36.4 ??C (97.5 ??F) 03/27/2020 4:19 PM CDT Respiratory Rate - - Oxygen Saturation 99% 03/27/2020 4:19 PM CDT Inhaled Oxygen Concentration - - Weight 51.1 kg (112 lb 10.5 oz) 03/27/2020 4:19 PM CDT Height 160 cm (5' 2.99) 03/27/2020 4:19 PM CDT Body Mass Index 19.96 03/27/2020 4:19 PM CDT documented in this encounter Progress Notes Gerard Bhatia M.D. - 03/27/2020 4:30 PM CDT SUBJECTIVE CHIEF COMPLAINT/REASON FOR VISIT Evaluation of chronic chest discomfort in the setting of bronchiectasis. HISTORY OF PRESENT ILLNESS Carmen Herman is an 84-year-old woman who returns to Pulmonary Clinic for evaluation of chest discomfort, which occurs in the setting of bronchiectasis. 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 Over the last several years, she has been maintained on a pulmonary hygiene regimen, with no need for frequent antibiotics, and no evidence of recurrentchronic pulmonary infection. Weight has been relatively stable, and cough has been quite modest on the bronchial hygiene program. However, she has developed persistent chest discomfort, experienced primarily in the right anterior chest with extension toward the back. This is an aching pain which has been present for many months and may have worsened a bit over time. There is no pleuritic component. There is no exertional component either. Since our last visit in January 2019, she believes that exertional dyspnea has worsened to some extent. Weight is down about 5 pounds. Cough has been stable and isproductive of a yellow or green sputum. She has not had fevers, chills, or night sweats. Energy level has been good. OBJECTIVE PHYSICAL EXAMINATION Vital Signs: Oxygen saturation is 99% on room air. General : Well appearing. No dyspnea moving around the office. Heart: Regular rate and rhythm. Lungs: Somewhat distant breath sounds, but clear throughout. Extremities: No peripheral edema. DIAGNOSTICS An outside chest x-ray was performed on 02/18/2020, which shows no significant changes from an our last chest x-ray on 01/24/2019. Again, there is diffuse bronchial wall thickening and bronchiectasis with pulmonary hyperinflation, but there is no focal consolidation, and there do not appear to be any areas of worsening bronchiectasis. Pulmonary function test performed today demonstrates stable spirometry, again demonstrating moderateobstruction. FEV1 has not changed dating back to 2014. 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 Herman returns to Pulmonary Clinic for re-evaluation of bronchiectasis in light of chronic chestwall pain. The chest wall discomfort is manageable with intermittent Tylenol, and so I think it is important not to overreact to this modest concern. It is encouraging that chest x-ray and spirometry are stable, and so it does not appear that the chest discomfort indicates any overwhelming change in either her underlying bronchiectasis or secondary processes. However, given that she has had a historyof pulmonary nocardiosis and given that her airways are significantly abnormal, she is at risk for chronic pulmonary infections, which sometimes manifest with chest wall discomfort. As such, I will have her undergo sputum sampling via send-in sputum. I will plan to write to Mrs. Herman with the resultsof the sputum cultures. I do not believe that any additional testing or intervention would be warranted at present. She should continue with her current bronchial hygiene, consisting of twice daily nebulized DuoNeb and bronchial clearance with an Aerobika oscillatory PEP device. Gerard Bhatia M.D. CT CT Job ID: [id number] documented in this encounter Plan of Treatment Not on filedocumented as of this encounter Results Mycobacterial Culture (04/04/2020 10:30 AM CDT) [facility] Method Time Signature Mycobacterial No growth 05/21/2020 DTL Culture after 42 1:05 AM GROCERY CARRIER days of incubation . Specimen Anatomical Collection Method Collection Time Receive d Time (Source) Location / / Volume Laterality Sputum (Sputum) 04/04/2020 10:30 04/08/20 20 5:42 AM CDT PM GROCERY CARRIER Comment: Specimen Source Site: Sputum Gerard Bhatia M.D. LAB MICROBIOLOGY - GENERAL O NILA Performing Organization Address City/State/ZIP Code Phon e Number [facility] - [address] [place], [place] [address] [facility] [place] [address] [facility] [address] Acid Fast Smear For Mycobacterium (04/04/2020 10:30 AM CDT) Patholo gist Method Time Signature Acid Fast Smear Negative. 04/08/2020 DTL For Mycobacterium 11:11 PM GROCERY CARRIER Specimen Anatomical Collection Method Collection Time Receive d Time (Source) Location / / Volume Laterality Sputum (Sputum) 04/04/2020 10:30 04/08/20 20 5:42 AM CDT PM GROCERY CARRIER Comment: Specimen Source Site: Sputum Gerard Bhatia M.D. LAB MICROBIOLOGY - GENERAL O NILA Performing Organization Address City/State/ZIP Code Phon e Number [facility] - [address] [place], [place] [address] [facility] [place] [address] [facility] [address] Mycobacterial Culture (04/02/2020 1:37 PM CDT) Patholo 9facts Method Time Signature Mycobacterial No growth 05/21/2020 DTL Culture after 42 1:05 AM GROCERY CARRIER days of incubation . Specimen Anatomical Collection Method Collection Time Receive d Time (Source) Location / / Volume Laterality Sputum (Sputum) 04/02/2020 1:37 PM 2019 5:40 CDT PM GROCERY CARRIER Comment: Specimen Source Site: Sputum Gerard Bhatia M.D. LAB MICROBIOLOGY - GENERAL O NILA Performing Organization Address City/State/ZIP Code Phon e Number [facility] - [address] [place], [place] [address] [facility] [place] [address] [facility] [address] Acid Fast Smear For Mycobacterium (04/02/2020 1:37 PM CDT) Patholo gist Method Time Signature Acid Fast Smear Negative. 04/08/2020 DTL For Mycobacterium 11:16 PM GROCERY CARRIER Specimen Anatomical Collection Method Collection Time Receive d Time (Source) Location / / Volume Laterality Sputum (Sputum) 04/02/2020 1:37 PM 2019 5:40 CDT PM GROCERY CARRIER Comment: Specimen Source Site: Sputum Gerard Bhatia M.D. LAB MICROBIOLOGY - GENERAL O NILA Performing Organization Address City/State/ZIP Code Phon e Number [facility] - [address] [place], [place] [address] [facility] [place] [address] [facility] [address] Mycobacterial Culture (04/02/2020 8:00 AM CDT) PathTapvalue gist Method Time Signature Mycobacterial No growth 05/21/2020 DTL Culture after 42 1:05 AM GROCERY CARRIER days of incubation . Specimen Anatomical Collection Method Collection Time Receive d Time (Source) Location / / Volume Laterality Sputum (Sputum) 04/02/2020 8:00 AM 2019 5:41 CDT PM GROCERY CARRIER Comment: Specimen Source Site: Sputum Gerard Bhatia M.D. LAB MICROBIOLOGY - GENERAL O NILA Performing Organization Address City/State/ZIP Code Phon e Number [facility] - [address] [place], [place] [address] [facility] [place] [address] [facility] [address] Acid Fast Smear For Mycobacterium (04/02/2020 8:00 AM CDT) Media Chaperone Method Time Signature Acid Fast Smear Negative. 04/08/2020 DTL For Mycobacterium 11:11 PM GROCERY CARRIER Specimen Anatomical Collection Method Collection Time Receive d Time (Source) Location / / Volume Laterality Sputum (Sputum) 04/02/2020 8:00 AM 2019 5:41 CDT PM GROCERY CARRIER Comment: Specimen Source Site: Sputum Gerard Bhatia M.D. LAB MICROBIOLOGY - GENERAL O NILA Performing Organization Address City/State/ZIP Code Phon e Number [facility] - [address] [place], [place] [address] [facility] [place] [address] [facility] [address] documented in this encounter Visit Diagnoses Diagnosis Bronchiectasis (HCC) - Primary Pain Chest Wall Anticoagulant Therapy Chronic Cough documented in this encounter
--- OUTSIDE RECORDS SUMMARY | 2022-05-10 13:08 | XMS_ITS | Encounter Summary ---
:1935 Author Organization [facility] Address [address] [place] [address] Care Team Providers Name Role Phone Unavailable Primary Care Provider Unavailable Encounter Details Date Type Department Care Team Description 12/24/2020 Diagnostic Division of Nephrology Allison Sandoval M.D. [address] [place] [address] Hypertension Essential and Hypertension in Gi Martinez, MichellePKalyaniN. [address] [place] [address] [place], [place] [address] [place] [phone] Social History Tobacco Use Types Packs/Day Years [...] 10/21/2020 relatives? How often do you attend bahai or congregational services? Patien t refused 10/21/2020 Do you belong to any clubs or organizations such as Yes 10/21/2020 bahai groups, unions, fraternal or athletic groups, or [...] Name Priority Date/Time Associated Diagnosis Comme nts NEP BLOOD PRESSURE Routine 12/25/2020 3:04 PM Hypertension Ess ential CHECK 6 HR CDT Primary documented in this encounter Results NEP Blood pressure check 6 hr (12/25/2020 3:04 PM CDT) Specimen (Source) Anatomical Location Collection Method / Collectio n Time Received Time / Laterality Volume Narrative This result has an attachment that is no t available. Allison Sandoval M.D. PFT ORDERABLES Performing Organization Address City/State/ZIP Code Phon e Number [facility]ODAL documented in this encounter Visit Diagnoses Diagnosis Hypertension Essential Primary documented in this encounter
--- OUTSIDE RECORDS SUMMARY | 2022-05-10 13:08 | XMS_ITS | Encounter Summary ---
:1935 Author Organization [facility] Address [address] [place] [address] Care Team Providers Name Role Phone Unavailable Primary Care Provider Unavailable Reason for Visit Reason Comments External Lab Entry Encounter Details Date Type Department Care Team Description 12/19/2020 Clinical Division of Jaime, External Lab En try Communication Gastroenterology in [place], [place] Kallie [address] [facility] [address] [place] [address] [phone] Social History Tobacco Use Types Packs/Day Years [...] 10/21/2020 relatives? How often do you attend anabaptism or rastafarian services? Patien t refused 10/21/2020 Do you belong to any clubs or organizations such as Yes 10/21/2020 anabaptism groups, unions, fraternal or athletic groups, or [...] place to sleep or slept in a intermediate (including now)? Education Answer Date Recorded What is the highest level of school you have completed or 12 th grade 10/21/2020 the highest degree you have received? Sex Assigned at Date Recorded Not on file documented as of this encounter Plan of Treatment Not on filedocumented as of this encounter Procedures Procedure Name Priority Date/Time Associated Diagnosis Comme nts LABEXT SARS Routine 12/18/2020 3:20 PM Results f or this CORONAVIRUS-2 CDT procedure are in (COVID-19) PCR the results section. documented in this encounter Results EXT SARS Coronavirus-2 (COVID-19) PCR (12/18/2020 3:20 PM CDT) P athologist Signature EXT SARS-COV-2 Negative Inconclusi EXTERNAL PCR ve, NON-INTERFACE Indetermin D LAB ate, Invalid, Negative, Not Detected, Undetected , Other (specify in comment) Specimen (Source) Anatomical Collection Method Collection Time Re ceived Time Location / / Volume Laterality Swab 12/18/2020 3:20 PM CDT Narrative This result has an attachment that is no t available. Allison Sandoval M.D. LAB MICROBIOLOGY - GENERAL O RDERABLES Performing Organization Address City/State/ZIP Code Phon e Number EXTERNAL NON-INTERFACED LAB [address] [place], [place] [address] documented in this encounter Visit Diagnoses Not on filedocumented in this encounter
--- OUTSIDE RECORDS SUMMARY | 2022-05-10 13:08 | XMS_ITS | Encounter Summary ---
:1935 Author Organization [facility] Address [address] [place] [address] Care Team Providers Name Role Phone Unavailable Primary Care Provider Unavailable Reason for Visit Reason Comments Appointment Encounter Details Date Type Department Care Team Description 12/29/2020 Clinical Communication Division of Pulmonary Eh Bhatia, Appointment Medicine in [facility] [address] [facility] [address] [place] [phone] Social History Tobacco Use Types Packs/Day Years [...] 10/21/2020 relatives? How often do you attend buddhism or restoration services? Patien t refused 10/21/2020 Do you belong to any clubs or organizations such as Yes 10/21/2020 buddhism groups, unions, fraternal or athletic groups, or [...] Telephone Encounter - Gerard Bhatia M.D. - 01/21/2021 1:41 PM CDT Please schedule Ms. Herman for CT chest and visit with me on the morning of 01/29. Thanks. Telephone Encounter - Jocelyne Cazares - 01/21/2021 9:44 AM CDT Patient called. She said this is the th time she has called to try and get an appointment with youand she cannot get in and has not heard back from anyone about getting in. She said her breathing is getting much worse and needs to be seen. Telephone Encounter - Elizabeth Sorto - 01/19/2021 9:13 AM CDT Patient called states she is still very short of breath and really wants to see you as soon as able.She states she would be willing to see someone else if you dont have any openings. During this call the patient was short of breath and she stated she just used her nebulizer. She doesn't go out of the air conditioning as then she really can't catch her breath. Please advise! Telephone Encounter - Jennifer Subramanian - 01/13/2021 8:56 AM CDT Checking on status of prior message Thank you Telephone Encounter - Jennifer Subramanian - 12/29/2020 9:00 AM CDT Patient is calling she is having increased SOB and hard time breathing and is using neub 5-6 times aday and is also coughing up green and or yellow. You have nothing available. Is there a day and timeI may add her? She will come anytime. (I am aware that you are out of office this week) Also place orders for any testing you would like. Thank you documented in this encounter Plan of Treatment Not on filedocumented as of this encounter Visit Diagnoses Not on filedocumented in this encounter
--- OUTSIDE RECORDS SUMMARY | 2022-05-10 13:08 | XMS_ITS | Encounter Summary ---
:1935 Author Organization [facility] Address [address] [place] [address] Care Team Providers Name Role Phone Unavailable Primary Care Provider Unavailable Encounter Details Date Type Department Care Team Description 10/21/2020 Hospital Encounter Department of Gerard Bhatia Bronchi ectasis (HCC) Radiology, Ezra Ramey M.D. [facility], in [address] [place] [phone] [place] [address] [place], [place] (Work) [phone] Social History Tobacco Use Types Packs/Day Years [...] 10/21/2020 relatives? How often do you attend orthodoxy or rastafarian services? Patien t refused 10/21/2020 Do you belong to any clubs or organizations such as Yes 10/21/2020 orthodoxy groups, unions, fraternal or athletic groups, or [...] mL nebulizer times daily. solutionIndications: Bronchiectasis (HCC) hydroCHLOROthiazide Take [...] the mouth 5 (five) times a day. ipratropium-albuteroL INHALE 3ML VIA 0 08/15/2020 01/30/2021 (DUONEB) 0.5-2.5 mg/3 mL NEBULIZER 4 TIMES nebulizer solution DAILY nystatin (MYCOSTATIN) take 5 ml by mouth 0 202012/24/2021 100,000 unit/mL suspension four times a day as needed omeprazole (PriLOSEC) 40 Take 40 mg by mouth 0 12/24/[address] capsule 2 (two) times a day. predniSONE (DELTASONE) 2.5 0 1 01/30/2021 mg tablet primidone (MYSOLINE) 50 mg TAKE TWO TABLETS BY 180 tablet 2 11/28/2018 12/26/2021 tablet MOUTH THREE TIMES DAILY Trelegy Ellipta 0 08/07/2020 1 200-62.5-25 mcg inhaler umeclidinium-vilanteroL Inhale 1 puff once 60 each 10/0412/24/2021 (ANORO ELLIPTA) 62.5-25 daily. mcg/actuation inhalerIndications: Bronchiectasis (HCC) documented as of this encounter Plan of Treatment Not on filedocumented as of this encounter Procedures Procedure Name Priority Date/Time Associated Diagnosis Comme nts DX CHEST AP OR RAD - Routine 10/21/2020 9:56 Bronchiectasis (HCC) R esults for PA AND LATERAL 2 (most inpatients AM CDT this pr ocedure VIEWS and all are in the outpatients) results section. documented in this encounter Results DX Chest AP or PA and Lateral 2 Views (10/21/2020 9:56 AM CDT) Anatomical Region Laterality Modality Chest, Thoracic RST LOS, Thoracic ARZ LOS, Thoracic N/A Digital Radiography FLA LOS Specimen (Source) Anatomical Collection Method Collection Time Re ceived Time Location / / Volume Laterality 10/21/2020 10:38 AM CDT Impressions 10/21/2020 10:42 AM CDT Comparison made with chest x-ray dated 02/18/2020. There is increasing bilateral bronchial wall thic kening and bronchiectasis. Pulmonary hyperinflation. Increased nodular airspa ce opacities throughout both lungs may relate to an infectious/inflammatory pro cess and/or foci of endobronchial mucous plugging. Increased atelectasis/scarring in the right midlung. Aortic calcifications. Degenerative changes of the spine. Thoracolumbar curvature. Narrative 10/21/2020 10:42 AM CDT EXAM: ??DX CHEST AP OR PA AND LATERAL 2 VIEWS Procedure Note Lisa Hayden M.D. - 10/21/2020Form atting of this note might be different from the original. EXAM: DX CHEST AP OR PA AND LATERAL 2 EWS IMPRESSION: Comparison made with chest x-ray dated 0 02/18/2020. There is increasing bilateral bronchial wall thic kening and bronchiectasis. Pulmonary hyperinflation. Increased nodular airspa ce opacities throughout both lungs may relate to an infectious/inflammatory pro cess and/or foci of endobronchial mucous plugging. Increased atelectasis/scarring in the right midlung. Aortic calcifications. Degenerative changes of the spine. Thoracolumbar curvature. Gerard [facility] documented in this encounter Visit Diagnoses Diagnosis Bronchiectasis (HCC) documented in this encounter
--- OUTSIDE RECORDS SUMMARY | 2022-05-10 13:08 | XMS_ITS | Encounter Summary ---
:1935 Author Organization [facility] Address [address] [place] [address] Care Team Providers Name Role Phone Unavailable Primary Care Provider Unavailable Encounter Details Date Type Department Care Team Description 12/22/2020 Ancillary Procedure Department of Gastroenterology Social History [...] 10/21/2020 relatives? How often do you attend baptist or rastafarian services? Patien t refused 10/21/2020 Do you belong to any clubs or organizations such as Yes 10/21/2020 baptist groups, unions, fraternal or athletic groups, or [...] Date/Time Associated Comments Diagnosis GASTROENTEROLOGY IMAGE Routine 12/22/2020 2:15 Re sults for this EXAM PM CDT procedure are i n the results section. documented in this encounter Results Esophagus, Upper third of the esophagus Upper GI endoscopy-Gastroenterology Image Exam (12/22/2020 2:15 PM CDT) Specimen (Source) Anatomical Collection Method Collection Time Re ceived Time Location / / Volume Laterality 12/22/2020 2:15 PM CDT Narrative [facility] - 12/22/2020 2:59 PM CDT This order has been created and [...]
--- OUTSIDE RECORDS SUMMARY | 2022-05-10 13:08 | XMS_ITS | Encounter Summary ---
:[address] [facility] Address [address] [place] [address] Care Team Providers Name Role Phone Unavailable Primary Care Provider Unavailable Reason for Visit Reason Comments Provider call Encounter Details Date Type Department Care Team Description 08/18/2020 Clinical Communication Division of Pulmonary Eh Bhatia, Provider call Medicine in .[place], [place] [address] [facility] [address] [place] [phone] Social History Tobacco Use Types Packs/Day Years [...] How often do you attend zoroastrian or amish services? Patien t refused 10/21/2020 [...] this encounter Miscellaneous Notes Telephone Encounter - Lonny Blevins M.D. - 08/18/2020 4:32 PM CDT I called her back. The patient has had increased cough and breathlessness for several weeks. She hadoutpatient course of steroids with no improvement. She has new ground-glass infiltrates by CT as thechief finding. Other testing including cardiac evaluation with echocardiogram has been unremarkable and COVID and influenza swabs negative. They are going to admit her locally for pneumonia. I suggested sputum culture before they start antibiotics. I suggested considering transfer to [place] for chest service admission, but they do not feel the roads are safe for transport this evening. Gerard HIGUERA only Telephone Encounter - Jocelyne Cazares - 08/18/2020 4:13 PM CDT Patient is currently at the ER in [place] and Dr. Pinzon is requesting to speak with someone from Dr. Bhatia's team (Dr. Bhatia is not here as he is working over nights in the ICU). Thanks. Casanova documented in this encounter Plan of Treatment Not on filedocumented as of this encounter Visit Diagnoses Not on filedocumented in this encounter
--- OUTSIDE RECORDS SUMMARY | 2022-05-10 13:08 | XMS_ITS | Encounter Summary ---
:1935 Author Organization [facility] Address [address] [place] [address] Care Team Providers Name Role Phone Unavailable Primary Care Provider Unavailable Encounter Details Date Type Department Care Team Description 12/23/2020 Hospital Encounter Department of Allison Sandoval [facility] tension Laboratory Medicine Kallie Arango [facility]ology, [address] [place] [address] in [facility] [address] [place] [phone] [place] [address] (Work) [place], [place] [phone] [address] (Fax) [phone] Social History Tobacco Use Types Packs/Day Years [...] 10/21/2020 relatives? How often do you attend restorationist or hinduism services? Patien t refused 10/21/2020 Do you belong to any clubs or organizations such as Yes 10/21/2020 restorationist groups, unions, fraternal or athletic groups, or [...] THREE TIMES DAILY Trelegy Ellipta 0 08/07/2020 200-62.5-25 mcg inhaler umeclidinium-vilanteroL Inhale 1 puff once 60 each 10/0412/24/2021 (ANORO ELLIPTA) 62.5-25 daily. mcg/actuation inhalerIndications: Bronchiectasis (HCC) documented as of this encounter Plan of Treatment Not on filedocumented as of this encounter Procedures Procedure Name Priority Date/Time Associated Diagnosis Comme nts TX OSMOLALITY ASSAY Routine 12/23/2020 10:34 Resu lts for this URINE AM CDT procedure are i n the results section. DIPSTICK, U Routine 12/23/2020 10:34 Results for this AM CDT procedure are i n the results section. PH, RANDOM, U Routine 12/23/2020 10:34 Results fo r this AM CDT procedure are i n the results section. MICROSCOPIC MANUAL Routine 12/23/2020 10:34 Resul ts for this AM CDT procedure are i n the results section. URINALYSIS WITH Routine 12/23/2020 10:34 Hypertension Results for this MICROSCOPIC AM CDT Essential Primary procedure are in the results section. documented in this encounter Results (ABNORMAL) Dipstick, Urine (12/23/2020 10:34 AM CDT) Patholo gist Method Time Signature Hemoglobin, Negative Negative 12/23/2020 DTL QL, U 2:39 PM CDT Leukocyte Negative Negative 12/23/2020 DTL Esterase, U 2:39 PM CDT Nitrite, U Negative Negative 12/23/2020 DTL 2:39 PM CDT Ketone, U 5 (A) Negative 12/23/2020 DTL mg/dL 2:39 PM CDT Glucose, U Negative Negative 12/23/2020 DTL mg/dL 2:39 PM CDT Specimen Anatomical Collection Method Collection Time Receive d Time (Source) Location / / Volume Laterality Urine 12/23/2020 10:34 12/23/2020 1:52 AM CDT PM CDT Allison Sandoval M.D. LAB URINE ORDERABLES Performing Organization Address City/State/[facility] Code Phon e Number [facility] - [address] [place], [place] [address] [facility] [place] [place] [address] [facility] [address] pH, Random, Urine (12/23/2020 10:34 AM CDT) P athologist Signature pH, Random, U 5.7 4.5 - 8.0 12/23/2020 DTL 4:01 PM CDT Specimen Anatomical Collection Method Collection Time Receive d Time (Source) Location / / Volume Laterality Urine 12/23/2020 10:34 12/23/2020 1:52 AM CDT PM CDT Cadman L Jaime M.D. LAB URINE ORDERABLES Performing Organization Address City/[facility]/ZIP Code Phon e Number [facility] - 200 [place] [address] Osmolality, Urine (12/23/2020 10:34 AM CDT) athologist Signature Osmolality, U 578 150 - 1150 12/23/2020 DTL mOsm/kg 4:01 PM CDT Specimen Anatomical Collection Method Collection Time Receive d Time (Source) Location / / Volume Laterality Urine 12/23/2020 10:34 12/23/2020 1:52 AM CDT PM CDT Allison Sandoval M.D. LAB URINE ORDERABLES Performing Organization Address City/[facility]/ZIP Code Phon e Number [facility] - [address] (ABNORMAL) Microscopic Manual (12/23/2020 10:34 AM CDT) athologist Signature Microscopy Abnormal 12/23/2020 DTL 4:32 PM CDT RBC <3 <3 /hpf 12/23/2020 DTL 4:32 PM CDT WBC 1-3 /hpf 12/23/2020 DTL 4:32 PM CDT Comment: ----REFERENCE VALUE---- 1-3 ??(Males) 1-10 (Females) Casts, Hyaline 11-20 /lpf 12/23/2020 4:32 PM CDT DT L Transitional Epithelial Cells 1-3 (A) /hpf 12/23/2020 4:32 PM CDT DTL Squamous Epithelial Cells, U 4-10 /hpf 12/23/2020 4:32 PM CDT DTL Bacteria Present (A) 12/23/2020 4:32 PM CDT DTL Specimen Anatomical Collection Method Collection Time Receive d Time (Source) Location / / Volume Laterality Urine 12/23/2020 10:34 12/23/2020 1:52 AM CDT PM CDT Allison Sandoval M.D. LAB URINE ORDERABLES Performing Organization Address City/[facility]/ZIP Code Phon e Number [facility] - [address] [place], [place] [address] [facility] [place] [address] [facility] [address] [facility] (ABNORMAL) Urinalysis with Microscopic: Urine, Midstream (12/23/2020 10:34 AM CDT) Analysis Performed At Patho logist Time Signature Source Midstream 12/23/2020 DTL 1:52 PM CDT Color, U Clair (A) 12/23/2020 DTL 1:52 PM CDT Clarity, U Clear 12/23/2020 DTL 1:52 PM CDT Protein, U 50 (H) <26 mg/dL 12/23/2020 DTL 2:50 PM CDT Protein/Osmola 0.87 (H) <0.42 12/23/2020 DTL lity ratio 4:01 PM CDT Predicted 24 586 mg/24 h 12/23/2020 DTL Hr Protein 4:01 PM CDT Predicted 145-2374 mg/24 h 12/23/2020 DTL Range 4:01 PM CDT Specimen Anatomical Collection Method Collection Time Receive d Time (Source) Location / / Volume Laterality Urine (Urine, 12/23/2020 10:34 12/23/2020 1:52 Midstream) AM CDT PM CDT Allison Sandoval M.D. LAB URINE ORDERABLES Performing Organization Address City/State/ZIP Code Phon e Number [facility] - 200 [place], [place] [address] [facility] [place] [place] [address] [facility] 200 [facility] documented in this encounter Visit Diagnoses Diagnosis Hypertension Essential Primary documented in this encounter
--- OUTSIDE RECORDS SUMMARY | 2022-05-10 13:08 | XMS_ITS | Encounter Summary ---
:1935 Author Organization [facility] Address [address] [place] [address] Care Team Providers Name Role Phone Unavailable Primary Care Provider Unavailable Reason for Referral Outpatient (Routine) - Closed Specialty Diagnoses / Referred By Referred To Cont act Procedures Contact Gastroenterology and Diagnoses Esophagitis Kalani (HCC) Personal History Of Other Diseases Of The Digestive System [facility] [place] [address] Referral ID Status Reason Start Date Expiration Date Visits Requ ested Visits Authorized [id number] Closed 10/21/2020 10/21/2021 1 1 Encounter Details Date Type Department Care Team Description 10/21/2020 [facility] Gonzalez Mckay Eskaran phagitis Kalani (HCC) (Primary Dx); AND CLINICS Kallie Franklin Personal History Of Other Diseases Of Th e Digestive System [address] [facility] [address], [place] [address] [place], [place] [phone] Social History Tobacco Use Types Packs/Day Years [...] 10/21/2020 relatives? How often do you attend jehovah's witness or nondenominational services? Patien t refused 10/21/2020 Do you belong to any clubs or organizations such as Yes 10/21/2020 jehovah's witness groups, unions, fraternal or athletic groups, or [...] Treatment Scheduled Referrals Name Type Priority Associated Order Schedule Diagnoses Gastroenterology & Outpatient Routine Esophagitis Kalani Ex pected: Hepatology Referral Referral (HCC) 10/21/2020 Personal History Of (Approxi mate), Other Diseases Of Expires: The Digestive 10/22/2023 System documented as of this encounter Visit Diagnoses Diagnosis Esophagitis Kalani (HCC) - Primary Personal History Of Other Diseases Of Th e Digestive System documented in this encounter
--- OUTSIDE RECORDS SUMMARY | 2022-05-10 13:08 | XMS_ITS | Encounter Summary ---
:1935 Author Organization [facility] Address [address] [place] [address] Care Team Providers Name Role Phone Unavailable Primary Care Provider Unavailable Encounter Details Date Type Department Care Team Description 12/22/2020 Anesthesia Event Division of Stacy Rich, BENSON N, AUGUSTUS GILMAN Gastroenterology in [place] M.D. [address] [place] [address] [place], [place] [address] [place] [address] Anesthesia Record Procedure Summary Procedure Name Responsible Anesthesia Start Anesthesia Stop Time Anesthesiologist Time EGD Stacy Rich, PATRICIA, 12/22/20 1425 12/22 1454 (ESOPHAGEALGASTRODU AUGUSTUS GILMAN ODENOSCOPY) Events Date Time Event Comment 12/22/2020 1358 1425 An Start Machine/Equipmen t Checked Infection Precautions Foll owed Procedure/Site Verified NPO Sta tus Verified Supine Standard ASA Mon itors Applied 1430 Turnover to Proceduralist 1432 Proc Start 1443 Proc Fin 1444 Turnover to ANE Staff 1452 an stop data 1454 An End I completed my h andoff to the receiving staff during [facility] ch we 1. Identified the patient 2. Ident ified the responsible provider 3. Revi ewed the pertinent medical history 4. Discu ssed the surgical course 5. Reviewed intra-o p anesthesia management and issues during an esthesia 6. Set expectations for post-procedure period 7. Allowed opportun ity for questions and acknowledgement of understanding. Name Total fentanyl injection 50 mcg/mL 25 mcg lidocaine 2% (mg) injection 60 mg propofol 10 mg/mL injection 30 mg propofol 10 mg/mL infusion 91.62 mg ondansetron PF 4 mg/2 mL injection 4 mg Lactated Ringers Free Drip 350 mL Agents No agents on file. Blood No blood administrations on file. Lines, Drains, and Airways Type Details Placement Removal Peripheral IV Placement Date: 12/22/20; 12/22/20 1429 by Emmanuel , 12/22/20 1546 by Will, Placement Time: 1429; Mindy Nails R.N. Catheter Size: 22 G; Orientation: Right; Location: Forearm; Removal Date: 12/22/20; Removal Time: 154 documented in this encounter Social History Tobacco [...] How often do you attend adventism or yazidism services? Patien t refused 10/21/2020 Do you [...] encounter OR Notes Anesthesia Postprocedure Evaluation - Stacy Rich APRN, CRNA, MNA - 12/22/2020 2:54 PM CDT Patient: Carmen Herman Procedure Summary Date: 12/22/20 Room / Location: Division of Gastroenterology in [place], [place] Anesthesia Start: 1425 Anesthesia Stop: 1454 Procedure: EGD (ESOPHAGEALGASTRODUODENOSCOPY) Diagnosis: Lichen Planus Esophagus Scheduled Providers: Stacy Rich APRN, CRNA, MNA Responsible Provider: Stacy Rich APRN, CRNA, MNA Anesthesia Type: MAC ASA Status: 3 Anesthesia Type: MAC Last vitals Vitals Value Taken Time BP Temp Pulse 71 12/22/20 1454 Resp 16 12/22/20 1454 SpO2 93 % 12/22/20 1454 Vitals shown include unvalidated device data. Please reference Vitals flowsheet for most recent vital signs. Anesthesia Post Evaluation Patient Disposition: dismissal Cardiovascular status: hemodynamics (HR & BP) acceptable Respiratory status: patent airway with spontaneous effort Temperature: normothermic Oxygen requirements: room air Level of consciousness: awake Pain score: pain adequately controlled and/or at baseline Post Op nausea/vomiting: none Hydration status: euvolemic Anesthesia Preprocedure Evaluation - Carmen Nick M.D. - 12/22/2020 1:57 PM CDT Preprocedure Anesthesia & H&P Assessment Procedure Summary Date/Time: 12/22/20 1415 Scheduled providers: Stacy Rich APRN, CRNA, MNA Procedure: EGD (ESOPHAGEALGASTRODUODENOSCOPY) Diagnosis: Lichen Planus Esophagus [L43.8] Location: Division of Gastroenterology in [place], [place] Pertinent components of the patient's history including current problem list, medical history, surgical history, family history, social history, medications and allergies were reviewed. Present illnessand pre-op diagnosis were confirmed. The planned surgery / procedure was verified with the patient /legal guardian. The patient's general health condition remains unchanged RELEVANT COMORBID CONDITIONS No relevant active problems OBJECTIVE PHYSICAL EXAMINATION Airway (HEENT) Mallampati: II TM Distance: >3 FB Neck ROM: Full Mouth Opening: >3 cm Upper Lip Bite Test Class: I Cardiovascular Rhythm: Regular Rate: Normal Cardiovascular Assessment: cardiovascular normal Functional Capacity: >4 METS Pulmonary Distant breath sounds but clear Pulmonary Assessment: Diminished General / Constitutional Constitutional Assessment: Normal General State of Health:: calm Neurological Neurologic Assessment:??alert Dental Normal ASSESSMENT / PLAN ANESTHESIA PLAN ASA: 3 Anesthesia Plan: MAC Patient seen and allergies reviewed, anesthesia plan and risks discussed directly with patient /legal guardian or through an bulk sausage casing tier off. 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 MP 2. Plan MAC documented in this encounter Plan of Treatment Not on filedocumented as of this encounter Visit Diagnoses Not on filedocumented in this encounter Administered Medications Inactive Administered Medications - up to 3 most recent administrations Medication Order MAR Action Action Date Dose Rate Site fentaNYL injection (SUBLIMAZE) Given 12/22/2020 2:31 PM CDT 25 mcg intravenous, As needed, Starting on Tue12/22/20 at 1431, Anesthesia Intra-op lactated ringers New Bag 12/22/2020 2:31 PM CDT intravenous, Continuous Infusion: Per Instructions PRN, Starting on Tue12/22/20 at 1431, Anesthesia Intra-op lidocaine (PF) (cardiac) injection Given 12/22/2020 2:31 PM CDT 60 mg intravenous, As needed, Starting on Tue12/22/20 at 1431, Anesthesia Intra-op ondansetron (PF) injection (ZOFRAN) Given 12/22/2020 2:31 PM CDT 4 mg intravenous, As needed, Starting on Tue12/22/20 at 1431, Anesthesia Intra-op propofol 10 mg/mL infusion New Bag 12/22/2020 2:31 150 mcg/kg/min 45.81 mL/hr (DIPRIVAN) PM CDT intravenous, Continuous Infusion: Per Instructions PRN, Starting on Tue12/22/20 at 1431, Anesthesia Intra-op propofoL injection (DIPRIVAN) Given 12/22/2020 2:31 PM CDT 30 mg intravenous, As needed, Starting on Tue12/22/20 at 1431, Anesthesia Intra-op documented in this encounter
--- OUTSIDE RECORDS SUMMARY | 2022-05-10 13:08 | XMS_ITS | Encounter Summary ---
:1935 Author Organization [facility] Address [address] [place] [address] Care Team Providers Name Role Phone Unavailable Primary Care Provider Unavailable Reason for Visit Reason Comments Pre-visit Testing Orders 10/21 ?orders Encounter Details Date Type Department Care Team Description 08/08/2020 Clinical Communication Division of Gerard Bhatia Pre- visit Testing Pulmonary Medicine Kallie Ramey Orders (10/21 in [place] [address] [address] [facility] ?orders) [place] [address] [address] [facility] [address] [place], [place] [phone] [address] (Work) [phone] Social History Tobacco Use Types Packs/Day Years [...] 10/21/2020 relatives? How often do you attend islam or cheondoism services? Patien t refused 10/21/2020 Do you belong to any clubs or organizations such as Yes 10/21/2020 islam groups, unions, fraternal or athletic groups, or [...] slept in a senior care (including now)? Sex Assigned at Date Recorded Not on file documented as of this encounter Miscellaneous Notes Telephone Encounter - Jennifer Subramanian - 08/15/2020 1:07 PM CST Checking on status of request. Thank you ON BROACHER Telephone Encounter - Jennifer Subramanian - 08/08/2020 11:[address] Bhatia, Patient is coming to follow up with you. Last Seen: 03/27/2020 Future Appointment Date: 10/21/2020 Prior Indication(s): Diffuse bronchiectasis New Symptoms: increased SOB, using Neb more and in middle of night, feels unable to breath Testing Order: none, nothing listed in note Please place any orders for testing that you would like to have done. Thank you! ON BROACHER documented in this encounter Plan of Treatment Not on filedocumented as of this encounter Results DX Chest AP or [...] Visit Diagnoses Diagnosis Bronchiectasis (HCC) - Primary Bronchiectasis (HCC) documented in this encounter
--- OUTSIDE RECORDS SUMMARY | 2022-05-10 13:08 | XMS_ITS | Encounter Summary ---
:1935 Author Organization [facility] Address [address] [place] [address] Care Team Providers Name Role Phone Unavailable Primary Care Provider Unavailable Reason for Referral Outpatient (Routine) - Closed Specialty Diagnoses / Procedures Referred By Contact Refer red To Contact Nephrology and Diagnoses Hypertension Essential Primary Allison Sandoval [facility] Hypertension M.DKalyani [address] [place] [address] Referral ID Status Reason Start Date Expiration Date Visits Requ ested Visits Authorized [id number] Closed 12/23/2020 12/23/2021 1 1 Outpatient (Routine) - Closed Specialty Diagnoses / Procedures Referred By Contact Refer red To Contact Diagnoses Lichen Planus Esophagus Allison Sandoval M.D. [facility] Procedures EGD (EsophagealGastroDuodenoscopy) [address] [place] [address] Referral ID Status Reason Start Date Expiration Date Visits Requ ested Visits Authorized [id number] Closed 12/23/2020 12/23/2021 1 1 Encounter Details Date Type Department Care Team Description 12/23/2020 Orders Only Division of Allison Sandoval Lichen Planu s Esophagus (Primary Dx); Gastroenterology carmen Arango M.D. Hypertension Essential Primary [place], [place] [address] [facility] [address] [place] [address] [phone] Social History Tobacco Use Types Packs/Day Years [...] 10/21/2020 relatives? How often do you attend gnosticism or sikhism services? Patien t refused 10/21/2020 Do you belong to any clubs or organizations such as Yes 10/21/2020 gnosticism groups, unions, fraternal or athletic groups, or [...] Name Type Priority Associated Diagnoses Order S skylar Nephrology and Outpatient Routine Hypertension 1 Occurrences Hypertension - Referral Essential Primary starting Resistant 12/23/2020 unti l hypertension consult 024 (clinic) documented as of this encounter Results NEP Blood pressure check 6 hr (12/25/2020 3:04 PM CDT) Specimen (Source) Anatomical Location Collection Method / Collectio n Time Received Time / Laterality Volume Narrative This result has an attachment that is no t available. Allison Sandoval M.D. PFT ORDERABLES Performing Organization Address City/State/ZIP Code Phon e Number [facility]ODAL (ABNORMAL) Urinalysis with Microscopic: Urine, Midstream (12/23/2020 [...] City/State/ZIP Code Phon e Number [facility] - [address] [place], [place] [address] [facility] [place] [address] [facility] [address] [facility] (ABNORMAL) Basic Metabolic Panel (12/23/2020 10:20 AM CDT) Analysis Performed At Patho logist Time Signature Potassium, S 5.2 3.6 - 5.2 12/23/2020 DTL mmol/L 11:18 AM CDT Sodium, S 136 135 - 145 12/23/2020 DTL mmol/L 11:18 AM CDT Chloride, S 99 98 - 107 12/23/2020 DTL mmol/L 11:18 AM CDT Bicarbonate, S 26 22 - 29 12/23/2020 DTL mmol/L 11:18 AM CDT Anion Gap 11 7 - 15 12/23/2020 DTL 11:18 AM CDT BUN (Blood Urea 16 6 - 21 12/23/2020 DTL Nitrogen), S mg/dL 11:18 AM CDT Creatinine 1.11 (H) 0.59 - 12/23/2020 DTL 1.04 mg/dL 11:18 AM CDT eGFR-Non 46 (L) >=60 12/23/2020 DTL Black/ mL/min/BSA 11:18 AM CDT [place] Island[place] Comment: ----ADDITIONAL INFORMATION---- Estimated GFR calculated using the 2009 CKD_EPI creatinine equation. eGFR-Black/ 53 (L) >=60 mL/min/BSA 2020 11:18 AM CDT DTL Comment: ----ADDITIONAL INFORMATION---- Estimated GFR calculated using the 2009 CKD_EPI creatinine equation. Calcium, Total, S 9.2 8.8 - 10.2 mg/dL 12/23/2020 11:1 8 AM CDT DTL Glucose, S 98 70 - 140 mg/dL 12/23/2020 11:18 AM CDT DTL Specimen Anatomical Collection Method Collection Time Receive d Time (Source) Location / / Volume Laterality Blood (Blood, 12/23/2020 10:20 12/23/2020 Venous) AM CDT 10:42 AM CDT Allison Sandoval M.D. LAB BLOOD ADD-ON Performing Organization Address City/State/ZIP Code Phon e Number [facility] - [address] [place], [place] [address] [facility] [place] [address] [facility] [address] documented in this encounter Visit Diagnoses Diagnosis Lichen Planus Esophagus - Primary Hypertension Essential Primary documented in this encounter
--- OUTSIDE RECORDS SUMMARY | 2022-05-10 13:08 | XMS_ITS | Encounter Summary ---
:1935 Author Organization [facility] Address [address] [place] [address] Care Team Providers Name Role Phone Unavailable Primary Care Provider Unavailable Reason for Referral Outpatient (Routine) - Closed Specialty Diagnoses / Procedures Referred By Contact Refer red To Contact Diagnoses Lichen Planus Esophagus Allison Sandoval M.D. [facility] Procedures EGD [address] [place] [address] Referral ID Status Reason Start Date Expiration Date Visits Requ ested Visits Authorized [id number] Closed 12/02/2020 12/02/2021 1 1 Reason for Visit Outpatient (Routine) - Closed Specialty Diagnoses / Procedures Referred By Contact Refer red To Contact Diagnoses Lichen Planus Esophagus Allison Sandoval M.D. [facility] Procedures EGD [address] [place], [place] [address] Referral ID Status Reason Start Date Expiration Date Visits Requ ested Visits Authorized [id number] Closed 12/02/2020 12/02/2021 1 1 Encounter Details Date Type Department Care Team Description 12/22/2020 Hospital Division of Allison Sandoval M.D. [address] [place] [phone] Lichen Planus Encounter Gastroenterology in Stacy Rich, RECORDS ASSOCIATE, RETAIL STOCK CLERK, MNA Esophagus [place], [place] [address] [place] [address] Social History Tobacco Use Types Packs/Day Years [...] How often do you attend mormonism or adventist services? Patien t refused 10/21/2020 Do you [...] Sign Reading Time Taken Comments Blood Pressure 169/83 12/22/2020 3:31 PM CDT Pulse 75 12/22/2020 3:41 PM CDT Temperature 36.6 ??C (97.9 ??F) 12/22/2020 2:56 PM CDT Respiratory Rate 17 12/22/2020 3:41 PM CDT Oxygen Saturation 94% 12/22/2020 3:41 PM CDT Inhaled Oxygen Concentration - - Weight 50.9 kg (112 lb 3.4 oz) 12/22/2020 1:22 PM CDT Height - - Body Mass Index 19.83 10/21/2020 11:15 AM CDT documented in this encounter Medications at Time of Discharge Medication Sig Dispensed Refills Start Date End Date losartan (COZAAR) 50 mg Take 100 mg by 1 12/09/19 19 tablet mouth daily. sotaloL (BETAPACE) 80 mg Take 80 mg by mouth 0 tablet 2 (two) times a day. warfarin (COUMADIN) 1 mg Take 1 mg by mouth. 0 tablet 1 mg on //Tue/Tue albuterol (ACCUNEB) 2.5 mg Nebulize 1 vial 2-4 360 mL 11 11/10/2018 /3 mL nebulizer times daily. solutionIndications: Bronchiectasis (HCC) hydroCHLOROthiazide Take 12.5 mg by 0 03/19/2020 (MICROZIDE) 12.5 mg mouth daily. capsule sodium chloride 0.9 % Inhale 3 mL by 0 08/21/2020 nebulizer solution nebulization daily. warfarin (COUMADIN) 2 mg Take 2 mg [...] times a day. predniSONE (DELTASONE) 2.5 0 01/30/2021 mg tablet primidone (MYSOLINE) 50 mg [...] Diagnosis Comme nts UPPER GI ENDOSCOPY Routine 12/22/2020 2:15 PM Lichen Planus Re sults for this CDT Esophagus procedure are i n the results section. EGD Routine 12/22/2020 2:15 PM Lichen Planus (ESOPHAGEALGASTRODU CDT Esophagus ODENOSCOPY) INR, POCT, B Routine 12/22/2020 1:25 PM Results f or this CDT procedure are i n the results section. documented in this encounter Results Upper GI Endoscopy (12/22/2020 2:15 PM CDT) Specimen (Source) Anatomical Collection Method Collection Time Re ceived Time Location / / Volume Laterality 12/22/2020 2:15 PM CDT Impressions [facility] - 12/22/2020 2:51 PM CDT Post-op Diagnoses: ? - Normal examined duodenum. ? - Cystic fundic gland polyps were incidentally noted in the gastric body ? and fundus. ? - Benign-appearing esophageal kenny nosis. Dilated to 16mm. ? - Esophageal plaques were found, consistent with candidiasis. ? - No specimens collected. Narrative [facility] - 12/22/2020 2:51 PM CDT Gonda 2 GI Patient Name: Carmen Herman Date of : 1935 Age: 85 Gender: Female Procedure Date: 12/22/2020 Procedure: ? Upper GI endoscopy Providers: ? Raciel Severino MD Referring Provider: ?Allison keller MD Pre-op Diagnoses: ?For therapy of esophageal stricture Recommendation: ? - The patient will be observed po st-procedure, until all discharge ? criteria are met. ? - Return to referring physician a s previously scheduled. Findings: ? The examined duodenum was normal. ? Cystic fundic gland polyps were i ncidentally noted in the gastric body ? and fundus. ? The exam of the stomach was other wilkins normal. ? One benign-appearing, intrinsic m ild stenosis was found 27 cm from the ? incisors. This stenosis was gilles h and difficult to determine its ? diameter but in retrospect it joaquina sured roughly 1.3 to 1.4 cm (inner ? diameter) x 2 cm (in length). The stenosis was traversed. A guidewire ? was placed and the scope was with drawn. Dilation was performed with a ? Savary dilator with no resistance and no mucosal disruption at 11 mm and ? 12.8 mm and mild resistance at 15 mm and 16 mm with minor mucosal ? disruption at 15 and appropriate disruption at 16mm. ? Diffuse, yellow plaques were foun d in the upper third of the esophagus. Procedural Details: ? The patient was seen, [...] oxygen saturations ? were monitored continuously. The Pediatric Gastroscope was introduced ? through the mouth, and advanced t o the second part of duodenum. The ? upper GI endoscopy was accomplish ed without difficulty. The patient ? tolerated the procedure well. Complications: ? No immedia te complications. Estimated Blood Loss: ?Estimated blo od loss: none. Attending Participation: I personally pe rformed the entire procedure. Raciel Severino MD 12/22/2020 2:51:48 PM This report has been signed electronical ly. Number of Addenda: 0 Note Initiated On: 12/22/2020 2:15 PM Allison Sandoval M.D. GI PROCEDURE ORDERABLES Performing Organization Address City/[facility]/ZIP Code Phon e Number [facility] NA INR, POCT (12/22/2020 1:25 PM CDT) P athologist Signature INR, POCT, B 1.5 12/22/2020 [facility] 1[facility]30 PM CDT Comment: ----ADDITIONAL INFORMATION---- Standard intensity warfarin therapeutic range: 2.0 to 3.0 ?? High intensity warfarin therapeutic rang e: 2.5 to 3.5 Specimen Anatomical Collection Method Collection Time Receive d Time (Source) Location / / Volume Laterality Blood 12/22/2020 1:25 PM 1:30 CDT PM CDT Unknown Provider LAB POCT ORDERABLES - DEVICE Performing Organization Address City/State/ZIP Code Phon e Number [facility] [address] [place] [id number] OUTPATIENT LABS [address] POC [address] [place]AH documented in this encounter Visit Diagnoses Diagnosis Lichen Planus Esophagus documented in this encounter
--- OUTSIDE RECORDS SUMMARY | 2022-05-10 13:08 | XMS_ITS | Encounter Summary ---
:1935 Author Organization [facility] Address [address] [place] [address] Care Team Providers Name Role Phone Unavailable Primary Care Provider Unavailable Reason for Referral Outpatient (Routine) - Closed Specialty Diagnoses / Procedures Referred By Contact Refer red To Contact Diagnoses Lichen Planus Esophagus Allison Sandoval M.D. [facility] Procedures EGD [address] [place] [address] Referral ID Status Reason Start Date Expiration Date Visits Requ ested Visits Authorized [id number] Closed 12/02/2020 12/02/2021 1 1 Encounter Details Date Type Department Care Team Description 12/01/2020 Clinical Communication Division of Allison Sandoval Gastroenterology carmen Arango M.D. [place], [place] [address] [facility] [address] [place] [phone] Social History Tobacco Use Types Packs/Day Years [...] 10/21/2020 relatives? How often do you attend presybeterian or gnosticist services? Patien t refused 10/21/2020 Do you belong to any clubs or organizations such as Yes 10/21/2020 presybeterian groups, unions, fraternal or athletic groups, or [...] place to sleep or slept in a fdc (including now)? Education Answer Date Recorded What is the highest level of school you have completed or 12 th grade 10/21/2020 the highest degree you have received? Sex Assigned at Date Recorded Not on file documented as of this encounter Plan of Treatment Not on filedocumented as of this encounter Visit Diagnoses Diagnosis Lichen Planus Esophagus - Primary documented in this encounter
--- OUTSIDE RECORDS SUMMARY | 2022-05-10 13:08 | XMS_ITS | Encounter Summary ---
:1935 Author Organization [facility] Address [address] [place] [address] Care Team Providers Name Role Phone Unavailable Primary Care Provider Unavailable Encounter Details Date Type Department Care Team Description 12/23/2020 Hospital Encounter Department of Allison Sandoval [facility] tension Laboratory Medicine Kallie Arango Essential Primary and Pathology, [address] [place] [address] in [facility] [address] [place] [phone] [place] [address] (Work) [facility] [place], [place] [phone] [address] (Fax) [phone] Social History Tobacco Use Types Packs/Day Years [...] 10/21/2020 relatives? How often do you attend christian or restorationism services? Patien t refused 10/21/2020 Do you belong to any clubs or organizations such as Yes 10/21/2020 christian groups, unions, fraternal or athletic groups, or [...] or slept in a halfway (including now)? Education Answer Date Recorded What [...] Name Priority Date/Time Associated Diagnosis Comme nts BASIC METABOLIC Routine 12/23/2020 10:20 Hypertension Results for this PANEL, S/P AM CDT Essential Primary procedure are in the results section. documented in this encounter Results (ABNORMAL) Basic Metabolic Panel (12/23/2020 10:20 AM [...] 12/23/2020 DTL Black/ mL/min/BSA 11:18 AM CDT Indonesian Comment: ----ADDITIONAL INFORMATION---- Estimated GFR calculated using [...] City/State/ZIP Code Phon e Number [facility] - [address] [place], [place] [address] [facility] [address] [facility] [address] documented in this encounter Visit Diagnoses Diagnosis Hypertension Essential Primary documented in this encounter
--- OUTSIDE RECORDS SUMMARY | 2022-05-10 13:08 | XMS_ITS | Encounter Summary ---
:1935 Author Organization [facility] Address [address] [place] [address] Care Team Providers Name Role Phone Unavailable Primary Care Provider Unavailable Encounter Details Date Type Department Care Team Description 03/28/2020 Hospital Encounter Department of Gerard Bhatia Bronchi ectasis (HCC); Laboratory Medicine Kallie Ramey Cough Chronic and Pathology, [address] [place] [address] in [facility] [address] [place] [phone] [place] [address] (Work) [place], [place] [phone] [address] (Fax) [phone] Social History Tobacco Use Types Packs/Day Years [...] 10/21/2020 relatives? How often do you attend episcopalian or worship services? Patien t refused 10/21/2020 Do you belong to any clubs or organizations such as Yes 10/21/2020 episcopalian groups, unions, fraternal or athletic groups, or [...] or slept in a chcf (including now)? Sex Assigned at Date Recorded [...] Associated Diagnosis Comme nts MYCOBACTERIAL Routine 04/02/2020 1:37 Bronchiectasis ( HCC) Results for this CULTURE, V PM CDT Cough Chronic procedure are in the results section. ACID FAST SMEAR FOR Routine 04/02/2020 1:37 Bronchiectas is (HCC) Results for this MYCOBACTERIUM PM CDT Cough Chronic procedure are in the results section. documented in this encounter Results Mycobacterial Culture (04/02/2020 1:37 PM CDT) DDStocks Method Time Signature Mycobacterial No growth 05/21/2020 DTL Culture after 42 1:05 AM EMERGENCY DISPATCH OPERATOR days of incubation . Specimen Anatomical Collection Method Collection Time Receive d Time (Source) Location / / Volume Laterality Sputum (Sputum) 04/02/2020 1:37 PM 2019 5:40 CDT PM EMERGENCY DISPATCH OPERATOR Comment: Specimen Source Site: Sputum Gerard Bhatia M.D. LAB MICROBIOLOGY - GENERAL O RDERABLES Performing Organization Address City/State/ZIP Code Phon e Number [facility] - [address] [place], [place] [address] [facility] [place] [address] Laboratories-[facility] [address] Acid Fast Smear For Mycobacterium (04/02/2020 1:37 PM CDT) DDStocks Method Time Signature Acid Fast Smear Negative. 04/08/2020 DTL For Mycobacterium 11:16 PM EMERGENCY DISPATCH OPERATOR Specimen Anatomical Collection Method Collection Time Receive d Time (Source) Location / / Volume Laterality Sputum (Sputum) 04/02/2020 1:37 PM 2019 5:40 CDT PM EMERGENCY DISPATCH OPERATOR Comment: Specimen Source Site: Sputum Gerard Bhatia M.D. LAB MICROBIOLOGY - GENERAL O RDERABLES Performing Organization Address City/State/ZIP Code Phon e Number [facility] - [address] [place], [place] [address] [facility] [place] [address] [facility] [address] documented in this encounter Visit Diagnoses Diagnosis Bronchiectasis (HCC) Chronic Cough documented in this encounter
--- OUTSIDE RECORDS SUMMARY | 2022-05-10 13:08 | XMS_ITS | Encounter Summary ---
:1935 Author Organization [facility] Address [address] [place] [address] Care Team Providers Name Role Phone Unavailable Primary Care Provider Unavailable Reason for Visit Reason Comments COVID Inquiry Encounter Details Date Type Department Care Team Description 12/01/2020 Clinical Communication Division of MIKE Sandoval Gastroenterology in [place] Rodríguez [place], [place] [address] [facility] [address] [place] [address] [phone] Social History Tobacco Use Types Packs/Day Years [...] 10/21/2020 relatives? How often do you attend cheondoism or sabianism services? Patien t refused 10/21/2020 Do you belong to any clubs or organizations such as Yes 10/21/2020 cheondoism groups, unions, fraternal or athletic groups, or [...] this encounter Miscellaneous Notes Telephone Encounter - Katja Cano Rubi - 12/01/2020 10:33 AM CDT What is the purpose of the call?: Standard Appointment Process Standard Appointment Process Have you tested positive for COVID-19 in the last 20 days OR do you have a pending COVID-19 test because you had symptoms?: No, neither apply What region is the appointment being requested?: More than 14 days Boaz- follow local process (End Screening) Testing Recommendation Endpoint Is testing recommended? : Not recommended to test Plan: Endpoint recommendation: Followed regional OTG *Reminder if sending patient for testing in [facility], route encounter to the correct testing pool. documented in this encounter Plan of Treatment Not on filedocumented as of this encounter Visit Diagnoses Not on filedocumented in this encounter
--- OUTSIDE RECORDS SUMMARY | 2022-05-10 13:08 | XMS_ITS | Encounter Summary ---
:1935 Author Organization [facility] Address [address] [place] [address] Care Team Providers Name Role Phone Unavailable Primary Care Provider Unavailable Reason for Visit Appointment Request (Routine) - Closed Specialty Diagnoses / Procedures Referred By Contact Refer red To Contact Pulmonary Medicine Referral ID Status Reason Start Date Expiration Date Visits Requ ested Visits Authorized [id number] Closed 08/05/2020 08/05/2021 1 1 Encounter Details Date Type Department Care Team Description 10/21/2020 Office Visit Division of Pulmonary Gerard Bhatia Br onchiectasis (HCC) (Primary Dx); Medicine in M.D. Personal History Of Infectious And Parth itic Disease (COVID-19) [place], [place] [address] [facility] [address] [place] [address] [phone] Social History Tobacco Use Types Packs/Day Years [...] 10/21/2020 relatives? How often do you attend mormon or rastafari services? Patien t refused 10/21/2020 Do you belong to any clubs or organizations such as Yes 10/21/2020 mormon groups, unions, fraternal or athletic groups, or [...] Sign Reading Time Taken Comments Blood Pressure 168/90 10/21/2020 11:15 AM CDT Pulse 73 10/21/2020 11:15 AM CDT Temperature 36.1 ??C (97 ??F) 10/21/2020 11:15 AM CDT Respiratory Rate - - Oxygen Saturation 99% 10/21/2020 11:15 AM CDT Inhaled Oxygen Concentration - - Weight 52.6 kg (115 lb 15.4 oz) 10/21/2020 11:15 AM CDT Height 160.2 cm (5' 3.07) 10/21/2020 11:15 AM CDT Body Mass Index 20.5 10/21/2020 11:15 AM CDT documented in this encounter Progress Notes Gerard Bhatia M.D. - 10/21/2020 11:30 AM CDT SUBJECTIVE CHIEF COMPLAINT/REASON FOR VISIT Re-evaluation [...] been maintained on a pulmonary hygiene regimen, without evidence of either chronic respiratory infection or recurrent respiratory exacerbations. She has had an eventful past 6 months. She developed COVID pneumonia in April 2020, laboratory confirmed. She experienced shortness of breath, cough, generalized aching, and fatigue, but fortunatelyshe never required hospitalization and she was able to recover while isolated at home. Subsequent toher acute COVID course, she has experienced persistent fatigue and aching, and she has never felt that she has quite gotten back to her previous baseline. Her course was then further complicated by an acute bronchiectasis exacerbation in August, which required hospitalization. She did well with antibiotic treatment and aggressive pulmonary hygiene during the hospitalization, and she was able to recover back to pre-hospitalization baseline. Currently, she remains adherent to pulmonary hygiene, utilizing DuoNeb followed by nebulized saline twice daily. She has been started on Trelegy Ellipta, which she uses daily. She is also completing anextended prednisone taper, and she is now down to prednisone 2.5 mg daily. Cough is about back to usual baseline, while exertional dyspnea has progressed a bit over the past year, and energy has reallynever recovered from her acute COVID-19 course. OBJECTIVE PHYSICAL EXAMINATION Vital Signs: Oxygen saturation is 99% on room air. General: Well appearing. No coughing during evaluation. Heart: Regular rate and rhythm. Lungs: Somewhat distant breath sounds, but clear throughout. Extremities: No peripheral edema. DIAGNOSTICS Chest x-ray performed 10/21/2020 demonstrates diffuse bronchiectasis with bilateral bronchial wall thickening, which may have increased since 02/18/2020. There are also increased nodular airspace opacities throughout both lungs as compared to prior. ASSESSMENT / PLAN #1 Diffuse bronchiectasis #2 History of COVID-19 pneumonia, April 2020 #3 Recent bronchiectasis exacerbation requiring hospitalization, August 2020 #4 History of pulmonary nocardiosis, status post successful treatment 2014 to 2015 #5 Atrial fibrillation, on antiarrhythmic therapy #6 Essential tremor with voice tremor Mrs. Herman has had an eventful 6 months with experience of COVID-19 pneumonia and separate bronchiectasis exacerbation requiring hospitalization. Fortunately, she has recovered quite well from both events, and while she has had slight increase in dyspnea and worsening of fatigue over the past 6 months, she is doing reasonably well overall, and her respiratory status now seems to be optimized. Moving forward, the mainstay of treatment will continue to be bronchial hygiene. This should be further supplemented with bronchodilation. There is limited role for steroid therapy given her underlying pulmonary pathology, so my primary advice today is to proceed with off-titration of prednisone and to attempt to withdraw the inhaled corticosteroid. PLAN: 1. Adjust inhaler therapy to transition from Trelegy Ellipta to Anoro Ellipta, so long as insurance will cover Anoro equally. In the setting of bronchiectasis, there is limited role for inhaled corticosteroids, which tend to place individuals at higher risk for pneumonia or chronic respiratory infection, so it would be preferable to withdrawal the inhaled corticosteroid. 2. Proceed with prednisone taper with goal of discontinuation of prednisone altogether in the short term. 3. Continue bronchial hygiene via twice daily nebulized DuoNeb, nebulized normal saline, and bronchial clearance maneuvers. 4. Return to Pulmonary Clinic on an as-needed basis. Gerard Bhatia M.D. CT CT Job ID: [id number] documented in this encounter Plan of Treatment Not on filedocumented as of this encounter Visit Diagnoses Diagnosis Bronchiectasis (HCC) - Primary Personal History Of Infectious And Parth itic Disease (COVID-19) documented in this encounter
--- OUTSIDE RECORDS SUMMARY | 2022-05-10 13:08 | XMS_ITS | Encounter Summary ---
:1935 Author Organization [facility] Address [address] [place] [address] Care Team Providers Name Role Phone Unavailable Primary Care Provider Unavailable Encounter Details Date Type Department Care Team Description 03/28/2020 Hospital Encounter Department of Gerard Bhatia Bronchi ectasis (HCC); Laboratory Medicine Kallie Ramey Cough Chronic and Pathology, [address] [place] [address] in [facility] [address] [place] [phone] [place] [address] (Work) [place], [place] [phone] [address] (Fax) [phone] Social History Tobacco Use Types Packs/Day Years [...] 10/21/2020 relatives? How often do you attend restoration or yazidism services? Patien t refused 10/21/2020 Do you belong to any clubs or organizations such as Yes 10/21/2020 restoration groups, unions, fraternal or athletic groups, or [...] or slept in a fdc (including now)? Sex Assigned at Date Recorded [...] Date/Time Associated Diagnosis Comme nts MYCOBACTERIAL Routine 04/04/2020 10:30 Bronchiectasis (HCC) Results for this CULTURE, V AM CDT Cough Chronic procedure are in the results section. ACID FAST SMEAR FOR Routine 04/04/2020 10:30 Bronchiecta sis (HCC) Results for this MYCOBACTERIUM AM CDT Cough Chronic procedure are in the results section. documented in this encounter Results Mycobacterial Culture (04/04/2020 10:30 AM CDT) Aprimo Method Time Signature Mycobacterial No growth 05/21/2020 DTL Culture after 42 1:05 AM BEVERAGE SALES CONSULTANT days of incubation . Specimen Anatomical Collection Method Collection Time Receive d Time (Source) Location / / Volume Laterality Sputum (Sputum) 04/04/2020 10:30 04/08/20 20 5:42 AM CDT PM BEVERAGE SALES CONSULTANT Comment: Specimen Source Site: Sputum Gerard Bhatia M.D. LAB MICROBIOLOGY - GENERAL O RDERABLES Performing Organization Address City/State/ZIP Code Phon e Number [facility] - [address] [place], [place] [address] [facility] [place] [address] Laboratories[facility] [address] Acid Fast Smear For Mycobacterium (04/04/2020 10:30 AM CDT) Aprimo Method Time Signature Acid Fast Smear Negative. 04/08/2020 DTL For Mycobacterium 11:11 PM BEVERAGE SALES CONSULTANT Specimen Anatomical Collection Method Collection Time Receive d Time (Source) Location / / Volume Laterality Sputum (Sputum) 04/04/2020 10:30 04/08/20 20 5:42 AM CDT PM BEVERAGE SALES CONSULTANT Comment: Specimen Source Site: Sputum Gerard Bhatia M.D. LAB MICROBIOLOGY - GENERAL O RDERABLES Performing Organization Address City/State/ZIP Code Phon e Number [facility] - [address] [place], [place] [address] [facility] [place] [address] [facility] [address] documented in this encounter Visit Diagnoses Diagnosis Bronchiectasis (HCC) Chronic Cough documented in this encounter
--- OUTSIDE RECORDS SUMMARY | 2022-05-10 13:08 | XMS_ITS | Encounter Summary ---
:1935 Author Organization [facility] Address [address] [place] [address] Care Team Providers Name Role Phone Unavailable Primary Care Provider Unavailable Reason for Visit Outpatient (Routine) - Closed Specialty Diagnoses / Procedures Referred By Contact Refer red To Contact Diagnoses Hypertension Essential Primary Allison Sandoval M.D. [facility] Procedures US Kidneys with Renal Artery Doppler US Kidneys Bilateral with Bladder [address] [place] [address] Referral ID Status Reason Start Date Expiration Date Visits Requ ested Visits Authorized [id number] Closed 12/23/2020 12/23/2021 1 1 Encounter Details Date Type Department Care Team Description 12/23/2020 Hospital Encounter Department of Allison Sandoval Hyper tension Radiology, Liudmila Arango M.D. Essential Primary Building, in [address] [facility] [phone] [place] [address] [place], [place] (Work) [phone] Social History Tobacco Use Types Packs/Day Years [...] 10/21/2020 relatives? How often do you attend jew or gnosticist services? Patien t refused 10/21/2020 Do you belong to any clubs or organizations such as Yes 10/21/2020 jew groups, unions, fraternal or athletic groups, or [...] place to sleep or slept in a penitentiary (including now)? Education Answer Date Recorded What [...] umeclidinium-vilanteroL Inhale 1 puff once 60 each 11 10/0412/24/2021 (ANORO ELLIPTA) 62.5-25 daily. mcg/actuation inhalerIndications: Bronchiectasis (HCC) documented as of this encounter Plan of Treatment Not on filedocumented as of this encounter Procedures Procedure Name Priority Date/Time Associated Comments Diagnosis US KIDNEYS WITH RAD - Routine 12/23/2020 3:58 Hypertension Results for this RENAL ARTERY (most inpatients PM CDT Essential Primary proced ure are in DOPPLER and all the results outpatients) section. documented in this encounter Results US Kidneys with Renal Artery Doppler (12/23/2020 3:58 PM CDT) Anatomical Region Laterality Modality Abdomen, Renal, Ultrasound RST LOS, Ultrasound ARZ LOS, N/A Ultrasound Ultrasound FLA LOS, Procedural Specimen (Source) Anatomical Collection Method Collection Time Re ceived Time Location / / Volume Laterality 12/23/2020 3:59 PM CDT Impressions 12/23/2020 4:01 PM CDT 1. Normal renal parenchymal thickness and echogenicity bilaterally. 2. Single renal arteries bilaterally wit h out Doppler evidence of hemodynamically significant stenosis. 3. No hydronephrosis in either kidney. Narrative 12/23/2020 4:01 PM CDT EXAM: US KIDNEYS WITH RENAL ARTERY DOPPLER Exam performed with color and spectral D oppler analysis. COMPARISON: CT abdomen and pelvis 013 FINDINGS: Right kidney: Normal echogenicity and pa renchymal thickness. No hydronephrosis. Right renal artery: Negative for stenosi s; single vessel well seen. ?? Left kidney: Normal echogenicity and par enchymal thickness. No hydronephrosis. Left renal artery: Negative for stenosis ; single vessel well seen. ?? Right Renal Measurements: Right renal length: 8.6 cm Right segmental artery - upper pole RI: 0.69 Right segmental artery - lower pole RI: 0.75 Right renal artery origin PSV: 50 cm/s Right renal artery prox PSV: 61 cm/s Right renal artery mid PSV: 76 cm/s Right renal artery distal PSV: 61 cm/s Left Renal Measurements: Left renal length: 9.2 cm Left segmental artery - upper pole RI: 0 .75 Left segmental artery - lower pole RI: 0 .72 Left renal artery origin PSV: 63 cm/s Left renal artery prox PSV: 84 cm/s Left renal artery mid PSV: 110 cm/s Left renal artery distal PSV: 98 cm/s Aorta: Normal caliber. Aorta PSV: 39 cm/s Bladder: Normal. Procedure Note Any Quan M.D. - 12/23/2020Formatt ing of this note might be different from the original. EXAM: US KIDNEYS WITH RENAL ARTERY DOPPL ER Exam performed with color and spectral D oppler analysis. COMPARISON: CT abdomen and pelvis 013 FINDINGS: Right kidney: Normal echogenicity and pa renchymal thickness. No hydronephrosis. Right renal artery: Negative for stenosi s; single vessel well seen. Left kidney: Normal echogenicity and par enchymal thickness. No hydronephrosis. Left renal artery: Negative for stenosis ; single vessel well seen. Right Renal Measurements: Right renal length: 8.6 cm Right segmental artery - upper pole RI: 0.69 Right segmental artery - lower pole RI: 0.75 Right renal artery origin PSV: 50 cm/s Right renal artery prox PSV: 61 cm/s Right renal artery mid PSV: 76 cm/s Right renal artery distal PSV: 61 cm/s Left Renal Measurements: Left renal length: 9.2 cm Left segmental artery - upper pole RI: 0 .75 Left segmental artery - lower pole RI: 0 .72 Left renal artery origin PSV: 63 cm/s Left renal artery prox PSV: 84 cm/s Left renal artery mid PSV: 110 cm/s Left renal artery distal PSV: 98 cm/s Aorta: Normal caliber. Aorta PSV: 39 cm/s Bladder: Normal. IMPRESSION: 1. Normal renal parenchymal thickness an d echogenicity bilaterally. 2. Single renal arteries bilaterally wit h out Doppler evidence of hemodynamically significant stenosis. 3. No hydronephrosis in either kidney. Allison HSI[facility] US PROCEDURES documented in this encounter Visit Diagnoses Diagnosis Hypertension Essential Primary documented in this encounter
--- OUTSIDE RECORDS SUMMARY | 2022-05-10 13:08 | XMS_ITS | Encounter Summary ---
:1935 Author Organization [facility] Address [address] [place] [address] Care Team Providers Name Role Phone Unavailable Primary Care Provider Unavailable Reason for Visit Outpatient (Routine) - Closed Specialty Diagnoses / Referred By Referred To Cont act Procedures Contact Gastroenterology and Diagnoses Esophagitis Kalani (HCC) Personal History Of Other Diseases Of The Digestive System [facility] [place] [address] [place] [address] Referral ID Status Reason Start Date Expiration Date Visits Requ ested Visits Authorized [id number] Closed 10/21/2020 10/21/2021 1 1 Encounter Details Date Type Department Care Team Description 12/23/2020 Office Visit Division of Allison Sandoval Esophagitis Kalani (HCC); Gastroenterology carmen Arango M.D. Personal History Of Other Diseases Of Th e Digestive System [place], [place] [address] [facility] [address] [place] [address] [phone] Social History Tobacco Use Types Packs/Day Years [...] 10/21/2020 relatives? How often do you attend methodist or synagogue services? Patien t refused 10/21/2020 Do you belong to any clubs or organizations such as Yes 10/21/2020 methodist groups, unions, fraternal or athletic groups, or [...] on file documented as of this encounter Consult Notes Allison Sandoval M.D. - 12/23/2020 10:00 AM CDT Outpatient Consultation Date of Consultation: 12/23/2020 Referring Physician: Gonzalez Mckay M.D. Primary Care Physician: No primary care provider on file. Chief Complaint/Reason for Consult: No primary diagnosis found. History of Present Illness: Ms. Herman is a very pleasant 85 y.o. female who is well known to me, she returns for a follow-up visit following endoscopy yesterday with Savary dilation up to 16 mm. Her esophageal stricture is located 27 cm from the incisors with an approximate pre dilation diameter of 1.3 cm in length of 2 cm. Esophageal candidiasis was observed. She reports marked improvement in her swallowing following this procedure. Ms. Herman is struggling with control of her blood pressure. She keeps a log at home and reports systolic blood pressures in the 160s to 190s mmHg. She is currently on 3 antihypertensive agents including losartan sotalol and hydrochlorothiazide. She followed with her primary care doctor back homewho provided her with additional prescriptiond of inhalers. She inquires on the appropriate regimen for her bronchiectasis. Of note she saw Dr. Bhatia from Pulmonary Medicine on October 21, 2020 with recommendations on management. Review of Systems: All other systems reviewed and negative unless mentioned in the history of present illness or problem list. History Review: The following portions of the patient's history were reviewed and updated as appropriate: allergies, current medications, family history, medical history, social history, surgical history and problem list. Objective: Vital Signs: Blood pressure: 131/77, 127/77 Assessment/Plan: #1 Esophageal lichen planus with stricture, status-post dilation to 16 mm on December 22 2020 #2 Labile blood pressure on multiple antihypertensive agents #3 History of COVID-19 pneumonia, April 2020 #4 Atrial fibrillation, on anticoagulation #5 Diffuse bronchiectasis Ms. Herman returns for a follow-up visit. She reports improvement in swallowing from her endoscopic dilation performed yesterday. She will restart anticoagulation tomorrow. We will plan to repeat endoscopic dilation in 3 months. I have provided her with a prescription of Nystatin for 14 days to treat oral and esophageal candidiasis. She is on multiple antihypertensive agents and keeps a blood pressurelog at home reporting systolic blood pressures ranging in the 160-190s. Today in clinic her blood pressure is 131/77 mmHg. We will request an appointment in Nephrology hypertension clinic to review herblood pressure medication regimen. She was last seen in 2016. She had questions regarding her inhaler regimen and she will reach out to Dr. Bhatia for clarification. PATIENT EDUCATION Ready to learn, no apparent learning barriers were identified; learning preferences include listening. Explained diagnosis and treatment plan; patient expressed understanding of the content. documented in this encounter Plan of Treatment Not on filedocumented as of this encounter Visit Diagnoses Diagnosis Esophagitis Kalani (HCC) Personal History Of Other Diseases Of Th e Digestive System documented in this encounter
--- OUTSIDE RECORDS SUMMARY | 2022-05-10 13:09 | XMS_ITS | Encounter Summary ---
:1935 Author Organization [facility] Address [address] [place] [address] Care Team Providers Name Role Phone Unavailable Primary Care Provider Unavailable Encounter Details Date Type Department Care Team Description 12/16/2014 - Hospital Encounter HX RST SPEECH Becky Rodriguez, 12/23/2014 PATHOLOGY [employer] Social History Tobacco Use Types Packs/Day Years Used Date Smoking Tobacco: Never Assessed Alcohol Habits Answer Date Recorded How often [...] How often do you attend baptist or anglican services? Patien t refused 10/21/2020 Do you [...] or slept in a assisted (including now)? Sex Assigned at Date Recorded Not on file documented as of this encounter Last Filed Vital Signs Vital Sign Reading Time Taken Comments Blood Pressure - - Pulse - - Temperature - - Respiratory Rate - - Oxygen Saturation - - Inhaled Oxygen - - Concentration Weight 45.9 kg (101 lb 3.1 12/16/2014 9:44 AM Vital sign result oz) CDT from [facility]. Height - - Body Mass Index 17.88 12/05/2014 7:36 AM CDT documented in this encounter Medications at Time of Discharge Medication Sig Dispensed Refills Start Date End Date omeprazole (PriLOSEC) 40 Take 40 mg by mouth 0 12/24/[address] capsule 2 (two) times a day. documented as of this encounter Plan of Treatment Not on filedocumented as of this encounter Procedures Procedure Name Priority Date/Time Associated Diagnosis Comme nts FL SWALLOW FUNCTION Routine 12/16/2014 2:08 PM Re sults for this WITH VIDEO AND CDT procedure are in SPEECH the results section. documented in this encounter Results FL Swallow Function with Video and Speech (12/16/2014 2:08 PM CDT) Anatomical Region Laterality Modality Gastro Intestinal N/A Radiographic Imaging Specimen (Source) Anatomical Collection Method Collection Time Re ceived Time Location / / Volume Laterality 12/16/2014 2:08 PM CDT Impressions 12/16/2014 2:52 PM CDT 1. Normal swallowing mechanism. 2. Mildly improved narrowing of the dist al esophagus from lichen planus, but the narrowest point at the arch level is still very severe. FINDINGS: ??No penetration or aspiration with thin liquids, applesauce, or cookie. See speech pathology report for further details. Again seen is a tight esophageal strictu re at the level of the aortic arch, which narrows to 4 mm (not clearly changed from prior 5 mm). Applesauce and cookie consistencies are partially retained about this stricture. The distal esophagus joaquina sures 14 mm in diameter compared to 10 mm on the prior study. No esophageal plaques or ulcers are demonstrated. Esophageal peristalsis is intact. No spontaneous gastroesophageal reflux is witnessed. Electronically signed by: ?? Joan Sanches MD [id number] 16-Dec-2014 14:52 ?Hiram Gaviria MD [phone] 16-Dec-2014 14:52 Narrative 12/16/2014 2:52 PM CDT 16-Dec-2014 14:08:00 ??Exam: GI Esophagram w VS Therapist Indications: Stricture Esophagus ORIGINAL REPORT - 16-Dec-2014 14:52:00 EXAM: GI Esophagram w VS Therapist COMPARISON: ??Esophagram 09/24/2014. Procedure Note Onel Sanches M.D. - 09/01/2017Form atting of this note might be different from the original. 16-Dec-2014 14:08:00 Exam: GI Esophagram w VS Therapist Indications: Stricture Esophagus ORIGINAL REPORT - 16-Dec-2014 14:52:00 EXAM: GI Esophagram w VS Therapist COMPARISON: Esophagram 09/24/2014. IMPRESSION: 1. Normal swallowing mechanism. 2. Mildly improved narrowing of the dist al esophagus from lichen planus, but the narrowest point at the arch level is still very severe. FINDINGS: No penetration or aspiration w ith thin liquids, applesauce, or cookie. See speech pathology report for further details. Again seen is a tight esophageal strictu re at the level of the aortic arch, which narrows to 4 mm (not clearly changed from prior 5 mm). Applesauce and cookie consistencies are partially retained about this stricture. The distal esophagus measures 14 mm in diameter compared to 10 mm on the prior study. No esophageal plaques or ulcers are demonstrated. Esophageal peristalsis is intact. No spontaneous gastroesophageal reflux is witnessed. Electronically signed by: Joan Sanches MD [id number] 16-Dec-2014 14:52 Hiram Gaviria MD [phone] 16-Dec-2014 14:52 Allison HSIEH FLUOROSCOPY PROCEDURES documented in this encounter Visit Diagnoses Not on filedocumented in this encounter
--- OUTSIDE RECORDS SUMMARY | 2022-05-10 13:09 | XMS_ITS | Encounter Summary ---
:1935 Author Organization [facility] Address [address] [place] [address] Care Team Providers Name Role Phone Unavailable Primary Care Provider Unavailable Encounter Details Date Type Department Care Team Description 01/24/2019 Hospital Encounter Department of Gerard Bhatia Bronchi ectasis (HCC) Radiology, Ezra Ramey M.D. [facility], in [address] [place] [phone] [place] [address] [place], [place] (Work) [phone] Social History Tobacco Use [...] 10/21/2020 relatives? How often do you attend scientologist or zoroastrian services? Patien t refused 10/21/2020 Do you belong to any clubs or organizations such as Yes 10/21/2020 scientologist groups, unions, fraternal or athletic groups, or [...] slept in a senior living (including now)? Sex Assigned at Date Recorded Not on file documented as of this encounter Medications at Time of Discharge Medication Sig Dispensed Refills Start Date End Date albuterol (ACCUNEB) 2.5 Nebulize 1 vial 2-4 360 mL 11 12/2018 mg /3 mL nebulizer times daily. solutionIndications: Bronchiectasis (HCC) losartan (COZAAR) 50 mg Take 100 mg by 1 12/09/19 19 tablet mouth daily. warfarin (COUMADIN) 2 mg Take 2 mg by mouth. 0 tablet 2 mg on Mon/Wed/Fri dilTIAZem CD (CARDIZEM Take 120 mg by 1 9 10/21/2020 CD/CARTIA XT) 120 mg 24 mouth 2 (two) times hr capsule a day. omeprazole (PriLOSEC) 40 Take 40 mg by mouth 3 10/21/[address] capsule daily. omeprazole (PriLOSEC) 40 Take 40 mg by mouth 0 12/24/[address] capsule 2 (two) times a day. primidone (MYSOLINE) 50 TAKE TWO TABLETS BY 180 tablet 2 12/26/2021 mg tablet MOUTH THREE TIMES DAILY documented as of this encounter Plan of Treatment Not on filedocumented as of this encounter Procedures Procedure Name Priority Date/Time Associated Diagnosis Comme nts DX CHEST AP OR RAD - Routine 01/24/2019 8:12 Bronchiectasis (HCC) R esults for PA AND LATERAL 2 (most inpatients AM CDT this pr ocedure VIEWS and all are in the outpatients) results section. documented in this encounter Results DX Chest AP or PA and Lateral 2 Views (01/24/2019 8:12 AM CDT) Anatomical Region Laterality Modality Chest, Thoracic RST LOS, Thoracic ARZ LOS, Thoracic N/A Digital Radiography FLA LOS Specimen (Source) Anatomical Collection Method Collection Time Re ceived Time Location / / Volume Laterality 01/24/2019 8:40 AM CDT Impressions 01/24/2019 10:11 AM CDT No significant change since 09/18/2017. Multifocal and bilateral scarring greatest in the middle lobe and lingular scarring. Diffuse bronchial wall thickening and bronchiectasis. Pulm onary hyperinflation. No focal consolidation. Biapical scarring. Aortic calcification. Thoracolumbar curve. Narrative 01/24/2019 10:11 AM CDT EXAM: ??DX CHEST AP OR PA AND LATERAL 2 VIEWS Procedure Note Zara Dover M.D. - 01/24/2019Formatt ing of this note might be different from the original. EXAM: DX CHEST AP OR PA AND LATERAL 2 EWS IMPRESSION: No significant change since 09/18/2017. Multifocal and bilateral scarring greatest in the middle lobe and lingular scarring. Diffuse bronchial wall thickening and bronchiectasis. Pulm onary hyperinflation. No focal consolidation. Biapical scarring. Aortic calcification. Thoracolumbar curve. Gerard [facility] DIAGNOSTIC [facility] [place] [facility] documented in this encounter Visit Diagnoses Diagnosis Bronchiectasis (HCC) documented in this encounter
--- OUTSIDE RECORDS SUMMARY | 2022-05-10 13:09 | XMS_ITS | Encounter Summary ---
:1935 Author Organization [facility] Address [address] [place] [address] Care Team Providers Name Role Phone Unavailable Primary Care Provider Unavailable Encounter Details Date Type Department Care Team Description 09/23/2017 Orders Only Division of Allison Sandoval Obstruction Esophagus; Gastroenterology in L, NajmaD. Lichen Planus [place], [place] [address] [facility] [address] [place] [phone] Social History Tobacco Use Types Packs/Day Years [...] 10/21/2020 relatives? How often do you attend buddhist or pentecostal services? Patien t refused 10/21/2020 Do you belong to any clubs or organizations such as Yes 10/21/2020 buddhist groups, unions, fraternal or athletic groups, or [...] or slept in a snf (including now)? Sex Assigned at Date Recorded Not on file documented as of this encounter Plan of Treatment Not on filedocumented as of this encounter Visit Diagnoses Diagnosis Obstruction Esophagus Lichen Planus documented in this encounter
--- OUTSIDE RECORDS SUMMARY | 2022-05-10 13:09 | XMS_ITS | Encounter Summary ---
:1935 Author Organization [facility] Address [address] [place] [address] Care Team Providers Name Role Phone Unavailable Primary Care Provider Unavailable Encounter Details Date Type Department Care Team Description 01/09/2016 Hospital Encounter HX NO MAPPING Social History Tobacco Use Types Packs/Day Years [...] 10/21/2020 relatives? How often do you attend orthodox or jewish services? Patien t refused 10/21/2020 Do you belong to any clubs or organizations such as Yes 10/21/2020 orthodox groups, unions, fraternal or athletic groups, or [...] place to sleep or slept in a group home (including now)? Sex Assigned at Date Recorded [...]
--- OUTSIDE RECORDS SUMMARY | 2022-05-10 13:09 | XMS_ITS | Encounter Summary ---
:1935 Author Organization [facility] Address [address] [place] [address] Care Team Providers Name Role Phone Unavailable Primary Care Provider Unavailable Encounter Details Date Type Department Care Team Description 02/26/2015 Hospital Encounter HX NO MAPPING Social History [...] 10/21/2020 relatives? How often do you attend yazdanism or lutheran services? Patien t refused 10/21/2020 Do you belong to any clubs or organizations such as Yes 10/21/2020 yazdanism groups, unions, fraternal or athletic groups, or [...] place to sleep or slept in a alf (including now)? Sex Assigned at Date Recorded [...]
--- OUTSIDE RECORDS SUMMARY | 2022-05-10 13:09 | XMS_ITS | Encounter Summary ---
:[address] [facility] Address [address] [place] [address] Care Team Providers Name Role Phone Unavailable Primary Care Provider Unavailable Encounter Details Date Type Department Care Team Description 12/21/2017 Orders Only Department of Neurology in Aneesh Christie M.B., [place], [place] [facility] [address] [place] [address] Social History Tobacco Use Types Packs/Day Years [...] How often do you attend presybeterian or confucianist services? Patien t refused 10/21/2020 Do you [...] or slept in a penitentiary (including now)? Sex Assigned at Date Recorded Not on file documented as of this encounter Plan of Treatment Not on filedocumented as of this encounter Visit Diagnoses Not on filedocumented in this encounter
--- OUTSIDE RECORDS SUMMARY | 2022-05-10 13:09 | XMS_ITS | Encounter Summary ---
:1935 Author Organization [facility] Address [address] [place] [address] Care Team Providers Name Role Phone Unavailable Primary Care Provider Unavailable Encounter Details Date Type Department Care Team Description 09/18/2017 Hospital Encounter HX RST EMERGENCY Provider, Historic al TRAUMA UNI Social History Tobacco Use Types Packs/Day Years [...] How often do you attend restorationism or pentecostal services? Patien t refused 10/21/2020 [...] (PriLOSEC) 40 Take 40 mg by mouth 2 0 11/14/2014 12/24/[address] capsule (two) times a day. primidone (MYSOLINE) 50 Take 3 tablets by 0 05/1012/21/2017 mg tablet mouth 2 (two) times a day. documented as of this encounter Plan of Treatment Not on filedocumented as of this encounter Visit Diagnoses Not on filedocumented in this encounter
--- OUTSIDE RECORDS SUMMARY | 2022-05-10 13:09 | XMS_ITS | Encounter Summary ---
:1935 Author Organization [facility] Address [address] [place] [address] Care Team Providers Name Role Phone Unavailable Primary Care Provider Unavailable Encounter Details Date Type Department Care Team Description 03/24/2020 Hospital Encounter Department of Gerard Bhatia For Laboratory Medicine Kallie Ramey Screening For Other in [place] [address] [address] [facility] Viral Diseases [place], [place] (COVID-19) [address] [address] [place], [place] [phone] [address] (Work) [phone] Social History Tobacco Use Types Packs/Day Years [...] How often do you attend scientologist or adventist services? Patien t refused 10/21/2020 [...] or slept in a custodial (including now)? Sex Assigned at Date Recorded [...] 0 9 tablet mouth. 2 mg on Mon/Tue/Fri dilTIAZem CD (CARDIZEM Take 120 mg by [...] Associated Diagnosis Comme nts SARS CORONAVIRUS-2 Routine 03/24/2020 11:14 AM Encounter For R esults for this RNA, V CDT Screening For Other procedur e are in Viral Diseases the results (COVID-19) section. documented in this encounter Results SARS Coronavirus-2 RNA, V Asymptomatic (03/24/2020 11:14 AM CDT) [facility] Method Time Signature SARS-CoV-2 Swab, 03/24/2020 MKTO Specimen Nasopharynx 8:16 PM CDT Source SARS CoV-2 Undetected Undetected 03/24/2020 MKTO RNA, TMA 8:16 PM CDT Comment: SARS-CoV-2 RNA absent. This result does not rule out COVID-19 in the patient, as the sensitivity of the test depends o n the timing of the specimen collection and the quality of the specim en. Result should be correlated with patient's history and clinical presentat ion. ----ADDITIONAL INFORMATION---- This test is performed using the Aptima SARS-CoV-2 assay ([employer] which has received Emergency Use Authori zation (EUA) by the U.S. Food and Drug Administration. Fact sheets for this Emergency Use Autho rization (EUA) assay can be found at the following links: For Healthcare Providers: https://www.fd a.gov/media/614723/download For Patients: https://www.fda.gov/media/ 765673/download Specimen Anatomical Collection Method Collection Time Receive d Time (Source) Location / / Volume Laterality Varies 03/24/2020 11:14 03/24/2020 2:47 (Nasopharynx) AM CDT PM CDT Gerard Bhatia M.D. LAB MICROBIOLOGY - GENERAL O RDERABLES Performing Organization Address City/State/[facility] Phon e Number [facility]- [address] [place] [address] [place] [address] System in [place] [address] [place] [address] documented in this encounter Visit Diagnoses Diagnosis Encounter For Screening For Other Viral Diseases (COVID-19) documented in this encounter Additional Health Concerns Infection Onset Date Last Indicated Resolved Time COVID19 Pending 03/24/2020 03/24/2020 03/24/2020 8:17 PM CDT documented as of this encounter
--- OUTSIDE RECORDS SUMMARY | 2022-05-10 13:09 | XMS_ITS | Encounter Summary ---
:1935 Author Organization [facility] Address [address] [place] [address] Care Team Providers Name Role Phone Unavailable Primary Care Provider Unavailable Encounter Details Date Type Department Care Team Description 09/18/2017 - Hospital Encounter HX RST Cassandra Kemp, 09/19/2017 M.D. [address] [place] [address] Social History Tobacco Use Types Packs/Day Years [...] 10/21/2020 relatives? How often do you attend catholic or christianity services? Patien t refused 10/21/2020 Do you belong to any clubs or organizations such as Yes 10/21/2020 catholic groups, unions, fraternal or athletic groups, [...] Sign Reading Time Taken Comments Blood Pressure 150/81 09/19/2017 2:06 PM NIBP - Value from CDT [facility]. Pulse 71 09/19/2017 2:06 PM Value from artplus. CDT Temperature - - Respiratory Rate 16 09/19/2017 2:07 PM Value from C hartplus. CDT Oxygen Saturation - - Inhaled Oxygen - - Concentration Weight 47.1 kg (103 lb 13.4 09/19/2017 8:51 AM Vital sign result oz) CDT from [facility]. Height 162 cm (5' 3.78) 09/19/2017 8:51 AM Vital si gn result CDT from [facility]. Body Mass Index 17.95 09/19/2017 8:51 AM CDT documented in this encounter Medications [...] Procedure Name Priority Date/Time Associated Comments Diagnosis IY-SMYDCLONNY-FLVNL Routine 09/19/2017 10:02 Resu lts for this AM CDT procedure are i n the results section. ELECTROLYTE (CHEM 4) Routine 09/19/2017 8:32 AM R esults for this PANEL, S/P CDT procedure are i n the results section. PROTHROMBIN TIME Routine 09/19/2017 8:32 AM Resul ts for this (PT), P CDT procedure are i n the results section. CBC WITH Routine 09/19/2017 8:32 AM Results f or this DIFFERENTIAL, B CDT procedure ar e in the results section. LACTATE, B/P Routine 09/19/2017 8:32 AM Results f or this CDT procedure are i n the results section. PREPARE FRESH FROZEN Routine 09/19/2017 2:27 AM R esults for this PLASMA CDT procedure are i n the results section. ABORH, RBC Routine 09/18/2017 9:27 PM Results f or this CDT procedure are i n the results section. ABORH, RBC Routine 09/18/2017 8:31 PM Results f or this CDT procedure are i n the results section. ANTIBODY SCREEN, B Routine 09/18/2017 8:31 PM Res ults for this CDT procedure are i n the results section. ELECTROLYTE (CHEM 4) Routine 09/18/2017 8:24 PM R esults for this PANEL, S/P CDT procedure are i n the results section. PROTHROMBIN TIME Routine 09/18/2017 8:24 PM Resul ts for this (PT), P CDT procedure are i n the results section. CBC WITH Routine 09/18/2017 8:24 PM Results f or this DIFFERENTIAL, B CDT procedure ar e in the results section. documented in this encounter Results YH-Agzdrffcjx-Xujnb (09/19/2017 10:02 AM CDT) Anatomical Region Laterality Modality Radiographic Imaging Specimen (Source) Anatomical Collection Method Collection Time Re ceived Time Location / / Volume Laterality 09/19/2017 10:02 AM CDT Impressions 09/19/2017 2:09 PM CDT See GI report in [facility] LastWord. Electronically signed by: ?? Hung Vance MD 19-Sep-2017 14:09 Narrative 09/19/2017 2:09 PM CDT 19-Sep-2017 10:02:00 ??Exam: [id number] Indications: EGD- Food [facility] ORIGINAL REPORT - 19-Sep-2017 14:09:00 EXAM: [id number]-Itqxuqbnji-Elgsz: Procedure Note ProviderKai M.D. - 09/26/2017F ormatting of this note might be different from the original. 19-Sep-2017 10:02:00 Exam: GI-Diagnostic -Other Indications: EGD- Food Bolus ORIGINAL REPORT - 19-Sep-2017 14:09:00 EXAM: [id number]-Zmcnzxowoo-Oitrg: IMPRESSION: See GI report in [facility] LastWo rd. Electronically signed by: Hung Vance MD 19-Sep-2017 14:09 Rocky Shelton M.D. IMG FLUOROSCOPY PROCEDURES (ABNORMAL) Electrolyte (Chem 4) Panel (09/19/2017 8:32 AM CDT) [facility] gist Method Time Signature Sodium, S 142 135 - 145 [facility] MMOL/L [facility] Potassium, S 4.4 3.6 - 5.2 [facility] MMOL/L [facility] Creatinine 0.9 0.6 - 1.1 [facility] MG/DL [facility] BUN (Blood Urea 19 6 - 21 [facility] Nitrogen), S MG/DL [facility] Chloride, S 98 98 - 107 [facility] MMOL/L [facility] HX Bicarbonate, 24 22 - 29 [facility] P/S MMOL/L [facility] Anion Gap 20 (H) 7 - 15 [facility] LABORATORIES - [facility] Glucose, S 67 (L) 70 - 140 [facility] MG/DL LABORATORIES - [facility] Creatinine 0.9 0.6 - 1.1 [facility] MG/DL [facility] - [facility] Specimen Anatomical Collection Method Collection Time Receive d Time (Source) Location / / Volume Laterality 09/19/2017 8:32 AM 8 8:32 CDT AM CDT Gurpreet FreySKalyani LAB BLOOD ADD-ON Performing Organization Address City/State/ZIP Code Phon e Number [facility] LABORATORIES - [address] [place] [address] 05 [facility] Lactate (09/19/2017 8:32 AM CDT) P athologist Signature Lactate, P 1.0 0.6 - 2.3 [facility] MMOL/L [facility] Specimen Anatomical Collection Method Collection Time Receive d Time (Source) Location / / Volume Laterality 09/19/2017 8:32 AM 8 8:32 CDT AM CDT Gurpreet Rigoberto Gabriella Terrell LAB BLOOD NON ADD-ON Performing Organization Address City/[facility]/ZIP Code Phon e Number [facility]ATORIES - [address] [place], [place] [address] [facility] (ABNORMAL) PT (Prothrombin Time) with INR (09/19/2017 8:32 AM CDT) Patholo gist Method Time Signature Prothrombin 15.2 (H) 9.4 - [facility] Time, P 12.5 SEC [facility] INR 1.4 0.9 - 1.1 [facility] - [facility] Comment: ? ADDITIONAL INFORMATIO N ? Standard intensity warfarin therapeutic range: 2.0 to 3.0 ? High intensity warfarin therapeutic rang e: 2.5 to 3.5 ? Specimen Anatomical Collection Method Collection Time Receive d Time (Source) Location / / Volume Laterality 09/19/2017 8:32 AM 8 8:32 CDT AM CDT Gurpreet Terrell LAB BLOOD ADD-ON Performing Organization Address City/State/ZIP Code Phon e Number [facility]IES - [address] [place], [place] [address] [facility] (ABNORMAL) CBC with Differential (09/19/2017 8:32 AM CDT) [facility] Method Time Signature Hemoglobin 13.2 12.0 - [facility] 15.5 G/DL [facility] Hematocrit 40.9 34.9 - [facility] 44.5 % [facility] RBC Distrib 15.7 (H) 11.9 - [facility] Width 15.5 % LABORATORIES - [facility] Platelet Count 152 150 - 450 [facility] X10(9)/L LABORATORIES - [facility] Leukocytes 2.7 (L) 3.5 - [facility] 10.5 LABORATORIES - X10(9)/L [facility] Neutrophils 1.83 1.70 - [facility] 7.00 LABORATORIES - X10(9)/L [facility] Lymphocytes 0.71 (L) 0.90 - [facility] 2.90 LABORATORIES - X10(9)/L [facility] Monocytes 0.17 (L) 0.30 - [facility] 0.90 LABORATORIES - X10(9)/L [facility] Erythrocytes 4.80 3.90 - [facility] 5.03 LABORATORIES - X10(12)/L [facility] MCV 85.2 81.6 - [facility] 98.3 [place] LABORATORIES - [facility] Eosinophils <0.03 (L) 0.05 - [facility] 0.50 LABORATORIES - X10(9)/L [facility] Basophils <0.03 0.00 - [facility] 0.30 LABORATORIES - X10(9)/L [facility] Specimen Anatomical Collection Method Collection Time Receive d Time (Source) Location / / Volume Laterality 09/19/2017 8:32 AM 8 8:32 CDT AM CDT Gurpreet Terrell LAB BLOOD ADD-ON Performing Organization Address City/[facility]/ZIP Code Phon e Number [facility] LAB[facility]ATORIES - [address] Prepare fresh frozen plasma (09/19/2017 2:27 AM CDT) Analysis Performed At Patho logist Time Signature HXFFP # UNITS 2 [facility] TRANSFUSED [facility] HXFFP UNIT INFO FFP [facility] Comment: Unit Blood Type O Pos Unit Number [id number] Component Type Thawed Apheresis PLASMA Issue Date/Time [id number] Unit Blood Type O Pos Unit Number [id number] Component Type Thawed PLASMA CPD <24hr Issue Date/Time [id number] Specimen (Source) Anatomical Collection Method Collection Time Re ceived Time Location / / Volume Laterality 09/19/2017 2:27 AM CDT Historical Provider BLOOD BANK PRODUCT ORDERABLE S Performing Organization Address City/[facility]/ZIP Code Phon e Number [facility] LAB[facility]IES - [address] [place] [address] [facility] ABORh, RBC (09/18/2017 9:27 PM CDT) P athologist Signature HXABO/RH BLOOD O Neg [facility] TYPE [facility] Specimen (Source) Anatomical Collection Method Collection Time Re ceived Time Location / / Volume Laterality 09/18/2017 9:27 PM CDT Historical Provider LAB BLOOD BANK TEST ORDERABL ES Performing Organization Address City/[facility]/ZIP Code Phon e Number [facility] LABORATORIES - [address] [place], [place] [address] [facility] ABORh, RBC (09/18/2017 8:31 PM CDT) P athologist Signature HXABO/RH O Neg [facility] Specimen (Source) Anatomical Collection Method Collection Time Re ceived Time Location / / Volume Laterality 09/18/2017 8:31 PM CDT Historical Provider LAB BLOOD BANK TEST ORDERABL ES Performing Organization Address City/[facility] Phon e Number [facility] LABORATORIES - [address] [place], [place] [address] [facility] Antibody Screen, RBC (09/18/2017 8:31 PM CDT) Patholo gist Method Time Signature Antibody Negative [facility] Screen LABORATORIES - [facility] Specimen (Source) Anatomical Collection Method Collection Time Re ceived Time Location / / Volume Laterality 09/18/2017 8:31 PM CDT Historical Provider LAB BLOOD BANK TEST ORDERABL ES Performing Organization Address City/[facility] Code Phon e Number [facility]IES - [address] [place], [place] [address] [facility] (ABNORMAL) CBC with Differential (09/18/2017 8:24 PM CDT) [facility] gist Method Time Signature Hemoglobin 13.1 12.0 - [facility] 15.5 G/DL [facility] Hematocrit 41.5 34.9 - [facility] 44.5 % [facility] RBC Distrib 15.9 (H) 11.9 - [facility] Width 15.5 % [facility] - [facility] Platelet Count 160 150 - 450 [facility] X10(9)/L [facility] Leukocytes 4.4 3.5 - [facility] 10.5 LABORATORIES - X10(9)/L [facility] Neutrophils 3.21 1.70 - [facility] 7.00 LABORATORIES - X10(9)/L [facility] Lymphocytes 0.87 (L) 0.90 - [facility] 2.90 LABORATORIES - X10(9)/L [facility] Monocytes 0.25 (L) 0.30 - [facility] 0.90 LABORATORIES - X10(9)/L [facility] Erythrocytes 4.85 3.90 - [facility] 5.03 LABORATORIES - X10(12)/L [facility] MCV 85.6 81.6 - [facility] 98.3 [place] LABORATORIES - [facility] Eosinophils <0.03 (L) 0.05 - [facility] 0.50 LABORATORIES - X10(9)/L [facility] Basophils <0.03 0.00 - [facility] 0.30 LABORATORIES - X10(9)/L [facility] Specimen Anatomical Collection Method Collection Time Receive d Time (Source) Location / / Volume Laterality 09/18/2017 8:24 PM 8 8:24 CDT PM CDT Historical Provider LAB BLOOD ADD-ON Performing Organization Address City/[facility] Phon e Number [facility] LABORATORIES - [address] [place], [place] [address] [facility] (ABNORMAL) Electrolyte (Chem 4) Panel (09/18/2017 8:24 PM CDT) [facility] Method Time Signature Chloride, S 104 98 - 107 [facility] MMOL/L LABORATORIES - [facility] HX Bicarbonate, 14 (L) 22 - 29 [facility] P/S MMOL/L LABORATORIES - [facility] Sodium, S 143 135 - 145 [facility] MMOL/L LABORATORIES - [facility] Potassium, S 5.5 (H) 3.6 - 5.2 [facility] MMOL/L LABORATORIES - [facility] Creatinine 1.0 0.6 - 1.1 [facility] MG/DL LABORATORIES - [facility] BUN (Blood Urea 22 (H) 6 - 21 [facility] Nitrogen), S MG/DL [facility] - [facility] Anion Gap 25 (H) 7 - 15 [facility] LABORATORIES - [facility] Glucose, S 61 (L) 70 - 140 [facility] MG/DL LAB[facility]ATORIES - [facility] Creatinine 1.0 0.6 - 1.1 [facility] MG/DL LABORATORIES - [facility] Specimen Anatomical Collection Method Collection Time Receive d Time (Source) Location / / Volume Laterality 09/18/2017 8:24 PM 8 8:24 CDT PM CDT Historical Provider LAB BLOOD ADD-ON Performing Organization Address City/[facility] Phon e Number [facility] LABOR[facility]IES - [address] [place] [address] [facility] (ABNORMAL) PT (Prothrombin Time) with INR (09/18/2017 8:24 PM CDT) [facility] Method Time Signature Prothrombin 39.7 (H) 9.4 - [facility] Time, P 12.5 SEC [facility]IES [facility] INR 3.6 0.9 - 1.1 [facility] Comment: ? ADDITIONAL INFORMATIO N ? Standard intensity warfarin therapeutic range: 2.0 to 3.0 ? High intensity warfarin therapeutic rang e: 2.5 to 3.5 ? Specimen Anatomical Collection Method Collection Time Receive d Time (Source) Location / / Volume Laterality 09/18/2017 8:24 PM 8 8:24 CDT PM CDT Historical Provider LAB BLOOD ADD-ON Performing Organization Address City/State/ZIP Code Phon e Number [facility] LAB[facility]ATORIES - [address] [place], [place] [address] [facility] documented in this encounter Visit Diagnoses Not on filedocumented in this encounter
--- OUTSIDE RECORDS SUMMARY | 2022-05-10 13:09 | XMS_ITS | Encounter Summary ---
:1935 Author Organization [facility] Address [address] [place] [address] Care Team Providers Name Role Phone Unavailable Primary Care Provider Unavailable Reason for Visit Reason Comments Med Refill Encounter Details Date Type Department Care Team Description 11/27/2018 Refill Department of Neurology in Aneesh Christie M.B., Med Refill [place], [place] B.Ch. [address] [place] [address] Social History Tobacco Use Types Packs/Day [...] How often do you attend jew or religion services? Patien t refused 10/21/2020 Do you [...] place to sleep or slept in a fpc (including now)? Sex Assigned at Date Recorded Not on file documented as of this encounter Miscellaneous Notes Telephone Encounter - Sybil Figueroa - 11/28/2018 9:24 AM CDT Patient has not been seen since beginning of 2017. Do you still want to refill this? documented in this encounter Plan of Treatment Not on filedocumented as of this encounter Visit Diagnoses Not on filedocumented in this encounter
--- OUTSIDE RECORDS SUMMARY | 2022-05-10 13:09 | XMS_ITS | Encounter Summary ---
:1935 Author Organization [facility] Address [address] [place] [address] Care Team Providers Name Role Phone Unavailable Primary Care Provider Unavailable Reason for Visit Reason Comments COVID Nurse Line Encounter Details Date Type Department Care Team Description 03/26/2020 Clinical Communication Division of Emmanuelle Chandra Nurse Line [facility] Internal E, PATRICIA, C.N.PKalyani, Medicine, David Dyer [facility], in [address] [facility] [phone] [place] [address] [place], [place] (Work) [phone] Social History Tobacco Use Types Packs/Day Years [...] 10/21/2020 relatives? How often do you attend samaritan or caodaism services? Patien t refused 10/21/2020 Do you belong to any clubs or organizations such as Yes 10/21/2020 samaritan groups, unions, fraternal or athletic groups, or [...] place to sleep or slept in a half-way (including now)? Sex Assigned at Date Recorded Not on file documented as of this encounter Miscellaneous Notes Telephone Encounter - Emmanuelle Chandra D.NKalyaniP., R.N., CPN - 03/26/2020 11:48 AM CDT Patient is inquiring about their COVID results. PLAN Endpoint recommendation: Negative results given to patient, and has not had exposure to a person with a laboratory confirmed case of COVID-19 Care Points provided: STANDARD PRECAUTIONS FOR ALL PATIENTS: Wash hands often with soap and water for at least 20 seconds, especially after blowing your nose, coughing, sneezing, or having been in a public place. If soap and water aren't available, use a hand auto body detailer that contains at least 60% alcohol. Avoid close contact with anyone who may be exhibiting respiratory symptoms such as coughing and sneezing. Avoid touching your eyes, nose and mouth. Clean and disinfect frequently touched surfaces daily. Cover your mouth and nose with a cloth face cover when around others or in public. The cloth face cover is not a substitute for social distancing. Continue to keep about 6 feet between yourself andothers. Monitor for symptoms. Do not take your temperature within 30 minutes of exercise. If your test or screen is negative and new symptoms develop please contact your provider if it has been greaterthan 72 hours since you were tested. Educational Resource: https://www.cdc.gov/coronavirus/2019-ncov/ bowqeeg-gnpingx-kghl/index.html SELF CARE FOR ALL PATIENTS: Connect with others. Be creative in keeping connected with loved ones, especially those at high risk. Education: Patient/caregiver able to teach back Patient agreeable to plan of care: Yes Resource:https://www.cdc.gov/coronavirus/2019-ncov/downloads/luch-ohia-2569-nCoV -fact-sheet.pdf documented in this encounter Plan of Treatment Not on filedocumented as of this encounter Visit Diagnoses Not on filedocumented in this encounter
--- OUTSIDE RECORDS SUMMARY | 2022-05-10 13:09 | XMS_ITS | Encounter Summary ---
:1935 Author Organization [facility] Address [address] [place] [address] Care Team Providers Name Role Phone Unavailable Primary Care Provider Unavailable Reason for Visit Reason Onset Date Comments Release of Information 11/15/2018 Encounter Details Date Type Department Care Team Description 11/15/2018 Clinical Communication Division of Gerard Bhatia of Pulmonary Medicine M, MKalyaniD. Information in [place] [address] [address] [place], [place] [address] [facility] [address] [place], [place] [phone] (Work) [phone] Social History Tobacco Use Types Packs/Day Years [...] 10/21/2020 relatives? How often do you attend pentecostalism or mosque services? Patien t refused 10/21/2020 Do you belong to any clubs or organizations such as Yes 10/21/2020 pentecostalism groups, unions, fraternal or athletic groups, or [...] or slept in a residential (including now)? Sex Assigned at Date Recorded Not on file documented as of this encounter Miscellaneous Notes Telephone Encounter - Elizabeth Sorto - 11/15/2018 1:25 PM CDT Completed questions form from [facility] in regards to coverage determination for albuterol sulfate neb. was faxed to [facility] at fax [phone]. documented in this encounter Plan of Treatment Not on filedocumented as of this encounter Visit Diagnoses Not on filedocumented in this encounter
--- OUTSIDE RECORDS SUMMARY | 2022-05-10 13:09 | XMS_ITS | Encounter Summary ---
:1935 Author Organization [facility] Address [address] [place] [address] Care Team Providers Name Role Phone Unavailable Primary Care Provider Unavailable Encounter Details Date Type Department Care Team Description 02/05/2016 Hospital Encounter HX NO MAPPING Social History [...] 10/21/2020 relatives? How often do you attend congregation or voodoo services? Patien t refused 10/21/2020 Do you belong to any clubs or organizations such as Yes 10/21/2020 congregation groups, unions, fraternal or athletic groups, or [...] or slept in a retirement (including now)? Sex Assigned at Date Recorded [...]
--- OUTSIDE RECORDS SUMMARY | 2022-05-10 13:09 | XMS_ITS | Encounter Summary ---
:1935 Author Organization [facility] Address [address] [place] [address] Care Team Providers Name Role Phone Unavailable Primary Care Provider Unavailable Reason for Visit Reason Comments Med Refill Encounter Details Date Type Department Care Team Description 01/28/2019 Refill Department of Neurology in Caren Galindo M.B.B.S. Med Refill [place], [place] [address] [facility] [address] [place] [address] [place] [address] [phone] Social History Tobacco Use Types Packs/Day Years [...] 10/21/2020 relatives? How often do you attend christianity or restoration services? Patien t refused 10/21/2020 Do you belong to any clubs or organizations such as Yes 10/21/2020 christianity groups, unions, fraternal or athletic groups, or [...] Notes Telephone Encounter - Sybil Figueroa - 01/29/2019 9:39 AM CDT Refill sent Cathy documented in this encounter Plan of Treatment Not on filedocumented as of this encounter Visit Diagnoses Not on filedocumented in this encounter
--- OUTSIDE RECORDS SUMMARY | 2022-05-10 13:09 | XMS_ITS | Encounter Summary ---
:1935 Author Organization [facility] Address [address] [place] [address] Care Team Providers Name Role Phone Unavailable Primary Care Provider Unavailable Reason for Visit Reason Comments Med Refill Encounter Details Date Type Department Care Team Description 12/21/2017 Refill Department of Neurology in Aneesh Christie M.B., Med Refill [place], [place] [facility] [address] [place] [address] Social History Tobacco Use Types Packs/Day [...] How often do you attend taoist or restoration services? Patien t refused 10/21/2020 [...] place to sleep or slept in a [facility] (including now)? Sex Assigned at Date Recorded Not on file documented as of this encounter Plan of Treatment Not on filedocumented as of this encounter Visit Diagnoses Not on filedocumented in this encounter
--- OUTSIDE RECORDS SUMMARY | 2022-05-10 13:09 | XMS_ITS | Encounter Summary ---
:1935 Author Organization [facility] Address [address] [place] [address] Care Team Providers Name Role Phone Unavailable Primary Care Provider Unavailable Encounter Details Date Type Department Care Team Description 12/16/2014 Ancillary Procedure Department of Neurology Social History Tobacco Use Types Packs/Day Years [...] How often do you attend episcopalian or christianity services? Patien t refused 10/21/2020 [...] Name Priority Date/Time Associated Diagnosis Comme nts NEUROLOGY IMAGE Routine 12/16/2014 12:00 AM Resul ts for this EXAM CDT procedure are i n the results section. documented in this encounter Results Video-Video Swallow Study-Neurology Image Exam (12/16/2014 12:00 AM CDT) Specimen (Source) Anatomical Location Collection Method / Collectio n Time Received Time / Laterality Volume Narrative IIMS - 12/21/2018 4:31 PM CDT This order has been created [...]
--- OUTSIDE RECORDS SUMMARY | 2022-05-10 13:09 | XMS_ITS | Encounter Summary ---
:1935 Author Organization [facility] Address [address] [place] [address] Care Team Providers Name Role Phone Unavailable Primary Care Provider Unavailable Encounter Details Date Type Department Care Team Description 04/17/2015 Hospital Encounter HX NO MAPPING Provider, Historical Social History Tobacco Use Types Packs/Day Years [...] How often do you attend episcopalian or mormonism services? Patien t refused 10/21/2020 Do you [...] slept in a care home (including now)? Sex Assigned at Date [...]
--- OUTSIDE RECORDS SUMMARY | 2022-05-10 13:09 | XMS_ITS | Encounter Summary ---
:1935 Author Organization [facility] Address [address] [place] [address] Care Team Providers Name Role Phone Unavailable Primary Care Provider Unavailable Reason for Visit Reason Comments Med Refill Encounter Details Date Type Department Care Team Description 12/18/2017 Refill Division of Nephrology and Cem Chambers M.D. Med Refill Hypertension in [place], [facility] [address] [place] [address] [place] [address] [place] [address] [phone] Social History Tobacco Use Types Packs/Day Years [...] How often do you attend mormonism or taoism services? Patien t refused 10/21/2020 Do you [...] or slept in a detention (including now)? Sex Assigned at Date Recorded Not on file documented as of this encounter Miscellaneous Notes Telephone Encounter - Concepción Cassidy R.N. - 12/19/2017 10:59 AM CDT Refill request denied as patient has not been seen in >18mos. Patient should follow up with [facility] for further refills, or call to make an appointment to be seen here. documented in this encounter Plan of Treatment Not on filedocumented as of this encounter Visit Diagnoses Not on filedocumented in this encounter
--- OUTSIDE RECORDS SUMMARY | 2022-05-10 13:09 | XMS_ITS | Encounter Summary ---
:1935 Author Organization [facility] Address [address] [place] [address] Care Team Providers Name Role Phone Unavailable Primary Care Provider Unavailable Reason for Referral Outpatient (Routine) - Closed Specialty Diagnoses / Procedures Referred By Contact Refer red To Contact Pulmonary Medicine Diagnoses Pain Chest Wall Anticoagulant Therapy Chronic Obstructive Pulmonary Disease NOS Gonzalez Mckay M.D. [facility] [address] [place] [address] Referral ID Status Reason Start Date Expiration Date Visits Requ ested Visits Authorized [id number] Closed 03/18/2020 03/18/2021 1 1 Encounter Details Date Type Department Care Team Description 03/18/2020 [facility] Gonzalez Mckay Chest Wall (Primary Dx); AND KIMBERLY Franklin M.D. Anticoagulant Therapy; [id number] [place] [address] Chronic Ob[place]ive [place] [address] [address] [phone] [place] [address] Social History Tobacco Use Types Packs/Day Years [...] often do you attend roman catholic or amish services? Patien t refused 10/21/2020 [...] Type Priority Associated Diagnoses Order S chedule Pulmonary Medicine Outpatient Referral Routine Pain Ches t Inder Expected: Referral Anticoagulant 03/18/2020 Therapy (Approximate), Chronic Obstructive Expires: Pulmonary Disease 03/18/2023 NOS (HCC) documented as of this encounter Visit Diagnoses Diagnosis Pain Chest Wall - Primary Anticoagulant Therapy Chronic Obstructive Pulmonary Disease NO S documented in this encounter Additional Health Concerns Infection Onset Date Last Indicated Resolved Time COVID19 Pending 03/24/2020 03/24/2020 03/24/2020 8:17 PM CDT documented as of this encounter
--- OUTSIDE RECORDS SUMMARY | 2022-05-10 13:09 | XMS_ITS | Encounter Summary ---
:1935 Author Organization [facility] Address [address] [place] [address] Care Team Providers Name Role Phone Unavailable Primary Care Provider Unavailable Reason for Visit Reason Comments Pre-visit Testing Orders Encounter Details Date Type Department Care Team Description 03/19/2020 Clinical Communication Division of Gerard Bhatia Pre- visit Testing Pulmonary Medicine Kallie Ramey Orders in [place], [facility] [address] [place], [place] [address] [facility] [address] [place], [place] [phone] [phone] (Work) [phone] Social History Tobacco Use Types Packs/Day Years [...] How often do you attend hinduism or religion services? Patien t refused 10/21/2020 [...] this encounter Miscellaneous Notes Telephone Encounter - Carmen Fisher - 03/21/2020 8:16 AM CDT Sea Telephone Encounter - Sea Verdugo - 03/19/2020 1:[address] Bhatia, You saw Mrs. Herman in January of 2019 and she has asked specifically to return with you. I have her scheduled for 03/27 and have ANNIKA'd UP a PFT as she has not had one in over 6 months at least. Please sign order so I may coordinate. Thank You, Sea documented in this encounter Plan of Treatment Not on filedocumented as of this encounter Results Pulmonary Function Tests (03/27/2020 2:30 PM CDT) P athologist Signature VC MAX PRE 1.83 L 03/27/2020 [facility] 4:[facility] PM CDT [address] FVC 1.70 L 03/27/2020 [facility] 4:37 PM CDT SU[address] FEV1 0.88 L 03/27/2020 [facility] 4:37 PM CDT SUITE FEV1/FVC 51.68 % 03/27/2020 [facility] 4:37 PM CDT SU[address] YKT15-20% 0.38 L/s 03/27/2020 [facility] 4:37 PM CDT [address] PEF PRE 2.27 L/s 03/27/2020 [facility] 4:[address] FET PRE 12.49 sec 03/27/2020 [facility] 4:37 PM CDT SU[address] % PRED VC MAX 78 % % 03/27/2020 [facility] 4:37 PM CDT SU[address] FVC% 72 % % 03/27/2020 [facility] 4:37 PM CDT SU[address] FEV1% 49 % % 03/27/2020 [facility] 4:37 PM CDT SUITE % PRED FEV1/FVC 67 % % 03/27/2020 [facility] 4:37 PM CDT SUITE % PRED FEF 26 % % 03/27/2020 [facility] 25-75% 4:37 PM CDT SUITE % PRED PEF 45 % % 03/27/2020 [facility] 4:37 PM CDT [address] PRED VC MAX 2.35 03/27/2020 [facility] 4:37 PM CDT [address] PRED FVC 2.35 03/27/2020 [facility] 4:37 PM CDT [address] PRED FEV 1 1.78 03/27/2020 [facility] 4:37 PM CDT [address] PRED FEV1/FVC 76.7 03/27/2020 [facility] 4:37 PM CD[address] PRED FEF 25-75% 1.42 03/27/2020 [facility] 4:[address] PRED PEF 5.0 03/27/2020 [facility] 4:37 PM CDT SU[address] Specimen (Source) Anatomical Collection Method Collection Time Re ceived Time Location / / Volume Laterality 03/27/2020 2:30 PM CDT Narrative This result has an attachment that is no t available. Gerard Bhatia M.D. PFT ORDERABLES Performing Organization Address City/State/ZIP Code Phon e Number [facility] [address] documented in this encounter Visit Diagnoses Diagnosis Chronic Obstructive Pulmonary Disease (H CC) - Primary documented in this encounter Additional Health Concerns Infection Onset Date Last Indicated Resolved Time COVID19 Pending 03/24/2020 03/24/2020 03/24/2020 8:17 PM CDT documented as of this encounter
--- OUTSIDE RECORDS SUMMARY | 2022-05-10 13:09 | XMS_ITS | Encounter Summary ---
:1935 Author Organization [facility] Address [address] [place] [address] Care Team Providers Name Role Phone Unavailable Primary Care Provider Unavailable Encounter Details Date Type Department Care Team Description 11/07/2018 Clinical Communication Division of Pulmonary Eh Bhatia, [facility] [place] [address] [facility] [address] [place] [address] [phone] Social History Tobacco Use Types Packs/Day Years [...] How often do you attend episcopalian or sabianism services? Patien t refused 10/21/2020 [...] or slept in a longterm (including now)? Sex Assigned at Date Recorded Not on file documented as of this encounter Miscellaneous Notes Telephone Encounter - Jennifer Subramanian - 11/07/2018 1:47 PM CDT lucio Telephone Encounter - Lucio Danielson - 11/07/2018 12:30 PM CDT Patient is scheduled with you on . ? Testing. Please place orders. documented in this encounter Plan of Treatment Not on filedocumented as of this encounter Results Pulmonary Function Tests (01/24/2019 8:34 AM CDT) P athologist Signature VC MAX PRE 1.63 L 01/24/2019 [facility] 3:09 PM CDT SU[address] FVC 1.58 L 01/24/2019 [facility] 3:09 PM CDT SUITE FEV1 0.82 L 01/24/2019 [facility] 3:09 PM CDT SUITE FEV1/FVC 51.82 % 01/24/2019 [facility] 3:09 PM CDT SUITE LFE48-59% 0.36 L/s 01/24/2019 [facility] 3:09 PM CDT SU[address] PEF PRE 3.10 L/s 01/24/2019 [facility] 3:09 PM CDT [address] FET PRE 7.05 sec 01/24/2019 [facility] 3:09 PM [address] MVV 31.46 L/min 01/24/2019 [facility] 3:09 PM CDT SUITE % PRED VC MAX 63.29 % 01/24/2019 [facility] 3:09 PM CDT SUITE FVC% 61.66 % 01/24/2019 [facility] 3:09 PM CDT SUITE FEV1% 42.36 % 01/24/2019 [facility] 3:09 PM CDT SUITE % PRED FEV1/FVC 67.66 % 01/24/2019 [facility] 3:09 PM CDT SUITE % PRED FEF 23.46 % 01/24/2019 [facility] 25-75% 3:09 PM CDT SUITE % PRED PEF 58.36 % 01/24/2019 [facility] 3:09 [address] PRED VC MAX 2.57 L 01/24/2019 [facility] 3:09 [address] PRED FVC 2.57 L 01/24/2019 [facility] 3:09 [address] PRED FEV 1 1.94 L 01/24/2019 [facility] 3:09 PM CD[address] PRED FEV1/FVC 76.59 % 01/24/2019 [facility] 3:[address] PRED FEF 25-75% 1.52 L/s 01/24/2019 [facility] [address] PRED PEF 5.31 L/s 01/24/2019 [facility] 3:09 PM CDT SU[address] Specimen (Source) Anatomical Collection Method Collection Time Re ceived Time Location / / Volume Laterality 01/24/2019 8:34 AM CDT Narrative This result has an attachment that is no t available. Gerard Bhatia M.D. PFT ORDERABLES Performing Organization Address City/State/ZIP Code Phon e Number [facility] [address] [facility] [address] DX Chest AP or PA and Lateral [...] Biapical scarring. Aortic calcification. Thoracolumbar curve. Gerard Bhatia M.D. [facility] [place] documented in this encounter Visit Diagnoses Diagnosis Bronchiectasis (HCC) - Primary Bronchiectasis (HCC) documented in this encounter
--- OUTSIDE RECORDS SUMMARY | 2022-05-10 13:09 | XMS_ITS | Encounter Summary ---
:1935 Author Organization [facility] Address [address] [place] [address] Care Team Providers Name Role Phone Unavailable Primary Care Provider Unavailable Encounter Details Date Type Department Care Team Description 03/03/2015 Hospital Encounter HX NO MAPPING Social History [...] 10/21/2020 relatives? How often do you attend religious or yarsani services? Patien t refused 10/21/2020 Do you belong to any clubs or organizations such as Yes 10/21/2020 religious groups, unions, fraternal or athletic groups, or [...]
--- OUTSIDE RECORDS SUMMARY | 2022-05-10 13:09 | XMS_ITS | Encounter Summary ---
:1935 Author Organization [facility] Address [address] [place] [address] Care Team Providers Name Role Phone Unavailable Primary Care Provider Unavailable Encounter Details Date Type Department Care Team Description 12/17/2014 Ancillary Procedure Department of Neurology Social History [...] 10/21/2020 relatives? How often do you attend nondenominational or advent services? Patien t refused 10/21/2020 Do you belong to any clubs or organizations such as Yes 10/21/2020 nondenominational groups, unions, fraternal or athletic groups, or [...] slept in a nursing home (including now)? Sex Assigned at Date Recorded Not on file documented as of this encounter Plan of Treatment Not on filedocumented as of this encounter Visit Diagnoses Not on filedocumented in this encounter
--- OUTSIDE RECORDS SUMMARY | 2022-05-10 13:09 | XMS_ITS | Encounter Summary ---
:1935 Author Organization [facility] Address [address] [place] [address] Care Team Providers Name Role Phone Unavailable Primary Care Provider Unavailable Encounter Details Date Type Department Care Team Description 01/09/2016 Hospital Encounter HX RST EMERGENCY Provider, Historic [...] How often do you attend yazdanism or alevism services? Patien t refused 10/21/2020 Do you [...]
--- OUTSIDE RECORDS SUMMARY | 2022-05-10 13:09 | XMS_ITS | Encounter Summary ---
:1935 Author Organization [facility] Address [address] [place] [address] Care Team Providers Name Role Phone Unavailable Primary Care Provider Unavailable Encounter Details Date Type Department Care Team Description 07/12/2014 Hospital Encounter HX NO MAPPING Social History [...] How often do you attend buddhism or faith services? Patien t refused 10/21/2020 Do you [...]
--- OUTSIDE RECORDS SUMMARY | 2022-05-10 13:09 | XMS_ITS | Encounter Summary ---
:1935 Author Organization [facility] Address [address] [place] [address] Care Team Providers Name Role Phone Unavailable Primary Care Provider Unavailable Encounter Details Date Type Department Care Team Description 09/19/2017 Telemedicine Department of Gastroenterology Social History Tobacco Use [...] How often do you attend restorationism or anglican services? Patien t refused 10/21/2020 [...] Date/Time Associated Comments Diagnosis GASTROENTEROLOGY IMAGE Routine 09/19/2017 8:35 Re sults for this EXAM AM CDT procedure are i n the results section. documented in this encounter Results GASTROENTEROLOGY IMAGE EXAM (09/19/2017 8:35 AM CDT) Specimen (Source) Anatomical Collection Method Collection Time Re ceived Time Location / / Volume Laterality 09/19/2017 8:33 AM CDT Narrative IIM[facility] - 09/19/2017 11:26 AM CDT This order has been created [...]
--- OUTSIDE RECORDS SUMMARY | 2022-05-10 13:09 | XMS_ITS | Encounter Summary ---
:1935 Author Organization [facility] Address [address] [place] [address] Care Team Providers Name Role Phone Unavailable Primary Care Provider Unavailable Reason for Referral Medication Prior Authorization (Routine) - Closed Specialty Diagnoses / Procedures Referred By Contact Refer red To Contact Diagnoses Bronchiectasis (HCC) Gerard Bhatia M.D. [address] [place] [address] Referral ID Status Reason Start Date Expiration Date Visits Requ ested Visits Authorized [id number] Closed Reason for Visit Reason Comments Med Refill Encounter Details Date Type Department Care Team Description 11/09/2018 Refill Division of Pulmonary Medicine Gerard Mancuso M.D. Med Refill in [facility] [address] [facility] [address] [place] [address] [place] [address] [phone] Social History Tobacco Use Types Packs/Day Years [...] How often do you attend quaker or church services? Patien t refused 10/21/2020 Do you [...] documented as of this encounter Miscellaneous Notes Addendum Note - Winnie Le, RKalyaniN. - 11/10/2018 3:10 PM CDT Addended by: WINNIE LE on: 11/10/2018 03:10 PM Modules accepted: Orders Telephone Encounter - Jocelyne Cazares - 11/09/2018 4:47 PM CDT Received a fax from the pharmacy indicating that the prescription they received is missing a diagnosis code and this is required. Please redo RX with ICD 10 diagnosis code, thanks. documented in this encounter Plan of Treatment Not on filedocumented as of this encounter Visit Diagnoses Diagnosis Bronchiectasis (HCC) - Primary documented in this encounter
--- OUTSIDE RECORDS SUMMARY | 2022-05-10 13:09 | XMS_ITS | Encounter Summary ---
:[address] [facility] Address [address] [place] [address] Care Team Providers Name Role Phone Unavailable Primary Care Provider Unavailable Encounter Details Date Type Department Care Team Description 07/31/2015 Hospital Encounter HX NO MAPPING Social History [...] 10/21/2020 relatives? How often do you attend temple or advent services? Patien t refused 10/21/2020 Do you belong to any clubs or organizations such as Yes 10/21/2020 temple groups, unions, fraternal or athletic groups, or [...] place to sleep or slept in a skilled nursing (including now)? Sex Assigned at Date Recorded [...]
--- OUTSIDE RECORDS SUMMARY | 2022-05-10 13:09 | XMS_ITS | Encounter Summary ---
:1935 Author Organization [facility] Address [address] [place] [address] Care Team Providers Name Role Phone Unavailable Primary Care Provider Unavailable Reason for Visit Appointment Request (Routine) - Closed Specialty Diagnoses / Procedures Referred By Contact Refer red To Contact Pulmonary Medicine Referral ID Status Reason Start Date Expiration Date Visits Requ ested Visits Authorized [id number] Closed 11/07/2018 11/07/2019 1 1 Encounter Details Date Type Department Care Team Description 01/24/2019 Office Visit Division of Pulmonary Gerard Bhatia Br onchiectasis (HCC) Medicine in M.D. (Primary Dx) [place], [place] [address] [facility] [address] [place] [id number] [phone] Social History Tobacco Use Types Packs/Day Years [...] 10/21/2020 relatives? How often do you attend muslim or orthodoxy services? Patien t refused 10/21/2020 Do you belong to any clubs or organizations such as Yes 10/21/2020 muslim groups, unions, fraternal or athletic groups, or [...] Sign Reading Time Taken Comments Blood Pressure 142/89 01/24/2019 11:06 AM CDT Pulse 125 01/24/2019 11:06 AM CDT Temperature 36.7 ??C (98.1 ??F) 01/24/2019 11:06 AM CDT Respiratory Rate - - Oxygen Saturation 88% 01/24/2019 11:06 AM CDT Inhaled Oxygen Concentration - - Weight 54.3 kg (119 lb 11.4 oz) 01/24/2019 11:06 AM CDT Height 162.2 cm (5' 3.86) 01/24/2019 11:06 AM CDT Body Mass Index 20.64 01/24/2019 11:06 AM CDT documented in this encounter Progress Notes Gerard Bhatia M.D. - 01/24/2019 11:15 AM CDT SUBJECTIVE CHIEF COMPLAINT/REASON FOR VISIT Re-evaluation of bronchiectasis. HISTORY OF PRESENT ILLNESS Carmen Herman is an 83-year-old woman who returns to Pulmonary Clinic for re- evaluation of bronchiectasis. Our last visit was on March 23, 2017. At that time, she was doing very well from a pulmonary perspective following successful treatment of pulmonary nocardiosis from 2014 to 2015. In the interim, she has continued to do well, with stable weight and an absence of concerning respiratory symptoms. She remains on a regimen of twice daily nebulized albuterol and bronchial clearance maneuvers, with use of an Aerobika oscillatory PEP device. She has little in the way of cough, and dyspnea remains verymild, graded as mMRC class 1. She cannot recall the last time she required an antibiotic for a lowerrespiratory exacerbation. Recently, her course has been complicated by atrial fibrillation, which has proved difficult to control. For her atrial fibrillation, she is being followed up by [facility], and there is plan to proceed with cardioversion in the short term. Prior to our visit today, she underwent updated chest x-ray and spirometry, both of which are stableas compared to findings in 2017. OBJECTIVE PHYSICAL EXAMINATION Vital Signs: Weight is 54.3 kg. Oxygen saturation is 88% on room air. General: Healthy appearing 83-year-old. No coughing during evaluation. ENT: No oropharyngeal lesions. Lymph: No cervical or supraclavicular lymphadenopathy. Heart: Irregularly irregular. Mildly tachycardic. Lungs: There is mild expiratory heave, particularly at the right base. There are no rhonchi. There is no wheezing. Abdomen: Soft. Nontender. Extremities: No peripheral edema. No digital clubbing. Neurologic: Essential tremors noted involving the head and upper extremities. DIAGNOSTICS Spirometry performed today demonstrates moderate obstruction, similar to what was seen on spirometryin March 2017, and without significant changes since June 2014. Chest x-ray today is not significantly changed since September 18, 2017, and again demonstrates multifocal bilateral scarring, most prominently in the right middle lobe and lingula, along with diffuse bronchial wall thickening and bronchiectasis. ASSESSMENT / PLAN #1 Diffuse bronchiectasis #2 History of pulmonary nocardiosis, status post successful treatment, 2014 to 2016 #3 Rheumatoid arthritis #4 Chronic atrial fibrillation #5 Essential tremor with voice tremor Mrs. Herman returns to Pulmonary Clinic for re-evaluation of her bronchiectasis. Over the past 2 years, she has done very well from a respiratory perspective, and she now reports development technologist of chronic cough, development technologist of recurrent respiratory exacerbations, and only mild chronic exertional dyspnea, which is stable. Overall, bronchiectasis has been stable in terms of symptoms, chest imaging, andpulmonary function testing. PLAN: 1. Continue with current management, consisting of twice daily nebulized albuterol and bronchial clearance via an Aerobika oscillatory PEP device. 2. Return to Pulmonary Clinic on an as-needed basis. Gerard Bhatia M.D. CT CT Job ID: [id number] documented in this encounter Plan of Treatment Not on filedocumented as of this encounter Visit Diagnoses Diagnosis Bronchiectasis (HCC) - Primary documented in this encounter
--- OUTSIDE RECORDS SUMMARY | 2022-05-10 13:09 | XMS_ITS | Encounter Summary ---
:1935 Author Organization [facility] Address [address] [place] [address] Care Team Providers Name Role Phone Unavailable Primary Care Provider Unavailable Reason for Visit Reason Comments Med Refill Encounter Details Date Type Department Care Team Description 11/07/2018 Refill Division of Pulmonary Medicine Gerard Mancuso M.D. 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 Patien t refused 10/21/2020 [...]
--- OUTSIDE RECORDS SUMMARY | 2022-05-10 13:09 | XMS_ITS | Encounter Summary ---
:1935 Author Organization [facility] Address [address] [place] [address] Care Team Providers Name Role Phone Unavailable Primary Care Provider Unavailable Reason for Visit Reason Onset Date Comments [facility] questions 11/14/2018 Encounter Details Date Type Department Care Team Description 11/14/2018 Clinical Communication Division of Pulmonary Eh Bhatia, [facility] questions Medicine in M.D. [place], [place] [address] [facility] [address] [place] [phone] Social History Tobacco Use Types Packs/Day Years [...] How often do you attend pentecostalism or episcopal services? Patien t refused 10/21/2020 Do you [...] Notes Telephone Encounter - Elizabeth Sorto - 11/14/2018 12:03 PM CDT Received fax from [employer], couple of questions in regards to the albuterol. Sending your way for assistance. Thank you, Elizabeth documented in this encounter Plan of Treatment Not on filedocumented as of this encounter Visit Diagnoses Not on filedocumented in this encounter
--- OUTSIDE RECORDS SUMMARY | 2022-05-10 13:09 | XMS_ITS | Encounter Summary ---
:1935 Author Organization [facility] Address [address] [place] [address] Care Team Providers Name Role Phone Unavailable Primary Care Provider Unavailable Encounter Details Date Type Department Care Team Description 07/08/2014 Hospital Encounter HX NO MAPPING Provider, Historical [...] How often do you attend scientologist or moravian services? Patien t refused 10/21/2020 [...] or slept in a [facility]ci (including now)? Sex Assigned at Date Recorded Not on file documented as of this encounter Plan of Treatment Not on filedocumented as of this encounter Visit Diagnoses Not on filedocumented in this encounter
--- OUTSIDE RECORDS SUMMARY | 2022-05-10 13:10 | XMS_ITS | Encounter Summary ---
:1935 Author Organization [facility] Address [address] [place] [address] Care Team Providers Name Role Phone Unavailable Primary Care Provider Unavailable Encounter Details Date Type Department Care Team Description 03/17/2011 Hospital Encounter HX NO MAPPING Social History [...] How often do you attend scientologist or religion services? Patien t refused 10/21/2020 [...] or slept in a [facility] (including now)? Sex Assigned at Date Recorded Not on file documented as of this encounter Plan of Treatment Not on filedocumented as of this encounter Visit Diagnoses Not on filedocumented in this encounter
--- OUTSIDE RECORDS SUMMARY | 2022-05-10 13:10 | XMS_ITS | Encounter Summary ---
:1935 Author Organization [facility] Address [address] [place] [address] Care Team Providers Name Role Phone Unavailable Primary Care Provider Unavailable Encounter Details Date Type Department Care Team Description 11/06/2013 Hospital Encounter HX NO MAPPING Social History [...] 10/21/2020 relatives? How often do you attend holiness or yazidism services? Patien t refused 10/21/2020 Do you belong to any clubs or organizations such as Yes 10/21/2020 holiness groups, unions, fraternal or athletic groups, or [...]
--- OUTSIDE RECORDS SUMMARY | 2022-05-10 13:10 | XMS_ITS | Encounter Summary ---
:1935 Author Organization [facility] Address [address] [place] [address] Care Team Providers Name Role Phone Unavailable Primary Care Provider Unavailable Encounter Details Date Type Department Care Team Description 12/28/2013 Hospital Encounter HX NO MAPPING Social History [...] How often do you attend muslim or sikh services? Patien t refused 10/21/2020 [...]
--- OUTSIDE RECORDS SUMMARY | 2022-05-10 13:10 | XMS_ITS | Encounter Summary ---
:1935 Author Organization [facility] Address [address] [place] [address] Care Team Providers Name Role Phone Unavailable Primary Care Provider Unavailable Encounter Details Date Type Department Care Team Description 07/05/2014 Hospital Encounter HX NO MAPPING Provider, Historical [...] 10/21/2020 relatives? How often do you attend hindu or religion services? Patien t refused 10/21/2020 Do you belong to any clubs or organizations such as Yes 10/21/2020 hindu groups, unions, fraternal or athletic groups, or [...]
--- OUTSIDE RECORDS SUMMARY | 2022-05-10 13:10 | XMS_ITS | Encounter Summary ---
:1935 Author Organization [facility] Address [address] [place] [address] Care Team Providers Name Role Phone Unavailable Primary Care Provider Unavailable Encounter Details Date Type Department Care Team Description 03/17/2012 Hospital Encounter HX NO MAPPING Social History [...] How often do you attend adventism or islam services? Patien t refused 10/21/2020 Do you [...]
--- OUTSIDE RECORDS SUMMARY | 2022-05-10 13:10 | XMS_ITS | Encounter Summary ---
:1935 Author Organization [facility] Address [address] [place] [address] Care Team Providers Name Role Phone Unavailable Primary Care Provider Unavailable Encounter Details Date Type Department Care Team Description 03/11/2014 - Hospital Encounter HX RST INFUSION [place], 03/18/2014 THERAPY Yana Franklin R.N. [address] [place] [address] Social History Tobacco Use Types Packs/Day Years [...] 10/21/2020 relatives? How often do you attend jewish or anabaptist services? Patien t refused 10/21/2020 Do you belong to any clubs or organizations such as Yes 10/21/2020 jewish groups, unions, fraternal or athletic groups, or [...] Sign Reading Time Taken Comments Blood Pressure 140/63 03/11/2014 12:41 PM CDT Pulse 73 03/11/2014 12:41 PM CDT Temperature - - Respiratory Rate 18 03/11/2014 12:41 PM CDT Oxygen Saturation - - Inhaled Oxygen Concentration - - Weight - - Height - - Body Mass Index - - documented in this encounter Plan of Treatment Not on filedocumented as of this encounter Visit Diagnoses Not on filedocumented in this encounter
--- OUTSIDE RECORDS SUMMARY | 2022-05-10 13:10 | XMS_ITS | Encounter Summary ---
:1935 Author Organization [facility] Address [address] [place] [address] Care Team Providers Name Role Phone Unavailable Primary Care Provider Unavailable Encounter Details Date Type Department Care Team Description 06/22/2011 Hospital Encounter HX NO MAPPING Social History [...] How often do you attend mandaeism or taoist services? Patien t refused 10/21/2020 [...]
--- OUTSIDE RECORDS SUMMARY | 2022-05-10 13:10 | XMS_ITS | Encounter Summary ---
:1935 Author Organization [facility] Address [address] [place] [address] Care Team Providers Name Role Phone Unavailable Primary Care Provider Unavailable Encounter Details Date Type Department Care Team Description 11/09/2013 Hospital Encounter HX NO MAPPING Social History [...] How often do you attend mormon or yarsani services? Patien t refused 10/21/2020 [...]
--- OUTSIDE RECORDS SUMMARY | 2022-05-10 13:10 | XMS_ITS | Encounter Summary ---
:1935 Author Organization [facility] Address [address] [place] [address] Care Team Providers Name Role Phone Unavailable Primary Care Provider Unavailable Encounter Details Date Type Department Care Team Description 03/11/2014 - 03/18/2014 Hospital Encounter HX NO MAPPING Social History [...] How often do you attend taoist or caodaism services? Patien t refused 10/21/2020 [...]
--- OUTSIDE RECORDS SUMMARY | 2022-05-10 13:10 | XMS_ITS | Encounter Summary ---
:1935 Author Organization [facility] Address [address] [place] [address] Care Team Providers Name Role Phone Unavailable Primary Care Provider Unavailable Encounter Details Date Type Department Care Team Description 07/10/2012 Hospital Encounter HX NO MAPPING Social History [...] How often do you attend baptist or alevism services? Patien t refused 10/21/2020 [...]
--- OUTSIDE RECORDS SUMMARY | 2022-05-10 13:10 | XMS_ITS | Encounter Summary ---
:1935 Author Organization [facility] Address [address] [place] [address] Care Team Providers Name Role Phone Unavailable Primary Care Provider Unavailable Encounter Details Date Type Department Care Team Description 02/14/2013 Hospital Encounter HX NO MAPPING Social History [...] How often do you attend catholic or congregation services? Patien t refused 10/21/2020 Do you [...] or slept in a intermediate (including now)? Sex Assigned at Date Recorded Not on file documented as of this encounter Plan of Treatment Not on filedocumented as of this encounter Visit Diagnoses Not on filedocumented in this encounter
[2022-05-10 13:18] LABS: PCR FLU A Negative PCR FLU A (Negative); PCR FLU B Negative PCR FLU B (Negative); PCR RSV Negative PCR RSV (Negative)
[2022-05-10 13:26] LABS: SARS PCR* Negative SARS-CoV-2 (Negative)
[2022-05-10 13:37] LABS: Prothrombin Time 34.2 Seconds
[2022-05-10 13:50] LABS: Chloride* 100 mmol/L (96-114); Potassium* 4.5 mmol/L (3.6-5.1); Sodium* 137 mmol/L (135-149)
[2022-05-10 13:53] LABS: Blood Urea Nitrogen* 37 mg/dL (7-30); Carbon Dioxide* 30 mmol/L (20-32); Creatinine* 0.8 mg/dL (0.5-1.5); Est. Creatinine Clearance* 26.51; Estimated Glomerular Filt Rate 72 ml/min; Glucose* 86 mg/dL (60-115)
[2022-05-10 13:54] LABS: Calcium* 9.1 mg/dL (8.4-10.6)
[2022-05-10 14:03] LABS: NT Pro B Type NatriureticPept* 2830 PG/mL (0-450)
[2022-05-10 14:58] LABS: Troponin I* 0.08 ng/mL (0.01-0.04)
== END 2022-05-10 15:35 | disposition home or self-care (01) ==
PROVIDERS: Emergency Provider Emergency Medicine Emergency Medical Services; PCP Family Medicine
DX: J22 Unspecified acute lower respiratory infection (principal)
CPT/HCPCS: 36415; 71045; 80048; 83880; 84484; 85025; 85610; 87502; 87634; 87635; 93005; 99284

== ENCOUNTER 2022-05-21 10:13 | Outpatient (CLI) | payer MEDICARE, BC, SELFPAY ==
[2022-05-21 12:22] LABS: INR 3.71 (0.91-1.10); Prothrombin Time 38.4 Seconds
== END 2022-05-21 10:14 | disposition home or self-care (01) ==
PROVIDERS: PCP Family Medicine; Visit Provider Family Medicine
DX: I48.91 Unspecified atrial fibrillation (principal); R10.9 Unspecified abdominal pain
CPT/HCPCS: 85610

== ENCOUNTER 2022-06-01 11:04 | Outpatient (CLI) | payer MEDICARE, BC, SELFPAY ==
[2022-06-01 13:01] LABS: Prothrombin Time 19.9 Seconds
== END 2022-06-01 11:05 | disposition home or self-care (01) ==
LOC: NFLDREF 11:06
PROVIDERS: PCP Family Medicine; Visit Provider Family Medicine
DX: R79.1 Abnormal coagulation profile (principal)
CPT/HCPCS: 85610

== ENCOUNTER 2022-08-26 11:08 | Outpatient (CLI) | payer MEDICARE, BC, SELFPAY | END 2022-08-26 11:09 | disposition home or self-care (01) | PROVIDERS: PCP Family Medicine; Visit Provider Family Medicine | DX: R79.1 Abnormal coagulation profile (principal); R63.4 Abnormal weight loss; R06.00 Dyspnea, unspecified; J44.9 Chronic obstructive pulmonary disease, unspecified; R09.81 Nasal congestion | CPT/HCPCS: 83880; 86140 ==